=== PATIENT | male | born 1955 | race Caucasian/White ===

== ENCOUNTER → 2020-06-21 15:22 | Outpatient (BNVA) | payer MEDICARE, SELFPAY | PROVIDERS: PCP Nurse Practitioner Family; Visit Provider Nurse Practitioner Family | DX: Z95.2 Presence of prosthetic heart valve (principal); Z51.81 Encounter for therapeutic drug level monitoring; Z79.01 Long term (current) use of anticoagulants | CPT/HCPCS: 85610; 99211 ==

== ENCOUNTER → 2020-07-19 13:51 | Outpatient (BNVA) | payer MEDICARE, SELFPAY | PROVIDERS: PCP Nurse Practitioner Family; Referring Provider Nurse Practitioner Family; Visit Provider Internal Medicine | DX: Z95.2 Presence of prosthetic heart valve (principal); Z79.01 Long term (current) use of anticoagulants; Z51.81 Encounter for therapeutic drug level monitoring | CPT/HCPCS: 85610; 99211 ==

== ENCOUNTER → 2020-08-16 13:01 | Outpatient (BNVA) | payer MEDICARE, SELFPAY | PROVIDERS: PCP Nurse Practitioner Family; Referring Provider Nurse Practitioner Family; Visit Provider Internal Medicine | DX: Z95.2 Presence of prosthetic heart valve (principal); Z51.81 Encounter for therapeutic drug level monitoring; Z79.01 Long term (current) use of anticoagulants | CPT/HCPCS: 85610; 99211 ==

== ENCOUNTER → 2020-08-30 13:01 | Outpatient (BNVA) | payer MEDICARE, SELFPAY | PROVIDERS: PCP Nurse Practitioner Family; Visit Provider Internal Medicine | DX: Z95.2 Presence of prosthetic heart valve (principal); Z51.81 Encounter for therapeutic drug level monitoring; Z79.01 Long term (current) use of anticoagulants | CPT/HCPCS: 85610; 99211 ==

== ENCOUNTER 2020-09-10 11:18 | Outpatient (REF) | payer MEDICARE, SELFPAY | END 2020-09-10 11:19 | disposition home or self-care (01) | LOC: HO.LAB 11:18 | PROVIDERS: PCP Hospitalist; Visit Provider Internal Medicine | DX: Z20.828 Contact with and (suspected) exposure to other viral communicable diseases (principal) | CPT/HCPCS: C9803; U0003 ==

== ENCOUNTER → 2020-09-20 13:12 | Outpatient (BNVA) | payer MEDICARE, SELFPAY | PROVIDERS: PCP Hospitalist; Visit Provider Internal Medicine | DX: Z95.2 Presence of prosthetic heart valve (principal); Z79.01 Long term (current) use of anticoagulants; Z51.81 Encounter for therapeutic drug level monitoring | CPT/HCPCS: 85610; 99211 ==

== ENCOUNTER → 2020-10-18 12:57 | Outpatient (BNVA) | payer MEDICARE, SELFPAY | PROVIDERS: PCP Nurse Practitioner Family; Visit Provider Internal Medicine | DX: Z95.2 Presence of prosthetic heart valve (principal); Z51.81 Encounter for therapeutic drug level monitoring; Z79.01 Long term (current) use of anticoagulants | CPT/HCPCS: 85610; 99211 ==

== ENCOUNTER → 2020-11-15 13:03 | Outpatient (BNVA) | payer MEDICARE, SELFPAY | PROVIDERS: PCP Nurse Practitioner Family; Visit Provider Internal Medicine | DX: Z95.2 Presence of prosthetic heart valve (principal); Z51.81 Encounter for therapeutic drug level monitoring; Z79.01 Long term (current) use of anticoagulants | CPT/HCPCS: 85610; 99211 ==

== ENCOUNTER 2020-11-16 13:50 | Outpatient (REF) | payer MEDICARE, SELFPAY | END 2020-11-16 13:51 | disposition home or self-care (01) | LOC: HO.LNP 13:50 | PROVIDERS: Visit Provider Physician Assistant | DX: Z20.822 Contact with and (suspected) exposure to COVID-19 (principal); B34.9 Viral infection, unspecified | CPT/HCPCS: U0003; U0005 ==

== ENCOUNTER → 2020-11-20 14:29 | Outpatient (BNVA) | payer MEDICARE, SELFPAY | PROVIDERS: PCP Nurse Practitioner Family; Visit Provider Internal Medicine | DX: Z95.2 Presence of prosthetic heart valve (principal); Z51.81 Encounter for therapeutic drug level monitoring; Z79.01 Long term (current) use of anticoagulants | CPT/HCPCS: 85610; 99211 ==

== ENCOUNTER → 2020-11-27 10:28 | Outpatient (BNVA) | payer MEDICARE, SELFPAY | PROVIDERS: PCP Nurse Practitioner Family; Visit Provider Internal Medicine | DX: Z95.2 Presence of prosthetic heart valve (principal); Z51.81 Encounter for therapeutic drug level monitoring; Z79.01 Long term (current) use of anticoagulants | CPT/HCPCS: 85610; 99211 ==

== ENCOUNTER → 2021-01-08 13:22 | Outpatient (BNVA) | payer MEDICARE, SELFPAY | PROVIDERS: PCP Nurse Practitioner Family; Visit Provider Internal Medicine | DX: Z95.2 Presence of prosthetic heart valve (principal); Z51.81 Encounter for therapeutic drug level monitoring; Z79.01 Long term (current) use of anticoagulants | CPT/HCPCS: 85610; 99211 ==

== ENCOUNTER 2021-01-22 09:13 | Outpatient (REF) | payer MEDICARE, SELFPAY ==
--- NOTE | ~2021-01-22 | XR_ITS ---
EXAMINATION: XR CHEST CLINICAL INFORMATION: Shortness of breath COMPARISON: Previous chest x-ray most recent May 2019 TECHNIQUE: 2 views of the chest were obtained. FINDINGS: The cardiac and mediastinal contours are stable. There is an aortic valve ring and median sternotomy wires. There is elevation of the right hemidiaphragm that is unchanged. There is subsegmental atelectasis of the right lung base. The lungs are otherwise clear. There is no pleural effusion or pneumothorax. There are mild degenerative changes of the spine. XR/XR chest 2V IMPRESSION: No evidence for acute disease in the chest.
[2021-01-22 11:25] LABS: MANUAL DIFF FLAG NO
[2021-01-22 11:37] LABS: Basophils Percent Auto 0.5 % (0-2); Eosinophils Absolute Auto 0.2 X10*3/uL (0.0-0.4); Eosinophils Percent Auto 2.5 % (0-4); Hematocrit 46.8 % (42-52); Hemoglobin 15.4 g/dl (14.0-18.0); Imm Gran Abs Auto 0.01 X10*3/uL (0.00-0.03); Imm Gran Pct Auto 0.2 % (0.0-0.4); Lymphocytes Absolute Auto 1.8 X10*3/uL (1.2-4.9); Mean Corpuscular HGB Conc 32.9 g/dl (31.0-36.0); Mean Corpuscular Hemoglobin 29.1 pg (27.0-33.0); Mean Corpuscular Volume 88.5 fL (80-98); Mean Platelet Volume 9.7 fL (9.4-12.4); Monocytes Absolute Auto 0.9 X10*3/uL (0.1-1.2); Monocytes Percent Auto 15.1 % (2-11); Neutrophils Absolute Auto 3.1 X10*3/uL (2.0-8.3); Neutrophils Percent Auto 51.7 % (45-73); Platelet Count 205 X10*3/uL (160-400); Red Blood Count 5.29 X10*6/uL (4.60-5.80); Red Cell Distribution Width 14.1 % (11.0-16.0); White Blood Count 5.9 X10*3/uL (4.8-10.8)
[2021-01-22 12:15] LABS: Anion Gap 12 (12-20); Blood Urea Nitrogen 20 mg/dL (9-16); Calcium 10.8 mg/dL (8.4-10.2); Carbon Dioxide 25 mmol/L (22-29); Chloride 106 mmol/L (96-108); Cholesterol 133 mg/dL; Estimated Glomerular Filt Rate > 60; Glucose Fasting 77 mg/dL (60-99); HDL Cholesterol 44 mg/dL; Iron 120 mcg/dL (45-160); LDL Cholesterol Calculated 56 mg/dl; Percent Iron Saturation 38 % (15-50); Potassium 4.4 mmol/L (3.3-5.1); Sodium 139 mmol/L (135-145); Total Iron Binding Capacity 320 mcg/dL (228-428); Triglycerides 165 mg/dL; Unsaturated Iron Binding 200 ug/dL
[2021-01-22 12:23] LABS: Ferritin 141 ng/mL (20-250); Prostate Specific Antigen Scr 1.05 ng/mL (<0.05-4.0); TSH reflex Free T4 3.07 uIU/mL (0.32-4.0)
[2021-01-22 12:48] LABS: Folate 6.9 ng/mL (> or = 4.0); Vitamin B12 387 pg/mL (200-900)
[2021-01-23 15:21] LABS: Calcium, Ionized 5.9 mg/dL (4.8-5.6)
[2021-01-24 14:22] LABS: Calcium (PTHI) 10.9 mg/dL (8.6-10.3); PTHI 92 pg/mL (14-64)
== END 2021-01-22 09:14 | disposition home or self-care (01) ==
LOC: HO.HMGCLDS 09:13
PROVIDERS: PCP Nurse Practitioner Family; Visit Provider Nurse Practitioner Family
DX: R53.83 Other fatigue (principal); I10 Essential (primary) hypertension; E78.5 Hyperlipidemia, unspecified; R06.02 Shortness of breath; E83.52 Hypercalcemia; Z12.5 Encounter for screening for malignant neoplasm of prostate
CPT/HCPCS: 36415; 71046; 80048; 80061; 82330; 82607; 82728; 82746; 83540; 83970; 84153; 84443; 85025

== ENCOUNTER 2021-01-27 12:45 | Outpatient (REF) | payer MEDICARE, SELFPAY ==
[2021-01-27 14:32] LABS: Vitamin D 25-OH Total 22.8 ng/mL (>30)
== END 2021-01-27 12:46 | disposition home or self-care (01) ==
LOC: HO.HMGCLDS 12:45
PROVIDERS: PCP Nurse Practitioner Family; Visit Provider Nurse Practitioner Family
DX: Z13.21 Encounter for screening for nutritional disorder (principal)
CPT/HCPCS: 36415; 82306

== ENCOUNTER → 2021-02-12 13:01 | Outpatient (BNVA) | payer MEDICARE, SELFPAY | PROVIDERS: PCP Nurse Practitioner Family; Visit Provider Internal Medicine | DX: Z95.2 Presence of prosthetic heart valve (principal); Z51.81 Encounter for therapeutic drug level monitoring; Z79.01 Long term (current) use of anticoagulants | CPT/HCPCS: 85610; 99211 ==

== ENCOUNTER → 2021-03-26 10:25 | Outpatient (BNVA) | payer MEDICARE, SELFPAY | PROVIDERS: PCP Nurse Practitioner Family; Visit Provider Internal Medicine | DX: Z95.2 Presence of prosthetic heart valve (principal); Z51.81 Encounter for therapeutic drug level monitoring; Z79.01 Long term (current) use of anticoagulants | CPT/HCPCS: 85610; 99211 ==

== ENCOUNTER 2021-04-02 08:21 | Outpatient (REF) | payer MEDICARE, SELFPAY ==
[2021-04-02 12:05] LABS: Free T4 (Free Thyroxine) 0.89 ng/dL (0.71-1.85); Thyroid Stimulating Hormone 2.64 uIU/mL (0.32-4.0); Vitamin D 25-OH Total 44.1 ng/mL (>30)
[2021-04-02 12:08] LABS: Alanine Aminotransferase 48 U/L (0-40); Albumin Level 4.3 g/dL (3.5-5.0); Alkaline Phosphatase 64 U/L (39-117); Anion Gap 11 (12-20); Aspartate Amino Transferase 32 U/L (5-37); Bilirubin Total 0.8 mg/dL (0.0-1.0); Blood Urea Nitrogen 18 mg/dL (9-16); Carbon Dioxide 25 mmol/L (22-29); Chloride 107 mmol/L (96-108); Estimated Glomerular Filt Rate > 60; Glucose Random 86 mg/dL (60-115); Potassium 4.8 mmol/L (3.3-5.1); Sodium 138 mmol/L (135-145); Total Protein 7.2 g/dL (6.5-8.0)
[2021-04-02 12:35] LABS: Calcium 11.1 mg/dL (8.4-10.2)
[2021-04-03 10:57] LABS: Calcium, Ionized 5.8 mg/dL (4.8-5.6)
[2021-04-03 19:45] LABS: Calcium (PTHI) 11.1 mg/dL (8.6-10.3); PTHI 122 pg/mL (14-64)
[2021-04-03 22:26] LABS: Prot Elec - Albumin 4.4 g/dL (3.8-4.8); Prot Elec - Alpha1 0.3 g/dL (0.2-0.3); Prot Elec - Alpha2 0.6 g/dL (0.5-0.9); Prot Elec - Beta 1 0.4 g/dL (0.4-0.6); Prot Elec - Beta 2 0.4 g/dL (0.2-0.5)
== END 2021-04-02 08:22 | disposition home or self-care (01) ==
LOC: HO.LAB 08:21
PROVIDERS: PCP Nurse Practitioner Family; Visit Provider Internal Medicine
DX: E21.3 Hyperparathyroidism, unspecified (principal); E55.9 Vitamin D deficiency, unspecified
CPT/HCPCS: 36415; 80053; 82306; 82330; 83970; 84100; 84165; 84439; 84443; 99202

== ENCOUNTER 2021-04-08 08:46 | Outpatient (REF) | payer MEDICARE, SELFPAY ==
[2021-04-08 09:46] LABS: Total Volume 24 Hour Urine 1375 mL
[2021-04-08 10:49] LABS: Creatinine, 24Hr Urine 1.8 G/Day (1.0-2.0); Creatinine, mg/dL 128.94
[2021-04-11 20:17] LABS: Calcium, 24 Hr Urine 583 mg/24 h; Calcium/Creatinine Ratio 319 mg/g creat (30-210); Creatinine 24Hr Urine 1.83 g/24 h (0.50-2.15)
== END 2021-04-08 08:47 | disposition home or self-care (01) ==
LOC: HO.LNP 08:46
PROVIDERS: Visit Provider Internal Medicine
DX: E21.3 Hyperparathyroidism, unspecified (principal)
CPT/HCPCS: 82340; 82570

== ENCOUNTER 2021-04-09 10:56 | Outpatient (REF) | payer MEDICARE, SELFPAY ==
--- NOTE | ~2021-04-09 | US_ITS ---
EXAMINATION: US THYROID CLINICAL INFORMATION: Hyperparathyroidism, unspecified. COMPARISON: Ultrasound soft tissue head/neck thyroid dated 09/18/2009. TECHNIQUE: Linear transducer grayscale and color Doppler examination with attention to the region of the thyroid. FINDINGS: SIZE: Measurements of the thyroid lobes and nodules are given in sagittal, anteroposterior and transverse dimensions respectively. Right Thyroid Lobe: 4.1 x 1.7 x 2.3 cm, volume 8.3 mL. Parenchyma: The gland echotexture is homogeneous. Thyroid vascularity is normal. Left Thyroid Lobe: 2.7 x 0.6 x 0.7 cm, volume 0.6 mL. Parenchyma: The gland echotexture is homogeneous. Thyroid vascularity is normal. Isthmus: 0.5 cm in maximum AP dimension. Estimated total number of nodules greater than or equal to 1 cm: 0. Refined Syrup Operator nodules are described as follows: 1. Location: Right mid. Size: 0.59 x 0.62 x 0.57 cm, volume 0.11 mL. Nodule characteristics: Composition: Solid/almost completely solid (2). Echogenicity: Hypoechoic (2). Shape: Not taller than wide (0). Margins: Smooth (0). Echogenic Foci: None (0). ACR TI-RADS total points: 4 ACR TI-RADS category: 4 NODES: No lymphadenopathy is seen in the tissue surrounding the thyroid gland. US/US thyroid IMPRESSION: Slightly enlarged right thyroid lobe. Solitary subcentimeter nodule right mid pole, non-suspicious. ACR TI-RADS RECOMMENDATION REFERENCE: Ultrasound-guided fine-needle aspiration, follow up ultrasound, no further follow up. * TR1 (0 point) and TR 2 (2 points): No FNA or follow up * TR3 (3 points): FNA if more than or equal to 2.5 cm in maximum dimension, follow up ultrasound in 1, 3 and 5 years if 1.5 to 2.4 cm in maximum dimension. * TR4 (4-6 points): FNA if more than or equal to 1.5 cm in maximum dimension, follow up ultrasound in 1, 2, 3 and 5 years if 1 to 1.4 cm in maximum dimension. * TR5 (more than or equal to 7 points): FNA if more than or equal to 1 cm in maximum dimension, follow up ultrasound every year for 5 years if 0.5 to 0.9 cm in maximum dimension. * TR3, TR4 or TR5 nodules that are below the size threshold for follow up receive no follow up.
== END 2021-04-09 10:57 | disposition home or self-care (01) ==
LOC: HO.US 10:56
PROVIDERS: PCP Nurse Practitioner Family; Visit Provider Internal Medicine
DX: E21.3 Hyperparathyroidism, unspecified (principal)
CPT/HCPCS: 76536

== ENCOUNTER → 2021-05-07 13:03 | Outpatient (BNVA) | payer MEDICARE, SELFPAY | PROVIDERS: PCP Nurse Practitioner Family; Visit Provider Internal Medicine | DX: Z95.2 Presence of prosthetic heart valve (principal); Z51.81 Encounter for therapeutic drug level monitoring; Z79.01 Long term (current) use of anticoagulants | CPT/HCPCS: 85610; 99211 ==

== ENCOUNTER 2021-05-09 08:27 | Outpatient (REF) | payer MEDICARE, SELFPAY ==
--- NOTE | ~2021-05-09 | MM_ITS ---
EXAMINATION: BONE DENSITOMETRY CLINICAL INDICATION: Hyperparathyroidism, unspecified. COMPARISON: This is the patient's baseline examination. TECHNIQUE: Using a [employer] DXA System (software version: 13.1) manufactured by [employer], dual-energy x-ray absorptiometry was performed of the lumbar spine, left hip and left forearm radius 33%. The images are of good technical quality. Summary results are attached. FINDINGS: AP SPINE L1-L4: BMD 1.425 g/cm2, Z-score 1.5, T-score 1.7, normal. LEFT FEMUR, NECK: BMD 0.868 g/cm2, Z-score -0.9, T-score -1.6, osteopenia. LEFT FEMUR, TOTAL: BMD 1.008 g/cm2, Z-score -0.5, T-score -0.6, normal. LEFT FOREARM RADIUS 33%: BMD 0.918 g/cm2, Z-score 0.0, T-score -0.7, normal. IDENTIFIED RISK FACTORS: Hyperparathyroidism. Height loss. HISTORY OF FRACTURE: None listed. MEDICATIONS: Vitamin D. MM/XR DEXA appendicular skeleton IMPRESSION: 1. DIAGNOSIS: Osteopenia based on the lowest T-score value of -1.6 in the femoral neck applying World Health Organization criteria. 2. 10-YEAR FRACTURE RISK PREDICTION, FRAX: Major osteoporotic fracture (clinical spine, forearm, hip or shoulder) 6.1%. Hip fracture 1.1%. 3. Treatment Recommendations: NOF guidelines recommend consideration for treatment in postmenopausal women and men age 50 and older presenting with the following: -A hip or vertebral (clinical or morphometric) fracture. -T-score less than or equal to -2.5 at the femoral neck or spine after appropriate evaluation to exclude secondary causes. -Low bone mass at the hip or spine and a 10-year fracture probability by FRAX of greater than or equal to 3% for hip fracture or greater than or equal to 20% for major osteoporotic fracture based on the [place] adapted WHO algorithm. 4. Other Recommendations: All treatment decisions require clinical judgment and consideration of individual patient factors, including patient preferences, comorbidities, previous drug use, risk factors not captured in the FRAX model (e.g. frailty, falls, vitamin D deficiency, increased bone turnover, interval significant decline in bone density) and possible under or overestimation of fracture risk by FRAX. Additional medical evaluation for secondary cause of low bone mineral density may be appropriate. FUTURE SCAN RECOMMENDATION: People with diagnosed cases of osteoporosis or at high risk for fracture should have regular bone mineral density tests. For patients eligible for Medicare, routine testing is allowed once every 2 years. The testing frequency can be increased to one year for patients who have rapidly progressing disease, those who are receiving or discontinuing medical therapy to restore bone mass, or have additional risk factors.
== END 2021-05-09 08:28 | disposition home or self-care (01) ==
LOC: HO.MAMMO 08:27
PROVIDERS: PCP Nurse Practitioner Family; Visit Provider Internal Medicine
DX: Z13.820 Encounter for screening for osteoporosis (principal); E21.3 Hyperparathyroidism, unspecified; Z79.899 Other long term (current) drug therapy
CPT/HCPCS: 77081

== ENCOUNTER 2021-05-09 11:19 | Outpatient (REF) | payer MEDICARE, SELFPAY ==
--- NOTE | ~2021-05-09 | US_ITS ---
EXAMINATION: US SCROTUM CLINICAL INFORMATION: Specified disorders of the male genital organs. COMPARISON: Ultrasound scrotum 02/23/2018. TECHNIQUE: A sonogram of the scrotum was performed assessing de leon-scale appearance and color Doppler flow. Spectral Doppler analysis of the arterial and venous flow were performed in the testes bilaterally. FINDINGS: RIGHT: Right testicle measures 5.2 x 2.9 x 3.2 cm, volume 25.4 mL. A single punctate calcification is present in the right testes (ultrasound #1, 62/63). No focal testicular parenchymal lesions are visualized. Spectral Doppler analysis of the arterial and venous flow is normal in the right testis. Right epididymal head is normal in size. A large complex septated spermatocele is seen on the right measuring about 7 x 3.6 cm in greatest dimension, (previously 5.4 cm in greatest dimension). No right hydrocele or varicocele is seen. Right epididymal Doppler flow is normal. LEFT: Left testicle measures 4.9 x 2.2 x 3.8 cm, volume 20.7 mL. Spectral Doppler analysis of the arterial and venous flow is normal in the left testis. Left epididymal head is normal in size. No left hydrocele or varicocele is seen. Left epididymal Doppler flow is normal. US/US scrotum IMPRESSION: Slight enlargement of right-sided spermatocele now measuring about 7 cm in maximal dimension.
== END 2021-05-09 11:20 | disposition home or self-care (01) ==
LOC: HO.HMGCX 11:19
PROVIDERS: PCP Nurse Practitioner Family; Visit Provider Nurse Practitioner Family
DX: N50.89 Other specified disorders of the male genital organs (principal)
CPT/HCPCS: 76870

== ENCOUNTER → 2021-06-04 12:59 | Outpatient (BNVA) | payer MEDICARE, SELFPAY | PROVIDERS: PCP Nurse Practitioner Family; Visit Provider Internal Medicine | DX: Z95.2 Presence of prosthetic heart valve (principal); Z51.81 Encounter for therapeutic drug level monitoring; Z79.01 Long term (current) use of anticoagulants | CPT/HCPCS: 85610; 99211 ==

== ENCOUNTER → 2021-06-27 13:39 | Outpatient (BNVA) | payer MEDICARE, SELFPAY | PROVIDERS: PCP Nurse Practitioner Family; Visit Provider Internal Medicine | DX: Z95.2 Presence of prosthetic heart valve (principal); Z51.81 Encounter for therapeutic drug level monitoring; Z79.01 Long term (current) use of anticoagulants | CPT/HCPCS: 85610; 99211 ==

== ENCOUNTER → 2021-07-09 11:07 | Outpatient (BNVA) | payer MEDICARE, SELFPAY | PROVIDERS: PCP Nurse Practitioner Family; Visit Provider Internal Medicine | DX: E55.9 Vitamin D deficiency, unspecified (principal); E21.0 Primary hyperparathyroidism | CPT/HCPCS: Q3014 ==

== ENCOUNTER → 2021-07-23 13:06 | Outpatient (BNVA) | payer MEDICARE, SELFPAY | PROVIDERS: PCP Nurse Practitioner Family; Visit Provider Internal Medicine | DX: Z95.2 Presence of prosthetic heart valve (principal); Z51.81 Encounter for therapeutic drug level monitoring; Z79.01 Long term (current) use of anticoagulants | CPT/HCPCS: 85610; 99211 ==

== ENCOUNTER → 2021-08-20 13:02 | Outpatient (BNVA) | payer MEDICARE, SELFPAY | PROVIDERS: PCP Nurse Practitioner Family; Visit Provider Internal Medicine | DX: Z95.2 Presence of prosthetic heart valve (principal); Z51.81 Encounter for therapeutic drug level monitoring; Z79.01 Long term (current) use of anticoagulants | CPT/HCPCS: 85610; 99211 ==

== ENCOUNTER → 2021-09-17 12:56 | Outpatient (BNVA) | payer MEDICARE, SELFPAY | PROVIDERS: PCP Nurse Practitioner Family; Visit Provider Internal Medicine | DX: Z95.2 Presence of prosthetic heart valve (principal); Z51.81 Encounter for therapeutic drug level monitoring; Z79.01 Long term (current) use of anticoagulants | CPT/HCPCS: 85610; 99211 ==

== ENCOUNTER → 2021-09-19 12:47 | Outpatient (BNVA) | payer MEDICARE, SELFPAY | PROVIDERS: PCP Nurse Practitioner Family; Visit Provider Urology | DX: N40.1 Benign prostatic hyperplasia with lower urinary tract symptoms (principal); N13.8 Other obstructive and reflux uropathy; N43.40 Spermatocele of epididymis, unspecified; R39.11 Hesitancy of micturition | CPT/HCPCS: 99202 ==

== ENCOUNTER 2021-10-01 12:00 | Day surgery (SDC) | payer MEDICARE, SELFPAY ==
[2021-09-24 16:26] VITALS: BMI 34.0
--- NOTE | 2021-09-30 09:15 | P.CONAN_ITS ---
Documented by User: Laurence Cortes NP 09/30/21 13:36 HPI - Anesthesia Eval Consult details Narrative: 66yo M for Colonoscopy Cardiac info from [facility] pending [facility] Active Problems Active Problems: All Active Problems (Updated 09/19/21 @ 13:21 by Ken Hawk MD) Current use of anticoagulant therapy (Acute) Presence of prosthetic heart valve (Acute) Screening PSA (prostate specific antigen) (Acute) Otitis media (Acute) Otitis externa (Acute) Fatigue (Acute) Hypercalcemia (Acute) Encounter for vitamin deficiency screening (Acute) Elevated parathyroid hormone (Acute) 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 (Acute) 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 (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) BPH w urinary obs/LUTS (Acute) Urinary hesitancy (Acute) Spermatocele (Acute) Primary hyperparathyroidism (Acute) Vitamin D deficiency (Acute) Hyperparathyroidism (Acute) Dyslipidemia (Acute) HTN (hypertension) (Acute) Past Medical History Medical History Cervical spondylolysis Dyslipidemia Gynecomastia HTN (hypertension) Hyperparathyroidism Malignant melanoma Osteoarthritis Primary hyperparathyroidism Rotator cuff tear Vitamin D deficiency Family History Family History Father History of CVA (cerebrovascular accident) Diabetes mellitus Mother Stomach ulcer Daughter Brain tumor Maternal Grandfather No problems noted. Maternal Grandmother No problems noted. Paternal Grandfather No problems noted. Paternal Grandmother No problems noted. Maternal Aunt No problems noted. Maternal Uncle No problems noted. Paternal Aunt No problems noted. Paternal Uncle No problems noted. Surgical History Surgical History Aortic valve replaced History of lobectomy of thyroid History of right knee joint replacement Hx of cardiac cath Hx of colonoscopy Hx of repair of rotator cuff Social History Social History (Updated 09/24/21 @ 16:23 by Sruthi Palmer RN) Alcohol intake: current Alcohol intake frequency: a few times a week Patient Tobacco Use Status: Former Tobacco user Quit Date: 1984 Tobacco use type: Cigarette Cigarette Packs Per Day: 1 Years Smoked: 12 e-Cigarette/Vaping Use: Never Used Use of substances other than those prescribed or required for medical reasons: No Are you DNR?: No Advance Directives: No Advance Directives Information Provided: Yes Advance Directives on File: No Meds Allergies Allergy/AdvReac Type Severity Reaction Status Date / Time No Known Allergies Allergy Mild NOT Verified 09/19/21 13:01 APPLICABLE Home Medications Medication Instructions Recorded Confirmed Last Taken Type aspirin 81 mg 81 mg PO DAILY 01/22/21 09/24/21 Unknown History tablet,delayed release (Adult Low Dose Aspirin) acetaminophen 500 500 mg PO Q6H 02/12/21 09/24/21 Unknown History mg capsule PRN Exam Exam Date and Time: September 30, 2021 0915 Height,Weight and Vital Signs: Height 5 ft 9 in Weight 104.326 kg Pertinent Lab Results Pertinent Lab Results: Laboratory Tests 01/22/21 04/02/21 09:25 10:00 WBC 5.9 Hgb 15.4 Hct 46.8 Plt Count 205 Sodium 138 Potassium 4.8 Chloride 107 Carbon Dioxide 25 BUN 18 H Creatinine 0.83 Narrative Narrative: EKG 01/2021 SB @ 52 1st degree AV block RBBB Per 06/2020 Cardiology Office Visit: Stress Test 2017: no evidence of ischemia Echo 02/2019: EF 60%, mild conc LVH, bioprosthetic aortic valve functioning normally, trace aortic insufficiency, mean aortic valve gradient was 13mmHg Assessment and Plan Assessment Anesthesia Assessment: Chart Reviewed Documented by User: Gael Barboza 10/01/21 12:18 HPI - Anesthesia Eval Consult details Narrative: 66yo M for Colonoscopy Cardiac info from [facility] pending s/p AVR in 2006 on coumadn , bridged to lovenox . [facility] Past Medical History Medical History Cervical spondylolysis Dyslipidemia Gynecomastia HTN (hypertension) Hyperparathyroidism Malignant melanoma Osteoarthritis Primary hyperparathyroidism Rotator cuff tear Vitamin D deficiency Family History Family History Father History of CVA (cerebrovascular accident) Diabetes mellitus Mother Stomach ulcer Daughter Brain tumor Maternal Grandfather No problems noted. Maternal Grandmother No problems noted. Paternal Grandfather No problems noted. Paternal Grandmother No problems noted. Maternal Aunt No problems noted. Maternal Uncle No problems noted. Paternal Aunt No problems noted. Paternal Uncle No problems noted. Family history of problems with anesthesia: No Surgical History Surgical History Aortic valve replaced History of lobectomy of thyroid History of right knee joint replacement Hx of cardiac cath Hx of colonoscopy Hx of repair of rotator cuff History of Problems with Anesthesia: No Social History Social History (Updated 09/24/21 @ 16:23 by Sruthi Palmer RN) Alcohol intake: current Alcohol intake frequency: a few times a week Patient Tobacco Use Status: Former Tobacco user Quit Date: 1984 Tobacco use type: Cigarette Cigarette Packs Per Day: 1 Years Smoked: 12 e-Cigarette/Vaping Use: Never Used Use of substances other than those prescribed or required for medical reasons: No Are you DNR?: No Advance Directives: No Advance Directives Information Provided: Yes Advance Directives on File: No Meds Allergies Allergy/AdvReac Type Severity Reaction Status Date / Time No Known Allergies Allergy Mild NOT Verified 09/19/21 13:01 APPLICABLE Home Medications Medication Instructions Recorded Confirmed Last Taken Type aspirin 81 mg 81 mg PO DAILY 01/22/21 09/24/21 Unknown History tablet,delayed release (Adult Low Dose Aspirin) acetaminophen 500 500 mg PO Q6H 02/12/21 09/24/21 Unknown History mg capsule PRN Exam Airway Mallampati Class: IV Neck ROM: Full Loose/Missing/Broken Teeth: Yes (Chipped , missing ) Assessment and Plan Final Anesthetic Review Family History of Problems with Anesthesia: No History of Problems with Anesthesia: No NPO: Yes ASA Class: III Final Preanesthetic Review: Meds/Allgs Chart Reviewed and Anes Risks/Benef Reviewed Patient Risk: Intermediate Procedure Risk: Intermediate Anesthetic Plan Anesthetic Plan: MAC: Disposition: Standard PACU Documented by User: Rick Bautista MD 10/01/21 13:24 [facility] Past Medical History Medical History Cervical spondylolysis Dyslipidemia Gynecomastia HTN (hypertension) Hyperparathyroidism Malignant melanoma Osteoarthritis Primary hyperparathyroidism Rotator cuff tear Vitamin D deficiency Family History Family History Father History of CVA (cerebrovascular accident) Diabetes mellitus Mother Stomach ulcer Daughter Brain tumor Maternal Grandfather No problems noted. Maternal Grandmother No problems noted. Paternal Grandfather No problems noted. Paternal Grandmother No problems noted. Maternal Aunt No problems noted. Maternal Uncle No problems noted. Paternal Aunt No problems noted. Paternal Uncle No problems noted. Surgical History Surgical History Aortic valve replaced History of lobectomy of thyroid History of right knee joint replacement Hx of cardiac cath Hx of colonoscopy Hx of repair of rotator cuff Social History Social History (Updated 09/24/21 @ 16:23 by Sruthi Palmer RN) Alcohol intake: current Alcohol intake frequency: a few times a week Patient Tobacco Use Status: Former Tobacco user Quit Date: 1984 Tobacco use type: Cigarette Cigarette Packs Per Day: 1 Years Smoked: 12 e-Cigarette/Vaping Use: Never Used Use of substances other than those prescribed or required for medical reasons: No Are you DNR?: No Advance Directives: No Advance Directives Information Provided: Yes Advance Directives on File: No Meds Allergies Allergy/AdvReac Type Severity Reaction Status Date / Time No Known Allergies Allergy Mild NOT Verified 09/19/21 13:01 APPLICABLE Home Medications Medication Instructions Recorded Confirmed Last Taken Type aspirin 81 mg 81 mg PO DAILY 01/22/21 09/24/21 Unknown History tablet,delayed release (Adult Low Dose Aspirin) acetaminophen 500 500 mg PO Q6H 02/12/21 09/24/21 Unknown History mg capsule PRN Exam Airway Heart: [id number] Lungs: cta b/l Assessment and Plan Assessment Anesthesia Assessment: Anesthesia Plan Discussed Final Anesthetic Review Assessment/Block/Sedation in SS: Assess/Block/Sedation- Anesthetic Plan Anesthetic Plan: Agree w/ Assess. and Plan
[2021-10-01 12:45] LABS: INTERNATIONAL NORM RATIO 1.2 (0.9-1.1); Prothrombin Time 13.4 SEC (9.9-13.0)
[2021-10-01 12:48] VITALS: BP 170/77; PULSE 58; RESP 16; TEMP 36.9; O2SAT 96
[2021-10-01] MEDS: Lactated Ringers 1,000 ML 50 ML IVCONT (12:53)
--- NOTE | 2021-10-01 13:03 | PC.NURSE ---
Dr Bautista aware of PT/INR
--- NOTE | 2021-10-01 13:13 | MHC.SHP ---
Pre-Procedural Eval Section A Date of Service: 10/01/21 Section B Chief Complaint: screening Details of Present Illness: screening Relevant Family History (Specify if Yes): No Relevant Social History: None Present Medications: see Short Stay Collaborative assessment Medical History: Significant History (see H&P) History of Previous Operations: Relevant previous surgery/procedure and date(s) (see H&P) Allergies: Allergies Allergy/AdvReac Type Severity Reaction Status Date / Time No Known Allergies Allergy Mild NOT Verified 09/19/21 13:01 APPLICABLE Review of Systems Sugical H&P ROS: Negative: Constitution, Cardiovascular, Respiratory, Neurological, Psychiatric, Hem-Onc, Allergic/Immunologic, Gastrointestinal, Genitourinary, Musculoskeletal, Integumentary, Endocrine and Eyes/Ears/Nose/Throat Exam Surgical H&P Exam: Normal: HEENT, Normal: Heart, Normal: Lungs, Normal: Extremities, Normal: Abdomen, Normal: Skin and Normal: Neurological Plan Diagnosis/Plan: Unchanged I have reviewed the history and physical and performed a pertinent physical examination on my patient. No changes have occurred unless specified.
[2021-10-01 13:59] VITALS: BP 144/74; PULSE 56; RESP 16; TEMP 36.4; O2SAT 100
--- NOTE | 2021-10-01 14:00 | PM.OP ---
Brief Operative Note Date of Service: 10/01/21 Pre-op diagnosis: screening Post-op diagnosis: same (colon polyps) Surgeon: Dalton Alanis Anesthesia: MAC Was an Operations And Maintenance Technician used for this Procedure?: No Estimated blood loss (mL): 5 Pathology: other (see path req) Condition: stable Disposition: PACU
[2021-10-01 14:16] VITALS: BP 151/72; PULSE 55; RESP 18; TEMP 36.4; O2SAT 96
--- NOTE | 2021-10-01 23:56 | OP_ITS ---
SURGEON: Dalton Alanis MD INDICATIONS: Colon cancer screening and prior history of adenomatous colon polyps. PROCEDURE PERFORMED: Colonoscopy to the terminal ileum with biopsy and snare polypectomy. MEDICATIONS: Monitored anesthesia care. DESCRIPTION OF PROCEDURE: History and physical performed. The risks and benefits of the procedure were explained to the patient. Informed consent was obtained. The patient was placed in the left lateral decubitus position. A digital rectal exam was performed and was found to be normal. The Olympus pediatric video colonoscope was introduced into the rectum and advanced to the cecum without difficulty. The cecum was identified by transillumination, palpation, and identification of ileocecal valve. Examination was performed. The scope was removed. He tolerated the procedure well and was transferred to recovery area in stable condition. FINDINGS: The terminal ileum was normal. The visualized colonic mucosa was within normal limits without evidence of masses or ulcers. Multiple polyps were identified. At 70 cm a less than 5 mm polyp was removed with biopsy forceps. At 60 cm. two less than 5 mm polyps were snared and removed with a cold snare. At 35 cm, a 6 mm polyp was snared with cold snare and at 25 cm, a 10 mm polyp was snared with a hot snare and recovered via suction. There was sigmoid diverticulosis with scattered diverticula throughout the remainder of the colon. Retroflexed examination showed moderately large internal hemorrhoids. The quality of the prep was good with some small areas of stool coating the mucosa without evidence of a large amount of retained stool. IMPRESSION: Colon polyps. RECOMMENDATION: 1. Follow up the biopsy results. 2. Warfarin may be restarted today. 3. Check with [facility] regarding need for bridging with Lovenox, postprocedure. MD DAIN Abbott/IRMA / [id number] MTDKristin
== END 2021-10-01 14:30 | disposition home or self-care (01) ==
PROVIDERS: Nurse Practitioner; PCP Nurse Practitioner Family; Visit Provider Internal Medicine Gastroenterology
PROC: 0DJD8ZZ Inspection of Lower Intestinal Tract, Via Natural or Artificial Opening Endoscopic (ICD-10-PCS; CPT 45378; principal; 2021-10-01 13:00)
DX: Z12.11 Encounter for screening for malignant neoplasm of colon (principal); Z86.010 Personal history of colon polyps; D12.4 Benign neoplasm of descending colon; D12.5 Benign neoplasm of sigmoid colon; I10 Essential (primary) hypertension; E78.00 Pure hypercholesterolemia, unspecified; E21.3 Hyperparathyroidism, unspecified; Z95.2 Presence of prosthetic heart valve; Z79.82 Long term (current) use of aspirin; Z79.899 Other long term (current) drug therapy; Z79.01 Long term (current) use of anticoagulants; Z85.820 Personal history of malignant melanoma of skin; Z87.891 Personal history of nicotine dependence; Z96.651 Presence of right artificial knee joint; Z90.89 Acquired absence of other organs
CPT/HCPCS: 45385; 45380; 36415; 85610; 88305; Q3014

== ENCOUNTER → 2021-10-03 13:04 | Outpatient (BNVA) | payer MEDICARE, SELFPAY | PROVIDERS: PCP Nurse Practitioner Family; Visit Provider Internal Medicine | DX: Z95.2 Presence of prosthetic heart valve (principal); Z51.81 Encounter for therapeutic drug level monitoring; Z79.01 Long term (current) use of anticoagulants | CPT/HCPCS: 85610; 99211 ==

== ENCOUNTER 2021-10-04 12:55 | Emergency (ER) | payer MEDICARE, SELFPAY ==
[2021-10-04 14:24] VITALS: BP 193/88; PULSE 51; RESP 19; TEMP 36.6; O2SAT 98; BMI 34.9
== END 2021-10-04 19:54 | disposition left against medical advice (07) ==
PROVIDERS: Emergency Provider Emergency Medicine; PCP Nurse Practitioner Family
DX: K62.5 Hemorrhage of anus and rectum (principal); Z95.2 Presence of prosthetic heart valve; Z79.01 Long term (current) use of anticoagulants
CPT/HCPCS: 99282

== ENCOUNTER 2021-10-05 11:11 | Emergency (ER) | payer MEDICARE, SELFPAY ==
[2021-10-05 11:33] VITALS: BP 169/69; PULSE 66; TEMP 36.6; O2SAT 100; BMI 34.9
[2021-10-05 12:03] LABS: MANUAL DIFF FLAG NO
[2021-10-05 12:04] LABS: Basophils Percent Auto 0.5 % (0-2); Eosinophils Absolute Auto 0.1 X10*3/uL (0.0-0.4); Eosinophils Percent Auto 3.2 % (0-4); Hematocrit 43.1 % (42.0-52.0); Hemoglobin 14.6 g/dl (14.0-18.0); Imm Gran Abs Auto 0.01 X10*3/uL (0.00-0.03); Imm Gran Pct Auto 0.2 % (0.0-0.4); Lymphocytes Absolute Auto 1.5 X10*3/uL (1.2-4.9); Lymphocytes Percent Auto 35.3 % (20-40); Mean Corpuscular HGB Conc 33.9 g/dl (31.0-36.0); Mean Corpuscular Hemoglobin 30.5 pg (27.0-33.0); Mean Platelet Volume 9.7 fL (9.4-12.4); Monocytes Absolute Auto 0.5 X10*3/uL (0.1-1.2); Monocytes Percent Auto 11.1 % (2-11); Neutrophils Absolute Auto 2.2 x10*3/uL (2.0-8.3); Neutrophils Percent Auto 49.7 % (45-73); Platelet Count 183 X10*3/uL (160-400); Red Blood Count 4.79 X10*6/uL (4.60-5.80); Red Cell Distribution Width 13.1 % (11.0-16.0); White Blood Count 4.3 X10*3/uL (4.8-10.8)
[2021-10-05 13:07] LABS: Anion Gap 12 (12-20); Blood Urea Nitrogen 14 mg/dL (9-16); Calcium 11.1 mg/dL (8.4-10.2); Carbon Dioxide 28 mmol/L (22-29); Chloride 103 mmol/L (96-108); Creatinine Clr Calc Pharmacy 95.1; Estimated Glomerular Filt Rate > 60; Glucose Random 108 mg/dL (60-115); Potassium 4.6 mmol/L (3.3-5.1); Sodium 138 mmol/L (135-145)
--- NOTE | 2021-10-05 13:31 | ED.GENADULT ---
HPI - General Adult General Chief complaint: General Medical Stated complaint: Blood in stool Time Seen by Provider: 10/05/21 13:29 Source: patient Limitations: no limitations History of Present Illness HPI narrative: This is a 66-year-old male with a history of valve replacement surgery, on Coumadin, who had a colonoscopy done 4 days ago, with polypectomy. Patient few days later noted some blood clots per rectum. He denies that the water of the toilet turns red and denies any dewayne passage of bright red blood. He is on Coumadin and Lovenox currently, bridging with Lovenox until Coumadin is therapeutic. He denies any dizziness, chest pain, shortness of breath, abdominal pain. He was advised by the deputy insurance commissioner on-call yesterday to come get checked and waited 7 hours yesterday and that of leaving. He came back today for re-evaluation. He notes today he does past 1 single dark blood clot Related Data Home Medications Medication Instructions Recorded Confirmed aspirin 81 mg tablet,delayed 81 mg PO DAILY 01/22/21 10/03/21 release (Adult Low Dose Aspirin) acetaminophen 500 mg capsule 500 mg PO Q6H PRN 02/12/21 10/03/21 Previous Rx's Medication Instructions Recorded simvastatin 10 mg tablet 10 mg PO BEDTIME #90 tab 08/27/20 metoprolol succinate 25 mg 25 mg PO DAILY #90 tab 04/03/21 tablet,extended release 24 hr warfarin 3 mg tablet 3 mg PO DAILY #90 tab 07/01/21 cholecalciferol (vitamin D3) 50 50 mcg PO DAILY 90 Days #90 cap 07/22/21 mcg (2,000 unit) capsule amoxicillin 875 mg-potassium 1 tab PO BID 10 Days #20 tab 08/13/21 clavulanate 125 mg tablet (Augmentin) ciprofloxacin 0.3 %-dexamethasone 4 drp OTIC (EARS) BID 7 Days #7.5 08/13/21 0.1 % ear drops,suspension ml (Ciprodex) ketoconazole 2 % topical cream 1 appl TOPICAL DAILY 30 Days #30 g 08/13/21 amoxicillin 500 mg capsule 2,000 mg PO ONCE PRN 4 Days #16 cap 08/22/21 tamsulosin 0.4 mg capsule 0.4 mg PO BEDTIME 30 Days #30 cap 09/19/21 enoxaparin 100 mg/mL subcutaneous 100 mg SUBCUT Q12H 7 Days #14 ml 10/01/21 syringe (Lovenox) Allergies Allergy/AdvReac Type Severity Reaction Status Date / Time No Known Allergies Allergy Mild NOT Verified 10/05/21 11:41 APPLICABLE Review of Systems Constitutional: Constitutional: Reports as per HPI and Denies fever(s) Eyes: Eyes: Reports no additional eye complaints ENT: Reports system reviewed and no additional complaints, except as documented and Denies dizziness Cardiovascular: Cardiovascular: Reports no additional cardiovascular complaints Respiratory: Respiratory: Reports no additional respiratory complaints Gastrointestinal: Gastrointestinal: Denies abdominal pain and Denies hematochezia Comments: Passing blood clots, dark Neurologic: Denies dizziness and Denies Sensory deficit (Neuro) [facility] Past Medical History Medical History (Updated 10/06/21 @ 00:01 by Sarita Nieto) Cervical spondylolysis Dyslipidemia Gynecomastia HTN (hypertension) Hyperparathyroidism Malignant melanoma Osteoarthritis Primary hyperparathyroidism Rotator cuff tear Vitamin D deficiency Surgical History Aortic valve replaced History of lobectomy of thyroid History of right knee joint replacement Hx of cardiac cath Hx of colonoscopy Hx of repair of rotator cuff Family History Family History Father History of CVA (cerebrovascular accident) Diabetes mellitus Mother Stomach ulcer Daughter Brain tumor Maternal Grandfather No problems noted. Maternal Grandmother No problems noted. Paternal Grandfather No problems noted. Paternal Grandmother No problems noted. Maternal Aunt No problems noted. Maternal Uncle No problems noted. Paternal Aunt No problems noted. Paternal Uncle No problems noted. Social History Social History (Updated 09/24/21 @ 16:23 by Sruthi Palmer RN) Alcohol intake: current Alcohol intake frequency: a few times a week Patient Tobacco Use Status: Former Tobacco user Quit Date: 1984 Tobacco use type: Cigarette Cigarette Packs Per Day: 1 Years Smoked: 12 e-Cigarette/Vaping Use: Never Used Physical Exam Vital Signs: Vital Signs: Last Vital Signs Temp 97.8 F 10/05/21 11:33 Pulse 66 10/05/21 11:33 BP 169/69 H 10/05/21 11:33 Pulse Ox 100 10/05/21 11:33 BMI result Body Mass Index 34.9 Const: General: cooperative, no acute distress and alert Orientation/consciousness: patient oriented x3 HENMT: Head: Yes normal to inspection Eyes: General: appearance normal, both eyes and all related structures Eyelids: Yes eyelids normal Conjunctivae: conjunctivae normal Pupils: Equal, round and reactive pupils present Neck: Neck: Yes normal visual inspection and Yes supple Chest: Chest palpation & inspection: normal inspection of the chest Resp: Effort & Inspection: normal respiratory effort Auscultation: clear to auscultation bilaterally Cardio: Rate: regular rate Rhythm: regular rhythm Heart sounds: S1 normal heart sound present, S2 normal heart sound present, no gallops, no murmurs and no rubs GI: Palpation (GI): Soft to palpation, nontender and Other GI palpation findings present (Non-distended) Auscultation: normal bowel sounds Skin: General skin exam: no rashes or lesions noted Neuro: General: patient oriented x3, no focal motor deficits and CN's II-XI intact bilaterally Cranial nerves: Yes Equal, round and reactive pupils present Cognition (Neuro): normal cognition Motor exam (neuro): 5/5 motor strength present throughout Sensory Exam: No Sensory deficit (Neuro) Extrem: General: Yes normal to inspection and Yes no pedal edema Psych: Appearance: grossly normal Affect: normal affect Medical Decision Making MDM Narrative Medical decision making narrative: Patient status post colonoscopy 4 days ago, had polypectomy, is on Coumadin and bridging Lovenox, which she started again after procedure, has had occasional passage of dark clotted stool, no bright red blood, no blood that turns the toilet water red. Patient hematocrit is 43. INR is 2.2. Discussed with GI on-call, Dr. Terry, who agreed with follow-up tomorrow, stopping Lovenox, return for any new or worsened symptoms. Patient appeared well clinically, has not had any dizziness, has normal vital signs, appears to be having minor bleeding Lab Data Lab results reviewed: Yes I reviewed the patient's lab results. Result diagrams: 10/05/21 11:44 10/05/21 11:44 Labs: Lab Results 10/05/21 10/05/21 10/05/21 Range/Units 11:44 11:44 13:57 WBC 4.3 L (4.8-10.8) X10*3/uL RBC 4.79 (4.60-5.80) X10*6/uL Hgb 14.6 (14.0-18.0) g/dl Hct 43.1 (42.0-52.0) % MCV 90.0 (80.0-98.0) fL MCH 30.5 (27.0-33.0) pg MCHC 33.9 (31.0-36.0) g/dl RDW 13.1 (11.0-16.0) % Plt Count 183 (160-400) X10*3/uL MPV 9.7 (9.4-12.4) fL Immature Gran % (Auto) 0.2 (0.0-0.4) % Neut % (Auto) 49.7 (45-73) % Lymph % (Auto) 35.3 (20-40) % Cannon % (Auto) 11.1 H (2-11) % Eos % (Auto) 3.2 (0-4) % Baso % (Auto) 0.5 (0-2) % Lymph # (Auto) 1.5 (1.2-4.9) X10*3/uL Cannon # (Auto) 0.5 (0.1-1.2) X10*3/uL Eos # (Auto) 0.1 (0.0-0.4) X10*3/uL Baso # (Auto) 0.0 (0.0-0.2) X10*3/uL Abs Immat Gran (auto) 0.01 (0.00-0.03) X10*3/uL Absolute Neuts (auto) 2.2 (2.0-8.3) x10*3/uL Absolute Nucleated RBC 0.000 (0.0-0.012) X10*3/uL Nucleated RBC % (auto) 0.0 (0.0-0.2) /100WBC PT 26.0 H (9.9-13.0) SEC INR 2.2 H (0.9-1.1) APTT 67.1 H* (24.1-38.0) SEC Sodium 138 (135-145) mmol/L Potassium 4.6 (3.3-5.1) mmol/L Chloride 103 (96-108) mmol/L Carbon Dioxide 28 (22-29) mmol/L Anion Gap 12 (12-20) BUN 14 (9-16) mg/dL Creatinine 0.87 (0.5-1.4) mg/dL Estim Creat Clear Calc 95.1 Estimated GFR > 60 Random Glucose 108 (60-115) mg/dL Calcium 11.1 H (8.4-10.2) mg/dL Discharge Plan Discharge Clinical Impression: RB (rectal bleeding), Warfarin-induced coagulopathy Patient Disposition: Home, Self-Care Instructions: Rectal Bleeding (ED) Additional Instructions: Follow-up with Dr. Alanis tomorrow. Return for any new or worsened symptoms such as increased rectal bleeding, dizziness, fainting episode. Since your INR is now 2.2, you can stop her Lovenox injections Prescriptions: No Action simvastatin 10 mg tablet 10 mg PO BEDTIME Qty: 90 RF: 3 metoprolol succinate 25 mg tablet extended release 24 hr 25 mg PO DAILY Qty: 90 RF: 1 warfarin 3 mg tablet 3 mg PO DAILY Qty: 90 RF: 0 cholecalciferol (vitamin D3) 50 mcg (2,000 unit) capsule 50 mcg PO DAILY 90 Days Qty: 90 RF: 0 amoxicillin 500 mg capsule 2,000 mg PO ONCE PRN (Reason: dental procedure) 4 Days Qty: 16 RF: 0 enoxaparin [Lovenox] 100 mg/mL syringe 100 mg subcut Q12H 7 Days Qty: 14 RF: 0 aspirin [Adult Low Dose Aspirin] 81 mg tablet,delayed release (DR/EC) 81 mg PO DAILY RF: 0 Hold Instructions: Resume on 10/06/21. amoxicillin-pot clavulanate [Augmentin] 875-125 mg tablet 1 tab PO BID 10 Days Qty: 20 RF: 0 ketoconazole 2 % cream 1 appl topical DAILY 30 Days Qty: 30 RF: 0 ciprofloxacin-dexamethasone [Ciprodex] 0.3-0.1 % drops,suspension 4 drp otic (ears) BID 7 Days Qty: 7.5 RF: 0 acetaminophen 500 mg capsule 500 mg PO Q6H PRN (Reason: Pain) RF: 0 tamsulosin 0.4 mg capsule 0.4 mg PO BEDTIME 30 Days Qty: 30 RF: 1 Interventions: ED Discharge Assessment Last Done: 10/05/21 14:40 Discharge Date/Time: 10/05/21 14:42
[2021-10-05 14:09] LABS: INTERNATIONAL NORM RATIO 2.2 (0.9-1.1)
[2021-10-05 14:18] LABS: Partial Thromboplastin Time 67.1 SEC (24.1-38.0)
== END 2021-10-05 14:42 | disposition home or self-care (01) ==
PROVIDERS: Emergency Provider Emergency Medicine; PCP Nurse Practitioner Family
DX: K92.1 Melena (principal); D68.9 Coagulation defect, unspecified; F17.210 Nicotine dependence, cigarettes, uncomplicated; Z71.6 Tobacco abuse counseling; Z79.899 Other long term (current) drug therapy
CPT/HCPCS: 36415; 80048; 85025; 85610; 85730; 99283

== ENCOUNTER → 2021-10-06 09:32 | Outpatient (BNVA) | payer MEDICARE, SELFPAY | PROVIDERS: PCP Nurse Practitioner Family; Visit Provider Internal Medicine | DX: Z95.2 Presence of prosthetic heart valve (principal); Z51.81 Encounter for therapeutic drug level monitoring; Z79.01 Long term (current) use of anticoagulants | CPT/HCPCS: 85610; 99211 ==

== ENCOUNTER → 2021-10-08 08:48 | Outpatient (BNVA) | payer MEDICARE, SELFPAY | PROVIDERS: PCP Nurse Practitioner Family; Visit Provider Internal Medicine | DX: Z95.2 Presence of prosthetic heart valve (principal); Z51.81 Encounter for therapeutic drug level monitoring; Z79.01 Long term (current) use of anticoagulants | CPT/HCPCS: 85610; 99211 ==

== ENCOUNTER → 2021-10-15 08:32 | Outpatient (BNVA) | payer MEDICARE, SELFPAY | PROVIDERS: PCP Nurse Practitioner Family; Visit Provider Internal Medicine | DX: Z95.2 Presence of prosthetic heart valve (principal); Z51.81 Encounter for therapeutic drug level monitoring; Z79.01 Long term (current) use of anticoagulants | CPT/HCPCS: 85610; 99211 ==

== ENCOUNTER 2021-10-29 08:04 | Outpatient (REF) | payer MEDICARE, SELFPAY ==
[2021-10-29 11:42] LABS: Appearance Urine CLOUDY; Color Urine YELLOW; Glucose Urine UA NEG (NEG); Leukocyte Esterase Urine NEG (NEG); Nitrite Urine NEG (NEG); PH 5.5 (5.0-8.0); Specific Gravity - Urine >= 1.030 (1.005-1.025); Urine Blood NEG (NEG); Urine Ketones NEG (NEG); Urine Protein NEG (NEG-TRACE)
[2021-10-29 12:12] LABS: Alanine Aminotransferase 49 U/L (0-40); Albumin Level 4.2 g/dL (3.5-5.0); Alkaline Phosphatase 66 U/L (39-117); Anion Gap 9 (12-20); Aspartate Amino Transferase 30 U/L (5-37); Bilirubin Total 0.8 mg/dL (0.0-1.0); Blood Urea Nitrogen 19 mg/dL (9-16); Calcium 10.7 mg/dL (8.4-10.2); Carbon Dioxide 31 mmol/L (22-29); Chloride 107 mmol/L (96-108); Estimated Glomerular Filt Rate > 60; Glucose Random 104 mg/dL (60-115); Phosphorus 2.9 mg/dL (2.7-4.5); Potassium 4.5 mmol/L (3.3-5.1); Sodium 142 mmol/L (135-145); Total Protein 7.1 g/dL (6.5-8.0)
[2021-10-29 12:17] LABS: Prostate Specific Antigen 1.03 ng/mL (<0.05-4.0)
[2021-10-29 12:20] LABS: Vitamin D 25-OH Total 32.8 ng/mL (>30)
[2021-10-29 12:21] LABS: TSH reflex Free T4 3.56 uIU/mL (0.32-4.0)
[2021-10-29 12:31] LABS: Alanine Aminotransferase 51 U/L (0-40); Albumin Level 4.3 g/dL (3.5-5.0); Alkaline Phosphatase 68 U/L (39-117); Anion Gap 10 (12-20); Aspartate Amino Transferase 31 U/L (5-37); Bilirubin Total 0.9 mg/dL (0.0-1.0); Blood Urea Nitrogen 19 mg/dL (9-16); Calcium 10.9 mg/dL (8.4-10.2); Carbon Dioxide 29 mmol/L (22-29); Chloride 105 mmol/L (96-108); Cholesterol 145 mg/dL; Estimated Glomerular Filt Rate > 60; Glucose Fasting 105 mg/dL (60-99); HDL Cholesterol 46 mg/dL; LDL Cholesterol Calculated 76 mg/dl; Potassium 4.5 mmol/L (3.3-5.1); Sodium 139 mmol/L (135-145); Total Protein 7.2 g/dL (6.5-8.0); Triglycerides 119 mg/dL
[2021-10-30 15:07] LABS: PTHI 101 pg/mL (14-64)
== END 2021-10-29 08:05 | disposition home or self-care (01) ==
LOC: HO.HMGCLDS 08:04
PROVIDERS: Internal Medicine; Urology; PCP Nurse Practitioner Family; Visit Provider Nurse Practitioner Family
DX: Z12.5 Encounter for screening for malignant neoplasm of prostate (principal); Z95.2 Presence of prosthetic heart valve; E21.0 Primary hyperparathyroidism; E55.9 Vitamin D deficiency, unspecified; N13.8 Other obstructive and reflux uropathy; N40.1 Benign prostatic hyperplasia with lower urinary tract symptoms; I10 Essential (primary) hypertension; Z51.81 Encounter for therapeutic drug level monitoring; Z79.01 Long term (current) use of anticoagulants
CPT/HCPCS: 36415; 80053; 80061; 81003; 82306; 83970; 84100; 84153; 84443; 85610; 99211

== ENCOUNTER 2021-11-17 06:43 | Outpatient (REF) | payer MEDICARE, SELFPAY ==
[2021-11-17 07:43] LABS: Anion Gap 10 (12-20); Blood Urea Nitrogen 20 mg/dL (9-16); Calcium 10.7 mg/dL (8.4-10.2); Carbon Dioxide 25 mmol/L (22-29); Chloride 107 mmol/L (96-108); Estimated Glomerular Filt Rate > 60; Glucose Random 116 mg/dL (60-115); Magnesium 2.1 mg/dL (1.6-2.6); Potassium 4.2 mmol/L (3.3-5.1); Sodium 138 mmol/L (135-145)
[2021-11-17 08:03] LABS: HBS Num1 0.12 mIU/mL (0-7.99); HBc Num1 0.12 S/CO (0.00-0.79); Hepatitis B Core Antibody Nonreactive (Nonreactive); ~HepC Num1 0.09 S/CO (0.00-0.79); ~Hepatitis B Surface Antibody NONREACTIVE (Nonreactive); ~Hepatitis C Antibody Nonreactive (Nonreactive)
[2021-11-17 08:04] LABS: HBsAGNum1 0.24 S/CO (0.00-0.99); Hepatitis B Surface Antigen Negative (Negative)
[2021-11-19 08:38] LABS: Hepatitis A Antibody IgM 0.23 Index (0-0.79); ~Hepatitis A Antibody IgM Nonreactive (Nonreactive)
== END 2021-11-17 06:44 | disposition home or self-care (01) ==
LOC: HO.LAB 06:43
PROVIDERS: PCP Nurse Practitioner Family; Visit Provider Nurse Practitioner Acute Care
DX: R74.8 Abnormal levels of other serum enzymes (principal); I10 Essential (primary) hypertension
CPT/HCPCS: 36415; 80048; 83735; 86704; 86706; 86709; 86803; 87340

== ENCOUNTER 2021-11-25 14:23 | Outpatient (REF) | payer MEDICARE, SELFPAY ==
--- NOTE | ~2021-11-25 | US_ITS ---
EXAMINATION: US PELVIS LIMITED (BLADDER) CLINICAL INFORMATION: Poor urinary stream. COMPARISON: None TECHNIQUE: Real-time imaging of the bladder. FINDINGS: BLADDER: Partially distended. Bilateral ureteral jets are demonstrated. Prevoid bladder volume is 83 mL. Postvoid bladder volume is 10.5 mL. The prostate gland volume measures 7.4 mL. US/US bladder IMPRESSION: Partially distended urinary bladder is unremarkable. Normal bilateral ureteral jets are seen.
== END 2021-11-25 14:24 | disposition home or self-care (01) ==
LOC: HO.US 14:23
PROVIDERS: PCP Nurse Practitioner Family; Visit Provider Urology
DX: N13.8 Other obstructive and reflux uropathy (principal); N40.1 Benign prostatic hyperplasia with lower urinary tract symptoms; R39.12 Poor urinary stream
CPT/HCPCS: 76857

== ENCOUNTER → 2021-11-26 13:17 | Outpatient (BNVA) | payer MEDICARE, SELFPAY | PROVIDERS: PCP Nurse Practitioner Family; Visit Provider Internal Medicine | DX: Z95.2 Presence of prosthetic heart valve (principal); Z51.81 Encounter for therapeutic drug level monitoring; Z79.01 Long term (current) use of anticoagulants | CPT/HCPCS: 85610; 99211 ==

== ENCOUNTER → 2021-12-11 10:47 | Outpatient (BNVA) | payer MEDICARE, SELFPAY | PROVIDERS: PCP Nurse Practitioner Family; Visit Provider Urology | DX: Z13.89 Encounter for screening for other disorder (principal) ==

== ENCOUNTER → 2021-12-17 14:01 | Outpatient (BNVA) | payer MEDICARE, SELFPAY | PROVIDERS: PCP Nurse Practitioner Family; Visit Provider Urology | DX: N40.1 Benign prostatic hyperplasia with lower urinary tract symptoms (principal); N13.8 Other obstructive and reflux uropathy; R39.11 Hesitancy of micturition | CPT/HCPCS: 51798; 99212 ==

== ENCOUNTER → 2021-12-24 13:02 | Outpatient (BNVA) | payer MEDICARE, SELFPAY | PROVIDERS: PCP Nurse Practitioner Family; Visit Provider Internal Medicine | DX: Z95.2 Presence of prosthetic heart valve (principal); Z79.01 Long term (current) use of anticoagulants; Z51.81 Encounter for therapeutic drug level monitoring | CPT/HCPCS: 85610; 99211 ==

== ENCOUNTER → 2022-02-11 13:09 | Outpatient (BNVA) | payer MEDICARE, SELFPAY | PROVIDERS: PCP Nurse Practitioner Family; Visit Provider Internal Medicine | DX: Z95.2 Presence of prosthetic heart valve (principal); Z79.01 Long term (current) use of anticoagulants; Z51.81 Encounter for therapeutic drug level monitoring | CPT/HCPCS: 85610; 99211 ==

== ENCOUNTER 2022-03-20 10:27 | Emergency (ER) | payer MEDICARE, SELFPAY ==
--- NOTE | ~2022-03-20 | US_ITS ---
EXAMINATION: US VENOUS ULTRASOUND WITH DOPPLER LOWER EXTREMITY, RIGHT CLINICAL INFORMATION: Right leg pain and swelling. Right posterior calf open wound. COMPARISON: None TECHNIQUE: Ultrasound of the deep veins is performed from the hip to the calf with compression sonography and color and pulse Doppler assessment. Spectral analysis with color-flow imaging is performed. FINDINGS: There is normal venous compression and respiratory variation and augmented flow. The visualized common femoral vein, superficial femoral vein, profunda femoral vein, popliteal vein, and the trifurcation region shows no evidence of deep venous thrombosis. There is no significant popliteal fossa cyst. In the right mid calf posteriorly, there are 2 complex fluid collections, the larger measuring 3.2 x 3.1 x 2.0 cm and the smaller 1.5 x 0.9 x 0.8 cm. US/US venous duplex LE RT IMPRESSION: 1. No evidence of deep vein thrombosis in the right femoral-popliteal system. 2. Two complex fluid collections in the right posterior mid-calf, nonspecific. Hematoma and infection are within the differential diagnosis.
[2022-03-20 10:38] VITALS: BP 208/76; PULSE 56; RESP 18; TEMP 36.8; O2SAT 95; BMI 33.0
[2022-03-20 12:32] VITALS: BP 207/85; PULSE 57; RESP 17; O2SAT 99
[2022-03-20 14:35] LABS: INTERNATIONAL NORM RATIO 4.4 (0.9-1.1); Prothrombin Time 53.4 SEC (10.0-13.1)
--- NOTE | 2022-03-20 15:28 | ED_ITS ---
HPI - General Adult General Chief complaint: Extremity Injury, Lower Stated complaint: R leg inj from golf ball Time Seen by Provider: 03/20/22 10:42 History of Present Illness HPI narrative: Patient complains of pain and swelling in the back of his right leg where he was hit by a golf ball several weeks ago, it swelled immediately he went to his doctor and fluid removed from it which was a watery reddish fluid, and was started on antibiotics He comes today as it still hurts it is still swollen and has not changed much since that time He is on Coumadin for heart problem Related Data Home Medications Medication Instructions Recorded Confirmed aspirin 81 mg tablet,delayed 81 mg PO DAILY 01/22/21 02/18/22 release (Adult Low Dose Aspirin) acetaminophen 500 mg capsule 500 mg PO Q6H PRN Pain 02/12/21 02/18/22 metoprolol succinate 50 mg 50 mg PO DAILY 12/17/21 02/18/22 tablet,extended release 24 hr metoprolol succinate 50 mg 50 mg PO DAILY 12/24/21 02/18/22 tablet,extended release 24 hr Previous Rx's Medication Instructions Recorded metoprolol succinate 25 mg 25 mg PO DAILY #90 tabs 10/19/21 tablet,extended release 24 hr simvastatin 10 mg tablet 10 mg PO BEDTIME #90 tabs 10/21/21 ketoconazole 2 % topical cream 1 appl topical DAILY 30 days #30 11/03/21 grams tamsulosin 0.4 mg capsule 0.4 mg PO BEDTIME 90 days #90 caps 12/17/21 cholecalciferol (vitamin D3) 25 25 mcg PO DAILY #90 caps 02/02/22 mcg (1,000 unit) capsule (Vitamin D3) warfarin 3 mg tablet 3 mg PO DAILY #90 tabs 02/28/22 cephalexin 500 mg capsule 500 mg PO QID 7 days #28 caps 03/09/22 cephalexin 500 mg tablet 500 mg PO QID 7 days #28 tabs 03/20/22 doxycycline hyclate 100 mg capsule 100 mg PO BID 7 days #14 caps 03/20/22 Allergies Allergy/AdvReac Type Severity Reaction Status Date / Time No Known Allergies Allergy Mild NOT Verified 03/02/22 10:22 APPLICABLE Review of Systems Review of Systems: Positive for right lower leg pain and swelling Negatives are no fever no chills no dizziness weakness no headache no neck pain no chest pain no shortness of breath no abdominal pain no nausea vomiting no numbness weakness or tingling no fainting no feeling faint Yes all other systems are reviewed and are negative [facility] Past Medical History [facility] Narrative: Patient uses Coumadin for a heart valve problem Source: nursing notes reviewed Medical History Cervical spondylolysis Dyslipidemia Gynecomastia HTN (hypertension) Hyperparathyroidism Malignant melanoma Osteoarthritis Primary hyperparathyroidism Rotator cuff tear Vitamin D deficiency Surgical History Aortic valve replaced History of lobectomy of thyroid History of right knee joint replacement Hx of cardiac cath Hx of colonoscopy Hx of repair of rotator cuff Family History Family History Father History of CVA (cerebrovascular accident) Diabetes mellitus Mother Stomach ulcer Daughter Brain tumor Maternal Grandfather No problems noted. Maternal Grandmother No problems noted. Paternal Grandfather No problems noted. Paternal Grandmother No problems noted. Maternal Aunt No problems noted. Maternal Uncle No problems noted. Paternal Aunt No problems noted. Paternal Uncle No problems noted. Social History Social History Housing: House Alcohol intake: current Alcohol intake frequency: a few times a week Patient Tobacco Use Status: Former Tobacco user Quit Date: 1984 Tobacco use type: Cigarette Cigarette Packs Per Day: 1 Years Smoked: 12 e-Cigarette/Vaping Use: Never Used Advance Directives: Yes Advance Directives Information Provided: Yes Advance Directives on File: No service: No Current occupational status: retired Cognitive needs: No Hearing needs: No Vision needs: Yes Physical Exam ED Vital Signs: Vital Signs - 24 hr 03/20/22 15:53 Pulse Rate 58 Respiratory Rate 18 Blood Pressure 184/75 H Pulse Oximetry 98 Oxygen Delivery Method Room Air BMI result Body Mass Index 33.0 General appearance is no acute distress Head is normocephalic atraumatic Neck is supple Respiratory no distress no pleuritic discomfort Chest is clear to auscultation bilateral Heart no murmur auscultated Abdomen soft nontender Extremities full range of motion x4 Right lower leg has a slightly larger than quarter-sized scabbed area with some surrounding induration/fluctuance, there is mild surrounding erythema, there is swelling of the lower posterior leg, sensation and motor distal are intact and symmetric with the other side, pulse is 2 +and symmetric with left foot, neurovascular is intact distal Course Course Course Narrative: Patient with a wound in the back of his right calf and lower leg swelling which has been persistent for the last several weeks since he was hit in back of the leg by a golf ball He saw his doctor who did make an incision and express serosanguineous fluid from the wound on March 04, went to see his doctor again yesterday and was referred to wound clinic Today I thought about doing an incision and drainage to relieve some of the swelling but INR was 4.4, case was discussed with Dr. Ledezma who agreed risk of bleeding would prevent I&D for today I did aspirate (18 gauge needle after cleansing skin with Betadine) under sterile conditions with a few drops of watery red fluid no pus, this was sent for culture Ultrasound was done, no DVT but fluid collection was seen Patient no DVT seen on ultrasound, the fluid collection may be a serosanguineous fluid collection secondary to hematoma, possible abscess although no pus was aspirated in needle aspiration and is treated with antibiotics for cellulitis, referral to surgeon, call Coumadin Clinic today for Coumadin management Elevated blood pressure was discussed with the patient who says it is always high at the doctor's and goes back to normal when he goes home, he is advised to use a home blood pressure cuff and keep a log of his readings and follow closely with his doctor to make sure his blood pressure is being managed Medical Decision Making Lab Data Labs: Lab Results 03/20/22 03/20/22 03/20/22 Range/Units 14:22 14:22 14:22 Hold Purple Top SEE NOTE PT 53.4 H (10.0-13.1) SEC INR 4.4 H D (0.9-1.1) Hold Yellow Top See Note Discharge Plan Discharge Clinical Impression: Cellulitis of leg, right Patient Disposition: Home, Self-Care Additional Instructions: Ultrasound did not show any DVT The swelling and drainage from back of the leg could be an infection so we are treating again with antibiotics Ultrasound did show a fluid collection in the back of your leg, I was going to drain it but your INR came back 4.4 which means the risk of bleeding was increased so I did not drain I used a needle and took out a little of bloody watery fluid, no pus Plan is start antibiotics, most important contact Coumadin Clinic for medication adjustment as the INR is 4.4 and were starting antibiotics Take probiotics, vitamin available [id number] at any pharmacy, while taking her antibiotics as they help prevent antibiotic associated diarrhea I gave you a referral to the surgeon Return to the ER in 2-3 days for recheck Return any time for spreading redness worse pain and swelling fever any worse condition or any concerns Your blood pressure was significantly elevated so I recommend get a home blood pressure cuff, keep a log of her readings and follow closely with her doctor to make sure your medications are actually controlling your blood pressure Prescriptions: New cephalexin 500 mg tablet 500 mg PO QID 7 Days Qty: 28 0RF doxycycline hyclate 100 mg capsule 100 mg PO BID 7 Days Qty: 14 0RF No Action metoprolol succinate 25 mg tablet extended release 24 hr 25 mg PO DAILY Qty: 90 1RF simvastatin 10 mg tablet 10 mg PO BEDTIME Qty: 90 3RF ketoconazole 2 % cream 1 appl topical DAILY 30 Days Qty: 30 0RF cholecalciferol (vitamin D3) [Vitamin D3] 25 mcg (1,000 unit) capsule 25 mcg PO DAILY Qty: 90 0RF warfarin 3 mg tablet 3 mg PO DAILY Qty: 90 0RF Protocol: Dose Management Condition: Wednesday (Week One) Dose/Route: 9 mg Instruction: 3 x 3 mg tablets Condition: Wednesday Dose/Route: 7.5 mg Instruction: 2.5 x 3 mg tablets Condition: Wednesday Dose/Route: 9 mg Instruction: 3 x 3 mg tablets Condition: Wednesday Dose/Route: 7.5 mg Instruction: 2.5 x 3 mg tablets Condition: Dose/Route: 3 mg Instruction: 1 x 3 mg tablet Condition: Wednesday Dose/Route: 7.5 mg Instruction: 2.5 x 3 mg tablets Condition: Wednesday Dose/Route: 9 mg Instruction: 3 x 3 mg tablets Condition: Wednesday (Week Two) Dose/Route: 9 mg Instruction: 3 x 3 mg tablets Condition: Wednesday Dose/Route: 7.5 mg Instruction: 2.5 x 3 mg tablets Condition: Wednesday Dose/Route: 9 mg Instruction: 3 x 3 mg tablets Condition: Wednesday Dose/Route: 7.5 mg Instruction: 2.5 x 3 mg tablets Condition: Dose/Route: 9 mg Instruction: 3 x 3 mg tablets Condition: Wednesday Dose/Route: 7.5 mg Instruction: 2.5 x 3 mg tablets Condition: Wednesday Dose/Route: 9 mg Instruction: 3 x 3 mg tablets Protocol Text: Adjustment Start Date: Wednesday02/11/22 INR Value: 3.9 INR Date: 02/11/22 Recheck Date: 03/11/22 Rx Instructions: 7.5MG Wed, 9MG Wed SAT aspirin [Adult Low Dose Aspirin] 81 mg tablet,delayed release (DR/EC) 81 mg PO DAILY Hold Instructions: Resume on 10/06/21. cephalexin 500 mg capsule 500 mg PO QID 7 Days Qty: 28 0RF acetaminophen 500 mg capsule 500 mg PO Q6H PRN (Reason: Pain) metoprolol succinate 50 mg tablet extended release 24 hr 50 mg PO DAILY metoprolol succinate 50 mg tablet extended release 24 hr 50 mg PO DAILY tamsulosin 0.4 mg capsule 0.4 mg PO BEDTIME 90 Days Qty: 90 1RF Referrals: Reji Laughlin MD [Physician] - (Right leg wound) Interventions: ED Discharge Assessment Last Done: 03/20/22 16:15 Discharge Date/Time: 03/20/22 16:18
[2022-03-20 15:53] VITALS: BP 184/75; PULSE 58; RESP 18; O2SAT 98
[2022-03-20] MEDS: cephALEXin 500 MG CAPSULE PO (16:08)
== END 2022-03-20 16:18 | disposition home or self-care (01) ==
PROVIDERS: Physician Assistant Medical; Emergency Provider Emergency Medicine; PCP Nurse Practitioner Family
DX: L03.115 Cellulitis of right lower limb (principal); M79.604 Pain in right leg; E78.5 Hyperlipidemia, unspecified; I10 Essential (primary) hypertension; Z79.82 Long term (current) use of aspirin; Z79.01 Long term (current) use of anticoagulants; Z79.02 Long term (current) use of antithrombotics/antiplatelets
CPT/HCPCS: 10160; 36415; 85610; 87071; 87077; 87186; 87205; 93971; 99283; 99284

== ENCOUNTER → 2022-03-24 13:06 | Outpatient (BNVA) | payer MEDICARE, SELFPAY | PROVIDERS: PCP Nurse Practitioner Family; Visit Provider Internal Medicine | DX: Z95.2 Presence of prosthetic heart valve (principal); Z51.81 Encounter for therapeutic drug level monitoring; Z79.01 Long term (current) use of anticoagulants | CPT/HCPCS: 85610; 99211 ==

== ENCOUNTER 2022-03-27 07:56 | Outpatient (RCR) | payer MEDICARE, SELFPAY | END 2022-05-22 09:24 | disposition home or self-care (01) | LOC: HO.WCC 07:56 | PROVIDERS: PCP Nurse Practitioner Family; Visit Provider Physician Assistant | DX: L97.212 Non-pressure chronic ulcer of right calf with fat layer exposed (principal); T45.515A Adverse effect of anticoagulants, initial encounter; R60.0 Localized edema; I10 Essential (primary) hypertension; Z87.891 Personal history of nicotine dependence | CPT/HCPCS: 11042; 99212 ==

== ENCOUNTER → 2022-03-30 13:05 | Outpatient (BNVA) | payer MEDICARE, SELFPAY | PROVIDERS: PCP Nurse Practitioner Family; Visit Provider Internal Medicine | DX: Z95.2 Presence of prosthetic heart valve (principal); Z79.01 Long term (current) use of anticoagulants; Z51.81 Encounter for therapeutic drug level monitoring | CPT/HCPCS: 85610; 99211 ==

== ENCOUNTER → 2022-04-15 12:58 | Outpatient (BNVA) | payer MEDICARE, SELFPAY | PROVIDERS: PCP Nurse Practitioner Family; Visit Provider Internal Medicine | DX: Z95.2 Presence of prosthetic heart valve (principal); Z79.01 Long term (current) use of anticoagulants; Z51.81 Encounter for therapeutic drug level monitoring | CPT/HCPCS: 85610; 99211 ==

== ENCOUNTER → 2022-05-06 13:04 | Outpatient (BNVA) | payer MEDICARE, SELFPAY | PROVIDERS: PCP Nurse Practitioner Family; Visit Provider Internal Medicine | DX: Z95.2 Presence of prosthetic heart valve (principal); Z79.01 Long term (current) use of anticoagulants; Z51.81 Encounter for therapeutic drug level monitoring | CPT/HCPCS: 85610; 99211 ==

== ENCOUNTER → 2022-06-11 13:01 | Outpatient (BNVA) | payer MEDICARE, SELFPAY | PROVIDERS: PCP Nurse Practitioner Family; Visit Provider Internal Medicine | DX: Z95.2 Presence of prosthetic heart valve (principal); Z79.01 Long term (current) use of anticoagulants; Z51.81 Encounter for therapeutic drug level monitoring | CPT/HCPCS: 85610; 99211 ==

== ENCOUNTER → 2022-06-24 13:27 | Outpatient (BNVA) | payer MEDICARE, SELFPAY | PROVIDERS: PCP Nurse Practitioner Family; Visit Provider Internal Medicine | DX: Z95.2 Presence of prosthetic heart valve (principal); Z51.81 Encounter for therapeutic drug level monitoring; Z79.01 Long term (current) use of anticoagulants | CPT/HCPCS: 85610; 99211 ==

== ENCOUNTER → 2022-07-14 13:03 | Outpatient (BNVA) | payer MEDICARE, SELFPAY | PROVIDERS: PCP Nurse Practitioner Family; Visit Provider Internal Medicine | DX: Z95.2 Presence of prosthetic heart valve (principal); Z79.01 Long term (current) use of anticoagulants; Z51.81 Encounter for therapeutic drug level monitoring | CPT/HCPCS: 85610; 99212 ==

== ENCOUNTER → 2022-07-17 09:00 | Outpatient (BNVA) | payer MEDICARE, SELFPAY | PROVIDERS: PCP Nurse Practitioner Family; Visit Provider Internal Medicine | DX: Z95.2 Presence of prosthetic heart valve (principal); Z79.01 Long term (current) use of anticoagulants; Z51.81 Encounter for therapeutic drug level monitoring | CPT/HCPCS: 85610; 99211 ==

== ENCOUNTER → 2022-08-12 11:27 | Outpatient (BNVA) | payer MEDICARE, SELFPAY | PROVIDERS: PCP Nurse Practitioner Family; Visit Provider Urology | DX: N40.1 Benign prostatic hyperplasia with lower urinary tract symptoms (principal); N13.8 Other obstructive and reflux uropathy; R39.11 Hesitancy of micturition | CPT/HCPCS: Q3014 ==

== ENCOUNTER → 2022-08-19 13:05 | Outpatient (BNVA) | payer MEDICARE, SELFPAY | PROVIDERS: PCP Nurse Practitioner Family; Visit Provider Internal Medicine | DX: Z95.2 Presence of prosthetic heart valve (principal); Z79.01 Long term (current) use of anticoagulants; Z51.81 Encounter for therapeutic drug level monitoring | CPT/HCPCS: 85610; 99211 ==

== ENCOUNTER 2022-09-10 11:09 | Outpatient (REF) | payer MEDICARE, SELFPAY ==
[2022-09-10 11:49] LABS: Influenza A PCR NEGATIVE (Negative); Influenza B PCR NEGATIVE (Negative); Resp Syncy Virus RNA Qual PCR NEGATIVE (Negative); SARS COV2 PCR INHOUSE NEGATIVE (Negative)
== END 2022-09-10 11:10 | disposition home or self-care (01) ==
LOC: HO.LNP 11:09
PROVIDERS: Visit Provider Nurse Practitioner Family
DX: Z20.822 Contact with and (suspected) exposure to COVID-19 (principal)
CPT/HCPCS: 0241U

== ENCOUNTER → 2022-09-23 13:01 | Outpatient (BNVA) | payer MEDICARE, SELFPAY | PROVIDERS: PCP Nurse Practitioner Family; Visit Provider Internal Medicine | DX: Z95.2 Presence of prosthetic heart valve (principal); Z79.01 Long term (current) use of anticoagulants; Z51.81 Encounter for therapeutic drug level monitoring | CPT/HCPCS: 85610; 99211 ==

== ENCOUNTER → 2022-10-21 12:59 | Outpatient (BNVA) | payer MEDICARE, SELFPAY | PROVIDERS: PCP Nurse Practitioner Family; Visit Provider Internal Medicine | DX: Z95.2 Presence of prosthetic heart valve (principal); Z79.01 Long term (current) use of anticoagulants; Z51.81 Encounter for therapeutic drug level monitoring | CPT/HCPCS: 85610; 99211 ==

== ENCOUNTER → 2022-11-25 09:28 | Outpatient (BNVA) | payer MEDICARE, SELFPAY | PROVIDERS: PCP Nurse Practitioner Family; Visit Provider Internal Medicine | DX: Z95.2 Presence of prosthetic heart valve (principal); Z79.01 Long term (current) use of anticoagulants; Z51.81 Encounter for therapeutic drug level monitoring | CPT/HCPCS: 85610; 99211 ==

== ENCOUNTER → 2022-12-23 12:58 | Outpatient (BNVA) | payer MEDICARE, SELFPAY | PROVIDERS: PCP Nurse Practitioner Family; Visit Provider Internal Medicine | DX: Z95.2 Presence of prosthetic heart valve (principal); Z51.81 Encounter for therapeutic drug level monitoring; Z79.01 Long term (current) use of anticoagulants | CPT/HCPCS: 85610; 99211 ==

== ENCOUNTER → 2023-01-20 13:12 | Outpatient (BNVA) | payer MEDICARE, SELFPAY | PROVIDERS: PCP Nurse Practitioner Family; Visit Provider Internal Medicine | DX: Z95.2 Presence of prosthetic heart valve (principal); Z79.01 Long term (current) use of anticoagulants; Z51.81 Encounter for therapeutic drug level monitoring | CPT/HCPCS: 85610; 99211 ==

== ENCOUNTER → 2023-01-28 13:13 | Outpatient (BNVA) | payer MEDICARE, SELFPAY | PROVIDERS: PCP Nurse Practitioner Family; Visit Provider Internal Medicine | DX: Z95.2 Presence of prosthetic heart valve (principal); Z79.01 Long term (current) use of anticoagulants; Z51.81 Encounter for therapeutic drug level monitoring | CPT/HCPCS: 85610; 99211 ==

== ENCOUNTER → 2023-02-17 13:03 | Outpatient (BNVA) | payer MEDICARE, SELFPAY | PROVIDERS: PCP Nurse Practitioner Family; Visit Provider Internal Medicine | DX: Z95.2 Presence of prosthetic heart valve (principal); Z51.81 Encounter for therapeutic drug level monitoring; Z79.01 Long term (current) use of anticoagulants | CPT/HCPCS: 85610; 99211 ==

== ENCOUNTER → 2023-03-17 12:58 | Outpatient (BNVA) | payer MEDICARE, SELFPAY | PROVIDERS: PCP Nurse Practitioner Family; Visit Provider Internal Medicine | DX: Z95.2 Presence of prosthetic heart valve (principal); Z79.01 Long term (current) use of anticoagulants; Z51.81 Encounter for therapeutic drug level monitoring | CPT/HCPCS: 85610; 99211 ==

== ENCOUNTER 2023-03-22 08:04 | Outpatient (REF) | payer MEDICARE, SELFPAY ==
[2023-03-22 08:32] LABS: MANUAL DIFF FLAG NO
[2023-03-22 09:12] LABS: Basophils Percent Auto 0.4 % (0-2); Eosinophils Absolute Auto 0.1 X10*3/uL (0.0-0.4); Eosinophils Percent Auto 2.9 % (0-4); Hematocrit 45.9 % (42.0-52.0); Hemoglobin 14.8 g/dl (14.0-18.0); Imm Gran Abs Auto 0.02 X10*3/uL (0.00-0.03); Imm Gran Pct Auto 0.4 % (0.0-0.4); Lymphocytes Absolute Auto 1.7 X10*3/uL (1.2-4.9); Lymphocytes Percent Auto 35.5 % (20-40); Mean Corpuscular HGB Conc 32.2 g/dl (31.0-36.0); Mean Corpuscular Hemoglobin 29.2 pg (27.0-33.0); Mean Corpuscular Volume 90.7 fL (80.0-98.0); Mean Platelet Volume 9.8 fL (9.4-12.4); Monocytes Absolute Auto 0.6 X10*3/uL (0.1-1.2); Monocytes Percent Auto 12.7 % (2-11); Neutrophils Absolute Auto 2.3 x10*3/uL (2.0-8.3); Neutrophils Percent Auto 48.1 % (45-73); Platelet Count 248 X10*3/uL (160-400); Red Blood Count 5.06 X10*6/uL (4.60-5.80); Red Cell Distribution Width 13.7 % (11.0-16.0); White Blood Count 4.8 X10*3/uL (4.8-10.8)
[2023-03-22 13:58] LABS: Alanine Aminotransferase 23 U/L (0-40); Albumin Level 4.1 g/dL (3.5-5.0); Alkaline Phosphatase 49 U/L (39-117); Anion Gap 15 (12-20); Aspartate Amino Transferase 20 U/L (5-37); Bilirubin Total 0.8 mg/dL (0.0-1.0); Blood Urea Nitrogen 22 mg/dL (9-16); Calcium 9.2 mg/dL (8.4-10.2); Carbon Dioxide 22 mmol/L (22-29); Chloride 106 mmol/L (96-108); Cholesterol 115 mg/dL; Estimated Glomerular Filt Rate > 60; Glucose Fasting 111 mg/dL (60-99); HDL Cholesterol 42 mg/dL; LDL Cholesterol Calculated 59 mg/dl; Potassium 4.5 mmol/L (3.3-5.1); Sodium 138 mmol/L (135-145); Total Protein 7.4 g/dL (6.5-8.0); Triglycerides 71 mg/dL
[2023-03-22 14:13] LABS: TSH reflex Free T4 4.43 uIU/mL (0.32-4.0)
[2023-03-22 15:05] LABS: Free T4 (Free Thyroxine) 0.86 ng/dL (0.71-1.85)
== END 2023-03-22 08:05 | disposition home or self-care (01) ==
LOC: HO.LAB 08:04
PROVIDERS: PCP Nurse Practitioner Family; Visit Provider Urology
DX: L03.90 Cellulitis, unspecified (principal); N13.8 Other obstructive and reflux uropathy; N40.1 Benign prostatic hyperplasia with lower urinary tract symptoms; S80.11XA Contusion of right lower leg, initial encounter; X58.XXXA Exposure to other specified factors, initial encounter; Y93.9 Activity, unspecified; Y92.9 Unspecified place or not applicable; Y99.9 Unspecified external cause status; Z12.5 Encounter for screening for malignant neoplasm of prostate; E78.5 Hyperlipidemia, unspecified; I10 Essential (primary) hypertension; E21.5 Disorder of parathyroid gland, unspecified
CPT/HCPCS: 36415; 80053; 80061; 81001; 84153; 84439; 84443; 85025; 87086; 87088; 87186

== ENCOUNTER 2023-03-25 11:05 | Outpatient (AMB) | payer MEDICARE, SELFPAY ==
--- NOTE | 2023-03-25 11:17 | MHC.OFFVIS ---
Intake Intake Visit Reasons: 6M PSA/PVR(set) Intake Note: Patient is present for PVR/PSA Urology Med:Tamsulosin Antibiotic Allergy:none Blood Thinner: Warfarin PVR: 20ml Allergies No Known Allergies Allergy (Mild, Verified 03/25/23 11:17) NOT APPLICABLE HPI HPI Comments History of Present Illness Details Fabio is a pleasant male. He is a patient of Dr. Herrera. He is seen for the following urologic conditions - right spermatocele - bladder outlet obstruction - urinary hesitancy - incomplete emptying PVR 20 cc Continue good response to medications Using tamsulosin 0.8 mg Right spermatocele Gradually increased pain on right side On exam right spermatocele Prior discussion regarding right spermatocelectomy Lower urinary tract symptoms Progressive symptoms Urinary hesitancy with weak stream and incomplete emptying PSA 11/04 1.0 Bladder ultrasound 12/02 effectively emptying with small prostate Current medications tamsulosin Six-month follow-up [facility] Medical History Cervical spondylolysis Dyslipidemia Gynecomastia HTN (hypertension) Hyperparathyroidism Malignant melanoma Osteoarthritis Primary hyperparathyroidism Rotator cuff tear Vitamin D deficiency Surgical History Aortic valve replaced History of lobectomy of thyroid History of right knee joint replacement Hx of cardiac cath Hx of colonoscopy Hx of repair of rotator cuff Family History Father History of CVA (cerebrovascular accident) Diabetes mellitus Mother Stomach ulcer Daughter Brain tumor Maternal Grandfather No problems noted. Maternal Grandmother No problems noted. Paternal Grandfather No problems noted. Paternal Grandmother No problems noted. Maternal Aunt No problems noted. Maternal Uncle No problems noted. Paternal Aunt No problems noted. Paternal Uncle No problems noted. Social History Housing: House Alcohol intake: current Alcohol intake frequency: a few times a week Patient Tobacco Use Status: Former Tobacco user Quit Date: 1984 Tobacco use type: Cigarette Cigarette Packs Per Day: 1 Years Smoked: 12 e-Cigarette/Vaping Use: Never Used service: No Current occupational status: retired Cognitive needs: No Hearing needs: No Vision needs: Yes Review of Systems Const Denies chills and Denies fever(s) Card Reports no additional complaints and Denies syncope Resp Denies cough GI Denies abdominal pain and Denies heartburn Reports as per HPI and Denies change in libido Neuro Denies syncope Psych Denies change in libido Endo Denies change in libido Physical Exam Const General: cooperative, healthy appearing, comfortable and no acute distress Orientation/consciousness: patient oriented x3 HEENT Face and sinus: Yes normal facial exam Mouth: moist mucous membranes Neck Neck: Yes normal visual inspection, Yes full ROM and Yes trachea midline Chest Chest palpation & inspection: normal inspection of the chest Resp Effort & Inspection: normal respiratory effort, able to speak in complete sentences and no respiratory distress GI Inspection: Yes normal to inspection Back/Spine/Pelvis Cervical Spine: normal cervical lordosis Thoracic/Lumbar Spine: thoracic and lumbar spine normal to inspection Skin General skin exam: no rashes or lesions noted Neuro General: patient oriented x3, gait normal, tone normal and moves all extremities Extrem General: Yes normal to inspection and Yes capillary refill normal Office Procedures Post Void Residual Post Residual Void Post Void Residual (PVR): 20 [id number] Void Residual by ultrasound Results AMB Urinalysis, Automated UA Leukoctes 0 Alejandra/uL Last Edit by DAVID West on 03/25/23 11:25 UA Nitrite Negative Last Edit by DAVID West on 03/25/23 11:25 UA Urobilinogen 0.2 mg/dL Last Edit by DAVID West on 03/25/23 11:25 UA Protein 15 mg/dL Last Edit by DAVID West on 03/25/23 11:25 UA pH 6.0 Last Edit by DAVID West on 03/25/23 11:25 UA Blood 0 Gary/uL Last Edit by DAVID West on 03/25/23 11:25 UA Specific [place] 1.030 Last Edit by DAVID West on 03/25/23 11:25 UA Ketone Last Edit by DAVID West on 03/25/23 11:25 UA Bilirubin 0 mg/dL Last Edit by DAVID West on 03/25/23 11:25 UA Glucose 0 mg/dL Last Edit by DAVID West on 03/25/23 11:25 Results Reviewed Results Reviewed: Laboratory Last Values Urine pH (Auto) 6.0 03/25/23 11:24 Specific [place] (Auto) 1.030 03/25/23 11:24 Urine Protein (Auto) 15 mg/dL 03/25/23 11:24 Glucose (UA)(Auto) 0 mg/dL 03/25/23 11:24 Urine Blood (Auto) 0 Gary/uL 03/25/23 11:24 Urine Nitrite (Auto) Negative 03/25/23 11:24 Urine Bilirubin (Auto) 0 mg/dL 03/25/23 11:24 Urine Urobilinogen (Auto) 0.2 mg/dL 03/25/23 11:24 Leukocyte Esterase (Auto) 0 Alejandra/uL 03/25/23 11:24 Assessment & Plan Assessment & Plan (1) BPH w urinary obs/LUTS: Code(s): N40.1 - Benign prostatic hyperplasia with lower urinary tract symptoms; N13.8 - Other obstructive and reflux uropathy Plan 6 month follow-up Orders: Orders AMB Urinalysis Automated Today Z13.9 - Encounter for screening, unspecified AMB Post Void Residual by ultrasound Today N13.8 - Other obstructive and reflux uropathy, N40.1 - Benign prostatic hyperplasia with lower urinary tract symptoms Medications: Refilled tamsulosin 0.8 mg (2 x 0.4 mg) PO BEDTIME 90 days 180 caps 1RF Patient Instructions: Imaging studies, laboratory and physical exam results were discussed and reviewed in detail. No major barriers to patient understanding were identified. An opportunity to ask questions regarding the treatment plan was provided. All questions were answered. The patient expressed understanding and agreement with the above treatment plan. The patient is aware they should contact our office by phone for worsening of their current condition or the appearance of new urologic symptoms. Compliance is encouraged with any medications and followup testing that is ordered. It is a privilege to participate in the urologic care of your patient. If you have any questions or concerns regarding treatment for the above conditions, or other urologic issues, please do not hesitate to contact me. The office telephone contact is [phone]. This note is constructed using voice recognition software. While every effort has been made to ensure accuracy configuration analyst errors may have been included. Yours sincerely, Dr Ken Hawk MD, DAVID [facility] - Urology Providers of Expert, Compassionate Care for the Genitourinary System Coding Level of Care Code Est Pt Level 3 (72635) Diagnoses BPH w urinary obs/LUTS N40.1; N13.8 CPT Codes Post Residual Void - PVR CPT Code: 66310-Uvlo Void Residual by ultrasound ([id number])
== END 2023-03-25 11:50 | disposition home or self-care (01) ==
PROVIDERS: Visit Provider Urology
DX: N40.1 Benign prostatic hyperplasia with lower urinary tract symptoms (principal); N13.8 Other obstructive and reflux uropathy
CPT/HCPCS: 99213

== ENCOUNTER → 2023-03-25 11:05 | Outpatient (BNVA) | payer MEDICARE, SELFPAY | PROVIDERS: Visit Provider Urology | DX: N40.1 Benign prostatic hyperplasia with lower urinary tract symptoms (principal); N13.8 Other obstructive and reflux uropathy; R39.11 Hesitancy of micturition; N43.41 Spermatocele of epididymis, single | CPT/HCPCS: 51798; 99212 ==

== ENCOUNTER 2023-04-14 13:07 | Outpatient (AMB) | payer MEDICARE, SELFPAY ==
[2023-04-14 13:13] LABS: Prothrombin Time Whole Bld POC 50.3 sec (11.1-13.5); ~PT, ~INR - Anti Coag Clinic 4.2 (0.9-1.1)
--- NOTE | 2023-04-14 13:31 | MHC.OFFVISCO ---
Intake Intake Visit Reasons: Anticoagulation Allergies No Known Allergies Allergy (Mild, Verified 04/14/23 13:08) NOT APPLICABLE Medication List - Last Reconciled 04/14/23 by Mariann Loera RN acetaminophen 500 mg PO Q6H PRN amlodipine 2.5 mg PO DAILY betamethasone dipropionate 0.05% 1 appl topical DAILY PRN 30 days cholecalciferol (vitamin D3) (Vitamin D3) 25 mcg PO DAILY ketoconazole 2% 1 appl topical DAILY 30 days metoprolol succinate ER 50 mg PO DAILY nystatin 1 appl topical DAILY simvastatin 10 mg PO BEDTIME sulfamethoxazole-trimethoprim 800-160 mg (Bactrim DS) 1 tab PO BID 3 days tamsulosin 0.8 mg (2 x 0.4 mg) PO BEDTIME 90 days warfarin 3 mg See Protocol PO DAILY Nursing Note PT.STATES THAT HE HAS HAD LARGE AMTS.OF [place] THIS WEEK. NO CP,SOB,MED CHANGES,FALLS OR SX OF BLEEDING. DECREASE DOSE TODAY THEN RESUME USUAL DOSING AND FOLLOW-UP ON 05/05.(PT.LEAVING TODAY FOR VACATION) PLANS TO HAVE MOH'S SURGERY ON 05/12 AND AGAIN ON 04/18. HE WILL SPEAK WITH DERM TO TRY TO COORDINATE BOTH PROCEDURES IF POSSIBLE TO ALLEVIATE ANY ADDITIONAL TIME OFF THE WARFARIN. GOOD UNDERSTANDING OF DOSING INSTR. 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
== END 2023-04-14 13:35 | disposition home or self-care (01) ==
LOC: HO.ACS 13:07
PROVIDERS: PCP Nurse Practitioner Family; Visit Provider Internal Medicine
DX: Z79.01 Long term (current) use of anticoagulants (principal)

== ENCOUNTER → 2023-04-14 13:07 | Outpatient (BNVA) | payer MEDICARE, SELFPAY | PROVIDERS: PCP Nurse Practitioner Family; Visit Provider Internal Medicine | DX: Z95.2 Presence of prosthetic heart valve (principal); Z79.01 Long term (current) use of anticoagulants; Z51.81 Encounter for therapeutic drug level monitoring | CPT/HCPCS: 85610; 99211 ==

== ENCOUNTER → 2023-04-27 14:17 | Outpatient (BNVA) | payer MEDICARE, SELFPAY | PROVIDERS: PCP Nurse Practitioner Family; Visit Provider Internal Medicine ==

== ENCOUNTER 2023-05-03 13:15 | Outpatient (AMB) | payer MEDICARE, SELFPAY ==
--- NOTE | 2023-05-03 13:24 | MHC.OFFVISCO ---
Intake Intake Visit Reasons: Anticoagulation Allergies No Known Allergies Allergy (Mild, Verified 05/03/23 13:18) NOT APPLICABLE Medication List - Last Reconciled 05/03/23 by Lesley Rosario RN acetaminophen 500 mg PO Q6H PRN amlodipine 2.5 mg PO DAILY amoxicillin 2,000 mg (4 x 500 mg) PO ONCE 1 day betamethasone dipropionate 0.05% 1 appl topical DAILY PRN 30 days cholecalciferol (vitamin D3) (Vitamin D3) 25 mcg PO DAILY ketoconazole 2% 1 appl topical DAILY 30 days metoprolol succinate ER 50 mg PO DAILY nystatin 1 appl topical DAILY simvastatin 10 mg PO BEDTIME sulfamethoxazole-trimethoprim 800-160 mg (Bactrim DS) 1 tab PO BID 3 days tamsulosin 0.8 mg (2 x 0.4 mg) PO BEDTIME 90 days warfarin 3 mg See Protocol PO DAILY Nursing Note INR 1.9 out of therapeutic range 2.5-3.5 Medications and supplements reviewed Patient status: PT STARTED ANTBX LAST WEEK SULFANETHOXAZOLE DS - HIS WARFARIN DOSE WAS DECREASE APPROPRIATELY MID RANGE OF 15% BUT HE MISSED SAT A 9MG DOSE. PT TO HAVE MOH''S PROCEDURE 05/12 ON NOSE THEN AGAIN 05/19/23 - HE CAN HOLD WARFARIN X 3 DAYS PER CARIDIOLOGY Medications or supplements: NO OTHER CHANGES Diet: GOOD Denies any signs and symptoms of bleeding or clotting or unusual bruising Bleeding, bruising, clotting discussed Nutritional guidance given: AVOID GREENS X 2 DAYS - DO NOT EAT A LOT OF REDS THE ANTBX MAY HAVE A DELAYED ONSET RAISING THE INR Dose: 9MG TODAY THE RESUME 7.5MG X MWF/ 9MH X 4 DAYS F/U INR Date : 05/10/23 THEN TO HOLD WARFARIN X 3 DAYS ?? Patient verbalizing understanding of instructions given. 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
[2023-05-03 13:25] LABS: Prothrombin Time Whole Bld POC 22.4 sec (11.1-13.5); ~PT, ~INR - Anti Coag Clinic 1.9 (0.9-1.1)
== END 2023-05-03 15:34 | disposition home or self-care (01) ==
LOC: HO.ACS 13:15
PROVIDERS: PCP Nurse Practitioner Family; Visit Provider Internal Medicine
DX: Z79.01 Long term (current) use of anticoagulants (principal)

== ENCOUNTER → 2023-05-03 13:15 | Outpatient (BNVA) | payer MEDICARE, SELFPAY | PROVIDERS: PCP Nurse Practitioner Family; Visit Provider Internal Medicine | DX: Z95.2 Presence of prosthetic heart valve (principal); Z79.01 Long term (current) use of anticoagulants; Z51.81 Encounter for therapeutic drug level monitoring | CPT/HCPCS: 85610; 99211 ==

== ENCOUNTER 2023-05-10 13:01 | Outpatient (AMB) | payer MEDICARE, SELFPAY ==
[2023-05-10 13:13] LABS: Prothrombin Time Whole Bld POC 36.5 sec (11.1-13.5)
--- NOTE | 2023-05-10 13:25 | MHC.OFFVISCO ---
Intake Intake Visit Reasons: Anticoagulation Allergies No Known Allergies Allergy (Mild, Verified 05/10/23 13:05) NOT APPLICABLE Medication List - Last Reconciled 05/10/23 by Lesley Rosario RN acetaminophen 500 mg PO Q6H PRN amlodipine 2.5 mg PO DAILY amoxicillin 2,000 mg (4 x 500 mg) PO ONCE 1 day betamethasone dipropionate 0.05% 1 appl topical DAILY PRN 30 days cholecalciferol (vitamin D3) (Vitamin D3) 25 mcg PO DAILY fluocinonide 0.05% mL topical ketoconazole 2% 1 appl topical DAILY 30 days metoprolol succinate ER 50 mg PO DAILY nystatin 1 appl topical DAILY simvastatin 10 mg PO BEDTIME tamsulosin 0.8 mg (2 x 0.4 mg) PO BEDTIME 90 days warfarin 3 mg See Protocol PO DAILY Nursing Note INR: 3.0 in therapeutic range Medications and supplements reviewed pt to hold warfarin x 3 days day before day of and day after moh's nose procedure for 05/12/23, then another moh's shoulder procedure 05/20/23 Denies any signs and symptoms of bleeding or bruising or clotting. Bleeding, bruising, clotting discussed Nutritional guidance given - avoid greens x 3 days after the procedure Dose: 9mg after the 1 st prodcdedure then 7.5mg x 3 days 9mg x 4 days / he wont be holding for the shoulder F/U INR:05/25/23 Patient verbalizes understanding of instructions given Anti-Coag Initial Assessment Social Hx Patient Tobacco Use Status: Former Tobacco user Quit Date: 1984 Tobacco use type: Cigarette Smoking packs per day: 1 alcohol intake: current Alcohol intake frequency: a few times a week Coding Level of Care Code Est Patient Level 1 Diagnoses Current use of anticoagulant therapy Z79.01 Assessment & Plan Assessment & Plan (1) Current use of anticoagulant therapy: Code(s): 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
== END 2023-05-10 13:30 | disposition home or self-care (01) ==
LOC: HO.ACS 13:01
PROVIDERS: PCP Nurse Practitioner Family; Visit Provider Internal Medicine
DX: Z79.01 Long term (current) use of anticoagulants (principal)

== ENCOUNTER → 2023-05-10 13:01 | Outpatient (BNVA) | payer MEDICARE, SELFPAY | PROVIDERS: PCP Nurse Practitioner Family; Visit Provider Internal Medicine | DX: Z95.2 Presence of prosthetic heart valve (principal); Z79.01 Long term (current) use of anticoagulants; Z51.81 Encounter for therapeutic drug level monitoring | CPT/HCPCS: 85610; 99211 ==

== ENCOUNTER 2023-05-27 09:58 | Outpatient (AMB) | payer MEDICARE, SELFPAY ==
--- NOTE | 2023-05-27 10:01 | MHC.PC.OV ---
Vital Signs 05/27/23 10:02 Height 5 ft 10 in Weight 240 lb BMI 34.4 BP 134/78 Blood Pressure Location Lt brachial Position Sitting Pulse 56 Pulse Source Pulse Oximeter Pulse Oximetry (%) 97 Oxygen Delivery Method Room Air Intake Visit Reasons: 3m follow up HTN Intake Note: Patient would like to get some amoxicillin for dental work in june. Allergies No Known Allergies Allergy (Mild, Verified 05/27/23 10:05) NOT APPLICABLE Tobacco use date assessed: 11/09/22 Fall risk assessment: No Falls in past year Last assessed Fall Risk: 05/27/23 Dental Screening Dental Screen Date: 05/27/23 Did you have a dental visit in the last 12 months?: Yes Did you have a dental problem in the last 6 months where you did not have access to dental care?: No Was dental information given to patient?: Patient has dentist HPI 3m follow up HTN HPI Details HTN: Blood pressure is stable, managed with amlodipine 2.5mg and metoprolol 50mg. Dyslipidemia: On simvastatin 10mg. Will order labs. Denies chest pain, shortness of breath, headache, dizziness, and blurred vision. [facility] Medical History Cervical spondylolysis Dyslipidemia Gynecomastia HTN (hypertension) Hyperparathyroidism Malignant melanoma Osteoarthritis Primary hyperparathyroidism Rotator cuff tear Vitamin D deficiency Surgical History Aortic valve replaced History of lobectomy of thyroid History of right knee joint replacement Hx of cardiac cath Hx of colonoscopy Hx of repair of rotator cuff Family History Father History of CVA (cerebrovascular accident) Diabetes mellitus Mother Stomach ulcer Daughter Brain tumor Maternal Grandfather No problems noted. Maternal Grandmother No problems noted. Paternal Grandfather No problems noted. Paternal Grandmother No problems noted. Maternal Aunt No problems noted. Maternal Uncle No problems noted. Paternal Aunt No problems noted. Paternal Uncle No problems noted. Social History Housing: House Alcohol intake: current Alcohol intake frequency: a few times a week Patient Tobacco Use Status: Former Tobacco user Quit Date: 1984 Tobacco use type: Cigarette Cigarette Packs Per Day: 1 Years Smoked: 12 e-Cigarette/Vaping Use: Never Used service: No Current occupational status: retired Cognitive needs: No Hearing needs: No Vision needs: Yes Questionnaire Thrive Questionnaire Date Thrive assessed: 11/12/21 AUDIT C Alcohol Use Questionnaire (AUDIT-C) 1. How often do you have a drink containing alcohol?: 4 or more times a week 2. How many drinks containing alcohol do you have on a typical day when you are drinking?: 3 or 4 3. How often do you have six or more drinks on one occasion?: Never Total Score: 5 Score Reviewed/Action Taken: Yes FELIX-7 AMB Questionnaire FELIX-7 Date FELIX - 7 assessed: 11/12/21 Source: Developed by Drs. Mario Bobby, Camila Temple, Evin Snyder and colleagues, with an educational solomon from [employer]. Review of Systems Const Reports as per HPI Physical exam (Primary Care) Vital Signs: Last Vital Signs Pulse 56 05/27/23 10:02 BP 134/78 05/27/23 10:02 Pulse Ox 97 05/27/23 10:02 Oxygen Delivery Method Room Air 05/27/23 10:02 BMI result Body Mass Index 34.4 Tobacco/Smoking Status: Tobacco use Status Tobacco use date assessed 11/09/22 05/27/23 10:06 Patient Tobacco Use Status Former Tobacco user 05/27/23 10:06 Tobacco use type Cigarette 05/27/23 10:06 e-Cigarette/Vaping Use Never Used 05/27/23 10:06 Thrive Assessment: Date of Thrive Assessment Date Thrive assessed 11/12/21 05/27/23 10:06 Const General: cooperative Nutritional Appearance: obese Orientation/consciousness: patient oriented x3 Resp Effort & Inspection: normal respiratory effort Auscultation: clear to auscultation bilaterally Cardio Other: mechanical valve appreciated Rate: regular rate Rhythm: regular rhythm Heart sounds: S1 normal heart sound present and S2 normal heart sound present Neuro General: patient oriented x3 Extrem Right lower extremity: edema (trace) Left lower extremity: edema (trace) Psych Appearance: grossly normal Mental Status: mental status grossly normal Speech and movement: Normal speech and movement present Affect: normal affect Attitude: cooperative Thought process: Normal thought process present Thought content: Normal thought content present Insight: Good insight present (Psych) Judgement: Good judgement present (Psych) Assessment and Plan Assessment & Plan (1) HTN (hypertension): Code(s): I10 - Essential (primary) hypertension Plan: Labs ordered (2) Dyslipidemia: Code(s): E78.5 - Hyperlipidemia, unspecified Plan: Labs ordered Plan The patient agreed to the use of a medical billing manager for this encounter. Scribed for LANDY Blackburn-DAIN by Kristen Shepherd medical billing manager, on 05/27/2023 at 10:25 EST. Orders: Orders Comprehensive Met. Panel Today E78.5 - Hyperlipidemia, unspecified, I10 - Essential (primary) hypertension UA CC w/rflx Micro + Cult Today E78.5 - Hyperlipidemia, unspecified, I10 - Essential (primary) hypertension Urine Culture Today E78.5 - Hyperlipidemia, unspecified, I10 - Essential (primary) hypertension Complete Blood Count Auto Diff Today E78.5 - Hyperlipidemia, unspecified, I10 - Essential (primary) hypertension TSH reflex Free T4 Today E78.5 - Hyperlipidemia, unspecified, I10 - Essential (primary) hypertension Coding Level of Care Code Est Pt Level 3 (21200) Diagnoses HTN (hypertension) I10 Dyslipidemia E78.5
[2023-05-27 10:02] VITALS: BP 134/78; PULSE 56; O2SAT 97; BMI 34.4
== END 2023-05-27 14:13 | disposition home or self-care (01) ==
PROVIDERS: PCP Nurse Practitioner Family; Visit Provider Nurse Practitioner Family
DX: I10 Essential (primary) hypertension (principal); E78.5 Hyperlipidemia, unspecified
CPT/HCPCS: 99213

== ENCOUNTER 2023-05-27 10:34 | Outpatient (REF) | payer MEDICARE, SELFPAY ==
[2023-05-27 13:15] LABS: MANUAL DIFF FLAG NO
[2023-05-27 13:25] LABS: Basophils Percent Auto 0.4 % (0-2); Eosinophils Absolute Auto 0.1 X10*3/uL (0.0-0.4); Eosinophils Percent Auto 2.2 % (0-4); Hematocrit 44.6 % (42.0-52.0); Hemoglobin 14.8 g/dl (14.0-18.0); Imm Gran Abs Auto 0.02 X10*3/uL (0.00-0.03); Imm Gran Pct Auto 0.4 % (0.0-0.4); Lymphocytes Absolute Auto 1.6 X10*3/uL (1.2-4.9); Lymphocytes Percent Auto 29.2 % (20-40); Mean Corpuscular HGB Conc 33.2 g/dl (31.0-36.0); Mean Corpuscular Hemoglobin 29.8 pg (27.0-33.0); Mean Corpuscular Volume 89.9 fL (80.0-98.0); Mean Platelet Volume 9.9 fL (9.4-12.4); Monocytes Absolute Auto 0.9 X10*3/uL (0.1-1.2); Monocytes Percent Auto 16.6 % (2-11); Neutrophils Absolute Auto 2.8 x10*3/uL (2.0-8.3); Neutrophils Percent Auto 51.2 % (45-73); Platelet Count 201 X10*3/uL (160-400); Red Blood Count 4.96 X10*6/uL (4.60-5.80); Red Cell Distribution Width 14.4 % (11.0-16.0); White Blood Count 5.4 X10*3/uL (4.8-10.8)
[2023-05-27 13:39] LABS: Appearance Urine Cloudy; Color Urine Yellow; Glucose Urine UA Negative (Negative); Leukocyte Esterase Urine Large (3+) (Negative); Nitrite Urine Positive (Negative); PH 6.5 (5.0-9.0); UMIC TRIGGER UACC YES; Urine Blood Small (1+) (Negative); Urine Ketones Negative (Negative); Urine Protein 30 (1+) mg/dL (Neg-Trace)
[2023-05-27 13:47] LABS: Bacteria Urine 4+ (None Seen); Squamous Epithelial Cell Urine 0-2 /HPF (0-2); UACC Culture Trigger YES; WBC Urine >50 /HPF (0-5)
[2023-05-27 13:52] LABS: Alanine Aminotransferase 19 U/L (0-40); Albumin Level 4.2 g/dL (3.5-5.0); Alkaline Phosphatase 53 U/L (39-117); Anion Gap 13 (12-20); Aspartate Amino Transferase 19 U/L (5-37); Bilirubin Total 0.7 mg/dL (0.0-1.0); Blood Urea Nitrogen 21 mg/dL (9-16); Calcium 9.4 mg/dL (8.4-10.2); Carbon Dioxide 24 mmol/L (22-29); Chloride 107 mmol/L (96-108); Estimated Glomerular Filt Rate > 60; Glucose Random 91 mg/dL (60-115); Potassium 4.5 mmol/L (3.3-5.1); Sodium 139 mmol/L (135-145); Total Protein 7.5 g/dL (6.5-8.0)
[2023-05-27 14:01] LABS: TSH reflex Free T4 3.09 uIU/mL (0.32-4.0)
== END 2023-05-27 10:35 | disposition home or self-care (01) ==
LOC: HO.HMGCLDS 10:34
PROVIDERS: PCP Nurse Practitioner Family; Visit Provider Nurse Practitioner Family
DX: E78.5 Hyperlipidemia, unspecified (principal); I10 Essential (primary) hypertension; R82.90 Unspecified abnormal findings in urine
CPT/HCPCS: 36415; 80053; 81001; 84443; 85025; 87086; 87088; 87186

== ENCOUNTER 2023-06-07 13:01 | Outpatient (AMB) | payer MEDICARE, SELFPAY ==
[2023-06-07 13:13] LABS: Prothrombin Time Whole Bld POC 37.5 sec (11.1-13.5); ~PT, ~INR - Anti Coag Clinic 3.1 (0.9-1.1)
--- NOTE | 2023-06-07 13:19 | MHC.OFFVISCO ---
Intake Intake Visit Reasons: Anticoagulation Allergies No Known Allergies Allergy (Mild, Verified 06/07/23 13:03) NOT APPLICABLE Medication List - Last Reconciled 06/07/23 by Lesley Rosario RN acetaminophen 500 mg PO Q6H PRN amlodipine 2.5 mg PO DAILY amoxicillin 2,000 mg (4 x 500 mg) PO ONCE 1 day betamethasone dipropionate 0.05% 1 appl topical DAILY PRN 30 days cephalexin 500 mg PO BID cholecalciferol (vitamin D3) (Vitamin D3) 25 mcg PO DAILY ciprofloxacin HCl (Cipro) 250 mg PO BID 3 days fluocinonide 0.05% mL topical ketoconazole 2% 1 appl topical DAILY 30 days metoprolol succinate ER 50 mg PO DAILY nystatin 1 appl topical DAILY simvastatin 10 mg PO BEDTIME tamsulosin 0.8 mg (2 x 0.4 mg) PO BEDTIME 90 days warfarin 3 mg See Protocol PO DAILY Nursing Note INR: 3.1 in therapeutic range Medications and supplements reviewed, WILL HAVE MOH'S PROCEDURE THIS WEDNESDAY ON SHOULDER - WILL HOLD WARFARIN DAY BEFORE DAY OF AND DAY AFTER THE PROCEDURE PER MD ORDERS, HE WILL TAKE ANTBX DAY OF. Denies any signs and symptoms of bleeding or bruising or clotting. Bleeding, bruising, clotting discussed Nutritional guidance given - AVOID GREENS AFTER THE PROCEDURE Dose: HOLD X 3 DAYS PER MD ORDERS THEN INCREASE DOSE 9MG X 6 DAYS / 7.5 MG X 1 DAY THEN RESUME USUAL DOSE 7.5MG MWF/ 9MG X 4 DAYS F/U INR: 06/23/23 AFTER PROCEDURE - CALL IF ANY MED CHANGES Patient verbalizes understanding of instructions given Anti-Coag Initial Assessment Social Hx Patient Tobacco Use Status: Former Tobacco user Quit Date: 1984 Tobacco use type: Cigarette Smoking packs per day: 1 alcohol intake: current Alcohol intake frequency: a few times a week Coding Level of Care Code Est Patient Level 1 Diagnoses Current use of anticoagulant therapy Z79.01 Results AMB INR Fingerstick AMB INR Fingerstick 3.1 Last Edit by Lesley Rosario RN on 06/07/23 13:13 manual entry due to interfacing Assessment & Plan Assessment & Plan (1) Current use of anticoagulant therapy: Code(s): Z79.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
== END 2023-06-07 14:40 | disposition home or self-care (01) ==
LOC: HO.ACS 13:01
PROVIDERS: PCP Nurse Practitioner Family; Visit Provider Internal Medicine
DX: Z79.01 Long term (current) use of anticoagulants (principal)

== ENCOUNTER → 2023-06-07 13:01 | Outpatient (BNVA) | payer MEDICARE, SELFPAY | PROVIDERS: PCP Nurse Practitioner Family; Visit Provider Internal Medicine | DX: Z95.2 Presence of prosthetic heart valve (principal); Z79.01 Long term (current) use of anticoagulants; Z51.81 Encounter for therapeutic drug level monitoring | CPT/HCPCS: 85610; 99211 ==

== ENCOUNTER 2023-06-23 13:03 | Outpatient (AMB) | payer MEDICARE, SELFPAY ==
--- NOTE | 2023-06-23 13:29 | MHC.OFFVISCO ---
Intake Intake Visit Reasons: Anticoagulation Allergies No Known Allergies Allergy (Mild, Verified 06/23/23 13:06) NOT APPLICABLE Medication List - Last Reconciled 06/23/23 by Mariann Loera RN acetaminophen 500 mg PO Q6H PRN amlodipine 2.5 mg PO DAILY amoxicillin 2,000 mg (4 x 500 mg) PO ONCE 1 day betamethasone dipropionate 0.05% 1 appl topical DAILY PRN 30 days cholecalciferol (vitamin D3) (Vitamin D3) 25 mcg PO DAILY fluocinonide 0.05% mL topical ketoconazole 2% 1 appl topical DAILY 30 days metoprolol succinate ER 50 mg PO DAILY nystatin 1 appl topical DAILY simvastatin 10 mg PO BEDTIME tamsulosin 0.8 mg (2 x 0.4 mg) PO BEDTIME 90 days warfarin 3 mg See Protocol PO DAILY Nursing Note PT.STATES THAT HE HAS HAD A LARGER THAN USUAL AMT.OF [place] THIS WEEK. NO CP.SOB,MED CHANGES,FALLS OR SX OF BLEEDING. HOLD WARFARIN TOMORROW(TOOK 7.5MGM TODAY) THEN RESUME USUAL DOSE AND FOLLOW-UP IN 2 WEEKS. WILL BE SURE TO HAVE GREENS GOOD UNDERSTANDING OF DOSING IUNSTR. Anti-Coag Initial Assessment Social Hx Patient Tobacco Use Status: Former Tobacco user Quit Date: 1984 Tobacco use type: Cigarette Smoking packs per day: 1 alcohol intake: current Alcohol intake frequency: a few times a week Coding Level of Care Code Est Patient Level 1 Diagnoses Current use of anticoagulant therapy Z79.01 Results AMB INR Fingerstick AMB INR Fingerstick 4.4 Last Edit by Mariann Loera RN on 06/23/23 13:17 Assessment & Plan Assessment & Plan (1) Current use of anticoagulant therapy: Code(s): Z79.01 - [facility] (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
[2023-06-24 10:01] LABS: Prothrombin Time Whole Bld POC 52.7 sec (11.1-13.5); ~PT, ~INR - Anti Coag Clinic 4.4 (0.9-1.1)
== END 2023-06-23 13:33 | disposition home or self-care (01) ==
LOC: HO.ACS 13:03
PROVIDERS: PCP Nurse Practitioner Family; Visit Provider Internal Medicine
DX: Z79.01 Long term (current) use of anticoagulants (principal)

== ENCOUNTER → 2023-06-23 13:03 | Outpatient (BNVA) | payer MEDICARE, SELFPAY | PROVIDERS: PCP Nurse Practitioner Family; Visit Provider Internal Medicine | DX: Z95.2 Presence of prosthetic heart valve (principal); Z79.01 Long term (current) use of anticoagulants; Z51.81 Encounter for therapeutic drug level monitoring | CPT/HCPCS: 85610; 99211 ==

== ENCOUNTER 2023-07-07 13:04 | Outpatient (AMB) | payer MEDICARE, SELFPAY ==
[2023-07-07 13:13] LABS: Prothrombin Time Whole Bld POC 34.6 sec (11.1-13.5); ~PT, ~INR - Anti Coag Clinic 2.9 (0.9-1.1)
--- NOTE | 2023-07-07 13:26 | MHC.OFFVISCO ---
Intake Intake Visit Reasons: Anticoagulation Allergies No Known Allergies Allergy (Mild, Verified 07/07/23 13:12) NOT APPLICABLE Medication List - Last Reconciled 07/07/23 by Mariann Loera RN acetaminophen 500 mg PO Q6H PRN amlodipine 2.5 mg PO DAILY amoxicillin 2,000 mg (4 x 500 mg) PO ONCE 1 day betamethasone dipropionate 0.05% 1 appl topical DAILY PRN 30 days cholecalciferol (vitamin D3) (Vitamin D3) 25 mcg PO DAILY fluocinonide 0.05% mL topical ketoconazole 2% 1 appl topical DAILY 30 days metoprolol succinate ER 50 mg PO DAILY nystatin 1 appl topical DAILY simvastatin 10 mg PO BEDTIME tamsulosin 0.8 mg (2 x 0.4 mg) PO BEDTIME 90 days warfarin 3 mg See Protocol PO DAILY Nursing Note NO CP,SOB,DIET/MED CHANGES,FALLS OR SX OF BLEEDING. CONTINUE PRESENT DOSE AND FOLLOW-UP IN 4 WEKS. GOOD UNDERSTANDING OF DOSING INSTR. Anti-Coag Initial Assessment Social Hx Patient Tobacco Use Status: Former Tobacco user Quit Date: 1984 Tobacco use type: Cigarette Smoking packs per day: 1 alcohol intake: current Alcohol intake frequency: a few times a week Coding Level of Care Code Est Patient Level 1 Diagnoses Current use of anticoagulant therapy Z79.01 Assessment & Plan Assessment & Plan (1) Current use of anticoagulant therapy: Code(s): Z79.01 - [facility] (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
== END 2023-07-07 13:27 | disposition home or self-care (01) ==
LOC: HO.ACS 13:04
PROVIDERS: PCP Nurse Practitioner Family; Visit Provider Internal Medicine
DX: Z79.01 Long term (current) use of anticoagulants (principal)

== ENCOUNTER → 2023-07-07 13:04 | Outpatient (BNVA) | payer MEDICARE, SELFPAY | PROVIDERS: PCP Nurse Practitioner Family; Visit Provider Internal Medicine | DX: Z95.2 Presence of prosthetic heart valve (principal); Z79.01 Long term (current) use of anticoagulants; Z51.81 Encounter for therapeutic drug level monitoring | CPT/HCPCS: 85610; 99211 ==

== ENCOUNTER 2023-08-04 13:02 | Outpatient (AMB) | payer MEDICARE, SELFPAY ==
[2023-08-04 13:10] LABS: Prothrombin Time Whole Bld POC 45.5 sec (11.1-13.5); ~PT, ~INR - Anti Coag Clinic 3.8 (0.9-1.1)
--- NOTE | 2023-08-04 13:26 | MHC.OFFVISCO ---
Intake Intake Visit Reasons: Anticoagulation Allergies No Known Allergies Allergy (Mild, Verified 08/04/23 13:04) NOT APPLICABLE Medication List - Last Reconciled 08/04/23 by Mariann Loera RN acetaminophen 500 mg PO Q6H PRN amlodipine 2.5 mg PO DAILY amoxicillin 2,000 mg (4 x 500 mg) PO ONCE 1 day betamethasone dipropionate 0.05% 1 appl topical DAILY PRN 30 days cholecalciferol (vitamin D3) (Vitamin D3) 25 mcg PO DAILY fluocinonide 0.05% mL topical ketoconazole 2% 1 appl topical DAILY 30 days metoprolol succinate ER 50 mg PO DAILY nystatin 1 appl topical DAILY simvastatin 10 mg PO BEDTIME tamsulosin 0.8 mg (2 x 0.4 mg) PO BEDTIME 90 days warfarin 3 mg See Protocol PO DAILY Nursing Note NO CP,SOB,DIET/MED CHANGES,FALLS OR SX OF BLEEDING. CONTINUE PRESENT DOSE AND FOLLOW-UP IN 4 WEEKS. GOOD UNDERSTANDING OF DOSING INSTR. Anti-Coag Initial Assessment Social Hx Patient Tobacco Use Status: Former Tobacco user Quit Date: 1984 Tobacco use type: Cigarette Smoking packs per day: 1 alcohol intake: current Alcohol intake frequency: a few times a week Coding Level of Care Code Est Patient Level 1
== END 2023-08-04 13:30 | disposition home or self-care (01) ==
LOC: HO.ACS 13:02
PROVIDERS: PCP Nurse Practitioner Family; Visit Provider Internal Medicine
DX: Z79.01 Long term (current) use of anticoagulants (principal)

== ENCOUNTER → 2023-08-04 13:02 | Outpatient (BNVA) | payer MEDICARE, SELFPAY | PROVIDERS: PCP Nurse Practitioner Family; Visit Provider Internal Medicine | DX: Z95.2 Presence of prosthetic heart valve (principal); Z79.01 Long term (current) use of anticoagulants; Z51.81 Encounter for therapeutic drug level monitoring | CPT/HCPCS: 85610; 99211 ==

== ENCOUNTER 2023-09-16 13:21 | Outpatient (AMB) | payer MEDICARE, SELFPAY ==
--- NOTE | 2023-09-16 13:44 | MHC.OFFVISCO ---
Intake Intake Visit Reasons: Anticoagulation Allergies No Known Allergies Allergy (Mild, Verified 09/16/23 13:35) NOT APPLICABLE Medication List - Last Reconciled 09/16/23 by Mariann Loera RN acetaminophen 500 mg PO Q6H PRN amlodipine 2.5 mg PO DAILY amoxicillin 2,000 mg (4 x 500 mg) PO ONCE 1 day betamethasone dipropionate 0.05% 1 appl topical DAILY PRN 30 days cholecalciferol (vitamin D3) (Vitamin D3) 25 mcg PO DAILY fluocinonide 0.05% mL topical ketoconazole 2% 1 appl topical DAILY 30 days metoprolol succinate ER 50 mg PO DAILY nystatin 1 appl topical DAILY simvastatin 10 mg PO BEDTIME tamsulosin 0.8 mg (2 x 0.4 mg) PO BEDTIME 90 days warfarin 3 mg See Protocol PO DAILY Nursing Note NO CP,SOB,DIET/MED CHANGES,FALLS OR SX OF BLEEDING. CONTINUE PRESENT DOSE AND FOLLOW-UP IN 4 WEEKS GOOD UNDERSTANDING OF DOSING ISNTR. Anti-Coag Initial Assessment Social Hx Patient Tobacco Use Status: Former Tobacco user Quit Date: 1984 Tobacco use type: Cigarette Smoking packs per day: 1 alcohol intake: current Alcohol intake frequency: a few times a week Coding Level of Care Code Est Patient Level 1 Diagnoses Current use of anticoagulant therapy Z79.01 Assessment & Plan Assessment & Plan (1) Current use of anticoagulant therapy: Code(s): Z79.01 - retirement (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
== END 2023-09-16 13:49 | disposition home or self-care (01) ==
LOC: HO.ACS 13:21
PROVIDERS: PCP Nurse Practitioner Family; Visit Provider Internal Medicine
DX: Z79.01 Long term (current) use of anticoagulants (principal)

== ENCOUNTER → 2023-09-16 13:21 | Outpatient (BNVA) | payer MEDICARE, SELFPAY | PROVIDERS: PCP Nurse Practitioner Family; Visit Provider Internal Medicine | DX: Z95.2 Presence of prosthetic heart valve (principal); Z79.01 Long term (current) use of anticoagulants; Z51.81 Encounter for therapeutic drug level monitoring | CPT/HCPCS: 85610; 99211 ==

== ENCOUNTER 2023-09-21 10:46 | Outpatient (AMB) | payer MEDICARE, SELFPAY ==
--- NOTE | 2023-09-21 10:51 | MHC.OFFVIS ---
Intake Intake Visit Reasons: 6m/PVR Intake Note: Patient is Present for Follow Up PVR Urology Medication: Tamsulosin Antibiotic Allergies: None Blood Thinners: Warfarin PVR: 31 Patient states that he does feel like he does empty his bladder. His only concern is that he doesn't urinate as much as he thinks he should. The qmount in very low. Patient denies any discomfort or feeling that he is not emptying Allergies No Known Allergies Allergy (Mild, Verified 09/21/23 11:00) NOT APPLICABLE HPI HPI Comments History of Present Illness Details Fabio is a pleasant male. He is a patient of Dr. Herrera. He is seen for the following urologic conditions - right hydrocele - bladder outlet obstruction - urinary hesitancy - incomplete emptying Here for follow-up after increasing tamsulosin to 0.8 PVR 30 cc Happy with current voiding parameters Continue tamsulosin Did have discussion about right hydrocele Is enlarged enough on office evaluation to suggest aspiration versus surgery Interested in trialing aspiration Right spermatocele Gradually increased pain on right side On exam right spermatocele Prior discussion regarding right spermatocelectomy Lower urinary tract symptoms Progressive symptoms Urinary hesitancy with weak stream and incomplete emptying PSA 11/04 1.0 Bladder ultrasound 12/02 effectively emptying with small prostate Current medications tamsulosin Six-month follow-up [facility] Medical History Cervical spondylolysis Dyslipidemia Gynecomastia HTN (hypertension) Hyperparathyroidism Malignant melanoma Osteoarthritis Primary hyperparathyroidism Rotator cuff tear Vitamin D deficiency Surgical History Aortic valve replaced History of lobectomy of thyroid History of right knee joint replacement Hx of cardiac cath Hx of colonoscopy Hx of repair of rotator cuff Family History Father History of CVA (cerebrovascular accident) Diabetes mellitus Mother Stomach ulcer Daughter Brain tumor Maternal Grandfather No problems noted. Maternal Grandmother No problems noted. Paternal Grandfather No problems noted. Paternal Grandmother No problems noted. Maternal Aunt No problems noted. Maternal Uncle No problems noted. Paternal Aunt No problems noted. Paternal Uncle No problems noted. Social History Housing: House Alcohol intake: current Alcohol intake frequency: a few times a week Patient Tobacco Use Status: Former Tobacco user Quit Date: 1984 Tobacco use type: Cigarette Cigarette Packs Per Day: 1 Years Smoked: 12 e-Cigarette/Vaping Use: Never Used service: No Current occupational status: retired Cognitive needs: No Hearing needs: No Vision needs: Yes Review of Systems Const Denies chills and Denies fever(s) Card Reports no additional complaints and Denies syncope Resp Denies cough GI Denies abdominal pain and Denies heartburn Reports as per HPI and Denies change in libido Neuro Denies syncope Psych Denies change in libido Endo Denies change in libido Physical Exam Const General: cooperative, healthy appearing, comfortable and no acute distress Orientation/consciousness: patient oriented x3 HEENT Face and sinus: Yes normal facial exam Mouth: moist mucous membranes Neck Neck: Yes normal visual inspection, Yes full ROM and Yes trachea midline Chest Chest palpation & inspection: normal inspection of the chest Resp Effort & Inspection: normal respiratory effort, able to speak in complete sentences and no respiratory distress GI Inspection: Yes normal to inspection Back/Spine/Pelvis Cervical Spine: normal cervical lordosis Thoracic/Lumbar Spine: thoracic and lumbar spine normal to inspection Skin General skin exam: no rashes or lesions noted Neuro General: patient oriented x3, gait normal, tone normal and moves all extremities Extrem General: Yes normal to inspection and Yes capillary refill normal Office Procedures Post Void Residual Post Residual Void Post Void Residual (PVR): 31 26581-Uoni Void Residual by ultrasound Assessment & Plan Assessment & Plan (1) BPH w urinary obs/LUTS: Code(s): N40.1 - Benign prostatic hyperplasia with lower urinary tract symptoms; N13.8 - Other obstructive and reflux uropathy (2) Spermatocele: Code(s): N43.40 - Spermatocele of epididymis, unspecified Plan Risks, benefits and alternatives to therapy were discussed. These include but are not limited to infection, bleeding, damage to local organs and tissues, need for further interventions. Anesthetic risks regarding cardiac arrhythmia, blood clots, and potential mortality were discussed. The patient understands the typical recovery time and the outpatient nature of the procedure. After consideration of these risks the patient gives full informed consent and they wish to move ahead with the procedure. Plan right hydrocele drainage Understands risks recurrence approximately 30% Orders: Orders AMB Post Void Residual by ultrasound Today N13.8 - Other obstructive and reflux uropathy, N40.1 - Benign prostatic hyperplasia with lower urinary tract symptoms Patient Instructions: Imaging studies, laboratory and physical exam results were discussed and reviewed in detail. No major barriers to patient understanding were identified. An opportunity to ask questions regarding the treatment plan was provided. All questions were answered. The patient expressed understanding and agreement with the above treatment plan. The patient is aware they should contact our office by phone for worsening of their current condition or the appearance of new urologic symptoms. Compliance is encouraged with any medications and followup testing that is ordered. It is a privilege to participate in the urologic care of your patient. If you have any questions or concerns regarding treatment for the above conditions, or other urologic issues, please do not hesitate to contact me. The office telephone contact is [phone]. This note is constructed using voice recognition software. While every effort has been made to ensure accuracy farm loan representative errors may have been included. Yours sincerely, Dr Ken Hawk MD, [facility] - Urology Providers of Expert, Compassionate Care for the Genitourinary System Coding Level of Care Code Est Pt Level 4 (66958) Diagnoses BPH w urinary obs/LUTS N40.1; N13.8 Spermatocele N43.40 CPT Codes Post Residual Void - PVR CPT Code: 82597-Rgsd Void Residual by ultrasound ([id number])
== END 2023-09-21 11:25 | disposition home or self-care (01) ==
PROVIDERS: PCP Nurse Practitioner Family; Visit Provider Urology
DX: N40.1 Benign prostatic hyperplasia with lower urinary tract symptoms (principal); N13.8 Other obstructive and reflux uropathy; N43.40 Spermatocele of epididymis, unspecified
CPT/HCPCS: 99214

== ENCOUNTER → 2023-09-21 10:46 | Outpatient (BNVA) | payer MEDICARE, SELFPAY | PROVIDERS: PCP Nurse Practitioner Family; Visit Provider Urology | DX: N40.1 Benign prostatic hyperplasia with lower urinary tract symptoms (principal); N13.8 Other obstructive and reflux uropathy; N43.40 Spermatocele of epididymis, unspecified | CPT/HCPCS: 51798; 99212 ==

== ENCOUNTER 2023-10-13 12:59 | Outpatient (AMB) | payer MEDICARE, SELFPAY ==
[2023-10-13 13:13] LABS: Prothrombin Time Whole Bld POC 32.8 sec (11.1-13.5); ~PT, ~INR - Anti Coag Clinic 2.7 (0.9-1.1)
--- NOTE | 2023-10-13 13:16 | MHC.OFFVISCO ---
Intake Intake Visit Reasons: Anticoagulation Allergies No Known Allergies Allergy (Mild, Verified 10/13/23 13:06) NOT APPLICABLE Medication List - Last Reconciled 10/13/23 by Lesley Rosario RN albuterol sulfate 90 mcg/actuation inhalation amlodipine 2.5 mg PO DAILY betamethasone dipropionate 0.05% 1 appl topical DAILY PRN 30 days cholecalciferol (vitamin D3) (Vitamin D3) 25 mcg PO DAILY fluocinonide 0.05% mL topical ketoconazole 2% 1 appl topical DAILY 30 days metoprolol succinate ER 50 mg PO DAILY nystatin 1 appl topical DAILY simvastatin 10 mg PO BEDTIME tamsulosin 0.8 mg (2 x 0.4 mg) PO BEDTIME 90 days warfarin 3 mg See Protocol PO DAILY Nursing Note INR: 2.7 in therapeutic range Medications and supplements reviewed No changes in health, diet, medications, or supplements, Denies any signs and symptoms of bleeding or bruising or clotting. 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
== END 2023-10-13 13:18 | disposition home or self-care (01) ==
LOC: HO.ACS 12:59
PROVIDERS: PCP Nurse Practitioner Family; Visit Provider Internal Medicine
DX: Z79.01 Long term (current) use of anticoagulants (principal)

== ENCOUNTER → 2023-10-13 12:59 | Outpatient (BNVA) | payer MEDICARE, SELFPAY | PROVIDERS: PCP Nurse Practitioner Family; Visit Provider Internal Medicine | DX: Z95.2 Presence of prosthetic heart valve (principal); Z79.01 Long term (current) use of anticoagulants; Z51.81 Encounter for therapeutic drug level monitoring | CPT/HCPCS: 85610; 99211 ==

== ENCOUNTER 2023-11-17 13:50 | Outpatient (AMB) | payer MEDICARE, SELFPAY ==
--- NOTE | 2023-11-17 14:03 | MHC.OFFVISCO ---
Intake Intake Visit Reasons: Anticoagulation Allergies No Known Allergies Allergy (Mild, Verified 11/17/23 13:59) NOT APPLICABLE Medication List - Last Reconciled 11/17/23 by Macarena Escobedo RN albuterol sulfate 90 mcg/actuation inhalation amlodipine 2.5 mg PO DAILY betamethasone dipropionate 0.05% 1 appl topical DAILY PRN 30 days cholecalciferol (vitamin D3) (Vitamin D3) 25 mcg PO DAILY fluocinonide 0.05% mL topical ketoconazole 2% 1 appl topical DAILY 30 days metoprolol succinate ER 50 mg PO DAILY nystatin 1 appl topical DAILY simvastatin 10 mg PO BEDTIME tamsulosin 0.8 mg (2 x 0.4 mg) PO BEDTIME 90 days warfarin 3 mg See Protocol PO DAILY Nursing Note INR 4.2-? out of therapeutic range of 2.5-3.5 unsure why inr is elev Medications and supplements reviewed Patient status: no c.o Medications or supplements: no changes Diet: same Denies any signs and symptoms of bleeding or clotting or unusual bruising Bleeding, bruising, clotting discussed Nutritional guidance given: eat greens to lower inr, no reds for 2 days Dose: pt states already took today, reduce tomm to 3mg then cont reg 7.5mg x 3, 9mg x 4 F/U INR Date : 1 week?? Patient verbalizing understanding of instructions given. Anti-Coag Initial Assessment Social Hx Patient Tobacco Use Status: Former Tobacco user Quit Date: 1984 Tobacco use type: Cigarette Smoking packs per day: 1 alcohol intake: current Alcohol intake frequency: a few times a week Coding Level of Care Code Est Patient Level 1 Diagnoses Current use of anticoagulant therapy Z79.01 Assessment & Plan Assessment & Plan (1) Current use of anticoagulant therapy: Code(s): Z79.01 - retirement (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
[2023-11-17 14:04] LABS: Prothrombin Time Whole Bld POC 50.2 sec (11.1-13.5); ~PT, ~INR - Anti Coag Clinic 4.2 (0.9-1.1)
== END 2023-11-17 14:15 | disposition home or self-care (01) ==
LOC: HO.ACS 13:50
PROVIDERS: PCP Nurse Practitioner Family; Visit Provider Internal Medicine
DX: Z79.01 Long term (current) use of anticoagulants (principal)

== ENCOUNTER → 2023-11-17 13:50 | Outpatient (BNVA) | payer MEDICARE, SELFPAY | PROVIDERS: PCP Nurse Practitioner Family; Visit Provider Internal Medicine | DX: Z95.2 Presence of prosthetic heart valve (principal); Z79.01 Long term (current) use of anticoagulants; Z51.81 Encounter for therapeutic drug level monitoring | CPT/HCPCS: 85610; 99211 ==

== ENCOUNTER 2023-11-18 13:02 | Outpatient (AMB) | payer MEDICARE, SELFPAY ==
[2023-11-18 13:08] VITALS: BP 136/76; PULSE 62; O2SAT 98; BMI 35.0
--- NOTE | 2023-11-18 13:08 | MHC.PC.OV ---
Vital Signs 11/18/23 13:08 Height 5 ft 10 in Weight 244 lb BMI 35.0 BP 136/76 Blood Pressure Location Lt brachial Position Sitting Pulse 62 Pulse Source Pulse Oximeter Pulse Oximetry (%) 98 Oxygen Delivery Method Room Air Intake Visit Reasons: blood pressure follow up Intake Note: pt is here for bp follow up Accreditation Specialist Required: No Accompanied by: Self / Same As Patient Allergies No Known Allergies Allergy (Mild, Verified 11/18/23 17:24) NOT APPLICABLE Medication List - Last Reconciled 11/18/23 by FREYA Archibald albuterol sulfate 90 mcg/actuation inhalation amlodipine 2.5 mg PO DAILY betamethasone dipropionate 0.05% 1 appl topical DAILY PRN 30 days cholecalciferol (vitamin D3) (Vitamin D3) 25 mcg PO DAILY fluocinonide 0.05% mL topical ketoconazole 2% 1 appl topical DAILY 30 days metoprolol succinate ER 50 mg PO DAILY nystatin 1 appl topical DAILY simvastatin 10 mg PO BEDTIME tamsulosin 0.8 mg (2 x 0.4 mg) PO BEDTIME 90 days warfarin 3 mg See Protocol PO DAILY Tobacco use date assessed: 11/18/23 Fall risk assessment: No Falls in past year Last assessed Fall Risk: 11/18/23 Dental Screening Dental Screen Date: 11/18/23 Did you have a dental visit in the last 12 months?: Yes Did you have a dental problem in the last 6 months where you did not have access to dental care?: No Was dental information given to patient?: Patient has dentist HPI blood pressure follow up HPI Details HTN: Blood pressure is stable, managed with amlodipine 2.5mg and metoprolol 50mg. Dyslipidemia: On simvastatin 10mg. Will order labs. Denies chest pain, shortness of breath, headache, dizziness, and blurred vision. Hx of vitamin D deficiency, will order labs. Pt follows up with cardiology. [facility] Medical History Primary hyperparathyroidism Vitamin D deficiency Hyperparathyroidism Gynecomastia Malignant melanoma Osteoarthritis Rotator cuff tear Cervical spondylolysis Dyslipidemia HTN (hypertension) Surgical History History of right knee joint replacement Hx of colonoscopy Hx of repair of rotator cuff Aortic valve replaced Hx of cardiac cath History of lobectomy of thyroid Family History Father History of CVA (cerebrovascular accident) Diabetes mellitus Mother Stomach ulcer Daughter Brain tumor Maternal Grandfather No problems noted. Maternal Grandmother No problems noted. Paternal Grandfather No problems noted. Paternal Grandmother No problems noted. Maternal Aunt No problems noted. Maternal Uncle No problems noted. Paternal Aunt No problems noted. Paternal Uncle No problems noted. Social History Housing: House Alcohol intake: current Alcohol intake frequency: a few times a week Patient Tobacco Use Status: Former Tobacco user Quit Date: 1984 Tobacco use type: Cigarette Cigarette Packs Per Day: 1 Years Smoked: 12 e-Cigarette/Vaping Use: Never Used service: No Current occupational status: retired Cognitive needs: No Hearing needs: No Vision needs: Yes Questionnaire PHQ-9 Over the last 2 weeks, how often have you been bothered by any of the following problems? 1. Little interest or pleasure in doing things: not at all 2. Feeling down, depressed, or hopeless: not at all 3. Trouble falling or staying asleep, or sleeping too much: not at all 4. Feeling tired or having little energy: not at all 5. Poor appetite or overeating: not at all 6. Feeling bad about yourself - or that you are a failure or have let yourself or your family down: not at all 7. Trouble concentrating on things, such as reading the newspaper or watching television: not at all 8. Moving or speaking so slowly that other people could have noticed. Or the opposite - being so fidgety or restless that you have been moving around a lot more than usual: not at all 9. Thoughts that you would be better off or of hurting yourself in some way: not at all Total score: 0 Depression Screening Interpretation: Negative Depression Screening Done: Yes 10746 - PHQ-9 Billing: Yes Source: Developed by Drs. Mario Bobby, Camila Temple, Evin Snyder and colleagues, with an educational solomon from [employer]. Thrive Questionnaire Date Thrive assessed: 11/18/23 I am a: Patient What is your living situation today?: I have a steady place to live Within the past 12 months, did the food you bought not last and you didn't have the money to get more?: Never true Within the past 12 months, did you worry whether your food would run out before you got money to buy more?: Never true Do you have trouble paying for medicines?: No Do you have trouble getting transportation to medical appointments?: No Do you have trouble paying your heating and electricity bill?: No Do you have trouble taking care of your child, family member or friend?: No Do you have trouble with day-to-day activities such as bathing, preparing meals, shopping, managing finances, etc.?: No Are you currently unemployed and looking for a job?: No Are you interested in more education?: No Please select the resources that you would like help with: None Currently or been in a relationship where the following occur: no concerns reported THRIVE Score: 0 AUDIT C Alcohol Use Questionnaire (AUDIT-C) 1. How often do you have a drink containing alcohol?: 4 or more times a week 2. How many drinks containing alcohol do you have on a typical day when you are drinking?: 3 or 4 3. How often do you have six or more drinks on one occasion?: Never Total Score: 5 Score Reviewed/Action Taken: Yes FELIX-7 AMB Questionnaire FELIX-7 Date FELIX - 7 assessed: 11/18/23 Feeling nervous, anxious, or on edge: 0 = Not at all Not being able to stop or control worryin = Not at all Worrying too much about different things: 0 = Not at all Trouble relaxin = Not at all Being so restless that it is hard to sit still: 0 = Not at all Becoming easily annoyed or irritable: 0 = Not at all Feeling afraid as if something awful might happen: 0 = Not at all Total FELIX-7 score (0-4 normal; 5-9 mild; 10-14 moderate; 15-21 severe): 0 Source: Developed by Drs. Mario Bobby, Camila Temple, Evin Snyder and colleagues, with an educational solomon from [employer]. FELIX-7 Assessment Billing FELIX-7 Assessment Tool: FELIX-7 Assessment 42923 Review of Systems Const Reports as per HPI Physical exam (Primary Care) Vital Signs: Last Vital Signs Pulse 62 11/18/23 13:08 BP 136/76 11/18/23 13:08 Pulse Ox 98 11/18/23 13:08 Oxygen Delivery Method Room Air 11/18/23 13:08 BMI result Body Mass Index 35.0 Tobacco/Smoking Status: Tobacco use Status Tobacco use date assessed 11/18/23 11/18/23 13:15 Patient Tobacco Use Status Former Tobacco user 11/18/23 13:11 Tobacco use type Cigarette 11/18/23 13:11 e-Cigarette/Vaping Use Never Used 11/18/23 13:11 PHQ-9: PHQ-9 Score PHQ-9: Total score 0 11/18/23 13:36 Depression Screening Interpretation: Negative Thrive Assessment: Date of Thrive Assessment Date Thrive assessed 11/18/23 11/18/23 13:18 Currently or been in a relationship where the following occur: no concerns reported Const General: cooperative Nutritional Appearance: obese Orientation/consciousness: patient oriented x3 Resp Effort & Inspection: normal respiratory effort Auscultation: clear to auscultation bilaterally Cardio Other: mechanical valve appreciated Rhythm: regular rhythm Heart sounds: S1 normal heart sound present, S2 normal heart sound present and no murmurs Neuro General: patient oriented x3 Psych Appearance: grossly normal Mental Status: mental status grossly normal Speech and movement: Normal speech and movement present Affect: normal affect Attitude: cooperative Thought process: Normal thought process present Thought content: Normal thought content present Insight: Good insight present (Psych) Judgement: Good judgement present (Psych) Assessment and Plan Assessment & Plan (1) HTN (hypertension): Code(s): I10 - Essential (primary) hypertension Plan: Labs ordered (2) Dyslipidemia: Code(s): E78.5 - Hyperlipidemia, unspecified Plan: Labs ordered (3) Vitamin D deficiency: Code(s): E55.9 - Vitamin D deficiency, unspecified (4) Screening PSA (prostate specific antigen): Code(s): Z12.5 - Encounter for screening for malignant neoplasm of prostate Plan The patient agreed to the use of a medical officer psychiatry for this encounter. Scribed for FREYA Blackburn by robi Guzman scribe, on 11/18/2023 at 13:35 EST. Orders: Orders Complete Blood Count Auto Diff Today E78.5 - Hyperlipidemia, unspecified, I10 - Essential (primary) hypertension Comprehensive [place]. Panel Fast Today E78.5 - Hyperlipidemia, unspecified, I10 - Essential (primary) hypertension Lipid Panel Today E78.5 - Hyperlipidemia, unspecified, I10 - Essential (primary) hypertension Vitamin D 25-OH Total Today E55.9 - Vitamin D deficiency, unspecified TSH reflex Free T4 Today E78.5 - Hyperlipidemia, unspecified, I10 - Essential (primary) hypertension UA CC w/rflx Micro + Cult Today E78.5 - Hyperlipidemia, unspecified, I10 - Essential (primary) hypertension Prostate Specific Antigen Scr Today Z12.5 - Encounter for screening for malignant neoplasm of prostate Coding Level of Care Code Est Pt Level 3 (00942) Diagnoses HTN (hypertension) I10 Dyslipidemia E78.5 Vitamin D deficiency E55.9 Screening PSA (prostate specific antigen) Z12.5 Additional Codes FELIX-7 Assessment Billing - FELIX-7 Assessment Tool: FELIX-7 Assessment 22188 ([id number])
== END 2023-11-18 13:52 | disposition home or self-care (01) ==
PROVIDERS: PCP Nurse Practitioner Family; Visit Provider Nurse Practitioner Family
DX: I10 Essential (primary) hypertension (principal); E78.5 Hyperlipidemia, unspecified; E55.9 Vitamin D deficiency, unspecified; Z12.5 Encounter for screening for malignant neoplasm of prostate
CPT/HCPCS: 99213

== ENCOUNTER 2023-11-24 13:02 | Outpatient (AMB) | payer MEDICARE, SELFPAY ==
--- NOTE | 2023-11-24 13:12 | MHC.OFFVISCO ---
Intake Intake Visit Reasons: Anticoagulation Allergies No Known Allergies Allergy (Mild, Verified 11/24/23 13:05) NOT APPLICABLE Medication List - Last Reconciled 11/24/23 by Macarena Escobedo RN albuterol sulfate 90 mcg/actuation inhalation amlodipine 2.5 mg PO DAILY betamethasone dipropionate 0.05% 1 appl topical DAILY PRN 30 days cholecalciferol (vitamin D3) (Vitamin D3) 25 mcg PO DAILY fluocinonide 0.05% mL topical ketoconazole 2% 1 appl topical DAILY 30 days metoprolol succinate ER 50 mg PO DAILY nystatin 1 appl topical DAILY simvastatin 10 mg PO BEDTIME tamsulosin 0.8 mg (2 x 0.4 mg) PO BEDTIME 90 days warfarin 3 mg See Protocol PO DAILY Nursing Note INR: 2.6- in therapeutic range of 2.5-3.5 Medications and supplements reviewed No changes in health, diet, medications, or supplements, Denies any signs and symptoms of bleeding or bruising or clotting. 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
[2023-11-24 13:13] LABS: Prothrombin Time Whole Bld POC 31.6 sec (11.1-13.5); ~PT, ~INR - Anti Coag Clinic 2.6 (0.9-1.1)
== END 2023-11-24 13:17 | disposition home or self-care (01) ==
LOC: HO.ACS 13:02
PROVIDERS: PCP Nurse Practitioner Family; Visit Provider Internal Medicine
DX: Z79.01 Long term (current) use of anticoagulants (principal)

== ENCOUNTER → 2023-11-24 13:02 | Outpatient (BNVA) | payer MEDICARE, SELFPAY | PROVIDERS: PCP Nurse Practitioner Family; Visit Provider Internal Medicine | DX: Z95.2 Presence of prosthetic heart valve (principal); Z79.01 Long term (current) use of anticoagulants; Z51.81 Encounter for therapeutic drug level monitoring | CPT/HCPCS: 85610; 99211 ==

== ENCOUNTER 2023-12-07 10:49 | Outpatient (AMB) | payer MEDICARE, SELFPAY ==
--- NOTE | 2023-12-07 10:51 | MHC.OFFVIS ---
Intake Intake Visit Reasons: hydrocele aspiration( Confirmed) Intake Note: Patient is Present for Hydrocele Aspiration Urology Medication: Tamsulosin Antibiotic Allergies:None Blood Thinners: Warfarin Allergies No Known Allergies Allergy (Mild, Verified 11/24/23 13:05) NOT APPLICABLE HPI HPI Comments History of Present Illness Details Fabio is a pleasant male. He is a patient of Dr. Herrera. He is seen for the following urologic conditions - right hydrocele - bladder outlet obstruction - urinary hesitancy - incomplete emptying Here for right-sided hydrocele aspiration Right-sided hydrocele aspiration. Actually was spermatocele. 250 cc. Doxycycline placed. 4 week f/u PreOperative Diagnosis: Right spermatocele Post Operative Diagnosis: Right spermatocele Procedure: Drainage of spermatocele with sclerotherapy in office Surgeon: Dr Ken Hawk Anesthesia: Local Indications for procedure: Persistent spermatocele Procedure: Informed consent was verified and site confirmed The testicle was prepped using Betadine swab stick 10 cc 1% lidocaine placed in cord for cord block Testicle was elevated and 16 gauge Angiocath placed for drainage of spermatocele fluid 250 cc of fluid removed 20 cc of 200 mg doxycycline mixed with 1% lidocaine injected for sclerotherapy Procedure tolerated CPT 41795 Right spermatocele Gradually increased pain on right side On exam right spermatocele Prior discussion regarding right spermatocelectomy Lower urinary tract symptoms Progressive symptoms Urinary hesitancy with weak stream and incomplete emptying PSA 11/04 1.0 Bladder ultrasound 12/02 effectively emptying with small prostate Current medications tamsulosin Six-month follow-up [facility] Medical History Primary hyperparathyroidism Vitamin D deficiency Hyperparathyroidism Gynecomastia Malignant melanoma Osteoarthritis Rotator cuff tear Cervical spondylolysis Dyslipidemia HTN (hypertension) Surgical History History of right knee joint replacement Hx of colonoscopy Hx of repair of rotator cuff Aortic valve replaced Hx of cardiac cath History of lobectomy of thyroid Family History Father History of CVA (cerebrovascular accident) Diabetes mellitus Mother Stomach ulcer Daughter Brain tumor Maternal Grandfather No problems noted. Maternal Grandmother No problems noted. Paternal Grandfather No problems noted. Paternal Grandmother No problems noted. Maternal Aunt No problems noted. Maternal Uncle No problems noted. Paternal Aunt No problems noted. Paternal Uncle No problems noted. Social History Housing: House Alcohol intake: current Alcohol intake frequency: a few times a week Patient Tobacco Use Status: Former Tobacco user Quit Date: 1984 Tobacco use type: Cigarette Cigarette Packs Per Day: 1 Years Smoked: 12 e-Cigarette/Vaping Use: Never Used service: No Current occupational status: retired Cognitive needs: No Hearing needs: No Vision needs: Yes Review of Systems Const Denies chills and Denies fever(s) Card Reports no additional complaints and Denies syncope Resp Denies cough GI Denies abdominal pain and Denies heartburn Reports as per HPI and Denies change in libido Neuro Denies syncope Psych Denies change in libido Endo Denies change in libido Physical Exam Const General: cooperative, healthy appearing, comfortable and no acute distress Orientation/consciousness: patient oriented x3 HEENT Face and sinus: Yes normal facial exam Mouth: moist mucous membranes Neck Neck: Yes normal visual inspection, Yes full ROM and Yes trachea midline Chest Chest palpation & inspection: normal inspection of the chest Resp Effort & Inspection: normal respiratory effort, able to speak in complete sentences and no respiratory distress GI Inspection: Yes normal to inspection Back/Spine/Pelvis Cervical Spine: normal cervical lordosis Thoracic/Lumbar Spine: thoracic and lumbar spine normal to inspection Skin General skin exam: no rashes or lesions noted Neuro General: patient oriented x3, gait normal, tone normal and moves all extremities Extrem General: Yes normal to inspection and Yes capillary refill normal Office Procedures Procedure Thyroid Biopsy Procedural Documentation: PreOperative Diagnosis: Right spermatocele Post Operative Diagnosis: Right spermatocele Procedure: Drainage of spermatocele with sclerotherapy in office Surgeon: Dr Ken Hawk Anesthesia: Local Indications for procedure: Persistent spermatocele Procedure: Informed consent was verified and site confirmed The testicle was prepped using Betadine swab stick 10 cc 1% lidocaine placed in cord for cord block Testicle was elevated and 16 gauge Angiocath placed for drainage of spermatocele fluid 250 cc of fluid removed 20 cc of 200 mg doxycycline mixed with 1% lidocaine injected for sclerotherapy Procedure tolerated CPT 14380 Assessment & Plan Assessment & Plan (1) BPH w urinary obs/LUTS: Code(s): N40.1 - Benign prostatic hyperplasia with lower urinary tract symptoms; N13.8 - Other obstructive and reflux uropathy (2) Spermatocele: Code(s): N43.40 - Spermatocele of epididymis, unspecified Plan Spermatocele aspiration performed 4 week follow-up Patient Instructions: Imaging studies, laboratory and physical exam results were discussed and reviewed in detail. No major barriers to patient understanding were identified. An opportunity to ask questions regarding the treatment plan was provided. All questions were answered. The patient expressed understanding and agreement with the above treatment plan. The patient is aware they should contact our office by phone for worsening of their current condition or the appearance of new urologic symptoms. Compliance is encouraged with any medications and followup testing that is ordered. It is a privilege to participate in the urologic care of your patient. If you have any questions or concerns regarding treatment for the above conditions, or other urologic issues, please do not hesitate to contact me. The office telephone contact is [phone]. This note is constructed using voice recognition software. While every effort has been made to ensure accuracy multifocal button grinder errors may have been included. Yours sincerely, Dr Ken Hawk MD, [facility] - Urology Providers of Expert, Compassionate Care for the Genitourinary System Coding Level of Care Code Procedure Only Diagnoses BPH w urinary obs/LUTS N40.1; N13.8 Spermatocele N43.40
== END 2023-12-07 11:31 | disposition home or self-care (01) ==
PROVIDERS: PCP Nurse Practitioner Family; Visit Provider Urology
DX: N43.40 Spermatocele of epididymis, unspecified (principal)
CPT/HCPCS: 55000

== ENCOUNTER → 2023-12-07 10:49 | Outpatient (BNVA) | payer MEDICARE, SELFPAY | PROVIDERS: PCP Nurse Practitioner Family; Visit Provider Urology | DX: N40.1 Benign prostatic hyperplasia with lower urinary tract symptoms (principal); N13.8 Other obstructive and reflux uropathy; N43.40 Spermatocele of epididymis, unspecified | CPT/HCPCS: 55000 ==

== ENCOUNTER 2023-12-29 13:08 | Outpatient (AMB) | payer MEDICARE, SELFPAY ==
--- NOTE | 2023-12-29 13:30 | MHC.OFFVISCO ---
Intake Intake Visit Reasons: Anticoagulation Allergies No Known Allergies Allergy (Mild, Verified 12/29/23 13:25) NOT APPLICABLE Medication List - Last Reconciled 12/29/23 by Macarena Escobedo RN albuterol sulfate 90 mcg/actuation inhalation amlodipine 2.5 mg PO DAILY betamethasone dipropionate 0.05% 1 appl topical DAILY PRN 30 days cholecalciferol (vitamin D3) (Vitamin D3) 25 mcg PO DAILY fluocinonide 0.05% mL topical ketoconazole 2% 1 appl topical DAILY 30 days metoprolol succinate ER 50 mg PO DAILY nystatin 1 appl topical DAILY simvastatin 10 mg PO BEDTIME tamsulosin 0.8 mg (2 x 0.4 mg) PO BEDTIME 90 days warfarin 3 mg See Protocol PO DAILY Nursing Note INR: 3.4- in therapeutic range of 2.5- 3.5 Medications and supplements reviewed- no changes No changes in health, diet, medications, or supplements, Denies any signs and symptoms of bleeding or bruising or clotting. Bleeding, bruising, clotting discussed Nutritional guidance given Dose: 7.5mg x 3, 9mg x 4 F/U INR: 4 weeks Patient verbalizes understanding of instructions given Anti-Coag Initial Assessment Social Hx Patient Tobacco Use Status: Former Tobacco user Quit Date: 1984 Tobacco use type: Cigarette Smoking packs per day: 1 alcohol intake: current Alcohol intake frequency: a few times a week Coding Level of Care Code Est Patient Level 1 Diagnoses Current use of anticoagulant therapy Z79.01 Assessment & Plan Assessment & Plan (1) Current use of anticoagulant therapy: Code(s): Z79.01 - [facility] (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
[2023-12-29 13:31] LABS: Prothrombin Time Whole Bld POC 41.1 sec (11.1-13.5); ~PT, ~INR - Anti Coag Clinic 3.4 (0.9-1.1)
== END 2023-12-29 13:35 | disposition home or self-care (01) ==
LOC: HO.ACS 13:08
PROVIDERS: PCP Nurse Practitioner Family; Visit Provider Internal Medicine
DX: Z79.01 Long term (current) use of anticoagulants (principal)

== ENCOUNTER → 2023-12-29 13:08 | Outpatient (BNVA) | payer MEDICARE, SELFPAY | PROVIDERS: PCP Nurse Practitioner Family; Visit Provider Internal Medicine | DX: Z95.2 Presence of prosthetic heart valve (principal); Z79.01 Long term (current) use of anticoagulants; Z51.81 Encounter for therapeutic drug level monitoring | CPT/HCPCS: 85610; 99211 ==

== ENCOUNTER 2024-01-06 09:02 | Outpatient (AMB) | payer MEDICARE, SELFPAY ==
--- NOTE | 2024-01-06 09:09 | MHC.OFFVIS ---
Intake Visit Reasons: 4wk follow up(Spermatocele aspiration) Allergies No Known Allergies Allergy (Mild, Verified 12/29/23 13:25) NOT APPLICABLE HPI Comments Details: Fabio is a pleasant male. He is a patient of Dr. Herrera. He is seen for the following urologic conditions - right hydrocele - bladder outlet obstruction - urinary hesitancy - incomplete emptying Follow-up from right-sided aspiration Very happy with result No recurrence Urination stable Twelve month follow-up Right spermatocele Gradually increased pain on right side On exam right spermatocele Prior discussion regarding right spermatocelectomy aspiration 250cc with doxycycline Lower urinary tract symptoms Progressive symptoms Urinary hesitancy with weak stream and incomplete emptying PSA 11/04 1.0 Bladder ultrasound 12/02 effectively emptying with small prostate Current medications tamsulosin Six-month follow-up [facility] Medical History Primary hyperparathyroidism Vitamin D deficiency Hyperparathyroidism Gynecomastia Malignant melanoma Osteoarthritis Rotator cuff tear Cervical spondylolysis Dyslipidemia HTN (hypertension) Surgical History History of right knee joint replacement Hx of colonoscopy Hx of repair of rotator cuff Aortic valve replaced Hx of cardiac cath History of lobectomy of thyroid Family History Father History of CVA (cerebrovascular accident) Diabetes mellitus Mother Stomach ulcer Daughter Brain tumor Maternal Grandfather No problems noted. Maternal Grandmother No problems noted. Paternal Grandfather No problems noted. Paternal Grandmother No problems noted. Maternal Aunt No problems noted. Maternal Uncle No problems noted. Paternal Aunt No problems noted. Paternal Uncle No problems noted. Social History Housing: House Alcohol intake: current Alcohol intake frequency: a few times a week Patient Tobacco Use Status: Former Tobacco user Quit Date: 1984 Tobacco use type: Cigarette Cigarette Packs Per Day: 1 Years Smoked: 12 e-Cigarette/Vaping Use: Never Used service: No Current occupational status: retired Cognitive needs: No Hearing needs: No Vision needs: Yes Review of Systems Const Denies chills and Denies fever(s) Card Reports no additional complaints and Denies syncope Resp Denies cough GI Denies abdominal pain and Denies heartburn Reports as per HPI and Denies change in libido Neuro Denies syncope Psych Denies change in libido Endo Denies change in libido Physical Exam Const General: cooperative, healthy appearing, comfortable and no acute distress Orientation/consciousness: patient oriented x3 HEENT Face and sinus: Yes normal facial exam Mouth: moist mucous membranes Neck Neck: Yes normal visual inspection, Yes full ROM and Yes trachea midline Chest Chest palpation & inspection: normal inspection of the chest Resp Effort & Inspection: normal respiratory effort, able to speak in complete sentences and no respiratory distress GI Inspection: Yes normal to inspection Back/Spine/Pelvis Cervical Spine: normal cervical lordosis Thoracic/Lumbar Spine: thoracic and lumbar spine normal to inspection Skin General skin exam: no rashes or lesions noted Neuro General: patient oriented x3, gait normal, tone normal and moves all extremities Extrem General: Yes normal to inspection and Yes capillary refill normal Assessment & Plan Assessment & Plan (1) Urinary hesitancy: Code(s): R39.11 - Hesitancy of micturition Category: Medical (2) BPH w urinary obs/LUTS: Code(s): N40.1 - Benign prostatic hyperplasia with lower urinary tract symptoms; N13.8 - Other obstructive and reflux uropathy Category: Medical (3) Spermatocele: Code(s): N43.40 - Spermatocele of epididymis, unspecified Category: Medical Plan Twelve month follow-up Patient Instructions: Imaging studies, laboratory and physical exam results were discussed and reviewed in detail. No major barriers to patient understanding were identified. An opportunity to ask questions regarding the treatment plan was provided. All questions were answered. The patient expressed understanding and agreement with the above treatment plan. The patient is aware they should contact our office by phone for worsening of their current condition or the appearance of new urologic symptoms. Compliance is encouraged with any medications and followup testing that is ordered. It is a privilege to participate in the urologic care of your patient. If you have any questions or concerns regarding treatment for the above conditions, or other urologic issues, please do not hesitate to contact me. The office telephone contact is [phone]. This note is constructed using voice recognition software. While every effort has been made to ensure accuracy trim machine adjuster errors may have been included. Yours sincerely, Dr Ken Hawk MD, [facility] - Urology Providers of Expert, Compassionate Care for the Genitourinary System Coding Level of Care Code Est Pt Level 3 (57482) Diagnoses Urinary hesitancy R39.11 BPH w urinary obs/LUTS N40.1; N13.8 Spermatocele N43.40
== END 2024-01-06 09:23 | disposition home or self-care (01) ==
PROVIDERS: PCP Nurse Practitioner Family; Visit Provider Urology
DX: N40.1 Benign prostatic hyperplasia with lower urinary tract symptoms (principal); R39.11 Hesitancy of micturition; N13.8 Other obstructive and reflux uropathy; N43.40 Spermatocele of epididymis, unspecified
CPT/HCPCS: 99213

== ENCOUNTER → 2024-01-06 09:02 | Outpatient (BNVA) | payer MEDICARE, SELFPAY | PROVIDERS: PCP Nurse Practitioner Family; Visit Provider Urology | DX: N40.1 Benign prostatic hyperplasia with lower urinary tract symptoms (principal); N13.8 Other obstructive and reflux uropathy; R39.11 Hesitancy of micturition; N43.40 Spermatocele of epididymis, unspecified | CPT/HCPCS: 99212 ==

== ENCOUNTER 2024-01-26 13:02 | Outpatient (AMB) | payer MEDICARE, SELFPAY ==
[2024-01-26 13:09] LABS: Prothrombin Time Whole Bld POC 36.8 sec (11.1-13.5); ~PT, ~INR - Anti Coag Clinic 3.1 (0.9-1.1)
--- NOTE | 2024-01-26 13:17 | MHC.OFFVISCO ---
Intake Intake Visit Reasons: Anticoagulation Allergies No Known Allergies Allergy (Mild, Verified 01/26/24 13:03) NOT APPLICABLE Medication List - Last Reconciled 01/26/24 by Mariann Loera RN albuterol sulfate 90 mcg/actuation inhalation amlodipine 2.5 mg PO DAILY betamethasone dipropionate 0.05% 1 appl topical DAILY PRN 30 days cholecalciferol (vitamin D3) (Vitamin D3) 25 mcg PO DAILY fluocinonide 0.05% mL topical ketoconazole 2% 1 appl topical DAILY 30 days metoprolol succinate ER 50 mg PO DAILY nystatin 1 appl topical DAILY simvastatin 10 mg PO BEDTIME tamsulosin 0.8 mg (2 x 0.4 mg) PO BEDTIME 90 days warfarin 3 mg See Protocol PO DAILY Nursing Note NO CP,SOB,DIET/MED CHANES,FALLS OR SX OF BLEEDING. CONTINUE PRESENT DOSE NAND FOLLOW-UP IN 4 WEEKS. GOOD UNDERSTANDING OF DOSING INSTR,. 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
== END 2024-01-26 13:24 | disposition home or self-care (01) ==
LOC: HO.ACS 13:02
PROVIDERS: PCP Nurse Practitioner Family; Visit Provider Internal Medicine
DX: Z79.01 Long term (current) use of anticoagulants (principal)

== ENCOUNTER → 2024-01-26 13:02 | Outpatient (BNVA) | payer MEDICARE, SELFPAY | PROVIDERS: PCP Nurse Practitioner Family; Visit Provider Internal Medicine | DX: Z95.2 Presence of prosthetic heart valve (principal); Z79.01 Long term (current) use of anticoagulants; Z51.81 Encounter for therapeutic drug level monitoring | CPT/HCPCS: 85610; 99211 ==

== ENCOUNTER 2024-02-23 13:00 | Outpatient (AMB) | payer MEDICARE, SELFPAY ==
[2024-02-23 13:11] LABS: Prothrombin Time Whole Bld POC 49.1 sec (11.1-13.5); ~PT, ~INR - Anti Coag Clinic 4.1 (0.9-1.1)
--- NOTE | 2024-02-23 13:25 | MHC.OFFVISCO ---
Intake Intake Visit Reasons: Anticoagulation Allergies No Known Allergies Allergy (Mild, Verified 02/23/24 13:05) NOT APPLICABLE Medication List - Last Reconciled 02/23/24 by Mariann Loera RN albuterol sulfate 90 mcg/actuation inhalation amlodipine 2.5 mg PO DAILY betamethasone dipropionate 0.05% 1 appl topical DAILY PRN 30 days cholecalciferol (vitamin D3) (Vitamin D3) 25 mcg PO DAILY fluocinonide 0.05% mL topical ketoconazole 2% 1 appl topical DAILY 30 days metoprolol succinate ER 50 mg PO DAILY nystatin 1 appl topical DAILY simvastatin 10 mg PO BEDTIME tamsulosin 0.8 mg (2 x 0.4 mg) PO BEDTIME 90 days warfarin 3 mg See Protocol PO DAILY Nursing Note PT.STARTED LASIX 40MGM DAILY THIS WEEK. MUCH LESS EDEMA NOTED AND LESS SOB. PT.STATES THAT CARDIAC CATH IS PLANNED SOON. NO CP OR SX OF BLEEDING. REDUCE WARFARIN TOMORROW TO 3MGM (TOOK 7.5MGM THIS AM) THEN CONTINUE USUAL DOSE AND FOLLOW-UP IN 2 WEEKS. PT.WILL BE SURE TO HAVE GREENS TODAY AND 2-3X WEEKLY. GOOD UNDERSTANDING OF DOSING INSTR. Anti-Coag Initial Assessment Social Hx Patient Tobacco Use Status: Former Tobacco user Tobacco use type: Cigarette Smoking packs per day: 1 alcohol intake: current Alcohol intake frequency: a few times a week Coding Level of Care Code Est Patient Level 1 Diagnoses Current use of anticoagulant therapy Z79.01 Assessment & Plan Assessment & Plan (1) Current use of anticoagulant therapy: Code(s): Z79.01 - [facility] (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
== END 2024-02-23 13:29 | disposition home or self-care (01) ==
LOC: HO.ACS 13:00
PROVIDERS: PCP Nurse Practitioner Family; Visit Provider Internal Medicine
DX: Z79.01 Long term (current) use of anticoagulants (principal)

== ENCOUNTER → 2024-02-23 13:00 | Outpatient (BNVA) | payer MEDICARE, SELFPAY | PROVIDERS: PCP Nurse Practitioner Family; Visit Provider Internal Medicine | DX: Z95.2 Presence of prosthetic heart valve (principal); Z79.01 Long term (current) use of anticoagulants; Z51.81 Encounter for therapeutic drug level monitoring | CPT/HCPCS: 85610; 99211 ==

== ENCOUNTER 2024-03-08 13:03 | Outpatient (AMB) | payer MEDICARE, SELFPAY ==
[2024-03-08 13:13] LABS: Prothrombin Time Whole Bld POC 32.9 sec (11.1-13.5); ~PT, ~INR - Anti Coag Clinic 2.7 (0.9-1.1)
--- NOTE | 2024-03-08 13:26 | MHC.OFFVISCO ---
Intake Intake Visit Reasons: Anticoagulation Allergies No Known Allergies Allergy (Mild, Verified 03/08/24 13:07) NOT APPLICABLE Medication List - Last Reconciled 03/08/24 by Mariann Loera RN albuterol sulfate 90 mcg/actuation inhalation amlodipine 2.5 mg PO DAILY betamethasone dipropionate 0.05% 1 appl topical DAILY PRN 30 days cholecalciferol (vitamin D3) (Vitamin D3) 25 mcg PO DAILY fluocinonide 0.05% mL topical ketoconazole 2% 1 appl topical DAILY 30 days metoprolol succinate ER 50 mg PO DAILY nystatin 1 appl topical DAILY simvastatin 10 mg PO BEDTIME tamsulosin 0.8 mg (2 x 0.4 mg) PO BEDTIME 90 days warfarin 3 mg See Protocol PO DAILY Nursing Note PT.STATES THAT CARDIAC CATH.IS PLANNED FOR 03/15. HE HAS NOT RECEIVED ANY INSTRUCTIONS RE WARFARIN/LOVENOX FROM CARDIOLOGY. PT.AGREES TO CALL TODAY FOR PLAN, AND WILL NOTIFY [facility]. IN MEANTIME WILL CONTINUE PRESENT DOSING AND FOLLOW-UP IN 2 WEEKS(SOONER DEPENDING ON LOVENOX) PT.DENIES ANY CP,SPB OR SX OF BLEEDING. NO NEW MEDS GOOD UNDERSTANDING VERB. 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
== END 2024-03-08 13:30 | disposition home or self-care (01) ==
LOC: HO.ACS 13:03
PROVIDERS: PCP Nurse Practitioner Family; Visit Provider Internal Medicine
DX: Z79.01 Long term (current) use of anticoagulants (principal)

== ENCOUNTER → 2024-03-08 13:03 | Outpatient (BNVA) | payer MEDICARE, SELFPAY | PROVIDERS: PCP Nurse Practitioner Family; Visit Provider Internal Medicine | DX: Z95.2 Presence of prosthetic heart valve (principal); Z79.01 Long term (current) use of anticoagulants; Z51.81 Encounter for therapeutic drug level monitoring | CPT/HCPCS: 85610; 99211 ==

== ENCOUNTER 2024-03-20 10:34 | Outpatient (AMB) | payer MEDICARE, SELFPAY ==
[2024-03-20 10:55] LABS: ~PT, ~INR - Anti Coag Clinic 1.7 (0.9-1.1)
--- NOTE | 2024-03-20 11:03 | MHC.OFFVISCO ---
Intake Intake Visit Reasons: Anticoagulation Allergies No Known Allergies Allergy (Mild, Verified 03/20/24 10:49) NOT APPLICABLE Medication List - Last Reconciled 03/20/24 by Lesley Rosario RN albuterol sulfate 90 mcg/actuation inhalation amlodipine 2.5 mg PO DAILY betamethasone dipropionate 0.05% 1 appl topical DAILY PRN 30 days cholecalciferol (vitamin D3) (Vitamin D3) 25 mcg PO DAILY cholecalciferol (vitamin D3) 25 mcg PO DAILY enoxaparin mg subcut fluocinonide 0.05% mL topical furosemide 40 mg PO DAILY ketoconazole 2% 1 appl topical DAILY 30 days metoprolol succinate ER 50 mg PO DAILY nystatin 1 appl topical DAILY simvastatin 10 mg PO BEDTIME tamsulosin 0.8 mg (2 x 0.4 mg) PO BEDTIME 90 days warfarin 3 mg See Protocol PO DAILY Nursing Note INR 1.7 out of therapeutic range 2.5-3.5 Medications and supplements reviewed Patient status: S/P CARDIAC CATH FOR EDEMA AND SOB - NO CARDIAC FINDINGS, ENC TO ALSO ASK WELL LOGGING OPERATOR MUD ANALYSIS ABOUT AMILODIPINE POSSIBLY CAUSING EDEMA ALSO Medications or supplements: ON FUROSEMIDE ( MAY LOWER INR ALSO) Diet: GOOD Denies any signs and symptoms of bleeding or clotting or unusual bruising Bleeding, bruising, clotting discussed Nutritional guidance given: AVOID GREENS X 2 DAYS Dose: 12 MG TODAY 9MG TOMORROW , LOVENOX PER MD AND CHK INR WED F/U INR Date : 03/22/24 ?? Patient verbalizing understanding of instructions given. msg sent to PCP regarding pt status, today's result and plan of care will f/u with call Anti-Coag Initial Assessment Social Hx Patient Tobacco Use Status: Former Tobacco user Tobacco use type: Cigarette Smoking packs per day: 1 alcohol intake: current Alcohol intake frequency: a few times a week Coding Level of Care Code Est Patient Level 1 Diagnoses Current use of anticoagulant therapy Z79.01 Results AMB INR Fingerstick AMB INR Fingerstick 1.7 Last Edit by Lesley Rosario RN on 03/20/24 10:57 MANUAL ENTRY NO INTERFACING AVAILABLE Assessment & Plan Assessment & Plan (1) Current use of anticoagulant therapy: Code(s): Z79.01 - halfway (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
== END 2024-03-20 11:08 | disposition home or self-care (01) ==
PROVIDERS: PCP Nurse Practitioner Family; Visit Provider Internal Medicine
DX: Z79.01 Long term (current) use of anticoagulants (principal)

== ENCOUNTER → 2024-03-20 10:34 | Outpatient (BNVA) | payer MEDICARE, SELFPAY | PROVIDERS: PCP Nurse Practitioner Family; Visit Provider Internal Medicine | DX: Z95.2 Presence of prosthetic heart valve (principal); Z51.81 Encounter for therapeutic drug level monitoring; Z79.01 Long term (current) use of anticoagulants | CPT/HCPCS: 85610; 99211 ==

== ENCOUNTER 2024-03-22 13:01 | Outpatient (AMB) | payer MEDICARE, SELFPAY ==
[2024-03-22 13:14] LABS: Prothrombin Time Whole Bld POC 24.8 sec (11.1-13.5); ~PT, ~INR - Anti Coag Clinic 2.1 (0.9-1.1)
--- NOTE | 2024-03-22 13:24 | MHC.OFFVISCO ---
Intake Intake Visit Reasons: Anticoagulation Allergies No Known Allergies Allergy (Mild, Verified 03/22/24 13:16) NOT APPLICABLE Medication List - Last Reconciled 03/22/24 by Mariann Loera RN albuterol sulfate 90 mcg/actuation inhalation amlodipine 2.5 mg PO DAILY betamethasone dipropionate 0.05% 1 appl topical DAILY PRN 30 days cholecalciferol (vitamin D3) (Vitamin D3) 25 mcg PO DAILY cholecalciferol (vitamin D3) 25 mcg PO DAILY enoxaparin mg See Protocol subcut fluocinonide 0.05% mL topical furosemide 40 mg PO DAILY ketoconazole 2% 1 appl topical DAILY 30 days metoprolol succinate ER 50 mg PO DAILY nystatin 1 appl topical DAILY simvastatin 10 mg PO BEDTIME tamsulosin 0.8 mg (2 x 0.4 mg) PO BEDTIME 90 days warfarin 3 mg See Protocol PO DAILY Nursing Note NO CP,SOB,DIET/MED CHANGES,FALLS OR SX OF BLEEDING. CONTINUE PRESENT WARFARIN DOSE AND TWICE DAILY LOVENOX. FOLLOW-UP ON 03/24 NO GREENS TODAY GOOD UNDERSTANDING OF DOSING INSTR., Anti-Coag Initial Assessment Social Hx Patient Tobacco Use Status: Former Tobacco user Tobacco use type: Cigarette Smoking packs per day: 1 alcohol intake: current Alcohol intake frequency: a few times a week Coding Level of Care Code Est Patient Level 1 Diagnoses Current use of anticoagulant therapy Z79.01 Assessment & Plan Assessment & Plan (1) Current use of anticoagulant therapy: Code(s): Z79.01 - [facility] (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
== END 2024-03-22 13:28 | disposition home or self-care (01) ==
LOC: HO.ACS 13:01
PROVIDERS: PCP Nurse Practitioner Family; Visit Provider Internal Medicine
DX: Z79.01 Long term (current) use of anticoagulants (principal)

== ENCOUNTER → 2024-03-22 13:01 | Outpatient (BNVA) | payer MEDICARE, SELFPAY | PROVIDERS: PCP Nurse Practitioner Family; Visit Provider Internal Medicine | DX: Z95.2 Presence of prosthetic heart valve (principal); Z79.01 Long term (current) use of anticoagulants; Z51.81 Encounter for therapeutic drug level monitoring | CPT/HCPCS: 85610; 99211 ==

== ENCOUNTER 2024-03-24 09:08 | Outpatient (AMB) | payer MEDICARE, SELFPAY ==
[2024-03-24 09:15] LABS: Prothrombin Time Whole Bld POC 33.2 sec (11.1-13.5); ~PT, ~INR - Anti Coag Clinic 2.8 (0.9-1.1)
--- NOTE | 2024-03-24 09:25 | MHC.OFFVISCO ---
Intake Intake Visit Reasons: Anticoagulation Allergies No Known Allergies Allergy (Mild, Verified 03/24/24 09:11) NOT APPLICABLE Medication List - Last Reconciled 03/24/24 by Sruthi Hector RN albuterol sulfate 90 mcg/actuation inhalation amlodipine 2.5 mg PO DAILY betamethasone dipropionate 0.05% 1 appl topical DAILY PRN 30 days cholecalciferol (vitamin D3) (Vitamin D3) 25 mcg PO DAILY cholecalciferol (vitamin D3) 25 mcg PO DAILY enoxaparin mg See Protocol subcut fluocinonide 0.05% mL topical furosemide 40 mg PO DAILY ketoconazole 2% 1 appl topical DAILY 30 days metoprolol succinate ER 50 mg PO DAILY nystatin 1 appl topical DAILY simvastatin 10 mg PO BEDTIME tamsulosin 0.8 mg (2 x 0.4 mg) PO BEDTIME 90 days warfarin 3 mg See Protocol PO DAILY Nursing Note INR: 2.8 in therapeutic range of 2.5-3.5 Medications and supplements reviewed Pt can stop lovenox now that INR > 2.8 No changes in health, diet, medications, or supplements, Denies any signs and symptoms of bleeding or bruising or clotting. Bleeding, bruising, clotting discussed Nutritional guidance given Dose: avoid greens X 1 more day and to have a serving of foods from the list that raises the INR F/U INR: 2 weeks Patient verbalizes understanding of instructions given Anti-Coag Initial Assessment Social Hx Patient Tobacco Use Status: Former Tobacco user Tobacco use type: Cigarette Smoking packs per day: 1 alcohol intake: current Alcohol intake frequency: a few times a week Coding Level of Care Code Est Patient Level 1 Diagnoses Current use of anticoagulant therapy Z79.01 Assessment & Plan Assessment & Plan (1) Current use of anticoagulant therapy: Code(s): 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
== END 2024-03-24 09:27 | disposition home or self-care (01) ==
LOC: HO.ACS 09:08
PROVIDERS: PCP Nurse Practitioner Family; Visit Provider Internal Medicine
DX: Z79.01 Long term (current) use of anticoagulants (principal)

== ENCOUNTER → 2024-03-24 09:08 | Outpatient (BNVA) | payer MEDICARE, SELFPAY | PROVIDERS: PCP Nurse Practitioner Family; Visit Provider Internal Medicine | DX: Z95.2 Presence of prosthetic heart valve (principal); Z79.01 Long term (current) use of anticoagulants; Z51.81 Encounter for therapeutic drug level monitoring | CPT/HCPCS: 85610; 99211 ==

== ENCOUNTER 2024-04-05 13:06 | Outpatient (AMB) | payer MEDICARE, SELFPAY ==
[2024-04-05 13:19] LABS: Prothrombin Time Whole Bld POC 39.9 sec (11.1-13.5); ~PT, ~INR - Anti Coag Clinic 3.3 (0.9-1.1)
--- NOTE | 2024-04-05 13:26 | MHC.OFFVISCO ---
Intake Intake Visit Reasons: Anticoagulation Allergies No Known Allergies Allergy (Mild, Verified 04/05/24 13:10) NOT APPLICABLE Medication List - Last Reconciled 04/05/24 by Lesley Rosario RN albuterol sulfate 90 mcg/actuation inhalation amlodipine 2.5 mg PO DAILY amoxicillin 2,000 mg (4 x 500 mg) PO ONCE PRN 1 day betamethasone dipropionate 0.05% 1 appl topical DAILY PRN 30 days cholecalciferol (vitamin D3) (Vitamin D3) 25 mcg PO DAILY cholecalciferol (vitamin D3) 25 mcg PO DAILY fluocinonide 0.05% mL topical furosemide 40 mg PO DAILY ketoconazole 2% 1 appl topical DAILY 30 days metoprolol succinate ER 50 mg PO DAILY nystatin 1 appl topical DAILY simvastatin 10 mg PO BEDTIME tamsulosin 0.8 mg (2 x 0.4 mg) PO BEDTIME 90 days warfarin 3 mg See Protocol PO DAILY Nursing Note INR: 3.3 in therapeutic range Medications and supplements reviewed Had a cardiac cath beginning of March then a dental cleaning this week, took amoxicillin x 1 day per valve protocol Denies any signs and symptoms of bleeding or bruising or clotting. Bleeding, bruising, clotting discussed Nutritional guidance given - eat a mix of fruits and vegetables Dose: 7.5mg x 3 days/ 9mg x 4 days F/U INR: 1 month Patient verbalizes understanding of instructions given Anti-Coag Initial Assessment Social Hx Patient Tobacco Use Status: Former Tobacco user Tobacco use type: Cigarette Smoking packs per day: 1 alcohol intake: current Alcohol intake frequency: a few times a week Questionnaires HAS-BLED Does the patient had uncontrolled Hypertension?: No Does the patient have renal disease?: No Does the patient have liver disease?: No Does the patient have a history of stroke?: No Has the patient had major bleeding or predisposition to bleeding?: No Does the patient have labile INRs?: Yes Is the patient over 65 years of age?: Yes Is the patient on medications that gives them a predisposition to bleeding?: Yes Does the patient use alcohol?: Yes HAS-BLED Score: 4 CHADSVASC Age: 66-74 Gender: Male Does the patient have a history of CHF?: No Does the patient have a history of Hypertension?: Yes Does the patient have a history of Stroke/TIA/Thromboembolism?: No Does the patient have a history of Vascular Disease (prior IL, PAD or aortic plaque)?: No Does the patient have a history of Diabetes?: No CHADS VACS Score: 2 Prabha Prediction Score Rsk VTE Active Cancer: No Previous VTE, excluding superficial vein thrombosis: No Reduced mobility: No Already known Thrombophilic Condition: No (avr) With-in last month Trauma and/or Surgery: Yes (cardiac cath 03/2024) Elderly 70 year or older: Yes Heart and/or Respiratory Failure: No Acute Myocardial infarction and/or Ischemic Stroke: No Acute Infection and/or Rheumatologic Disorder: No Obesity (BMI 30 or greater): Yes Ongoing Hormonal Treatment: No Score: 4 Prabha Score less than 4; Low Risk of VTE Prabha Score 4 or greater; High Risk of VTE Coding Level of Care Code Est Patient Level 1 Diagnoses Current use of anticoagulant therapy Z79.01 Assessment & Plan Assessment & Plan (1) Current use of anticoagulant therapy: Code(s): Z79.01 - [facility] (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
== END 2024-04-05 13:53 | disposition home or self-care (01) ==
LOC: HO.ACS 13:06
PROVIDERS: PCP Nurse Practitioner Family; Visit Provider Internal Medicine
DX: Z79.01 Long term (current) use of anticoagulants (principal)

== ENCOUNTER → 2024-04-05 13:06 | Outpatient (BNVA) | payer MEDICARE, SELFPAY | PROVIDERS: PCP Nurse Practitioner Family; Visit Provider Internal Medicine | DX: Z95.2 Presence of prosthetic heart valve (principal); Z79.01 Long term (current) use of anticoagulants; Z51.81 Encounter for therapeutic drug level monitoring | CPT/HCPCS: 85610; 99211 ==

== ENCOUNTER 2024-05-18 13:12 | Outpatient (AMB) | payer MEDICARE, SELFPAY ==
--- NOTE | 2024-05-18 13:39 | MHC.OFFVISCO ---
Intake Intake Visit Reasons: Anticoagulation Allergies No Known Allergies Allergy (Mild, Verified 05/18/24 13:32) NOT APPLICABLE Medication List - Last Reconciled 05/18/24 by Macarena Escobedo RN albuterol sulfate 90 mcg/actuation inhalation amlodipine 2.5 mg PO DAILY amoxicillin 2,000 mg (4 x 500 mg) PO ONCE PRN 1 day betamethasone dipropionate 0.05% 1 appl topical DAILY PRN 30 days cholecalciferol (vitamin D3) (Vitamin D3) 25 mcg PO DAILY cholecalciferol (vitamin D3) 25 mcg PO DAILY fluocinonide 0.05% mL topical furosemide 40 mg PO DAILY ketoconazole 2% 1 appl topical DAILY 30 days metoprolol succinate ER 50 mg PO DAILY nystatin 1 appl topical DAILY simvastatin 10 mg PO BEDTIME tamsulosin 0.8 mg (2 x 0.4 mg) PO BEDTIME 90 days warfarin 3 mg See Protocol PO DAILY Nursing Note INR: 2.5- in therapeutic range of 2.5-3.5 Medications and supplements reviewed No changes in health, diet, medications, or supplements, Denies any signs and symptoms of bleeding or bruising or clotting. Bleeding, bruising, clotting discussed Nutritional guidance given Dose: 7.5mg x 3, 9mg x 4 F/U INR: pt req 4 weeks Patient verbalizes understanding of instructions given Anti-Coag Initial Assessment Social Hx Patient Tobacco Use Status: Former Tobacco user Tobacco use type: Cigarette Smoking packs per day: 1 alcohol intake: current Alcohol intake frequency: a few times a week Coding Level of Care Code Est Patient Level 1 Diagnoses Current use of anticoagulant therapy Z79.01 Results AMB INR Fingerstick AMB INR Fingerstick 2.5 Last Edit by Macarena Escobedo RN on 05/18/24 13:41 Assessment & Plan Assessment & Plan (1) Current use of anticoagulant therapy: Code(s): Z79.01 - kiln tester (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
[2024-05-18 13:49] LABS: Prothrombin Time Whole Bld POC 30.3 sec (11.1-13.5); ~PT, ~INR - Anti Coag Clinic 2.5 (0.9-1.1)
== END 2024-05-18 14:49 | disposition home or self-care (01) ==
LOC: HO.ACS 13:12
PROVIDERS: PCP Nurse Practitioner Family; Visit Provider Internal Medicine
DX: Z79.01 Long term (current) use of anticoagulants (principal)

== ENCOUNTER → 2024-05-18 13:12 | Outpatient (BNVA) | payer MEDICARE, SELFPAY | PROVIDERS: PCP Nurse Practitioner Family; Visit Provider Internal Medicine | DX: Z95.2 Presence of prosthetic heart valve (principal); Z79.01 Long term (current) use of anticoagulants; Z51.81 Encounter for therapeutic drug level monitoring | CPT/HCPCS: 85610; 99211 ==

== ENCOUNTER 2024-06-20 13:03 | Outpatient (AMB) | payer MEDICARE, SELFPAY ==
[2024-06-20 13:11] LABS: Prothrombin Time Whole Bld POC 29.9 sec (11.1-13.5); ~PT, ~INR - Anti Coag Clinic 2.5 (0.9-1.1)
--- NOTE | 2024-06-20 13:18 | MHC.OFFVISCO ---
Intake Intake Visit Reasons: Anticoagulation Allergies No Known Allergies Allergy (Mild, Verified 06/20/24 13:04) NOT APPLICABLE Medication List - Last Reconciled 06/20/24 by Lesley Rosario RN albuterol sulfate 90 mcg/actuation inhalation amlodipine 2.5 mg PO DAILY amoxicillin 2,000 mg (4 x 500 mg) PO ONCE PRN 1 day betamethasone dipropionate 0.05% 1 appl topical DAILY PRN 30 days cholecalciferol (vitamin D3) (Vitamin D3) 25 mcg PO DAILY fluocinonide 0.05% mL topical furosemide 40 mg PO DAILY ketoconazole 2% 1 appl topical DAILY 30 days metoprolol succinate ER 50 mg PO DAILY nystatin 1 appl topical DAILY simvastatin 10 mg PO BEDTIME tamsulosin 0.8 mg (2 x 0.4 mg) PO BEDTIME 90 days warfarin 3 mg See Protocol PO DAILY Nursing Note INR: 2.5 in therapeutic range Medications and supplements reviewed No changes in health, diet, medications, or supplements, Denies any signs and symptoms of bleeding or bruising or clotting. 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
== END 2024-06-20 13:20 | disposition home or self-care (01) ==
LOC: HO.ACS 13:03
PROVIDERS: PCP Nurse Practitioner Family; Visit Provider Internal Medicine
DX: Z79.01 Long term (current) use of anticoagulants (principal)

== ENCOUNTER → 2024-06-20 13:03 | Outpatient (BNVA) | payer MEDICARE, SELFPAY | PROVIDERS: PCP Nurse Practitioner Family; Visit Provider Internal Medicine | DX: Z95.2 Presence of prosthetic heart valve (principal); Z79.01 Long term (current) use of anticoagulants; Z51.81 Encounter for therapeutic drug level monitoring | CPT/HCPCS: 85610; 99211 ==

== ENCOUNTER 2024-07-18 13:01 | Outpatient (AMB) | payer MEDICARE, SELFPAY ==
--- NOTE | 2024-07-18 13:08 | MHC.OFFVISCO ---
Intake Intake Visit Reasons: Anticoagulation Allergies No Known Allergies Allergy (Mild, Verified 07/18/24 13:03) NOT APPLICABLE Medication List - Last Reconciled 07/18/24 by Macarena Escobedo RN albuterol sulfate 90 mcg/actuation inhalation amlodipine 2.5 mg PO DAILY amoxicillin 2,000 mg (4 x 500 mg) PO ONCE PRN 1 day betamethasone dipropionate 0.05% 1 appl topical DAILY PRN 30 days cholecalciferol (vitamin D3) (Vitamin D3) 25 mcg PO DAILY fluocinonide 0.05% mL topical furosemide 40 mg PO DAILY ketoconazole 2% 1 appl topical DAILY 30 days metoprolol succinate ER 50 mg PO DAILY nystatin 1 appl topical DAILY simvastatin 10 mg PO BEDTIME tamsulosin 0.8 mg (2 x 0.4 mg) PO BEDTIME 90 days warfarin 3 mg See Protocol PO DAILY Nursing Note INR 4.7-?? out of therapeutic range of 2.5-3.5 Medications and supplements reviewed Patient status: pt with c.o cold/sinus symptoms Medications or supplements: no changes, taking dayquil prn Diet: appetite same Denies any signs and symptoms of bleeding or clotting or unusual bruising Bleeding, bruising, clotting discussed - aware at risk for bleeding, avoid high risk activity Nutritional guidance given: eat greens to lower no reds for 2-3 daYS Dose: already took dose today, hold tomm, reduce thur to 7.5mg then cont reg dosing F/U INR Date : pt away and refused retest until 07/25/24 Patient verbalizing understanding of instructions given. Anti-Coag Initial Assessment Social Hx Patient Tobacco Use Status: Former Tobacco user Tobacco use type: Cigarette Smoking packs per day: 1 alcohol intake: current Alcohol intake frequency: a few times a week Coding Level of Care Code Est Patient Level 1 Diagnoses Current use of anticoagulant therapy Z79.01 Assessment & Plan Assessment & Plan (1) Current use of anticoagulant therapy: Code(s): Z79.01 - [facility] (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
[2024-07-18 13:09] LABS: Prothrombin Time Whole Bld POC 56.2 sec (11.1-13.5); ~PT, ~INR - Anti Coag Clinic 4.7 (0.9-1.1)
== END 2024-07-18 13:28 | disposition home or self-care (01) ==
LOC: HO.ACS 13:01
PROVIDERS: PCP Nurse Practitioner Family; Visit Provider Internal Medicine
DX: Z79.01 Long term (current) use of anticoagulants (principal)

== ENCOUNTER → 2024-07-18 13:01 | Outpatient (BNVA) | payer MEDICARE, SELFPAY | PROVIDERS: PCP Nurse Practitioner Family; Visit Provider Internal Medicine | DX: Z95.2 Presence of prosthetic heart valve (principal); Z79.01 Long term (current) use of anticoagulants; Z51.81 Encounter for therapeutic drug level monitoring | CPT/HCPCS: 85610; 99211 ==

== ENCOUNTER 2024-07-25 12:59 | Outpatient (AMB) | payer MEDICARE, SELFPAY ==
--- NOTE | 2024-07-25 13:08 | MHC.OFFVISCO ---
Intake Intake Visit Reasons: Anticoagulation Allergies No Known Allergies Allergy (Mild, Verified 07/25/24 13:03) NOT APPLICABLE Medication List - Last Reconciled 07/25/24 by Macarena Escobedo RN albuterol sulfate 90 mcg/actuation inhalation amlodipine 2.5 mg PO DAILY amoxicillin 2,000 mg (4 x 500 mg) PO ONCE PRN 1 day betamethasone dipropionate 0.05% 1 appl topical DAILY PRN 30 days cholecalciferol (vitamin D3) (Vitamin D3) 25 mcg PO DAILY fluocinonide 0.05% mL topical furosemide 40 mg PO DAILY ketoconazole 2% 1 appl topical DAILY 30 days metoprolol succinate ER 50 mg PO DAILY nystatin 1 appl topical DAILY simvastatin 10 mg PO BEDTIME tamsulosin 0.8 mg (2 x 0.4 mg) PO BEDTIME 90 days warfarin 3 mg See Protocol PO DAILY Nursing Note INR: 3.4- in therapeutic range of 2.5-3.5 Medications and supplements reviewed- taking minimal dayquil, seeing pcp next week, states feels much better pt states will switch to mucinex as no interaction with warfarin No changes in health, diet, medications, or supplements, Denies any signs and symptoms of bleeding or bruising or clotting. Bleeding, bruising, clotting discussed Nutritional guidance given - eat greens Dose: 7.5mg x 3, 9mg x 4 F/U INR: pt ref earlier appt than 4 weeks Patient verbalizes understanding of instructions given Anti-Coag Initial Assessment Social Hx Patient Tobacco Use Status: Former Tobacco user Tobacco use type: Cigarette Smoking packs per day: 1 alcohol intake: current Alcohol intake frequency: a few times a week Coding Level of Care Code Est Patient Level 1 Diagnoses Current use of anticoagulant therapy Z79.01 Assessment & Plan Assessment & Plan (1) Current use of anticoagulant therapy: Code(s): Z79.01 - detention (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
[2024-07-25 13:09] LABS: Prothrombin Time Whole Bld POC 40.4 sec (11.1-13.5); ~PT, ~INR - Anti Coag Clinic 3.4 (0.9-1.1)
== END 2024-07-25 13:20 | disposition home or self-care (01) ==
LOC: HO.ACS 12:59
PROVIDERS: PCP Nurse Practitioner Family; Visit Provider Internal Medicine
DX: Z79.01 Long term (current) use of anticoagulants (principal)

== ENCOUNTER → 2024-07-25 12:59 | Outpatient (BNVA) | payer MEDICARE, SELFPAY | PROVIDERS: PCP Nurse Practitioner Family; Visit Provider Internal Medicine | DX: Z95.2 Presence of prosthetic heart valve (principal); Z79.01 Long term (current) use of anticoagulants; Z51.81 Encounter for therapeutic drug level monitoring | CPT/HCPCS: 85610; 99211 ==

== ENCOUNTER 2024-07-28 06:07 | Outpatient (REF) | payer MEDICARE, SELFPAY ==
[2024-07-28 10:04] LABS: MANUAL DIFF FLAG NO
[2024-07-28 10:09] LABS: Basophils Percent Auto 0.2 % (0-2); Eosinophils Absolute Auto 0.1 X10*3/uL (0.0-0.4); Eosinophils Percent Auto 1.7 % (0-4); Hematocrit 41.4 % (42.0-52.0); Hemoglobin 13.4 g/dl (14.0-18.0); Imm Gran Abs Auto 0.03 X10*3/uL (0.00-0.03); Imm Gran Pct Auto 0.7 % (0.0-0.4); Lymphocytes Absolute Auto 1.4 X10*3/uL (1.2-4.9); Lymphocytes Percent Auto 34.7 % (20-40); Mean Corpuscular HGB Conc 32.4 g/dl (31.0-36.0); Mean Corpuscular Hemoglobin 29.5 pg (27.0-33.0); Mean Platelet Volume 9.6 fL (9.4-12.4); Monocytes Absolute Auto 0.7 X10*3/uL (0.1-1.2); Monocytes Percent Auto 18.1 % (2-11); Neutrophils Absolute Auto 1.8 x10*3/uL (2.0-8.3); Neutrophils Percent Auto 44.6 % (45-73); Platelet Count 174 X10*3/uL (160-400); Red Blood Count 4.55 X10*6/uL (4.60-5.80); Red Cell Distribution Width 14.7 % (11.0-16.0)
[2024-07-28 10:16] LABS: Appearance Urine Turbid; Color Urine Yellow; Glucose Urine UA Negative (Negative); Leukocyte Esterase Urine Small (1+) (Negative); Nitrite Urine Negative (Negative); UMIC TRIGGER UACC YES; Urine Blood Negative (Negative); Urine Ketones Negative (Negative); Urine Protein Trace mg/dL (Neg-Trace)
[2024-07-28 10:24] LABS: Bacteria Urine Trace (None Seen); Hyaline Casts Urine 0-2 /LPF (0-2); RBC Urine 0-2 /HPF (0-2); Squamous Epithelial Cell Urine 0-2 /HPF (0-2); UACC Culture Trigger YES; WBC Urine 21-50 /HPF (0-5)
[2024-07-28 10:40] LABS: Alanine Aminotransferase 22 U/L (0-40); Albumin Level 4.1 g/dL (3.5-5.0); Alkaline Phosphatase 55 U/L (39-117); Anion Gap 8 (12-20); Aspartate Amino Transferase 29 U/L (5-37); Bilirubin Total 0.5 mg/dL (0.0-1.0); Blood Urea Nitrogen 17 mg/dL (9-16); Calcium 8.6 mg/dL (8.4-10.2); Carbon Dioxide 27 mmol/L (22-29); Chloride 107 mmol/L (96-108); Cholesterol 124 mg/dL (<200); Estimated Glomerular Filt Rate > 60; Glucose Fasting 102 mg/dL (60-99); HDL Cholesterol 45 mg/dL (>40); LDL Cholesterol Calculated 62 mg/dL (<100); Potassium 4.4 mmol/L (3.3-5.1); Sodium 138 mmol/L (135-145); Total Protein 7.1 g/dL (6.5-8.0); Triglycerides 85 mg/dL (<150)
[2024-07-28 11:03] LABS: Vitamin D 25-OH Total 47.4 ng/mL (>30)
[2024-07-28 11:08] LABS: Prostate Specific Antigen Scr 1.87 ng/mL (<0.05-4.0)
== END 2024-07-28 06:08 | disposition home or self-care (01) ==
LOC: HO.HMGCLDS 06:07
PROVIDERS: PCP Nurse Practitioner Family; Visit Provider Nurse Practitioner Family
DX: E78.5 Hyperlipidemia, unspecified (principal); I10 Essential (primary) hypertension; E55.9 Vitamin D deficiency, unspecified; Z12.5 Encounter for screening for malignant neoplasm of prostate
CPT/HCPCS: 36415; 80053; 80061; 81001; 82306; 84153; 84443; 85025; 87086; 87088; 87186

== ENCOUNTER 2024-08-02 09:57 | Outpatient (AMB) | payer MEDICARE, SELFPAY ==
[2024-08-02 09:59] VITALS: BP 130/72; PULSE 76; O2SAT 98; BMI 33.6
--- NOTE | 2024-08-02 09:59 | A.OFFPC_ITS ---
Vital Signs 08/02/24 09:59 Height 5 ft 10 in Weight 234 lb BMI 33.6 BP 130/72 Blood Pressure Location Lt brachial Position Sitting Pulse 76 Pulse Source Pulse Oximeter Pulse Oximetry (%) 98 Oxygen Delivery Method Room Air Intake Visit Reasons: BP follow up Intake Note: pt is here for BP follow up Remelt Operator Required: No Accompanied by: Self / Same As Patient Allergies No Known Allergies Allergy (Mild, Verified 08/02/24 10:45) NOT APPLICABLE Medication List - Last Reconciled 08/02/24 by GINETTE ArchibaldP- albuterol sulfate 90 mcg/actuation inhalation amlodipine 2.5 mg PO DAILY amoxicillin 2,000 mg (4 x 500 mg) PO ONCE PRN 1 day betamethasone dipropionate 0.05% 1 appl topical DAILY PRN 30 days cefuroxime axetil 500 mg PO BID 5 days cholecalciferol (vitamin D3) (Vitamin D3) 25 mcg PO DAILY fluocinonide 0.05% mL topical furosemide 40 mg PO DAILY ketoconazole 2% 1 appl topical DAILY 30 days metoprolol succinate ER 50 mg PO DAILY nystatin 1 appl topical DAILY simvastatin 10 mg PO BEDTIME tamsulosin 0.8 mg (2 x 0.4 mg) PO BEDTIME 90 days warfarin 3 mg See Protocol PO DAILY Tobacco use date assessed: 11/18/23 Fall risk assessment: No Falls in past year Last assessed Fall Risk: 08/02/24 Dental Screening Dental Screen Date: 11/18/23 HPI BP follow up HPI Details for the past 6 months, pt reported fatigue and SOB. Went to his wheel aligner, cath was neg. Pt did smoke from age [age]. Pt is obese, he is ? if he is getting old . Pt did report mucous production for the past few weeks increased, though reports having some mucous for over 6 months now??. Denies any fevers, chills, lymphadenopathy, or CP. [facility] Medical History Primary hyperparathyroidism Vitamin D deficiency Hyperparathyroidism Gynecomastia Malignant melanoma Osteoarthritis Rotator cuff tear Cervical spondylolysis Dyslipidemia HTN (hypertension) Surgical History History of right knee joint replacement Hx of colonoscopy Hx of repair of rotator cuff Aortic valve replaced Hx of cardiac cath History of lobectomy of thyroid Family History Father History of CVA (cerebrovascular accident) Diabetes mellitus Mother Stomach ulcer Daughter Brain tumor Maternal Grandfather No problems noted. Maternal Grandmother No problems noted. Paternal Grandfather No problems noted. Paternal Grandmother No problems noted. Maternal Aunt No problems noted. Maternal Uncle No problems noted. Paternal Aunt No problems noted. Paternal Uncle No problems noted. Social History Housing: House Alcohol intake: current Alcohol intake frequency: a few times a week Patient Tobacco Use Status: Former Tobacco user Tobacco use type: Cigarette Cigarette Packs Per Day: 1 Years Smoked: 12 Packs Per Year: 12 e-Cigarette/Vaping Use: Never Used service: No Current occupational status: retired Cognitive needs: No Hearing needs: No Vision needs: Yes Questionnaire Thrive Questionnaire Date Thrive assessed: 08/02/24 I am a: Patient What is your living situation today?: I choose not to answer this question Within the past 12 months, did the food you bought not last and you didn't have the money to get more?: I choose not to answer this question Within the past 12 months, did you worry whether your food would run out before you got money to buy more?: I choose not to answer this question Do you have trouble paying for medicines?: I choose not to answer this question Do you have trouble getting transportation to medical appointments?: I choose no t to answer this question Do you have trouble paying your heating and electricity bill?: I choose not to answer this question Do you have trouble taking care of your child, family member or friend?: I choose not to answer this question Do you have trouble with day-to-day activities such as bathing, preparing meals, shopping, managing finances, etc.?: I choose not to answer this question Are you currently unemployed and looking for a job?: I choose not to answer this question Are you interested in more education?: I choose not to answer this question Please select the resources that you would like help with: None Currently or been in a relationship where the following occur: I choose not to answer THRIVE Score: 0 AUDIT C Alcohol Use Questionnaire (AUDIT-C) 1. How often do you have a drink containing alcohol?: 2-3 times a week 2. How many drinks containing alcohol do you have on a typical day when you are drinking?: 1 or 2 3. How often do you have six or more drinks on one occasion?: Never Total Score: 3 Score Reviewed/Action Taken: Yes FELIX-7 AMB Questionnaire FELIX-7 Date FELIX - 7 assessed: 08/02/24 Feeling nervous, anxious, or on edge: 0 = Not at all Not being able to stop or control worryin = Not at all Worrying too much about different things: 0 = Not at all Trouble relaxin = Not at all Being so restless that it is hard to sit still: 0 = Not at all Becoming easily annoyed or irritable: 0 = Not at all Feeling afraid as if something awful might happen: 0 = Not at all Total FELIX-7 score (0-4 normal; 5-9 mild; 10-14 moderate; 15-21 severe): 0 Source: Developed by Drs. Mario Bobby, Camila Temple, Evin Snyder and colleagues, with an educational solomon from [employer]. FELIX-7 Assessment Billing FELIX-7 Assessment Tool: FELIX-7 Assessment 16335 Physical exam (Primary Care) Vital Signs: Last Vital Signs Pulse 76 08/02/24 09:59 BP 130/72 08/02/24 09:59 Pulse Ox 98 08/02/24 09:59 Oxygen Delivery Method Room Air 08/02/24 09:59 BMI result Body Mass Index 33.6 Tobacco/Smoking Status: Tobacco use Status Tobacco use date assessed 11/18/23 08/02/24 10:01 Patient Tobacco Use Status Former Tobacco user 08/02/24 10:01 Tobacco use type Cigarette 08/02/24 10:01 e-Cigarette/Vaping Use Never Used 08/02/24 10:01 Thrive Assessment: Date of Thrive Assessment Date Thrive assessed 08/02/24 08/02/24 10:03 Currently or been in a relationship where the following occur: I choose not to answer Const Nutritional Appearance: obese HENMT Head: Yes normal to inspection Ears: TM normal on the right and TM normal on the left Throat: Yes posterior oropharynx normal Neck Lymphatic: no lymphadenopathy noted Resp Effort & Inspection: normal respiratory effort Auscultation: clear to auscultation bilaterally Cardio Other: mechanical valve appreciated Rate: regular rate Rhythm: regular rhythm Heart sounds: S1 normal heart sound present, S2 normal heart sound present and Murmur heart sound present systolic Coding Level of Care Code Est Pt Level 3 (58085) Diagnoses SOB (shortness of breath) R06.02 Cough R05.9 Additional Codes FELIX-7 Assessment Billing - FELIX-7 Assessment Tool: FELIX-7 Assessment 00883 ([id number]) Assessment & Plan Assessment & Plan (1) SOB (shortness of breath): Code(s): R06.02 - Shortness of breath Category: Medical Plan: CT chest and PFT (2) Cough: Code(s): R05.9 - Cough, unspecified Category: Medical Plan: recommended muccinex, fluids, cetirizine Plan as above Orders: Orders PFT pulmonary function test Today R06.02 - Shortness of breath Complete Blood Count Auto Diff Today R05.9 - Cough, unspecified, R06.02 - Shortness of breath Comprehensive Met. Panel Today R05.9 - Cough, unspecified, R06.02 - Shortness of breath CT chest wo IV con Today R06.02 - Shortness of breath
== END 2024-08-02 14:07 | disposition home or self-care (01) ==
PROVIDERS: PCP Nurse Practitioner Family; Visit Provider Nurse Practitioner Family
DX: R06.02 Shortness of breath (principal); R05.9 Cough, unspecified

== ENCOUNTER → 2024-08-02 09:57 | Outpatient (BNVA) | payer MEDICARE, SELFPAY | PROVIDERS: PCP Nurse Practitioner Family; Visit Provider Nurse Practitioner Family | DX: R06.02 Shortness of breath (principal); R05.9 Cough, unspecified | CPT/HCPCS: 96127; 99212 ==

== ENCOUNTER 2024-08-04 14:12 | Outpatient (REF) | payer MEDICARE, SELFPAY ==
[2024-08-04 14:14] VITALS: PULSE 78; O2SAT 96
[2024-08-04 14:55] LABS: MANUAL DIFF FLAG NO
--- NOTE | 2024-08-04 15:05 | PFT_ITS ---
Indication: Dyspnea Spirometry [FEV1 to FVC 74%; FEV1 3 L; FVC 4.06 L. No significant response to bronchodilators noted. Maximum voluntary ventilation 77% predicted] Lung Volumes [Total lung capacity 82% predicted; expiratory reserve volume 10% predicted] Diffusion Capacity [DLCO 80% predicted] Comparisons [None] Interpretation [No obstructive nor restrictive ventilatory defects identified. No significant response to bronchodilators noted. Mild decrease in the maximum voluntary ventilation secondary to likely deconditioning. Lung volumes are normal except for a significant decrease in the expiratory reserve volume secondary to an elevated BMI. Diffusing capacity is within normal limits. Clinical correlation will on] MTDD
[2024-08-04 15:20] LABS: Basophils Percent Auto 0.4 % (0-2); Eosinophils Absolute Auto 0.1 X10*3/uL (0.0-0.4); Eosinophils Percent Auto 2.1 % (0-4); Hematocrit 41.9 % (42.0-52.0); Hemoglobin 13.9 g/dl (14.0-18.0); Imm Gran Abs Auto 0.06 X10*3/uL (0.00-0.03); Imm Gran Pct Auto 1.1 % (0.0-0.4); Lymphocytes Absolute Auto 1.7 X10*3/uL (1.2-4.9); Lymphocytes Percent Auto 30.5 % (20-40); Mean Corpuscular HGB Conc 33.2 g/dl (31.0-36.0); Mean Corpuscular Hemoglobin 29.8 pg (27.0-33.0); Mean Corpuscular Volume 89.9 fL (80.0-98.0); Monocytes Percent Auto 17.9 % (2-11); Neutrophils Absolute Auto 2.7 x10*3/uL (2.0-8.3); Platelet Count 180 X10*3/uL (160-400); Red Blood Count 4.66 X10*6/uL (4.60-5.80); White Blood Count 5.6 X10*3/uL (4.8-10.8)
[2024-08-04 15:24] LABS: Appearance Urine Clear; Color Urine Dark Yellow; Glucose Urine UA Negative (Negative); Leukocyte Esterase Urine Negative (Negative); Nitrite Urine Negative (Negative); Urine Blood Negative (Negative); Urine Ketones Negative (Negative); Urine Protein Negative (Neg-Trace)
[2024-08-04 16:08] LABS: Alanine Aminotransferase 35 U/L (0-40); Albumin Level 4.3 g/dL (3.5-5.0); Alkaline Phosphatase 60 U/L (39-117); Anion Gap 13 (12-20); Aspartate Amino Transferase 35 U/L (5-37); Bilirubin Total 0.9 mg/dL (0.0-1.0); Blood Urea Nitrogen 17 mg/dL (9-16); Calcium 9.6 mg/dL (8.4-10.2); Carbon Dioxide 27 mmol/L (22-29); Chloride 103 mmol/L (96-108); Estimated Glomerular Filt Rate > 60; Glucose Random 121 mg/dL (60-115); Potassium 4.3 mmol/L (3.3-5.1); Sodium 139 mmol/L (135-145); Total Protein 7.4 g/dL (6.5-8.0)
== END 2024-08-04 14:13 | disposition home or self-care (01) ==
LOC: HO.RESP 14:12
PROVIDERS: PCP Nurse Practitioner Family; Visit Provider Nurse Practitioner Family
DX: R05.9 Cough, unspecified (principal); R06.02 Shortness of breath; E78.5 Hyperlipidemia, unspecified; I10 Essential (primary) hypertension
CPT/HCPCS: 36415; 80053; 81003; 85025; 94010; 94640; 94727; 94729

== ENCOUNTER → 2024-08-04 15:05 | Outpatient (BNV) | payer MEDICARE, SELFPAY | PROVIDERS: PCP Nurse Practitioner Family; Visit Provider Hospitalist | DX: R06.09 Other forms of dyspnea (principal) | CPT/HCPCS: 94060; 94727; 94729 ==

== ENCOUNTER 2024-08-08 14:50 | Outpatient (REF) | payer MEDICARE, SELFPAY ==
--- NOTE | ~2024-08-08 | CT_ITS ---
EXAMINATION: CT CHEST WITHOUT CONTRAST CLINICAL INFORMATION: Shortness of breath COMPARISON: Plain chest radiograph 01/22/2021 and selected images from priors as available TECHNIQUE: Multidetector volumetric CT imaging of the chest was done. Axial MIP volume rendering provided. Sagittal and coronal reformatted images were obtained. This CT examination was performed using dose optimization techniques as appropriate, variously including the following: *Automated exposure control *Adjustment of mA and/or kV according to patient size (this includes techniques or standardized protocols for targeted exams where dose is matched to indication/reason for exam; i.e. 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 Chronic abnormal elevation of the right diaphragm. LUNGS: There is a 5 mm subsolid pulmonary nodule at the right apex (series 5 image 75/637). Close follow-up is recommended with repeat CT scan of the chest in 3 months time. Failure of resolution at that time should prompt long-term follow-up to exclude lung cancer. There is an indistinct 3 mm nodule in the left upper lobe (series 5 image 128). A well-circumscribed solid angular 3 mm right upper lobe pulmonary nodule (series 5 image 187) along the interlobular septum likely reflects a node/. Fissural nodule. Indeterminate 2 mm right lower lobe pulmonary nodule (series 5 image 222). Indeterminate 2 mm left upper lobe pulmonary nodule (series 5 image 301) Nonspecific subpleural reticulation in both lower lungs. Difficult to exclude early pulmonary fibrosis. On follow-up CT in 3 months time advised. Dose imaging with additional prone imaging to assess for early pulmonary fibrosis. There is compressive atelectasis above a chronically elevated right diaphragm. Mild bronchial wall thickening is noted. Early paraseptal emphysema and centrilobular edema. Correlate with smoking history. Advise entry of patient into a program of yearly low-dose lung CT screening if applicable. MEDIASTINUM: Status post median sternotomy for aortic valve replacement. No mediastinal mass or lymphadenopathy. CORONARY ARTERY CALCIFICATION: Moderate three-vessel coronary disease predominating in the proximal LAD. PLEURA: There are numerous bilateral posterior predominant calcified pleural plaques. This is consistent with as best as related pleural disease. Recommend pulmonary medicine consultation and correlation with occupational history. As best as exposure conveyed is a significantly increased risk for lung cancer. Again, follow-up chest CT scan is strongly advised for pulmonary nodules. Note: If there is an additional history of smoking, this places the patient at significantly increased risk for lung cancer. No pleural effusion. No pleural mass. AXILLA: No chest wall mass or axillary adenopathy. UPPER ABDOMEN: There are hepatic cysts. Subcentimeter hepatic lesions are too small to characterize further. Cholelithiasis. Atherosclerotic peripheral vascular disease. OSSEOUS STRUCTURES: Degenerative spine disease. The sternum is well united. CT/CT chest wo IV con IMPRESSION: 1. Early emphysema. Correlate with smoking history. Correlate with pulmonary function studies. 2. Bilateral basal subpleural predominant reticular markings. Suspect early pulmonary fibrosis. Follow with full dose noncontrast CT scan of the chest including prone and high-resolution imaging to better characterize potential interstitial lung disease. 3. Multiple bilateral calcified pleural plaques. Favor as best as related pleural disease. Refer to pulmonary medicine. Correlate with occupational history. This raises the possibility of asbestosis (see #2). 4. Indeterminate dominant 5 mm right apical subsolid pulmonary nodule. Follow closely with full dose noncontrast chest CT in 3 months (including high-resolution and prone imaging). If persistent recommend long-term follow-up given marked increased risk for lung cancer in this patient with evidence of emphysema and asbestos related pleural disease. 5. AVR. CAD. ASPVD. 6. Hepatic cysts and indeterminate subcentimeter lesions. 7. Cholelithiasis. Fleischner guidelines were followed. Electronically signed by: Reji Delarosa MD 08/10/2024 11:[address] [facility]
== END 2024-08-08 14:51 | disposition home or self-care (01) ==
LOC: HO.CT 14:50
PROVIDERS: PCP Nurse Practitioner Family; Visit Provider Nurse Practitioner Family
DX: R06.02 Shortness of breath (principal)
CPT/HCPCS: 71250

== ENCOUNTER 2024-08-16 10:05 | Outpatient (AMB) | payer MEDICARE, SELFPAY ==
[2024-08-16 10:10] VITALS: BP 140/76; PULSE 63; O2SAT 97
--- NOTE | 2024-08-16 10:10 | A.OFFVIS_ITS ---
Vital Signs 08/16/24 10:10 Weight 234 lb 12.677 oz BP 140/76 H Blood Pressure Location Rt brachial Position Sitting Pulse 63 Pulse Source Pulse Oximeter Pulse Oximetry (%) 97 Oxygen Delivery Method Room Air Intake Visit Reasons: Abnormal CT scan Allergies No Known Allergies Allergy (Mild, Verified 08/16/24 10:15) NOT APPLICABLE Medication List - Last Reconciled 08/16/24 by Adilene Meraz LPN albuterol sulfate 90 mcg/actuation inhalation amlodipine 2.5 mg PO DAILY amoxicillin 2,000 mg (4 x 500 mg) PO ONCE PRN 1 day cholecalciferol (vitamin D3) (Vitamin D3) 25 mcg PO DAILY fluocinonide 0.05% mL topical furosemide 40 mg PO DAILY ketoconazole 2% 1 appl topical DAILY 30 days metoprolol succinate ER 50 mg PO DAILY nystatin 1 appl topical DAILY simvastatin 10 mg PO BEDTIME tamsulosin 0.8 mg (2 x 0.4 mg) PO BEDTIME 90 days warfarin 3 mg See Protocol PO DAILY HPI Comments Details: The patient is here for pulmonary evaluation. The patient is a 69-year-old gentleman with a known history of valvular disease status post surgery pr esenting with worsening dyspnea on exertion. Patient states that he was in his usual state health until about a year ago when he started developing some worsening shortness of breath. He was initially concerned because of his history valvular disease and this is how it felt like back in the time. 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 Therefore the patient did follow-up with his primary care doctor and underwent a pulmonary function study and CT scan of the chest and is referred to Pulmonary. The patient denies any wheezing denies any significant coughing is mainly just the shortness breath with activity. Patient denies any chest discomfort. We did review his pulmonary function studies which demonstrated a low normal total lung capacity and significantly decreased expiratory reserve volume of only 10%. Otherwise no evidence of any obstruction. However, his CT scan of the chest was more revealing as it demonstrates that his right diaphragm is elevated. Along with that he has significant atelectasis to the right lower lobe area. He does have pulmonary nodules that will need follow-up. 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 During the visit we did go for brief walking oximetry the patient did well though his oxygen was 94% with activity. I do believe that in part the elevated diaphragm could be worsening from increased weight gain. This will be potentially increasing the abdominal pressures pushing the diaphragm. Potentially could have a component of diaphragmatic injury or paralysis I may be hindering his ventilation and therefore work of breathing. I did provide him with a incentive spirometer so he can work on deep breathing exercises while we wait for a sniff study. [facility] Medical History (Updated 08/16/24 @ 22:20 by Sam Acosta MD) Atelectasis Elevated diaphragm Primary hyperparathyroidism Vitamin D deficiency Hyperparathyroidism Gynecomastia Malignant melanoma Osteoarthritis Rotator cuff tear Cervical spondylolysis Dyslipidemia HTN (hypertension) Surgical History History of right knee joint replacement Hx of colonoscopy Hx of repair of rotator cuff Aortic valve replaced Hx of cardiac cath History of lobectomy of thyroid Family History Father History of CVA (cerebrovascular accident) Diabetes mellitus Mother Stomach ulcer Daughter Brain tumor Maternal Grandfather No problems noted. Maternal Grandmother No problems noted. Paternal Grandfather No problems noted. Paternal Grandmother No problems noted. Maternal Aunt No problems noted. Maternal Uncle No problems noted. Paternal Aunt No problems noted. Paternal Uncle No problems noted. Social History Housing: House Alcohol intake: current Alcohol intake frequency: a few times a week Patient Tobacco Use Status: Former Tobacco user Tobacco use type: Cigarette Cigarette Packs Per Day: 1 Years Smoked: 12 e-Cigarette/Vaping Use: Never Used service: No Current occupational status: retired Cognitive needs: No Hearing needs: No Vision needs: Yes Review of Systems Const Denies fever(s) and Reports weight gain Eyes Reports no additional complaints ENT Reports no additional complaints Card Denies chest pain and Reports dyspnea on exertion Resp Reports dyspnea on exertion and Denies wheezing GI Reports no additional complaints Musc Reports no additional complaints Skin/Breast Denies rash Endo Reports no additional complaints Daljit/Lymph Reports no additional complaints Aller/Immun Denies wheezing Physical Exam Vital Signs: Last Vital Signs Pulse 63 08/16/24 10:10 BP 140/76 H 08/16/24 10:10 Pulse Ox 97 08/16/24 10:10 Oxygen Delivery Method Room Air 08/16/24 10:10 Const General: comfortable HEENT Head: Yes normocephalic Neck Neck: Yes supple Chest Chest palpation & inspection: normal inspection of the chest Resp Effort & Inspection: normal respiratory effort Auscultation: crackles on the right at the base and diminished lung sounds Cardio Heart sounds: S1 normal heart sound present and S2 normal heart sound present GI Palpation (GI): Soft to palpation Skin General skin exam: no rashes or lesions noted Extrem General: Yes no clubbing, cyanosis or edema Results Reviewed Results Reviewed: [address] [address] [address] Scan Report Signed Patient: Fabio Stauffer MR#: [id number] : 1955 Acct:[id number] Age/Sex: 69 / M ADM Date: 08/08/24 Loc: HO.CT Attending Dr: Reji PILLAI Ordering Physician: Reji Palomino Date of Service: 08/08/24 Procedure(s): CT chest wo IV con Accession Number(s): [id number] cc: Reji Palomino~ EXAMINATION: CT CHEST WITHOUT CONTRAST CLINICAL INFORMATION: Shortness of breath COMPARISON: Plain chest radiograph 01/22/2021 and selected images from priors as available TECHNIQUE: Multidetector volumetric CT imaging of the chest was done. Axial MIP volume rendering provided. Sagittal and coronal reformatted images were obtained. This CT examination was performed using dose optimization techniques as appropriate, variously including the following: *Automated exposure control *Adjustment of mA and/or kV according to patient size (this includes techniques or standardized protocols for targeted exams where dose is matched to indication/reason for exam; i.e. 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 Chronic abnormal elevation of the right diaphragm. LUNGS: There is a 5 mm subsolid pulmonary nodule at the right apex (series 5 image 75/637). Close follow-up is recommended with repeat CT scan of the chest in 3 months time. Failure of resolution at that time should prompt long-term follow-up to exclude lung cancer. There is an indistinct 3 mm nodule in the left upper lobe (series 5 image 128). A well-circumscribed solid angular 3 mm right upper lobe pulmonary nodule (series 5 image 187) along the interlobular septum likely reflects a node/. Fissural nodule. Indeterminate 2 mm right lower lobe pulmonary nodule (series 5 image 222). Indeterminate 2 mm left upper lobe pulmonary nodule (series 5 image 301) Nonspecific subpleural reticulation in both lower lungs. Difficult to exclude early pulmonary fibrosis. On follow-up CT in 3 months time advised. Dose imaging with additional prone imaging to assess for early pulmonary fibrosis. There is compressive atelectasis above a chronically elevated right diaphragm. Mild bronchial wall thickening is noted. Early paraseptal emphysema and centrilobular edema. Correlate with smoking history. Advise entry of patient into a program of yearly low-dose lung CT screening if applicable. MEDIASTINUM: Status post median sternotomy for aortic valve replacement. No mediastinal mass or lymphadenopathy. CORONARY ARTERY CALCIFICATION: Moderate three-vessel coronary disease predominating in the proximal LAD. PLEURA: There are numerous bilateral posterior predominant calcified pleural plaques. This is consistent with as best as related pleural disease. Recommend pulmonary medicine consultation and correlation with occupational history. As best as exposure conveyed is a significantly increased risk for lung cancer. Again, follow-up chest CT scan is strongly advised for pulmonary nodules. Note: If there is an additional history of smoking, this places the patient at significantly increased risk for lung cancer. No pleural effusion. No pleural mass. AXILLA: No chest wall mass or axillary adenopathy. UPPER ABDOMEN: There are hepatic cysts. Subcentimeter hepatic lesions are too small to characterize further. Cholelithiasis. Atherosclerotic peripheral vascular disease. OSSEOUS STRUCTURES: Degenerative spine disease. The sternum is well united. CT/CT chest wo IV con IMPRESSION: 1. Early emphysema. Correlate with smoking history. Correlate with pulmonary function studies. 2. Bilateral basal subpleural predominant reticular markings. Suspect early pulmonary fibrosis. Follow with full dose noncontrast CT scan of the chest including prone and high-resolution imaging to better characterize potential interstitial lung disease. 3. Multiple bilateral calcified pleural plaques. Favor as best as related pleural disease. Refer to pulmonary medicine. Correlate with occupational history. This raises the possibility of asbestosis (see #2). 4. Indeterminate dominant 5 mm right apical subsolid pulmonary nodule. Follow closely with full dose noncontrast chest CT in 3 months (including high-resolution and prone imaging). If persistent recommend long-term follow-up given marked increased risk for lung cancer in this patient with evidence of emphysema and asbestos related pleural disease. 5. AVR. CAD. ASPVD. 6. Hepatic cysts and indeterminate subcentimeter lesions. 7. Cholelithiasis. Fleischner guidelines were followed. Electronically signed by: Reji Delarosa MD 08/10/2024 11:27 AM EST Dictated By: Reji Delarosa MD Signed By: <Electronically signed by Reji Delarosa MD in OV> 08/10/24 1127 DD/ 1500 TD/TT: 08/08/24 1515 Lead Producer: MAURIZIO Assessment & Plan Assessment & Plan (1) SOB (shortness of breath): Code(s): R06.02 - Shortness of breath Category: Medical (2) Elevated diaphragm: Code(s): J98.6 - Disorders of diaphragm Category: Medical (3) Pulmonary nodule: Code(s): R91.1 - Solitary pulmonary nodule Category: Medical (4) Atelectasis: Code(s): J98.11 - Atelectasis Category: Medical Plan breathing exercises SNIFF study to assess right elevated diaphram weight management CT chest 6 months F/U 3 months Orders: Orders IR fluoroscopy <1hr Today J98.6 - Disorders of diaphragm, R06.02 - Shortness of breath CT chest wo IV con 6 Months R91.1 - Solitary pulmonary nodule Coding Level of Care Code New Pt Level 4 (06980) Diagnoses SOB (shortness of breath) R06.02 Elevated diaphragm J98.6 Pulmonary nodule R91.1 Atelectasis J98.11 Time Spent (min) 40
--- OUTSIDE RECORDS SUMMARY | 2024-08-22 17:26 | XMS_ITS | Patient Health Record ---
Author Organization [facility] Address [address] [place] [address] Care Team Providers Care Manager Of Project Management Name Role Phone HEATHER LAMBERT Primary Care Provider Dalton Archer Jr Unavailable ALLERGIES No Known Allergies REASON FOR REFERRAL No Information MEDICATIONS Medication SIG (Take, Route, Frequency, Duration) Notes Start Date End Date Status Warfarin Sodium 7.5 MG 1 tablet Orally s liding scale Active MiraLax (colon prep) 17 GM/SCOOP mixed with Gatorade or Crystal Light Orally begin at 5:00 p.m. the day before the procedure for 1 day 08/18/2021 Active Toprol XL 25 MG 1 tablet Orally Once a day Active Metoprolol-HCTZ ER 25-12.5 MG 1 tablet Orally Once a day for 30 day(s) Active Vitamin B + C Complex - as directed Orally Active Aspir-81 81 MG 1 tablet Orally Once a day Active Simvastatin 20 MG 1 tablet in the even ing Orally Once a day Active IMMUNIZATIONS Vaccine Route Administration Date Status Comme nts Influenza Unknown 07/29/2021 Administered SOCIAL HISTORY Sex Assigned At : Social History Observation Description Sex Assigned At Unknown Alcohol Screen Question Answer Notes Did you have a drink contain ing alcohol in the past year? Yes How often did you have a dri nk containing alcohol in the past year? 2 to 3 times a week (3 points) How many drinks did you have on a typical day when you were drinking in the past year? 3 or 4 drinks (1 point) How often did you have 6 or more drinks on one occasion in the past year? Never (0 point) Points 4 Interpretation Positive PROBLEMS Problem Type ICD Code Onset Dates Problem Status W/U Status Risk SNOMED Code Notes Problem Colon cancer screening (Z12.11) Active confirmed 500126057 Problem manager long term care (current) use of anticoagulants (Z79.01) Active confirmed 832707993 Problem prison (current) use of aspirin (Z79.82) Active confirmed 947217493 PLAN OF TREATMENT Future Test Test Name Order Date COLONOSCOPY 01/22/2016 COLONOSCOPY 08/18/2021 Next Appt Details Provider Name:Dalton delacruz Jr, 10/26/2024 02:15:00 PM, [address] [place] [address], [address], [place], [address], Insurance Providers Payer Name Payer Address Payer Phone Subscriber Number Group Number Insured Name Patient Relationship to Insured Coverage Start Date Coverage End Date MEDICARE OF [place] [address] [place] [id number] KAI SOTO Self - patient is the insured MEDEX ATTN CLAIMS [address] [place] [address] [id number] KAI SOTO Self - patient is the insured MEDICAL (GENERAL) HISTORY Medical History History ICD Code melanoma elevated cholesterol Hypertension Osteoarthritis Hyperparathyroidism Surgical History Surgery Date(Month/Year) AVR (bicuspid valve), metallic valve 200 7 rotator cuff tear repair 2007 Cardiac catheter prior to AVR Partial thyroidectomy
== END 2024-08-16 10:43 | disposition home or self-care (01) ==
PROVIDERS: PCP Nurse Practitioner Family; Referring Provider Nurse Practitioner Family; Visit Provider Hospitalist
DX: R06.02 Shortness of breath (principal); J98.6 Disorders of diaphragm; R91.1 Solitary pulmonary nodule; J98.11 Atelectasis
CPT/HCPCS: 99214

== ENCOUNTER → 2024-08-16 10:05 | Outpatient (BNVA) | payer MEDICARE, SELFPAY | PROVIDERS: PCP Nurse Practitioner Family; Referring Provider Nurse Practitioner Family; Visit Provider Hospitalist | DX: R06.02 Shortness of breath (principal); R91.1 Solitary pulmonary nodule; J98.6 Disorders of diaphragm; J98.11 Atelectasis | CPT/HCPCS: 99212 ==

== ENCOUNTER 2024-08-23 | Outpatient (REF) | payer MEDICARE, SELFPAY ==
--- OUTSIDE RECORDS SUMMARY | 2024-09-04 14:03 | XMS_ITS | Patient Health Record ---
Author Organization [facility] Address [address] [place] [address] Care Team Providers Care Safe Technician Name Role Phone HEATHER LAMBERT Primary Care [...] Problem Colon cancer screening (Z12.11) Active confirmed 030132760 Problem director of primary care (current) use of anticoagulants (Z79.01) Active confirmed 272844944 Problem [facility] (current) use of aspirin (Z79.82) Active confirmed 299470626 PLAN OF TREATMENT Future Test Test Name Order Date COLONOSCOPY 01/22/2016 COLONOSCOPY 08/18/2021 Next Appt Details Provider Name:Dalton delacruz Jr, 10/26/2024 02:15:00 PM, [address] [place] [address], [address], [place], [address], Insurance Providers Payer Name Payer Address Payer Phone Subscriber Number Group Number Insured Name Patient Relationship to Insured Coverage Start Date Coverage End Date [place]ARE OF [place] [address] [place] [address] [id number] KAI SOTO Self - patient is the insured MEDEX ATTN CLAIMS [address] [place] [address] [phone] [id number] KAI SOTO Self - patient is the insured MEDICAL (GENERAL) HISTORY Medical History History ICD Code melanoma elevated cholesterol Hypertension Osteoarthritis Hyperparathyroidism Surgical History Surgery Date(Month/Year) AVR (bicuspid valve), metallic valve 200 7 rotator cuff tear repair 2007 Cardiac catheter prior to AVR Partial thyroidectomy
== END 2024-08-23 00:01 | disposition home or self-care (01) ==
LOC: CF
PROVIDERS: PCP Nurse Practitioner Family; Visit Provider Internal Medicine
DX: Z95.2 Presence of prosthetic heart valve (principal); Z51.81 Encounter for therapeutic drug level monitoring; Z79.01 Long term (current) use of anticoagulants
CPT/HCPCS: 85610; 99211

== ENCOUNTER 2024-08-23 13:00 | Outpatient (AMB) | payer MEDICARE, SELFPAY ==
--- NOTE | 2024-08-23 13:06 | MHC.OFFVISCO ---
Intake Intake Visit Reasons: Anticoagulation Allergies No Known Allergies Allergy (Mild, Verified 08/23/24 13:01) NOT APPLICABLE Medication List - Last Reconciled 08/23/24 by Macarena Escobedo RN albuterol sulfate 90 mcg/actuation inhalation amlodipine 2.5 mg PO DAILY amoxicillin 2,000 mg (4 x 500 mg) PO ONCE PRN 1 day cholecalciferol (vitamin D3) (Vitamin D3) 25 mcg PO DAILY fluocinonide 0.05% mL topical furosemide 40 mg PO DAILY ketoconazole 2% 1 appl topical DAILY 30 days metoprolol succinate ER 50 mg PO DAILY nystatin 1 appl topical DAILY simvastatin 10 mg PO BEDTIME tamsulosin 0.8 mg (2 x 0.4 mg) PO BEDTIME 90 days warfarin 3 mg See Protocol PO DAILY Nursing Note INR: 2.8- in therapeutic range of 2.5- 3.5 Medications and supplements reviewed- takes mucinex prn No changes in health, diet, medications, or supplements, Denies any signs and symptoms of bleeding or bruising or clotting. Bleeding, bruising, clotting discussed Nutritional guidance given Dose: 7.5mg x 3, 9mg x 4 F/U INR: 4 weeks Patient verbalizes understanding of instructions given pt states has had chest ct Anti-Coag Initial Assessment Social Hx Patient Tobacco Use Status: Former Tobacco user Tobacco use type: Cigarette Smoking packs per day: 1 alcohol intake: current Alcohol intake frequency: a few times a week Coding Level of Care Code Est Patient Level 1 Diagnoses Current use of anticoagulant therapy Z79.01 Assessment & Plan Assessment & Plan (1) Current use of anticoagulant therapy: Code(s): Z79.01 - snf (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
[2024-08-23 13:07] LABS: Prothrombin Time Whole Bld POC 33.3 sec (11.1-13.5); ~PT, ~INR - Anti Coag Clinic 2.8 (0.9-1.1)
--- OUTSIDE RECORDS SUMMARY | 2024-08-24 02:21 | XMS_ITS | Patient Health Record ---
Author Organization [facility] Address [address] [place] [address] Care Team Providers Care Weapons Engineer Name Role Phone HEATHER LAMBERT Primary Care [...] Problem Colon cancer screening (Z12.11) Active confirmed [id number] Problem terminal operator (current) use of anticoagulants (Z79.01) Active confirmed 317963983 Problem retirement (current) use of aspirin (Z79.82) Active confirmed 433758972 PLAN OF TREATMENT Future Test Test Name Order Date COLONOSCOPY 01/22/2016 COLONOSCOPY 08/18/2021 Next Appt Details Provider Name:Dalton delacruz Jr, 10/26/2024 02:15:00 PM, [address] [place] [address], [address], [place], [address], Insurance Providers Payer Name Payer Address Payer Phone Subscriber Number Group Number Insured Name Patient Relationship to Insured Coverage Start Date Coverage End Date MEDICARE OF [place] [address] [place] [id number] KAI SOTO Self - patient is the insured MEDEX ATTN CLAIMS [address] [place] [address] [id number] KAI SOTO Self - patient is the insured MEDICAL (GENERAL) HISTORY Medical History History ICD Code melanoma elevated cholesterol Hypertension Osteoarthritis Hyperparathyroidism Surgical History Surgery Date(Month/Year) AVR (bicuspid valve), metallic valve 200 7 rotator cuff tear repair 2007 Cardiac catheter prior to AVR Partial thyroidectomy
== END 2024-08-23 13:47 | disposition home or self-care (01) ==
LOC: HO.ACS 13:00
PROVIDERS: PCP Nurse Practitioner Family; Visit Provider Internal Medicine
DX: Z79.01 Long term (current) use of anticoagulants (principal)

== ENCOUNTER 2024-09-16 09:24 | Outpatient (REF) | payer MEDICARE, SELFPAY ==
--- OUTSIDE RECORDS SUMMARY | 2024-09-16 11:19 | XMS_ITS | Patient Health Record ---
Author Organization [facility] Address [address] [place] [address] Care Team Providers Care Power Bender Operator Name Role Phone HEATHER LAMBERT Primary Care [...] Problem Colon cancer screening (Z12.11) Active confirmed 439331693 Problem snf (current) use of anticoagulants (Z79.01) Active confirmed 127004039 Problem oil heaterman (current) use of aspirin (Z79.82) Active confirmed 447993212 PLAN OF TREATMENT Future Test Test Name Order Date COLONOSCOPY 01/22/2016 COLONOSCOPY 08/18/2021 Next Appt Details Provider Name:Dalton delacruz Jr, 10/26/2024 02:15:00 PM, [address] [place] [address], [address], [place], [address], Insurance Providers Payer Name Payer Address Payer Phone Subscriber Number Group Number Insured Name Patient Relationship to Insured Coverage Start Date Coverage End Date MEDICARE OF [place] [address] [place] [address] [id number] KAI SOTO Self - patient is the insured MEDEX ATTN CLAIMS [address] [place] [address] [phone] [id number] KAI SOTO Self - patient is the insured MEDICAL (GENERAL) HISTORY Medical History History ICD Code melanoma elevated cholesterol Hypertension Osteoarthritis Hyperparathyroidism Surgical History Surgery Date(Month/Year) AVR (bicuspid valve), metallic valve 200 7 rotator cuff tear repair 2007 Cardiac catheter prior to AVR Partial thyroidectomy
[2024-09-16 15:11] LABS: Influenza A PCR NEGATIVE (Negative); Influenza B PCR NEGATIVE (Negative); Resp Syncy Virus RNA Qual PCR NEGATIVE (Negative); SARS COV2 PCR INHOUSE NEGATIVE (Negative)
== END 2024-09-16 09:25 | disposition home or self-care (01) ==
LOC: HO.LNP 09:24
PROVIDERS: PCP Nurse Practitioner Family; Visit Provider Physician Assistant Medical
DX: R09.89 Other specified symptoms and signs involving the circulatory and respiratory systems (principal); J06.9 Acute upper respiratory infection, unspecified
CPT/HCPCS: 0241U; 99212

== ENCOUNTER 2024-09-16 09:24 | Outpatient (AMB) | payer MEDICARE, SELFPAY ==
--- NOTE | 2024-09-16 10:37 | MHC.OFFWIV ---
Intake Vital Signs 09/16/24 10:49 Weight 239 lb BP 130/80 Blood Pressure Location Rt brachial Position Sitting Pulse 72 Pulse Source Pulse Oximeter Temp 98.0 F Temp Source Oral Pulse Oximetry (%) 95 Oxygen Delivery Method Room Air Intake Visit Reasons: EP headache, sinus, cough, running nose Intake Note: Patient here for headache, sinus congestion, fatigue, chills and cough that has been present for about 1 week. Patient Tobacco Use Status: Former Tobacco user Allergies No Known Allergies Allergy (Mild, Verified 09/16/24 10:50) NOT APPLICABLE Do you need a note to return to daycare/school/sports/work: No HPI EP headache, sinus, cough, running nose HPI Details Patient is a 69-year-old male with history of hypertension and asbestos related pulmonary findings, cardiac valvular disease status post surgical repair, elevated diaphragm, as well as pulmonary nodules, who comes to the walk-in complaining of headache, sinus congestion, purulent nasal discharge, fatigue, chills and productive cough symptoms for about a week. He has not yet tested for COVID at home. He does report that he is fully vaccinated for respiratory infections. He was evaluated by pulmonology just prior to symptoms starting, and was told that his findings were mild in severity in regards to asbestos related pleural plaques, however report does indicate an elevated diaphragm that needs further evaluation. There was no maintenance treatment needed. No report of nausea vomiting or diarrhea, weakness or dizziness, chest congestion or shortness of breath, chest discomfort, myalgias or malaise, fever or chills, sore throat, ear pain, or other significant associated symptoms. [facility], [facility] Medical History Asbestos-induced pleural plaque Atelectasis Elevated diaphragm Primary hyperparathyroidism Vitamin D deficiency Hyperparathyroidism Gynecomastia Malignant melanoma Osteoarthritis Rotator cuff tear Cervical spondylolysis Dyslipidemia HTN (hypertension) Surgical History History of right knee joint replacement Hx of colonoscopy Hx of repair of rotator cuff Aortic valve replaced Hx of cardiac cath History of lobectomy of thyroid Family History Father History of CVA (cerebrovascular accident) Diabetes mellitus Mother Stomach ulcer Daughter Brain tumor Maternal Grandfather No problems noted. Maternal Grandmother No problems noted. Paternal Grandfather No problems noted. Paternal Grandmother No problems noted. Maternal Aunt No problems noted. Maternal Uncle No problems noted. Paternal Aunt No problems noted. Paternal Uncle No problems noted. Social History Housing: House Alcohol intake: current Alcohol intake frequency: a few times a week Patient Tobacco Use Status: Former Tobacco user Tobacco use type: Cigarette Cigarette Packs Per Day: 1 Years Smoked: 12 e-Cigarette/Vaping Use: Never Used service: No Current occupational status: retired Cognitive needs: No Hearing needs: No Vision needs: Yes Review of Systems Const All systems reviewed & are unremarkable except as noted in HPI and below Physical Exam Vital Signs: Last Vital Signs Temp 98.0 F 09/16/24 10:49 Pulse 72 09/16/24 10:49 BP 130/80 09/16/24 10:49 Pulse Ox 95 09/16/24 10:49 Oxygen Delivery Method Room Air 09/16/24 10:49 Const General: cooperative, healthy appearing, comfortable, no acute distress, alert, awake, Physically active and well groomed; No anxious, diaphoretic, ill appearing, intoxicated appearing, poor hygiene or tired appearing Limitations: no limitations HEENT Head: Yes normal to inspection, Yes normocephalic and Yes atraumatic Ears: hearing grossly normal bilaterally, external ears normal, TM's normal bilaterally and EAC's normal General nose exam: Normal external nose present, No nasal polyps present, Normal septum present and Abnormal mucous membranes and turbinates present Face and sinus: Yes face symmetric and Yes sinus tenderness (Frontal sinus area, forehead) Mouth: Normal oral and palatal mucosa present, lip normal and tongue normal Throat: Yes posterior oropharynx normal, Yes uvula midline, Yes abnormal tonsil (mildly erythematous bilaterally), No peritonsillar mass, No postnasal drainage, No uvular edema and No cobblestoning Eyes General: appearance normal, both eyes and all related structures Neck Neck: Yes normal visual inspection, Yes full ROM, Yes no lymphadenopathy, Yes trachea midline, Yes supple and No anterior neck swelling Chest Chest palpation & inspection: normal palpation of entire chest wall Resp Effort & Inspection: normal respiratory effort, able to speak in complete sentences, no audible wheezes, no cough, no grunting, not labored, no nasal flaring, no retractions and symmetric chest movement Auscultation: clear to auscultation bilaterally, no crackles, no rales, no rhonchi, no wheezes, lung sounds not diminished and No rub present Cardio Palpation: normal PMI Rate: regular rate Rhythm: regular rhythm Heart sounds: S1 normal heart sound present and S2 normal heart sound present Skin Other: Good color, warm and dry Psych Appearance: grossly normal Mental Status: mental status grossly normal Speech and movement: Normal speech and movement present Affect: normal affect Attitude: cooperative Thought process: Normal thought process present Insight: Good insight present (Psych) Judgement: Good judgement present (Psych) Assessment & Plan Assessment & Plan (1) Upper respiratory infection: Code(s): J06.9 - Acute upper respiratory infection, unspecified Qualifiers: URI type: unspecified viral URI Qualified Code(s): J06.9 - Acute upper respiratory infection, unspecified Plan Patient is a 69-year-old male with history of hypertension, cardiac valvular disease status post surgical repair, asbestos related pleural plaques, elevated diaphragm, as well as pulmonary nodules. He comes to the walk-in clinic complaining of about a week of respiratory infection symptoms that appear to be viral in nature, and seem to be upper respiratory tract in nature at this time, including headache, sinus congestion, fatigue, chills and cough. He denies chest congestion, chest discomfort, shortness of breath, dizziness or weakness, or other significant associated symptoms. Pending flu COVID and RSV results. He just had a CT scan of his chest about a month ago, and he is reluctant to do plain film x-ray today. We discussed that since his symptoms do appear upper respiratory tract in nature at this point, and are improved from yesterday, it is reasonable to continue treating conservatively and he can trial fluticasone nasal spray and continue the Mucinex and adequate water intake. If symptoms do not improve by tomorrow however, I did write him for a course of doxycycline to cover sinusitis and exacerbation of COPD/interstitial lung disease. He should follow up if symptoms continue to persist or worsen, and knows to go to the emergency department with worrisome symptoms. Orders: Orders SARS-CoV2/FLU/RSV Today R09.89 - Other specified symptoms and signs involving the circulatory and respiratory systems Medications: New fluticasone propionate 50 mcg/actuation administer into each nostril 1 spray intranasal BID PRN 16 grams 0RF nasal congestion doxycycline hyclate 100 mg PO BID 10 days 20 caps 0RF Coding Level of Care Code Est Pt Level 4 (26543) Diagnoses Viral upper respiratory tract infection J06.9 URI type: unspecified viral URI
[2024-09-16 10:49] VITALS: BP 130/80; PULSE 72; TEMP 36.7; O2SAT 95
== END 2024-09-16 11:44 | disposition home or self-care (01) ==
PROVIDERS: PCP Nurse Practitioner Family; Visit Provider Physician Assistant Medical
DX: J06.9 Acute upper respiratory infection, unspecified (principal)

== ENCOUNTER 2024-09-20 13:03 | Outpatient (AMB) | payer MEDICARE, SELFPAY ==
--- NOTE | 2024-09-20 13:13 | MHC.OFFVISCO ---
Intake Intake Visit Reasons: Anticoagulation Allergies No Known Allergies Allergy (Mild, Verified 09/20/24 13:09) NOT APPLICABLE Medication List - Last Reconciled 09/20/24 by Macarena Escobedo RN albuterol sulfate 90 mcg/actuation inhalation amlodipine 2.5 mg PO DAILY cholecalciferol (vitamin D3) (Vitamin D3) 25 mcg PO DAILY doxycycline hyclate 100 mg PO BID 10 days fluocinonide 0.05% mL topical fluticasone propionate 50 mcg/actuation 1 spray intranasal BID PRN furosemide 40 mg PO DAILY ketoconazole 2% 1 appl topical DAILY 30 days metoprolol succinate ER 50 mg PO DAILY nystatin 1 appl topical DAILY simvastatin 10 mg PO BEDTIME tamsulosin 0.8 mg (2 x 0.4 mg) PO BEDTIME 90 days warfarin 3 mg See Protocol PO DAILY Nursing Note INR 2.0-?? out of therapeutic range 2.5-3.5 Medications and supplements reviewed Patient status: pt with URI- went to urgent care sat 09/16/24, now on antibiotics and nasal spray pt states missed a dose on wednesday, possibly 2 doses Medications or supplements: doxycycline 100mg bid for 10 days- which will raise inr per micromedex, fluticasone nasal spray bid- no interaction with warfarin per micromedex Diet: same Denies any signs and symptoms of bleeding or clotting or unusual bruising Bleeding, bruising, clotting discussed Nutritional guidance given: no greens for 2 days Dose: pt already took his dose of 7.5mg today, increase dose tomm to 12 mg, 9mg on as usual F/U INR Date : wednesday09/22/24 Patient verbalizing understanding of instructions given. pcp office Kayleigh Jordan called with low inr, dosing and f/u appt. made aware of missed dose and that pt is on antibiotics. spoke to wolf at 1415. ? lovenox composed note to pcp- kayleigh jordan would like pt to take lovenox daily until acs appt. t/c placed to pt. reviewed dosing, dietary management and to start lovenox today and to take daily Anti-Coag Initial Assessment Social Hx Patient Tobacco Use Status: Former Tobacco user Tobacco use type: Cigarette Smoking packs per day: 1 alcohol intake: current Alcohol intake frequency: a few times a week Coding Level of Care Code Est Patient Level 1 Diagnoses Current use of anticoagulant therapy Z79.01 Assessment & Plan Assessment & Plan (1) Current use of anticoagulant therapy: Code(s): Z79.01 - half-way (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
[2024-09-20 13:18] LABS: Prothrombin Time Whole Bld POC 24.4 sec (11.1-13.5)
== END 2024-09-20 14:26 | disposition home or self-care (01) ==
LOC: HO.ACS 13:03
PROVIDERS: PCP Nurse Practitioner Family; Visit Provider Internal Medicine
DX: Z79.01 Long term (current) use of anticoagulants (principal)

== ENCOUNTER → 2024-09-20 13:03 | Outpatient (BNVA) | payer MEDICARE, SELFPAY | PROVIDERS: PCP Nurse Practitioner Family; Visit Provider Internal Medicine | DX: Z95.2 Presence of prosthetic heart valve (principal); Z79.01 Long term (current) use of anticoagulants; Z51.81 Encounter for therapeutic drug level monitoring | CPT/HCPCS: 85610; 99211 ==

== ENCOUNTER 2024-09-22 13:01 | Outpatient (AMB) | payer MEDICARE, SELFPAY ==
--- OUTSIDE RECORDS SUMMARY | 2024-09-22 13:03 | XMS_ITS | Patient Health Record ---
Author Organization [facility] Address [address] [place] [address] Care Team Providers Care Speech Pathology Teacher Name Role Phone HEATHER LAMBERT Primary Care Provider Dalton Archer Jr Unavailable [phone] ALLERGIES No Known Allergies REASON FOR REFERRAL [...] Problem Colon cancer screening (Z12.11) Active confirmed [id number] Problem terminal manager (current) use of anticoagulants (Z79.01) Active confirmed 992004709 Problem [facility] (current) use of aspirin (Z79.82) Active confirmed 790392710 PLAN OF TREATMENT Future Test Test Name Order Date COLONOSCOPY 01/22/2016 COLONOSCOPY 08/18/2021 Next Appt Details Provider Name:Dalton delacruz Jr, 10/26/2024 02:15:00 PM, [address] [place] [address], [address], [place], [address], Insurance Providers Payer Name Payer Address Payer Phone Subscriber Number Group Number Insured Name Patient Relationship to Insured Coverage Start Date Coverage End Date MEDICARE OF [place] [address] [place] [address] [id number] KAI SOTO Self - patient is the insured MEDEX ATTN CLAIMS [address] [place] [address] [id number] KAI SOTO Self - patient is the insured MEDICAL (GENERAL) HISTORY Medical History History ICD Code melanoma elevated cholesterol Hypertension Osteoarthritis Hyperparathyroidism Surgical History Surgery Date(Month/Year) AVR (bicuspid valve), metallic valve 200 7 rotator cuff tear repair 2007 Cardiac catheter prior to AVR Partial thyroidectomy
[2024-09-22 13:13] LABS: Prothrombin Time Whole Bld POC 34.6 sec (11.1-13.5); ~PT, ~INR - Anti Coag Clinic 2.9 (0.9-1.1)
--- NOTE | 2024-09-22 13:18 | MHC.OFFVISCO ---
Intake Intake Visit Reasons: Anticoagulation Allergies No Known Allergies Allergy (Mild, Verified 09/22/24 13:07) NOT APPLICABLE Medication List - Last Reconciled 09/22/24 by Sruthi Hector RN albuterol sulfate 90 mcg/actuation inhalation amlodipine 2.5 mg PO DAILY cholecalciferol (vitamin D3) (Vitamin D3) 25 mcg PO DAILY doxycycline hyclate 100 mg PO BID 10 days enoxaparin 108 mg (0.72 mL) subcut DAILY 5 days fluocinonide 0.05% mL topical fluticasone propionate 50 mcg/actuation 1 spray intranasal BID PRN furosemide 40 mg PO DAILY ketoconazole 2% 1 appl topical DAILY 30 days metoprolol succinate ER 50 mg PO DAILY nystatin 1 appl topical DAILY simvastatin 10 mg PO BEDTIME tamsulosin 0.8 mg (2 x 0.4 mg) PO BEDTIME 90 days warfarin 3 mg See Protocol PO DAILY Nursing Note INR: 2.9 in therapeutic range of 2.5-3.5 Medications and supplements reviewed. Pt states he has 2 days remaining to take Doxycycline for URI. States he feels much better. Last INR on09/20/24 was 2.0. Pt took lovenox as ordered the past 2 days. No changes in health, diet, medications, or supplements, Denies any signs and symptoms of bleeding or bruising or clotting. Bleeding, bruising, clotting discussed Nutritional guidance given Dose: resume usual dose of 9mg X 4 days and 7.5mg X 3 days F/U INR: 12 days due to possible delayed effect to raise the INR from Doxycycline Patient verbalizes understanding of instructions given Anti-Coag Initial Assessment Social Hx Patient Tobacco Use Status: Former Tobacco user Tobacco use type: Cigarette Smoking packs per day: 1 alcohol intake: current Alcohol intake frequency: a few times a week Coding Level of Care Code Est Patient Level 1 Diagnoses Current use of anticoagulant therapy Z79.01 Results AMB INR Fingerstick AMB INR Fingerstick 2.9 Last Edit by Sruthi Hector RN on 09/22/24 13:14 interface delay Assessment & Plan Assessment & Plan (1) Current use of anticoagulant therapy: Code(s): Z79.01 - FDC (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 Medications: On Hold enoxaparin Hold Comment: INR therapeutic 108 mg See Protocol subcut DAILY 5 days 3.6 mL 0RF
== END 2024-09-22 13:31 | disposition home or self-care (01) ==
LOC: HO.ACS 13:01
PROVIDERS: PCP Nurse Practitioner Family; Visit Provider Internal Medicine
DX: Z79.01 Long term (current) use of anticoagulants (principal)

== ENCOUNTER → 2024-09-22 13:01 | Outpatient (BNVA) | payer MEDICARE, SELFPAY | PROVIDERS: PCP Nurse Practitioner Family; Visit Provider Internal Medicine | DX: Z95.2 Presence of prosthetic heart valve (principal); Z79.01 Long term (current) use of anticoagulants; Z51.81 Encounter for therapeutic drug level monitoring | CPT/HCPCS: 85610; 99211 ==

== ENCOUNTER 2024-11-07 08:06 | Outpatient (AMB) | payer MEDICARE, SELFPAY ==
--- OUTSIDE RECORDS SUMMARY | 2024-11-07 08:17 | XMS_ITS | Clinical Summary ---
Author Organization [facility] Address [address] [place] [address] Care Team Providers Care Industrial Equipment Wirer Name Role Phone Reji Palomino NP Primary [...] age to complete this topic Care Teams Industrial Equipment Wirer Relationship Specialty Start Date End Date Reji Palomino [facility] [place] P[facility] - General 11/24/21
--- OUTSIDE RECORDS SUMMARY | 2024-11-07 08:17 | XMS_ITS | Patient Health Record ---
Author Organization [facility] Address [address] [place] [address] Care Team Providers Care Credit Control Assistant Name Role Phone HEATHER LAMBERT Primary Care Provider Dalton Archer Jr Unavailable [phone] ALLERGIES No Known Allergies REASON FOR [...] Problem Colon cancer screening (Z12.11) Active confirmed 201782086 Problem watermaster (current) use of anticoagulants (Z79.01) Active confirmed 782718942 Problem skilled nursing (current) use of aspirin (Z79.82) Active confirmed [id number] VITAL SIGNS Blood pressure diastolic 00 mm Hg 10/26/2024 Height 69 in 10/26/2024 Blood pressure systolic 00 mm Hg 10/26/2024 Weight 240 lbs 10/26/2024 BMI 35.44 kg/m2 10/26/2024 Encounters Encounter Location Date Provider Diagnosis [facility] [address] [place] [address] 10/26/2024 Dalton Alanis Jr Colon cancer screening Z12.11 and skilled nursing (current) use of anticoagulants Z79.01 ASSESSMENTS Encounter Date Diagnosis Assessment Notes Treatment Notes Treatment Clinical Notes 10/26/2024 Colon cancer screening (ICD-10 - Z12.11) Colonoscopy material was printed 10/26/2024 skilled nursing (current) use of anticoagulants (ICD-10 - Z79.01) PLAN OF TREATMENT Future Test Test Name Order Date COLONOSCOPY 01/22/2016 COLONOSCOPY 08/18/2021 COLONOSCOPY 10/26/2024 Next Appt Details Provider Name:Dalton delacruz Jr, 12/08/2024 10:00:00 AM, [address] [place] [address] , [place], [place], [id number], Insurance Providers Payer Name Payer Address Payer Phone Subscriber Number Group Number Insured Name Patient Relationship to Insured Coverage Start Date Coverage End Date MEDICARE [place] [address] [place] [address] [id number] KAI SOTO Self - patient is the insured MEDEX ATTN CLAIMS [address] [place] [address] [id number] KAI SOTO Self - patient is the [...]
--- OUTSIDE RECORDS SUMMARY | 2024-11-07 08:18 | XMS_ITS ---
Author Organization [facility] Address [address] [place] [address] Care Team Providers Care Research Psychologist Name Role Phone HEATHER LAMBERT Primary Care Provider Dalton Archer Jr Unavailable [phone] ALLERGIES No Known Allergies REASON FOR VISIT [...] 10/26/2024 Encounters Encounter Location Date Provider Diagnosis [facility] [address] [place] [address] 10/26/2024 Dalton Alanis Jr Colon cancer screening Z12.11 and detention (current) use of anticoagulants Z79.01 ASSESSMENTS Encounter Date Diagnosis Assessment Notes Treatment Notes Treatment Clinical Notes 10/26/2024 Colon cancer screening (ICD-10 - Z12.11) Colonoscopy material was printed 10/26/2024 detention (current) use of anticoagulants (ICD-10 - Z79.01) [...] Provider Name:Dalton delacruz Jr, 12/08/2024 10:00:00 AM, [address] [place] [address] , [place], [place], [phone], Progress Notes * Examination Category Sub-Category Detail Notes General Examination GENERAL APPEARANCE: in no ac [place] distress HEAD: normocephalic EYES: sclera non-icteric NECK/THYROID: no lymphadenopathy HEART: S1, S2 normal, no mu rmurs CHEST: normal shape and exp ansion LUNGS: clear to auscultatio n bilaterally ABDOMEN: soft, nontender, non distended, bowel sounds present, no organomegaly SKIN: anicteric EXTREMITIES: no clubbing, cyanosi s, or edema PSYCH: cognitive function i ntact ORAL CAVITY: mucosa moist
[2024-11-07 08:31] VITALS: BP 120/74; PULSE 57; RESP 20; TEMP 37; O2SAT 95; BMI 34.1
--- NOTE | 2024-11-07 08:31 | AM.OFFWIN_ITS ---
Intake Vital Signs 11/07/24 08:31 Height 5 ft 10 in Weight 238 lb BMI 34.1 BP 120/74 Blood Pressure Location Rt brachial Position Sitting Respiration 20 Pulse 57 Pulse Source Pulse Oximeter Temp 98.6 F Temp Source Oral Pulse Oximetry (%) 95 Oxygen Delivery Method Room Air Intake Visit Reasons: EP Cough, sinus Intake Note: Pt is here today for a walk in visit. Pt c/o cough, sinus congestion. Pt states that he had the same symptoms 6 weeks ago and he was on antibiotic. Patient Tobacco Use Status: Former Tobacco user Allergies No Known Allergies Allergy (Mild, Verified 11/07/24 08:38) NOT APPLICABLE Do you need a note to return to daycare/school/sports/work: No HPI HPI Comments History of Present Illness Details This is a 69-year-old male with a past medical history of her valve replacement currently maintained on Coumadin, hyperlipidemia and hypertension presenting for evaluation of sinus congestion and a cough with mucus that he has had for the past 10 days. Patient states he has had poor sleep secondary to his cough which is primarily nocturnal in nature. Patient has been taking Mucinex without relief. Patient denies having any chest pain, overt shortness for breath, fevers, sore throat or otalgia. PENDING SALE TO [facility] Medical History Asbestos-induced pleural plaque Atelectasis Elevated diaphragm Primary hyperparathyroidism Vitamin D deficiency Hyperparathyroidism Gynecomastia Malignant melanoma Osteoarthritis Rotator cuff tear Cervical spondylolysis Dyslipidemia HTN (hypertension) Surgical History History of right knee joint replacement Hx of colonoscopy Hx of repair of rotator cuff Aortic valve replaced Hx of cardiac cath History of lobectomy of thyroid Family History Father History of CVA (cerebrovascular accident) Diabetes mellitus Mother Stomach ulcer Daughter Brain tumor Maternal Grandfather No problems noted. Maternal Grandmother No problems noted. Paternal Grandfather No problems noted. Paternal Grandmother No problems noted. Maternal Aunt No problems noted. Maternal Uncle No problems noted. Paternal Aunt No problems noted. Paternal Uncle No problems noted. Social History Housing: House Alcohol intake: current Alcohol intake frequency: a few times a week Patient Tobacco Use Status: Former Tobacco user Tobacco use type: Cigarette Cigarette Packs Per Day: 1 Years Smoked: 12 e-Cigarette/Vaping Use: Never Used service: No Current occupational status: retired Cognitive needs: No Hearing needs: No Vision needs: Yes Review of Systems Const All systems reviewed & are unremarkable except as noted in HPI and below Reports chills, Reports fatigue, Denies fever(s), Denies headache(s) and Denies weakness Eyes Reports no additional complaints ENT Reports no additional complaints, Denies otalgia, Denies headache(s), Reports sinus pressure and Denies sore throat Card Reports no additional complaints and Denies chest pain Resp Reports cough and Denies wheezing GI Reports no additional complaints Reports no additional complaints Musc Reports no additional complaints Skin/Breast Reports system reviewed and no additional complaints, except as documented Neuro Reports no additional complaints, Denies headache(s) and Denies weakness Psych Reports no additional complaints Endo Reports no additional complaints and Reports fatigue Aller/Immun Reports no additional complaints and Denies wheezing Physical Exam Vital Signs: Last Vital Signs Temp 98.6 F 11/07/24 08:31 Pulse 57 11/07/24 08:31 Resp 20 11/07/24 08:31 BP 120/74 11/07/24 08:31 Pulse Ox 95 11/07/24 08:31 Oxygen Delivery Method Room Air 11/07/24 08:31 BMI result Body Mass Index 34.1 Patient is afebrile. Const General: cooperative, healthy appearing, comfortable, no acute distress, well developed, alert, awake and Physically active; No acute distress Nutritional Appearance: well nourished Orientation/consciousness: patient oriented x3 Limitations: no limitations HEENT Head: Yes normal to inspection, Yes normocephalic and Yes atraumatic Ears: hearing grossly normal bilaterally, external ears normal, TM's normal bilaterally and EAC's normal General nose exam: Normal external nose present Face and sinus: Yes normal facial exam and Yes sinuses nontender Mouth: Normal oral and palatal mucosa present Throat: Yes posterior oropharynx normal Neck Lymphatic: no lymphadenopathy noted Resp Effort & Inspection: normal respiratory effort, able to speak in complete sentences, no audible wheezes, no cough, respiratory effort not decreased and not tachypneic Auscultation: clear to auscultation bilaterally Cardio Rate: regular rate Rhythm: regular rhythm Neuro General: patient oriented x3 Psych Appearance: grossly normal Mental Status: mental status grossly normal Insight: Good insight present (Psych) Judgement: Good judgement present (Psych) Assessment & Plan Assessment & Plan (1) Acute upper respiratory infection: Comment: Patient is seen and evaluated. He is in no acute distress. Patient's visit from the end of October 02, 2024 is also reviewed during which he had a negative respiratory screen and was discharged home on doxycycline which he completed. Patient's history, coupled with his examination is consistent with a viral syndrome. Code(s): J06.9 - Acute upper respiratory infection, unspecified Plan: Continue Mucinex daily with increase clear fluids, Tessalon Perles t.i.d. p.r.n. cough. Follow up PCP as needed. Medications: New benzonatate 100 mg PO TID PRN 20 caps 0RF cough Coding Level of Care Code Est Pt Level 3 (07944) Diagnoses Acute upper respiratory infection J06.9 Time Spent (min) 20
== END 2024-11-07 09:24 | disposition home or self-care (01) ==
PROVIDERS: PCP Nurse Practitioner Family; Visit Provider Physician Assistant
DX: J06.9 Acute upper respiratory infection, unspecified (principal)

== ENCOUNTER → 2024-11-07 08:06 | Outpatient (BNVA) | payer MEDICARE, SELFPAY | PROVIDERS: PCP Nurse Practitioner Family | DX: J06.9 Acute upper respiratory infection, unspecified (principal) | CPT/HCPCS: 99212 ==

== ENCOUNTER 2024-11-08 13:02 | Outpatient (AMB) | payer MEDICARE, SELFPAY ==
[2024-11-08 13:35] LABS: Prothrombin Time Whole Bld POC 52.7 sec (11.1-13.5); ~PT, ~INR - Anti Coag Clinic 4.4 (0.9-1.1)
--- NOTE | 2024-11-08 13:36 | MHC.OFFVISCO ---
Intake Intake Visit Reasons: Anticoagulation Allergies No Known Allergies Allergy (Mild, Verified 11/08/24 13:24) NOT APPLICABLE Medication List - Last Reconciled 11/08/24 by Macarena Escobedo RN albuterol sulfate 90 mcg/actuation inhalation amlodipine 2.5 mg PO DAILY amoxicillin 2,000 mg PO ONCE PRN benzonatate 100 mg PO TID PRN cholecalciferol (vitamin D3) (Vitamin D3) 25 mcg PO DAILY enoxaparin (Lovenox) 108 mg (0.72 mL) subcut Q12H 12 days fluocinonide 0.05% mL topical fluticasone propionate 50 mcg/actuation 1 spray intranasal BID PRN furosemide 40 mg PO DAILY ketoconazole 2% 1 appl topical DAILY 30 days metoprolol succinate ER 50 mg PO DAILY nystatin 1 appl topical DAILY simvastatin 10 mg PO BEDTIME tamsulosin 0.8 mg (2 x 0.4 mg) PO BEDTIME 90 days warfarin 3 mg See Protocol PO DAILY Nursing Note INR 4.4-? out of therapeutic range of 2.5-3.5 Medications and supplements reviewed Patient status: pt cont with c.o uri- saw pcp yesterday, c.o cough, denies fever Medications or supplements: benzonatate prn, mucinex prn- no interaction with warfarin per micromedex Diet: poor appetite Denies any signs and symptoms of bleeding or clotting or unusual bruising Bleeding, bruising, clotting discussed Nutritional guidance given: eat greens to lower Dose: alrready took warfarin today, hold dose tomm then cont reg 7.5mg x 3, 9mg x 4 F/U INR Date : 1 week?? Patient verbalizing understanding of instructions given. pt states upcoming colonoscopy 12/08/24 with lovenox bridge Anti-Coag Initial Assessment Social Hx Patient Tobacco Use Status: Former Tobacco user Tobacco use type: Cigarette Smoking packs per day: 1 alcohol intake: current Alcohol intake frequency: a few times a week Coding Level of Care Code Est Patient Level 1 Diagnoses Current use of anticoagulant therapy Z79.01 Assessment & Plan Assessment & Plan (1) Current use of anticoagulant therapy: Code(s): Z79.01 - nursing home (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
--- OUTSIDE RECORDS SUMMARY | 2024-11-08 16:02 | XMS_ITS | Encounter Summary ---
Author Organization [facility] Address [address] [place] [address] Care Team Providers Care Emergency Generator Mechanic Name Role Phone Reji Palomino NP Primary Care Provider Reason for Visit * Reason Onset Date Comments Last ov note requested from GI 11/08/2024 Encounter Details Date Type Department Care Team (Late st Contact Info) Description 11/08/2024 Telephone [facility] Cardiology [facility] [address] [place] [address] [place] [address] Cee sU [place] Last ov note requested from GI Social History Tobacco Use Types Packs/Day Years Used Date Smoking Tobacco: Former Smokeless Tobacco: Never Alcohol Use Standard Drinks/Week Comments Yes 0 (1 standard drink = 0.6 oz pur e alcohol) Sex and Gender Information Value Date Recorded Sex Assigned at Not on file Legal Sex Male 12:09 AM EST Gender Identity Not on file Sexual Orientation Not on file documented as of this encounter Progress Notes * Cee Us [place] - 11/08/2024 2:13 PM EST I faxed last ov note 05/02/[address] Benitez to for colonoscopy. documented in this encounter Plan of Treatment Not on file documented as of this encounter Visit Diagnoses Not on filedocumented in this encounter Care Teams Emergency Generator Mechanic Relationship Specialty Start Date End Date Reji Palomino NP [facility] [place] [facility] - General 11/24/21 documented as of this encounter
--- OUTSIDE RECORDS SUMMARY | 2024-11-08 16:02 | XMS_ITS | Clinical Summary ---
Author Organization [facility] Address [address] [place] [address] Care Team Providers Care Superintendent Distribution Name Role Phone Reji Palomino NP Primary Care Provider Medications metoprolol succinate (TOPROL-XL) 50 mg 24 hr tablet TAKE 1 TABLET BY MOUTH EVERY DAY 90 tablet 2 08/30/2024 Active Encounters Date Type Department Care Team Description 11/08/2024 Telephone [facility] [address] [place] [address] Cee Us [place] Last ov note requested from GI from Last 3 Months Social History Tobacco Use Types Packs/Day Years [...] age to complete this topic Care Teams Superintendent Distribution Relationship Specialty Start Date End Date Reji Palomino NP 262 [facility] [place] PCP - General 11/24/21
== END 2024-11-08 13:44 | disposition home or self-care (01) ==
LOC: HO.ACS 13:02
PROVIDERS: PCP Nurse Practitioner Family; Visit Provider Internal Medicine
DX: Z79.01 Long term (current) use of anticoagulants (principal)

== ENCOUNTER → 2024-11-08 13:02 | Outpatient (BNVA) | payer MEDICARE, SELFPAY | PROVIDERS: PCP Nurse Practitioner Family; Visit Provider Internal Medicine | DX: Z95.2 Presence of prosthetic heart valve (principal); Z79.01 Long term (current) use of anticoagulants; Z51.81 Encounter for therapeutic drug level monitoring | CPT/HCPCS: 85610; 99211 ==

== ENCOUNTER 2024-11-15 13:12 | Outpatient (AMB) | payer MEDICARE, SELFPAY ==
[2024-11-15 13:28] LABS: Prothrombin Time Whole Bld POC 39.1 sec (11.1-13.5); ~PT, ~INR - Anti Coag Clinic 3.3 (0.9-1.1)
--- NOTE | 2024-11-15 13:46 | MHC.OFFVISCO ---
Intake Intake Visit Reasons: Anticoagulation Allergies No Known Allergies Allergy (Mild, Verified 11/15/24 13:21) NOT APPLICABLE Medication List - Last Reconciled 11/15/24 by Mariann Loera RN albuterol sulfate 90 mcg/actuation inhalation amlodipine 2.5 mg PO DAILY amoxicillin 2,000 mg PO ONCE PRN benzonatate 100 mg PO TID PRN cholecalciferol (vitamin D3) (Vitamin D3) 25 mcg PO DAILY enoxaparin (Lovenox) 108 mg See Protocol subcut Q12H 12 days fluocinonide 0.05% mL topical fluticasone propionate 50 mcg/actuation 1 spray intranasal BID PRN furosemide 40 mg PO DAILY ketoconazole 2% 1 appl topical DAILY 30 days metoprolol succinate ER 50 mg PO DAILY nystatin 1 appl topical DAILY simvastatin 10 mg PO BEDTIME tamsulosin 0.8 mg (2 x 0.4 mg) PO BEDTIME 90 days warfarin See Protocol orally; 7.5MG Wed, 9MG Wed SAT Nursing Note NO CP,SOB,DIET/MED CHANGES,FALLS OR SX OF BLEEDING. CONTINUE PRESENT DOSING AND FOLLOW-UP IN 2 WEEKS. TO HAVE COLONOSCOPY ON 12/08 Anti-Coag Initial Assessment Social Hx Patient Tobacco Use Status: Former Tobacco user Tobacco use type: Cigarette Smoking packs per day: 1 alcohol intake: current Alcohol intake frequency: a few times a week Coding Level of Care Code Est Patient Level 1 Diagnoses Current use of anticoagulant therapy Z79.01 Assessment & Plan Assessment & Plan (1) Current use of anticoagulant therapy: Code(s): Z79.01 - assisted (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
--- OUTSIDE RECORDS SUMMARY | 2024-11-15 15:45 | XMS_ITS | Patient Health Record ---
Author Organization [facility] Address [address] [place] [address] Care Team Providers Care Shot Coat Tender Name Role Phone HEATHER LAMBERT Primary Care Provider Dalton Archer Jr Unavailable [phone] Allergies No Known Allergies Reason For Referral No Information Medications Medication SIG (Take, Route, Frequency, Duration) Notes [...] even ing Orally Once a day Active Immunizations Vaccine Route Administration Date Status Comme nts Influenza Unknown 07/29/2021 Administered Social History Alcohol Screen Question Answer Notes Did you [...] Never (0 point) Points 4 Interpretation Positive Problems Problem Type SNOMED Code ICD Code Onset Dates Problem Status W/U Status Risk Notes Problem 867128728 Colon cancer screening (Z12.11) Active confirmed Problem 969561382 [facility] (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 anticoagulants (Z79.01) Active confirmed Problem [id number] [facility] (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 aspirin (Z79.82) Active confirmed Vital Signs Blood pressure diastolic 00 mm Hg 10/26/2024 Height 69 in 10/26/2024 Blood pressure systolic 00 mm Hg 10/26/2024 Weight 240 lbs 10/26/2024 BMI 35.44 kg/m2 10/26/2024 Encounters Encounter Location Date Provider Diagnosis [facility] [address] [facility] [address] [place] [address] 10/26/2024 Dalton Alanis Jr Colon cancer screening Z12.11 and intermediate frame tender (current) use of anticoagulants Z79.01 Assessments Encounter Date Diagnosis (ICD Code) Assessment Notes Treatment Notes Treatment Clinical Notes Section Notes 10/26/2024 Colon cancer screening (ICD-10 - Z12.11) Colonoscopy material was printed We discussed colonoscopy today. We discussed risks and benefits of the procedure today. He understands these and agrees to proceed. This will be scheduled at his convenience. He will bridge warfarin with Lovenox as instructed by the Coumadin clinic. We discussed the increased risk of bleeding in patients who need continuous anticoagulation because of mechanical heart valve today. He understands these risks. 10/26/2024 intermediate frame tender (current) use of anticoagulants (ICD-10 - Z79.01) We discussed colonoscopy today. We discussed risks and benefits of the procedure today. He understands these and agrees to proceed. This will be scheduled at his convenience. He will bridge warfarin with Lovenox as instructed by the Coumadin clinic. We discussed the increased risk of bleeding in patients who need continuous anticoagulation because of mechanical heart valve today. He understands these risks. Plan Of Treatment Future Test Test Name Order Date COLONOSCOPY 01/22/2016 COLONOSCOPY 08/18/2021 COLONOSCOPY 10/26/2024 Next Appt Details Provider Name:Dalton delacruz Jr, 12/08/2024 10:00:00 AM, [address] [place] [address] , [place], [place], [phone], Insurance Providers Payer Name Payer Address Payer Phone Subscriber Number Group Number Insured Name Patient Relationship to Insured Coverage Start Date Coverage End Date MEDICARE OF [place] [address] [place] [address] [id number] KAI SOTO Self - patient is the insured MEDEX ATTN CLAIMS [address] [place] [address] [id number] KAI SOTO Self - patient is the insured Medical (General) History Medical History History ICD Code melanoma elevated [...]
--- OUTSIDE RECORDS SUMMARY | 2024-11-15 15:45 | XMS_ITS | Encounter Summary ---
Author Organization [facility] Address [address] [place] [address] Care Team Providers Care Store Product Demonstrator Name Role Phone Reji Palomino NP Primary Care Provider [phone] Reason for Visit * Reason Onset Date Comments Last ov note requested from GI 11/08/2024 Encounter Details Date Type Department Care Team (Late st Contact Info) Description 11/08/2024 Telephone [facility] Cardiology [facility] [address] [place] [address] [place] [address] Cee Us [place] Last ov note [...] on filedocumented in this encounter Care Teams Store Product Demonstrator Relationship Specialty Start Date End Date Reji Palomino NP [facility] [place] [place] PCP - General 11/24/21 documented as of this encounter
--- OUTSIDE RECORDS SUMMARY | 2024-11-15 15:45 | XMS_ITS ---
Author Organization [facility] Address [address] [place] [address] Care Team Providers Care Applied Psychology Professor Name Role Phone HEATHER LAMBERT Primary Care Provider Dalton Archer Jr Unavailable [phone] Allergies No Known Allergies REASON FOR VISIT Patient presents today for a screening colon Medications Medication SIG (Take, Route, Frequency, Duration) [...] even ing Orally Once a day Active Social History Alcohol Screen Question Answer Notes [...] Never (0 point) Points 4 Interpretation Positive Vital Signs Blood pressure systolic 00 mm Hg 10/26/19 25 Blood pressure diastolic 00 mm Hg 025 Height 69 in 10/26/2024 Weight 240 lbs 10/26/2024 BMI 35.44 kg/m2 10/26/2024 Encounters Encounter Location Date Provider Diagnosis [facility] [address] [place] [address] 10/26/2024 Dalton Alanis Jr Colon cancer screening Z12.11 and [facility] (current) use of anticoagulants Z79.01 Assessments Encounter [...] valve today. He understands these risks. 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 Plan Of Treatment Medication Medication Name Sig Start Date Stop [...] Provider Name:Dalton delacruz Jr, 12/08/2024 10:00:00 AM, [address] [place] [address] , [place], [place], [id number], Progress Notes * KAI SOTO WDOB:[birth year] (69 yo M)Acc No.[id number]:10/26/2024 Progress Notes Patient:?KAI SOTO Provider:?Dalton Alanis MD :1955???Age:69 Y???Sex:Male Kiko e:10/26/2024 Address:[address] [place] [address], [facility] Pcp:HEATHER LAMBERT Subjective: * Chief Complaints: * ???1. Patient presents today for a screening colon. * HPI: ???New symptom(s):? The patient is a pleasant 69-year-old man seen today in consultation. He has a history of colon polyps last underwent colonoscopy in 2021 with removal of multiple tubular adenomas. Three-year followup was recommended. He did have some self- limited post polypectomy bleeding but did not require transfusion or repeat colonoscopy. This was likely related to his anticoagulation for his mechanical heart valve. We reviewed this today. ?He feels well. He has no complaints of abdominal pain. Weight and appetite have been stable. He is retired and enjoying himself. * ROS:?General/Constitutional:?Change in appetite?denies.?Fatigue?denies.?ENT:?Patient denies?difficulty swallowing.?Respiratory:?Patient denies?shortness of breath.?Cardiovascular:?Patient denies?chest pain.?Gastrointestinal:?Comments?See HPI for details.?Genitourinary:?Difficulty urinating?denies.?Incontinence?denies.?Musculoskeletal:?Patient denies?muscle aches.?Skin:?Patient denies?pruritis.?Neurologic:?Patient denies?low back pain.?Psychiatric:?Patient denies?mental or physical abuse.? * Medical History:?Melanoma, E levated cholesterol, Hypertension, Osteoarthritis, Hyperparathyroidism, Colonoscopy 10/04, multiple adenomas, three-year followup, post polypectomy bleed due to anticoagulation for mechanical heart valve, no transfusion or repeat colonoscopy needed.. * Surgical History:?AVR (bicus pid valve), metallic valve 2006, rotator cuff tear repair 2007, Cardiac catheter prior to AVR , Partial thyroidectomy . * Family History:?Father: dece ased, diagnosed with Diabetes.?Mother: .? * Social History:?Tobacco Use:?Tobacco Use/Smoking?Are you a: former smoker , How long has it been since you last smoked?: > 10 years.?Drugs/Alcohol:?Alcohol Screen?Did you have a drink containing alcohol in the past year??Yes,?How often did you have a drink containing alcohol in the past year??2 to 3 times a week (3 points),?How many drinks did you have on a typical day when you were drinking in the past year??3 or 4 drinks (1 point),?How often did you have 6 or more drinks on one occasion in the past year??Never (0 point),?Points?4,?Interpretation?Positive.?Miscellaneous:?Marital status: . Occupation: retired. * Medications:?Taking Vitamin B + C Complex - Tablet as directed Orally , Taking Metoprolol-HCTZ ER 25-12.5 MG Tablet Extended Release 24 Hour 1 tablet Orally Once a day, Taking Toprol XL 25 MG Tablet Extended Release 24 Hour 1 tablet Orally Once a day, Taking Simvastatin 20 MG Tablet 1 tablet in the evening Orally Once a day, Taking Warfarin Sodium 7.5 MG Tablet 1 tablet Orally sliding scale, Taking amLODIPine Besylate 2.5 MG Tablet TAKE 1 TABLET BY MOUTH EVERY DAY Oral , Taking Tamsulosin HCl 0.4 MG Capsule TAKE 2 CAPSULES BY MOUTH AT BEDTIME FOR 90 DAYS Oral , Discontinued MiraLax (colon prep) 17 GM/SCOOP Powder mixed with Gatorade or Crystal Light Orally begin at 5:00 p.m. the day before the procedure, Medication List reviewed and reconciled with the patient * Allergies:?N.K.D.A. Objective: * Vitals:?Wt: 240 lbs, Ht: 69 in, BMI:35.44 Index, BP: 00/00 mm Hg. * Examination: ???General Examination: ?GENERAL APPEARANCE:?in no acute distress.?HEAD:?normocephalic.?EYES:?sclera non-icteric.?ORAL CAVITY:?mucosa moist.?NECK/THYROID:?no lymphadenopathy.?SKIN:?anicteric.?HEART:?S1, S2 normal, no murmurs.?LUNGS:?clear to auscultation bilaterally.?CHEST:?normal shape and expansion.?ABDOMEN:?soft, nontender, nondistended, bowel sounds present, no organomegaly .?EXTREMITIES:?no clubbing, cyanosis, or edema.?PSYCH:?cognitive function intact.? Assessment: * Assessment: 1.?[facility] (current) use o f anticoagulants - Z79.01 (Primary)?2.?Colon cancer screening - Z12.11? We discussed colonoscopy toscott armenta. We discussed risks and benefits of the procedure today. He understands these and agrees to proceed. This will be scheduled at his convenience. He will bridge warfarin with Lovenox as instructed by the Coumadin clinic. We discussed the increased risk of bleeding in patients who need continuous anticoagulation because of mechanical heart valve today. He understands these risks. Plan: * Treatment: * Procedure Codes:?3017F COLOR ECTAL CA SCREEN DOC REV, G9903 Pt scrn tbco id as non user, G9744 PATIENT NOT ELIG D/T ACTIVE DX HTN * Preventive Medicine:? ??Counseling:?Care goal follow-up plan:?Above Normal BMI Follow-up?Giving encouragement to exercise,?BMI management provided?Yes.? ??Screenings:?Fall Risk Screening?Fall Risk Assessment:?No falls in the past year,?Screening:?No falls in the past year,?Assessment:?Not performed, no reason specified,?Plan of Care:?Not documented, no reason specified.? * Follow Up:?1 Year * * Sign off status: Completed true * Provider:?Dalton Alanis MD Date:?0 10/26/2024 Generated for Mirna kelly/Sebastien/Alokitting on:?11/15/2024 03:44 PM EST History and Physical Notes * HPI (History of Present Illness) Category Sub-Category Detail Notes Category Not es New symptom(s) The patient is a pleasant 69-year-old man seen today in consultation. He has a history of colon polyps last underwent colonoscopy in 2021 with removal of multiple tubular adenomas. Three-year followup was recommended. He did have some self-limited post polypectomy bleeding but did not require transfusion or repeat colonoscopy. This was likely related to his anticoagulation for his mechanical heart valve. We reviewed this today. He feels well. He has no complaints of abdominal pain. Weight and appetite have been stable. He is retired and enjoying himself. Examination Category Sub-Category Detail Notes Category Not es General Examination GENERAL APPEARANCE: in no acute di stress HEAD: normocephalic EYES: sclera non-icteric NECK/THYROID: no lymphadenopathy HEART: S1, S2 normal, no mu rmurs CHEST: normal shape and exp ansion LUNGS: clear to auscultatio n bilaterally ABDOMEN: soft, nontender, non distended, bowel sounds present, no organomegaly SKIN: anicteric EXTREMITIES: no clubbing, cyanosi s, or edema PSYCH: cognitive function i ntact ORAL CAVITY: mucosa moist
--- OUTSIDE RECORDS SUMMARY | 2024-11-15 15:45 | XMS_ITS | Clinical Summary ---
Author Organization [facility] Address [address] [place] [address] Care Team Providers Care Worm Sorter Name Role Phone Reji Palomino NP Primary Care Provider Medications metoprolol succinate (TOPROL-XL) 50 mg 24 hr tablet TAKE 1 TABLET BY MOUTH EVERY DAY 90 tablet 2 08/30/2024 Active Encounters Date Type Department Care Team Description 11/08/2024 Telephone [facility] [address] [place] [address] Cee Us [place] Last ov [...] age to complete this topic Care Teams Worm Sorter Relationship Specialty Start Date End Date Reji Palomino NP [address] [facility] [place] PCP - General 11/24/21
== END 2024-11-15 13:49 | disposition home or self-care (01) ==
LOC: HO.ACS 13:12
PROVIDERS: PCP Nurse Practitioner Family; Visit Provider Internal Medicine
DX: Z79.01 Long term (current) use of anticoagulants (principal)

== ENCOUNTER → 2024-11-15 13:12 | Outpatient (BNVA) | payer MEDICARE, SELFPAY | PROVIDERS: PCP Nurse Practitioner Family; Visit Provider Internal Medicine | DX: Z95.2 Presence of prosthetic heart valve (principal); Z79.01 Long term (current) use of anticoagulants; Z51.81 Encounter for therapeutic drug level monitoring | CPT/HCPCS: 85610; 99211 ==

== ENCOUNTER 2024-11-20 10:35 | Outpatient (AMB) | payer MEDICARE, SELFPAY ==
[2024-11-20 10:38] VITALS: BP 150/74; PULSE 60; O2SAT 97; BMI 35.1
--- NOTE | 2024-11-20 10:38 | MHC.OFFVIS ---
Vital Signs 11/20/24 10:38 Height 5 ft 10 in Weight 244 lb 11.41 oz BMI 35.1 BP 150/74 H Blood Pressure Location Rt brachial Position Sitting Pulse 60 Pulse Source Pulse Oximeter Pulse Oximetry (%) 97 Oxygen Delivery Method Room Air Intake Visit Reasons: Abnormal CT scan Allergies No Known Allergies Allergy (Mild, Verified 11/20/24 10:42) NOT APPLICABLE HPI Comments Details: The patient is a 69-year-old gentleman with a known history of valvular disease status post surgery presenting with worsening dyspnea on exertion. Patient states that he was in his usual state health until about a year ago when he started developing some worsening shortness of breath. He was initially concerned because of his history valvular disease and this is how it felt like back in the time. He did go back to his vascular physician and had a full workup in felt that his valve is working well and that his shortness of breath is unlikely to be cardiac in nature. Therefore the patient did follow-up with his primary care doctor and underwent a pulmonary function study and CT scan of the chest and is referred to Pulmonary. The patient denies any wheezing denies any significant coughing is mainly just the shortness breath with activity. Patient denies any chest discomfort. We did review his pulmonary function studies which demonstrated a low normal total lung capacity and significantly decreased expiratory reserve volume of only 10%. Otherwise no evidence of any obstruction. However, his CT scan of the chest was more revealing as it demonstrates that his right diaphragm is elevated. Along with that he has significant atelectasis to the right lower lobe area. He does have pulmonary nodules that will need follow-up. 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 During the visit we did go for brief walking oximetry the patient did well though his oxygen was 94% with activity. I do believe that in part the elevated diaphragm could be worsening from increased weight gain. This will be potentially increasing the abdominal pressures pushing the diaphragm. Potentially could have a component of diaphragmatic injury or paralysis I may be hindering his ventilation and therefore work of breathing. I did provide him with a incentive spirometer so he can work on deep breathing exercises while we wait for a sniff study. 11/21/2019 the patient is here for a pulmonary follow-up visit. Overall he is doing well. Over the winter he did have a few bouts of bronchitis and also laryngitis. The patient was treated at the urgent care. He did have an x-ray and was swab for the RSV COVID and flu back in September 16. Everything looked okay except for the chronically elevated right hemidiaphragm. He was treated and released. He did have another bout then after that where he went back to the urgent care but he was not treated with medication prescriptions he was given [id number] Mucinex. Currently is back to his baseline. He does have a rescue inhaler that he that he does not use. The patient again demonstrates that he has a elevated right hemidiaphragm. We did request a sniff study but the patient has not had as of yet. He also has pulmonary nodules. There subcentimeter in nature. We need have a repeat CT scan will plan to do it in 08/02/2025 since she is feeling well. The patient will get the Prevnar 21 vaccine now. He will follow-up in August after his CT scan if he develops any worsening symptoms prior to that he will call for an earlier assessment. [facility] Medical History Asbestos-induced pleural plaque Atelectasis Elevated diaphragm Primary hyperparathyroidism Vitamin D deficiency Hyperparathyroidism Gynecomastia Malignant melanoma Osteoarthritis Rotator cuff tear Cervical spondylolysis Dyslipidemia HTN (hypertension) Surgical History History of right knee joint replacement Hx of colonoscopy Hx of repair of rotator cuff Aortic valve replaced Hx of cardiac cath History of lobectomy of thyroid Family History Father History of CVA (cerebrovascular accident) Diabetes mellitus Mother Stomach ulcer Daughter Brain tumor Maternal Grandfather No problems noted. Maternal Grandmother No problems noted. Paternal Grandfather No problems noted. Paternal Grandmother No problems noted. Maternal Aunt No problems noted. Maternal Uncle No problems noted. Paternal Aunt No problems noted. Paternal Uncle No problems noted. Social History Housing: House Alcohol intake: current Alcohol intake frequency: a few times a week Patient Tobacco Use Status: Former Tobacco user Tobacco use type: Cigarette Cigarette Packs Per Day: 1 Years Smoked: 12 e-Cigarette/Vaping Use: Never Used service: No Current occupational status: retired Cognitive needs: No Hearing needs: No Vision needs: Yes Review of Systems Const Denies fever(s) and Reports weight gain Eyes Reports no additional complaints ENT Reports no additional complaints Card Denies chest pain and Reports dyspnea on exertion Resp Reports dyspnea on exertion and Denies wheezing GI Reports no additional complaints Musc Reports no additional complaints Skin/Breast Denies rash Endo Reports no additional complaints Daljit/Lymph Reports no additional complaints Aller/Immun Denies wheezing Physical Exam Vital Signs: Last Vital Signs Pulse 60 11/20/24 10:38 BP 150/74 H 11/20/24 10:38 Pulse Ox 97 11/20/24 10:38 Oxygen Delivery Method Room Air 11/20/24 10:38 BMI result Body Mass Index 35.1 Const General: comfortable HEENT Head: Yes normocephalic Neck Neck: Yes supple Chest Chest palpation & inspection: normal inspection of the chest Resp Effort & Inspection: normal respiratory effort Auscultation: crackles on the right at the base and diminished lung sounds Cardio Heart sounds: S1 normal heart sound present and S2 normal heart sound present GI Palpation (GI): Soft to palpation Skin General skin exam: no rashes or lesions noted Extrem General: Yes no clubbing, cyanosis or edema Assessment & Plan Assessment & Plan (1) Elevated diaphragm: Code(s): J98.6 - Disorders of diaphragm Category: Medical (2) Pulmonary nodule: Code(s): R91.1 - Solitary pulmonary nodule Category: Medical (3) Atelectasis: Code(s): J98.11 - Atelectasis Category: Medical (4) SOB (shortness of breath): Code(s): R06.02 - Shortness of breath Category: Medical Plan breathing exercises SNIFF study to assess right elevated diaphram weight management CT chest 07/2025 F/U 08/2025 Coding Level of Care Code Est Pt Level 4 (60814) Diagnoses Elevated diaphragm J98.6 Pulmonary nodule R91.1 Atelectasis J98.11 SOB (shortness of breath) R06.02 Time Spent (min) 16
--- OUTSIDE RECORDS SUMMARY | 2024-11-20 11:55 | XMS_ITS | Patient Health Record ---
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 He understands these risks. 10/26/2024 correction (current) use of anticoagulants (ICD-10 - Z79.01) [...] Provider Name:Dalton delacruz Jr, 12/08/2024 10:00:00 AM, [address] [place] [address] , [place], [place], [id number], Insurance Providers Payer Name Payer Address Payer Phone Subscriber Number Group Number Insured Name Patient Relationship to Insured Coverage Start Date Coverage End Date MEDICARE OF [place] [address] [place] [address] [id number] KAI SOTO Self - patient is the insured MEDEX ATTN CLAIMS [address] [place] [address] [phone] [id number] KAI SOTO Self - patient is the [...]
--- OUTSIDE RECORDS SUMMARY | 2024-11-20 11:55 | XMS_ITS ---
Author Organization [facility] Address [address] [place] [address] Care Team Providers Care Rivet Heater Gas Name Role Phone HEATHER LAMBERT Primary Care Provider Dalton Archer Jr Unavailable [phone] Allergies No Known Allergies REASON FOR [...] Provider Diagnosis [facility] [address] [place] [address] 10/26/2024 Dalton Alanis Jr Colon cancer screening Z12.11 and custodial (current) use of anticoagulants Z79.01 Assessments Encounter [...] valve today. He understands these risks. 10/26/2024 custodial (current) use of anticoagulants (ICD-10 [...] Provider Name:Dalton delacruz Jr, 12/08/2024 10:00:00 AM, [address] [place] [address] , [place], [place], [id number], Progress Notes * KAI SOTO WDOB:[birth year] (69 yo M)Acc No.[id number]:10/26/2024 Progress Notes Patient:?KAI SOTO Provider:?Dalton Alanis MD :1955???Age:69 Y???Sex:Male Kiko e:10/26/2024 Address:[address] [place] [address], [facility] Pcp:HEATHER LAMBERT Subjective: * Chief Complaints: * [...] or edema.?PSYCH:?cognitive function intact.? Assessment: * Assessment: 1.?manager terminal (current) use o f anticoagulants - Z79.01 [...] MD Date:?0 10/26/2024 Generated for Mirna kelly/Sebastien/Alokitting on:?11/20/2024 11:55 AM EDT History and Physical Notes * HPI (History [...]
--- OUTSIDE RECORDS SUMMARY | 2024-11-20 11:55 | XMS_ITS | Encounter Summary ---
Author Organization [facility] Address [address] [place] [address] Care Team Providers Care Lawn Service Supervisor Name Role Phone Reji Palomino NP Primary Care Provider Reason for Visit * Reason Onset Date Comments Last ov note requested from GI 11/08/2024 Encounter Details Date Type Department Care Team (Late st Contact Info) Description 11/08/2024 Telephone [facility] [address] [place] [address] [place] [address] Cee Us [place] Last ov note [...] on filedocumented in this encounter Care Teams Lawn Service Supervisor Relationship Specialty Start Date End Date Reji Palomino NP [address] [facility] [place] PCP - General 11/24/21 documented as of this encounter
--- OUTSIDE RECORDS SUMMARY | 2024-11-20 11:55 | XMS_ITS | Clinical Summary ---
Author Organization [facility] Address [address] [place] [address] Care Team Providers Care Carton Catcher Name Role Phone Reji Palomino NP Primary Care Provider Medications metoprolol succinate (TOPROL-XL) 50 mg 24 hr tablet TAKE 1 TABLET BY MOUTH EVERY DAY 90 tablet 2 08/30/2024 Active Encounters Date Type Department Care Team Description 11/08/2024 Telephone [facility] [address] [place] [address] Cee Us [place] Last ov [...] age to complete this topic Care Teams Carton Catcher Relationship Specialty Start Date End Date Reji Palomino NP [address] [facility] [place] And[place] PCP - General 11/24/21
== END 2024-11-20 11:16 | disposition home or self-care (01) ==
PROVIDERS: Visit Provider Hospitalist
DX: J98.6 Disorders of diaphragm (principal); R91.1 Solitary pulmonary nodule; J98.11 Atelectasis; R06.02 Shortness of breath
CPT/HCPCS: 99214

== ENCOUNTER → 2024-11-20 10:35 | Outpatient (BNVA) | payer MEDICARE, SELFPAY | PROVIDERS: Visit Provider Hospitalist | DX: J98.6 Disorders of diaphragm (principal); R06.02 Shortness of breath; J98.11 Atelectasis; R91.1 Solitary pulmonary nodule | CPT/HCPCS: 99212 ==

== ENCOUNTER 2024-11-29 13:30 | Outpatient (AMB) | payer MEDICARE, SELFPAY ==
[2024-11-29 13:56] LABS: Prothrombin Time Whole Bld POC 39.8 sec (11.1-13.5); ~PT, ~INR - Anti Coag Clinic 3.3 (0.9-1.1)
--- NOTE | 2024-11-29 14:14 | MHC.OFFVISCO ---
Intake Intake Visit Reasons: Anticoagulation Allergies No Known Allergies Allergy (Mild, Verified 11/29/24 13:52) NOT APPLICABLE Medication List - Last Reconciled 11/29/24 by Macarena Escobedo RN albuterol sulfate 90 mcg/actuation inhalation amlodipine 2.5 mg PO DAILY amoxicillin 2,000 mg PO ONCE PRN cholecalciferol (vitamin D3) (Vitamin D3) 25 mcg PO DAILY enoxaparin (Lovenox) 108 mg See Protocol subcut Q12H 12 days furosemide 40 mg PO DAILY ketoconazole 2% 1 appl topical DAILY 30 days metoprolol succinate ER 50 mg PO DAILY nystatin 1 appl topical DAILY simvastatin 10 mg PO BEDTIME tamsulosin 0.8 mg (2 x 0.4 mg) PO BEDTIME 90 days warfarin See Protocol orally; 7.5MG Wed, 9MG SUN WED MANUEL SAT Nursing Note INR: 3.3- in therapeutic range of 2.5-3.5 Medications and supplements reviewed- no changes No changes in health, diet, medications, or supplements, Denies any signs and symptoms of bleeding or bruising or clotting. Bleeding, bruising, clotting discussed Nutritional guidance given - avoid greens when restarting warfarin Dose: 7 day hold/warfarin with lovenox bridging. last dose warfarin 11/30/24. written instructions given to pt with warfarin hold and lovenox bridging instructions. 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
--- OUTSIDE RECORDS SUMMARY | 2024-11-29 15:56 | XMS_ITS ---
Author Organization [facility] Address [address] [place] [address] Care Team Providers Care Hand Shoes Sewer Name Role Phone HEATHER LAMBERT Primary Care Provider Dalton Archer Jr Unavailable [phone] Allergies No Known Allergies REASON FOR VISIT [...] Provider Diagnosis [facility] [address] [place] [address] 10/26/2024 Dalton Alanis Jr Colon cancer screening Z12.11 and intermediate (current) use of anticoagulants Z79.01 Assessments Encounter [...] today. He understands these risks. 10/26/2024 intermediate (current) use of anticoagulants (ICD-10 - Z79.01) [...] Provider Name:Dalton delacruz Jr, 12/08/2024 10:00:00 AM, [address] [place] [address] , [place], [place], [id number], Progress Notes * KAI SOTO WDOB:[birth year] (69 yo M)Acc No.[id number]:10/26/2024 Progress Notes Patient:?KAI SOTO Provider:?Dalton Alanis MD :1955???Age:69 Y???Sex:Male Kiko e:10/26/2024 Address:[address] [place] [address], [facility] Pcp:HEATHER LAMBERT Subjective: * Chief Complaints: * [...] or edema.?PSYCH:?cognitive function intact.? 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
--- OUTSIDE RECORDS SUMMARY | 2024-11-29 15:56 | XMS_ITS | Clinical Summary ---
Author Organization [facility] Address [address] [place] [address] Care Team Providers Care Pickle Solution Maker Name Role Phone Reji Palomino NP Primary Care Provider Medications metoprolol succinate (TOPROL-XL) 50 mg 24 hr tablet TAKE 1 TABLET BY MOUTH EVERY DAY 90 tablet 2 08/30/2024 Active furosemide (LASIX) 40 mg tablet TAKE 1 TABLET BY MOUTH EVERY DAY 90 tablet 1 11/28/2024 Active Encounters Date Type Department Care Team Description 11/08/[address] [facility] [address] [place] [address] Cee Us [place] Last ov [...] Influencers of Health Screening 08/23/2022 COVID-19 Vaccine ( - season) 2024 Influenza Vaccine (#1) 2024 3, [...] age to complete this topic Care Teams Pickle Solution Maker Relationship Specialty Start Date End Date Reji Palomino NP [address] [facility] [place] PCP - General 11/24/21
--- OUTSIDE RECORDS SUMMARY | 2024-11-29 15:56 | XMS_ITS | Encounter Summary ---
Author Organization [facility] Address [address] [place] [address] Care Team Providers Care Corporate Quality Engineer Name Role Phone Reji Palomino NP Primary Care Provider Reason for Visit * Reason Onset Date Comments Last ov note requested from GI 11/08/2024 Encounter Details Date Type Department Care Team (Late st Contact Info) Description 11/08/2024 Telephone [facility] [address] [place] [address] [place] [address] Cee Us [place] Last ov note [...] on filedocumented in this encounter Care Teams Corporate Quality Engineer Relationship Specialty Start Date End Date Reji [facility]omino [facility] [place] [facility] - General 11/24/21 documented as of this encounter
--- OUTSIDE RECORDS SUMMARY | 2024-11-29 15:56 | XMS_ITS | Patient Health Record ---
Author Organization [facility] Address [address] [place] [address] Care Team Providers Care Diploma Dental Assistant Name Role Phone HEATHER LAMBERT Primary [...] Problem Status W/U Status Risk Notes Problem 316132178 Colon cancer screening (Z12.11) Active confirmed Problem [id number] [facility] (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 anticoagulants (Z79.01) Active confirmed Problem [id number] terminal system operator (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 aspirin (Z79.82) Active confirmed Vital Signs Blood pressure diastolic 00 mm Hg 10/26/2024 Height 69 in 10/26/2024 Blood pressure systolic 00 mm Hg 10/26/2024 Weight 240 lbs 10/26/2024 BMI 35.44 kg/m2 10/26/2024 Encounters Encounter Location Date Provider Diagnosis [facility] [address] [facility] [address] [place] [address] 10/26/2024 Dalton Alanis Jr Colon cancer screening Z12.11 and terminal system operator (current) use of anticoagulants Z79.01 Assessments Encounter [...] valve today. He understands these risks. 10/26/2024 [facility] (current) use of anticoagulants (ICD-10 - Z79.01) [...] Provider Name:Dalton delacruz Jr, 12/08/2024 10:00:00 AM, [address] [place] [address] , [place], [place], [phone], Insurance Providers Payer Name Payer Address Payer Phone Subscriber Number Group Number Insured Name Patient Relationship to Insured Coverage Start Date Coverage End Date MEDICARE OF [place] [address] [place] [id number] KAI SOTO Self - patient is the insured MEDEX ATTN CLAIMS [address] [place] [address] [id number] KAI SOTO Self - patient is the [...]
== END 2024-11-29 14:20 | disposition home or self-care (01) ==
LOC: HO.ACS 13:30
PROVIDERS: PCP Nurse Practitioner Family; Visit Provider Internal Medicine Medical Oncology
DX: Z79.01 Long term (current) use of anticoagulants (principal)

== ENCOUNTER → 2024-11-29 13:30 | Outpatient (BNVA) | payer MEDICARE, SELFPAY | PROVIDERS: PCP Nurse Practitioner Family; Visit Provider Internal Medicine Medical Oncology | DX: Z95.2 Presence of prosthetic heart valve (principal); Z79.01 Long term (current) use of anticoagulants; Z51.81 Encounter for therapeutic drug level monitoring | CPT/HCPCS: 85610; 99211 ==

== ENCOUNTER 2024-12-05 07:17 | Outpatient (AMB) | payer MEDICARE, SELFPAY ==
--- NOTE | 2024-12-05 07:19 | MHC.PC.OV ---
Intake Visit Reasons: new diagnosis wants to discuss w/ pcp Allergies No Known Allergies Allergy (Mild, Verified 12/05/24 07:23) NOT APPLICABLE Medication List - Last Reconciled 12/05/24 by FREYA Archibald albuterol sulfate 90 mcg/actuation inhalation amlodipine 2.5 mg PO DAILY amoxicillin 2,000 mg PO ONCE PRN cholecalciferol (vitamin D3) (Vitamin D3) 25 mcg PO DAILY codeine-guaifenesin 10-100 mg/5 mL 5 mL PO Q6H PRN enoxaparin (Lovenox) 108 mg See Protocol subcut Q12H 12 days furosemide 40 mg PO DAILY ketoconazole 2% 1 appl topical DAILY 30 days metoprolol succinate ER 50 mg PO DAILY nystatin 1 appl topical DAILY simvastatin 10 mg PO BEDTIME tamsulosin 0.8 mg (2 x 0.4 mg) PO BEDTIME 90 days warfarin See Protocol orally; 7.5MG Wed, 9MG SUN Wed SAT Tobacco use date assessed: 11/18/23 Dental Screening Dental Screen Date: 11/18/23 [facility] Medical History Asbestos-induced pleural plaque Atelectasis Elevated diaphragm Primary hyperparathyroidism Vitamin D deficiency Hyperparathyroidism Gynecomastia Malignant melanoma Osteoarthritis Rotator cuff tear Cervical spondylolysis Dyslipidemia HTN (hypertension) Surgical History History of right knee joint replacement Hx of colonoscopy Hx of repair of rotator cuff Aortic valve replaced Hx of cardiac cath History of lobectomy of thyroid Family History Father History of CVA (cerebrovascular accident) Diabetes mellitus Mother Stomach ulcer Daughter Brain tumor Maternal Grandfather No problems noted. Maternal Grandmother No problems noted. Paternal Grandfather No problems noted. Paternal Grandmother No problems noted. Maternal Aunt No problems noted. Maternal Uncle No problems noted. Paternal Aunt No problems noted. Paternal Uncle No problems noted. Social History Housing: House Alcohol intake: current Alcohol intake frequency: a few times a week Patient Tobacco Use Status: Former Tobacco user Tobacco use type: Cigarette Cigarette Packs Per Day: 1 Years Smoked: 12 e-Cigarette/Vaping Use: Never Used service: No Current occupational status: retired Cognitive needs: No Hearing needs: No Vision needs: Yes Questionnaire Thrive Questionnaire Date Thrive assessed: 08/02/24 FELIX-7 AMB Questionnaire FELIX-7 Date FELIX - 7 assessed: 08/02/24 Source: Developed by Drs. Mario Bobby, Camila Temple, Evin Snyder and colleagues, with an educational solomon from [employer]. Physical exam (Primary Care) Tobacco/Smoking Status: Tobacco use Status Tobacco use date assessed 11/18/23 08/02/24 10:01 Patient Tobacco Use Status Former Tobacco user 11/29/24 14:16 Tobacco use type Cigarette 11/29/24 14:16 e-Cigarette/Vaping Use Never Used 08/02/24 10:01 Thrive Assessment: Date of Thrive Assessment Date Thrive assessed 08/02/24 08/02/24 10:03 Telehealth Telehealth Telehealth Platform: [employer] Location of provider rendering services: practice address Location of patient: address on file Patient Identification confirmed using: Name, : Yes Telehealth method: video Patient verbally consented to treatment: Yes Patient verbally consented to billing insurance company: Yes Patient informed of any privacy concerns related to visit: Yes Minutes spent on Phone/Video with Pt.: 12 Coding Level of Care Code Tele Est Pt Level 3 (08956) Diagnoses Asbestos-induced pleural plaque J92.0 Atelectasis J98.11 Elevated diaphragm J98.6 Pulmonary nodule R91.1 Emphysema of lung J43.9 Pulmonary fibrosis J84.10 Cough R05.9 Assessment & Plan Assessment & Plan (1) Asbestos-induced pleural plaque: Code(s): J92.0 - Pleural plaque with presence of asbestos Category: Medical (2) Atelectasis: Code(s): J98.11 - Atelectasis Category: Medical (3) Elevated diaphragm: Code(s): J98.6 - Disorders of diaphragm Category: Medical (4) Pulmonary nodule: Code(s): R91.1 - Solitary pulmonary nodule Category: Medical (5) Emphysema of lung: Code(s): J43.9 - Emphysema, unspecified Category: Medical (6) Pulmonary fibrosis: Code(s): J84.10 - Pulmonary fibrosis, unspecified Category: Medical (7) Cough: Code(s): R05.9 - Cough, unspecified Category: Medical Plan . Medications: New codeine-guaifenesin 10-100 mg/5 mL take only as prescribed, not to drive while on med, cannot share 5 mL PO Q6H PRN 120 mL 0RF cough
== END 2024-12-05 09:21 | disposition home or self-care (01) ==
LOC: HO.HMCC 07:17
PROVIDERS: PCP Nurse Practitioner Family; Visit Provider Nurse Practitioner Family
DX: J92.0 Pleural plaque with presence of asbestos (principal); J98.11 Atelectasis; J43.9 Emphysema, unspecified; J84.10 Pulmonary fibrosis, unspecified; J98.6 Disorders of diaphragm; R91.1 Solitary pulmonary nodule; R05.9 Cough, unspecified

== ENCOUNTER → 2024-12-05 07:17 | Outpatient (BNVA) | payer MEDICARE, SELFPAY | PROVIDERS: PCP Nurse Practitioner Family; Visit Provider Nurse Practitioner Family ==

== ENCOUNTER 2024-12-08 08:04 | Day surgery (SDC) | payer MEDICARE, SELFPAY ==
--- OUTSIDE RECORDS SUMMARY | 2024-11-06 13:45 | XMS_ITS | Clinical Summary ---
Author Organization [facility] [place] Address [address] [place] [address] Care Team Providers Care Care Transition Manager Name Role Phone Reji Palomino NP Primary Care Provider Medications metoprolol succinate (TOPROL-XL) 50 mg 24 hr tablet TAKE 1 TABLET BY MOUTH EVERY DAY 90 tablet 2 08/30/2024 Active Social History Tobacco Use Types Packs/Day Years Used Date Smoking Tobacco: Former Smokeless Tobacco: Never Alcohol Use Standard Drinks/Week Comments Yes 0 (1 standard drink = 0.6 oz pur e alcohol) Sex and Gender Information Value Date Recorded Sex Assigned at Not on file Legal Sex Male 12:09 AM EST Gender Identity Not on file Sexual Orientation Not on file Obstetrics History Last Filed Vital Signs Vital Sign Reading Time Taken Comments Blood Pressure 124/78 05/02/2024 11:38 AM EDT Si tting R Arm Pulse 68 05/02/2024 11:38 AM EDT Temperature - - Respiratory Rate - - Oxygen Saturation - - Inhaled Oxygen Concentration - - Weight 108 kg (237 lb) 05/02/2024 11:38 AM EDT Height 172.7 cm (5' 8 ) 05/02/2024 11:38 AM EDT Body Mass Index 36.04 05/02/2024 11:38 AM EDT Plan of Treatment Health Maintenance Due Date Last Done Comments DTaP,Tdap,and Td Vaccines (1 - Tdap) 01/22/1972 Zoster Vaccines (1 of 2) 2003 Abdominal Aortic Aneurysm (AAA) Screen 08/23/2022 Cholesterol Screening (Lipid Panel) 08/23/2022 Colorectal Cancer Screening: Colonoscopy 08/23/2022 Depression Screening 08/23/2022 Falls Risk Assessment 08/23/2022 Hepatitis C Screening 08/23/2022 Social Influencers of Health Screening 08/23/2022 COVID-19 Vaccine (2023- season) 2024 Influenza Vaccine (#1) 2024 3, 06/17/2022, 08/05/2021, Additional history exists Hypertension/CHF/CAD Annual BMP Blood Test 04/03/2025 04/03/2024 RSV Immunization Patients 60+ Years Old (1 - 1-dose 75+ series) 01/22/2028 Pneumococcal Vaccine: 50+ Years Completed 06/20/2019, 05/11/2018 HIB Vaccines Aged Out No longer eligi ble based on patient's age to complete this topic HPV Vaccines Aged Out No longer eligi ble based on patient's age to complete this topic Hepatitis A Vaccines Aged Out No long er eligible based on patient's age to complete this topic Hepatitis B Vaccines Aged Out No long er eligible based on patient's age to complete this topic IPV Vaccines Aged Out No longer eligi ble based on patient's age to complete this topic MMR Vaccines Aged Out No longer eligi ble based on patient's age to complete this topic Meningococcal ACWY Vaccine Aged Out N o longer eligible based on patient's age to complete this topic Meningococcal B Vacine Aged Out No lo nger eligible based on patient's age to complete this topic RSV Immunization Patients Under 20 months Aged Out No longer eligible based on patient's age to complete this topic Varicella Vaccines Aged Out No longer eligible based on patient's age to complete this topic Care Teams Care Transition Manager Relationship Specialty Start Date End Date Reji Palomino NP [address] [facility] [place] PCP - General 11/24/21
--- OUTSIDE RECORDS SUMMARY | 2024-11-06 13:45 | XMS_ITS | Patient Health Record ---
Author Organization [facility] Address [address] [place] [address] Care Team Providers Care Dry Chain Operator Name Role Phone HEATHER LAMBERT Primary Care Provider Dalton Archer Jr Unavailable [phone] ALLERGIES No Known Allergies REASON FOR REFERRAL No Information MEDICATIONS Medication SIG (Take, Route, Frequency, Duration) Notes Start Date End Date Status Vitamin B + C Complex - as directed Orally Active Metoprolol-HCTZ ER 25-12.5 MG 1 tablet Orally Once a day for 30 day(s) Active MiraLax (colon prep) 17 GM/SCOOP mixed with Gatorade or Crystal Light Orally begin at 5:00 p.m. the day before the procedure for 1 day 10/26/2024 Active Tamsulosin HCl 0.4 MG TAKE 2 CAPSULES BY MOUTH AT BEDTIME FOR 90 DAYS Oral for 90 Active Warfarin Sodium 7.5 MG 1 tablet Orally s liding scale Active amLODIPine Besylate 2.5 MG TAKE 1 TABLET BY MOUTH EVERY DAY Oral for 90 Active Toprol XL 25 MG 1 tablet [...] Problem Colon cancer screening (Z12.11) Active confirmed [id number] Problem truck terminal manager (current) use of anticoagulants (Z79.01) Active confirmed 160733912 Problem group home (current) use of aspirin (Z79.82) Active confirmed 677519365 VITAL SIGNS Blood pressure diastolic 00 mm Hg 10/26/2024 Height 69 in 10/26/2024 Blood pressure systolic 00 mm Hg 10/26/2024 Weight 240 lbs 10/26/2024 BMI 35.44 kg/m2 10/26/2024 Encounters Encounter Location Date Provider Diagnosis [facility] [address] [place] [address] 10/26/2024 Dalton Alanis Jr Colon cancer screening Z12.11 and group home (current) use of anticoagulants Z79.01 ASSESSMENTS Encounter Date Diagnosis Assessment Notes Treatment Notes Treatment Clinical Notes 10/26/2024 Colon cancer screening (ICD-10 - Z12.11) Colonoscopy material was printed 10/26/2024 group home (current) use of anticoagulants (ICD-10 - Z79.01) PLAN OF TREATMENT Future Test Test Name Order Date COLONOSCOPY 01/22/2016 COLONOSCOPY 08/18/2021 COLONOSCOPY 10/26/2024 Next Appt Details Provider Name:Dalton delacruz Jr, 12/08/2024 10:00:00 AM, [address] [place] [address] , [place], [place], [phone], Insurance Providers Payer Name Payer Address Payer Phone Subscriber Number Group Number Insured Name Patient Relationship to Insured Coverage Start Date Coverage End Date MEDICARE OF [place] [address] [place] [address] [id number] KAI SOTO Self - patient is the insured MEDEX ATTN CLAIMS [address] [place] [address] [phone] [id number] KAI SOTO Self - patient is the insured MEDICAL (GENERAL) HISTORY Medical History History ICD Code melanoma elevated cholesterol Hypertension Osteoarthritis Hyperparathyroidism Colonoscopy 10/04, multiple a denomas, three-year followup, post polypectomy bleed due to anticoagulation for mechanical heart valve, no transfusion or repeat colonoscopy needed. Surgical History Surgery Date(Month/Year) AVR (bicuspid valve), metallic valve 200 7 rotator cuff tear repair 2007 Cardiac catheter prior to AVR Partial thyroidectomy
--- OUTSIDE RECORDS SUMMARY | 2024-11-06 13:46 | XMS_ITS ---
Author Organization [facility] Address [address] [place] [address] Care Team Providers Care Welt Stitcher Name Role Phone HEATHER LAMBERT Primary Care Provider Dalton Archer Jr Unavailable [phone] ALLERGIES No Known Allergies REASON FOR VISIT Patient presents today for a screening colon MEDICATIONS Medication SIG (Take, Route, Frequency, Duration) Notes Start Date End Date Status MiraLax (colon prep) 17 GM/SCOOP mixed with [...] MOUTH EVERY DAY Oral for 90 Active Vitamin B + C Complex - as directed Orally Active Metoprolol-HCTZ ER 25-12.5 MG 1 tablet Orally Once a day for 30 day(s) Active Toprol XL 25 MG 1 tablet Orally Once a day Active Simvastatin 20 MG 1 tablet in the even ing Orally Once a day Active SOCIAL HISTORY Sex Assigned At : Social [...] Never (0 point) Points 4 Interpretation Positive VITAL SIGNS Blood pressure systolic 00 mm Hg 10/26/19 25 Blood pressure diastolic 00 mm Hg 025 Height 69 in 10/26/2024 Weight 240 lbs 10/26/2024 BMI 35.44 kg/m2 10/26/2024 Encounters Encounter Location Date Provider Diagnosis [facility] [address] [place] [address] 10/26/2024 Dalton Alanis Jr Colon cancer screening Z12.11 and custodial (current) use of anticoagulants Z79.01 ASSESSMENTS Encounter Date Diagnosis Assessment Notes Treatment Notes Treatment Clinical Notes 10/26/2024 Colon cancer screening (ICD-10 - Z12.11) Colonoscopy material was printed 10/26/2024 custodial (current) use of anticoagulants (ICD-10 - Z79.01) PLAN OF TREATMENT Medication Medication Name Sig Start Date Stop Date Notes MiraLax (colon prep) 17 GM/SCOOP mixed with Gatorade or Crystal Light Orally begin at 5:00 p.m. the day before the procedure for 1 day 10/26/2024 Treatment Notes Assessment Notes Colon cancer screening Colonoscopy mater ial was printed Future Test Test Name Order Date COLONOSCOPY 10/26/2024 Next Appt Details Follow Up: 1 Year, Reason: Provider Name:Dalton delacruz Jr, 12/08/2024 10:00:00 AM, [address] [place] [address] , [place], [place], [phone], Progress Notes * Examination Category Sub-Category Detail Notes General Examination GENERAL APPEARANCE: in no ac [place] distress HEAD: normocephalic EYES: sclera non-icteric NECK/THYROID: no lymphadenopathy HEART: S1, S2 normal, no mu rmurs CHEST: normal shape and exp ansion LUNGS: clear to auscultatio n bilaterally ABDOMEN: soft, nontender, non distended, bowel sounds present, no organomegaly SKIN: anicteric EXTREMITIES: no clubbing, cyanosi s, or edema PSYCH: cognitive function i ntact ORAL CAVITY: mucosa moist
[2024-12-06 13:48] VITALS: BMI 36.0
--- NOTE | 2024-12-07 11:56 | P.CONAN_ITS ---
HPI - Anesthesia Eval Consult details Narrative: 69yo M for Colonoscopy Follows [facility] for: s/p AVR (mechanical) 2006 - warfarin 2023 extensive cardiac w/u for SOB - negative cath, echo ok PMFSH Active Problems Active Problems: All Active Problems Acute upper respiratory infection (Acute) Pulmonary nodule (Acute) Emphysema of lung (Acute) Pulmonary fibrosis (Acute) Cough (Acute) SOB (shortness of breath) (Acute) Tinea (Acute) Wound, open, nose (Acute) Viral illness (Acute) Wound disruption (Acute) Cellulitis (Acute) Hematoma of right lower leg (Acute) Allergies (Acute) Elevated liver enzymes (Acute) Spermatocele (Acute) Urinary hesitancy (Acute) BPH w urinary obs/LUTS (Acute) intermediate (current) use of aspirin (Acute) Sinusitis (Acute) Elevated parathyroid hormone (Acute) Encounter for vitamin deficiency screening (Acute) Hypercalcemia (Acute) Fatigue (Acute) Otitis externa (Acute) Otitis media (Acute) Screening PSA (prostate specific antigen) (Acute) Presence of prosthetic heart valve (Acute) Current use of anticoagulant therapy (Acute) Asbestos-induced pleural plaque (Acute) Atelectasis (Acute) Elevated diaphragm (Acute) Primary hyperparathyroidism (Acute) Vitamin D deficiency (Acute) Hyperparathyroidism (Acute) Dyslipidemia (Acute) HTN (hypertension) (Acute) Past Medical History Medical History (Updated 12/08/24 @ 08:33 by Lyubov Bruce RN) History of Mohs micrographic surgery for skin cancer Elevated cholesterol Asbestos-induced pleural plaque Atelectasis Elevated diaphragm Primary hyperparathyroidism Vitamin D deficiency Hyperparathyroidism Gynecomastia Malignant melanoma Osteoarthritis Rotator cuff tear Cervical spondylolysis Dyslipidemia HTN (hypertension) Family History Family History Father History of CVA (cerebrovascular accident) Diabetes mellitus Mother Stomach ulcer Daughter Brain tumor Maternal Grandfather No problems noted. Maternal Grandmother No problems noted. Paternal Grandfather No problems noted. Paternal Grandmother No problems noted. Maternal Aunt No problems noted. Maternal Uncle No problems noted. Paternal Aunt No problems noted. Paternal Uncle No problems noted. Family history of problems with anesthesia: No Surgical History Surgical History History of right knee joint replacement Hx of colonoscopy Hx of repair of rotator cuff Aortic valve replaced Hx of cardiac cath History of lobectomy of thyroid History of Problems with Anesthesia: No Social History Social History Housing: House Alcohol intake: current Alcohol intake frequency: a few times a week Patient Tobacco Use Status: Former Tobacco user Tobacco use type: Cigarette Cigarette Packs Per Day: 1 Years Smoked: 12 e-Cigarette/Vaping Use: Never Used service: No Current occupational status: retired Cognitive needs: No Hearing needs: No Vision needs: Yes Meds Allergies Allergy/AdvReac Type Severity Reaction Status Date / Time No Known Allergies Allergy Mild NOT Verified 12/15/24 09:11 APPLICABLE Home Medications ?Medication ?Instructions ?Recorded ?Confirmed ?Last Taken ?Type metoprolol succ 25 tab PO 12/06/24 12/15/24 Unknown History mg-hydrochlorothiazide 12.5 mg tablet,ext.rel 24 hr metoprolol succinate 25 mg 25 mg PO DAILY 12/06/24 12/15/24 Unknown History tablet,extended release 24 hr (Toprol XL) simvastatin 10 mg tablet 20 mg PO BEDTIME 12/06/24 12/15/24 Unknown History furosemide 40 mg tablet 40 mg PO QAM 12/11/24 12/15/24 Unknown History vitamin d 3 PO 12/11/24 12/15/24 Unknown History Exam Height,Weight and Vital Signs: Height 5 ft 8 in Weight 107.501 kg Pertinent Lab Results Pertinent Lab Results: Laboratory Tests 08/04/24 14:54 WBC 5.6 Hgb 13.9 L Hct 41.9 L Plt Count 180 Sodium 139 Potassium 4.3 Chloride 103 Carbon Dioxide 27 BUN 17 H Creatinine 0.85 Narrative Narrative: Per 04/2024 cardiac note: Nuc stress 02/2024: small apical abnormality, preserved EF Holter 02/2024 NSR, atrial runs up to 20 beats, SOB corresponded to NSR Cardiac cath 03/2024: nonobstructive CAD, nml filling pressures and cardiac output ECHO 03/2024: nml EF, nml function aortic valve, nml PASP and ascending aorta measuring 4.0cm Assessment and Plan Assessment Anesthesia Assessment: Chart Reviewed Final Anesthetic Review Family History of Problems with Anesthesia: No History of Problems with Anesthesia: No
[2024-12-08 08:25] VITALS: BMI 35.4
[2024-12-08 08:34] VITALS: BP 147/84; PULSE 79; RESP 15; TEMP 36.6; O2SAT 98
[2024-12-08] MEDS: Lactated Ringers 1,000 ML 100 ML IVCONT (08:51)
[2024-12-08 09:49] LABS: INTERNATIONAL NORM RATIO 1.3 (0.9-1.1); Prothrombin Time 15.2 SEC (10.9-12.4)
--- NOTE | 2024-12-08 09:54 | MHC.SHP ---
Pre-Procedural Eval Section A - 24 Hr Update-Section A only Date of Service: 12/08/24 Section B - Complete if H&P > 30 days Chief Complaint: Encounter for screening for malignant neoplasm of Details of Present Illness: see H&P no changes Relevant Family History (Specify if Yes): No Relevant Social History: None Present Medications: None Medical History: No relevant PMH History of Previous Operations: No relevant previous surgery Allergies: Allergies Allergy/AdvReac Type Severity Reaction Status Date / Time No Known Allergies Allergy Mild NOT Verified 12/08/24 08:25 APPLICABLE Review of Systems Sugical H&P ROS: Negative: Constitution, Cardiovascular, Respiratory, Neurological, Psychiatric, Hem-Onc, Allergic/Immunologic, Gastrointestinal, Genitourinary, Musculoskeletal, Integumentary, Endocrine and Eyes/Ears/Nose/Throat Exam Surgical H&P Exam: Normal: HEENT, Normal: Heart, Normal: Lungs, Normal: Extremities, Normal: Abdomen, Normal: Skin and Normal: Neurological Plan Diagnosis/Plan: Unchanged I have reviewed the history and physical and performed a pertinent physical examination on my patient. No changes have occurred unless specified. Time Spent With Patient Time: Total time managing care of this patient today ____ minutes.
[2024-12-08 10:38] VITALS: BP 144/70; PULSE 75; RESP 15; TEMP 36.9; O2SAT 97
--- NOTE | 2024-12-08 10:42 | P.BOP_ITS ---
Brief Operative Note Date of Service: 12/08/24 Pre-op diagnosis: screening Post-op diagnosis: same Procedure: colonoscopy Surgeon: Dalton Alanis MD Anesthesia: MAC Was an Account Manager Forest Service used for this Procedure?: No Estimated blood loss (mL): 2 Pathology: other Condition: stable Disposition: PACU
[2024-12-08 10:43] VITALS: BP 127/52; PULSE 69; RESP 15; TEMP 36.7; O2SAT 97
--- NOTE | 2024-12-08 12:11 | OP_ITS ---
DATE OF SERVICE: 12/08/2024 SURGEON: Dalton Alanis MD INDICATIONS: Colon cancer screening. PREOPERATIVE DIAGNOSIS: POSTOPERATIVE DIAGNOSIS: PROCEDURE PERFORMED: Colonoscopy to the terminal ileum with biopsy. ESTIMATED BLOOD LOSS: COMPLICATIONS: ANESTHESIA: Monitored anesthesia care. ASSISTANTS: SPECIMENS: DESCRIPTION OF PROCEDURE: A history and physical performed. The risks and benefits of the procedure were explained to the patient. Informed consent was obtained. The patient was placed in the left lateral decubitus position. A digital rectal exam was performed and was found to be normal. The Olympus pediatric videocolonoscope was introduced into the rectum and advanced to the cecum. The cecum was identified by transillumination, palpation, and identification of ileocecal valve. Examination was performed. The scope was removed. He tolerated the procedure well and was turned to recovery area in stable condition. FINDINGS: The terminal ileum was examined and appeared normal. The visualized colonic mucosa was normal. The quality of the prep was good. Two polyps were identified and removed with biopsy forceps. Both measured less than 5 mm, 1 was located at 70 cm, 1 was located in the rectum. There was moderate diverticulosis throughout the colon. Retroflexed examination showed small internal hemorrhoids. IMPRESSION: Colon polyps. RECOMMENDATION: Follow up with the biopsy results. MD DAIN Abbott/DARLEENL / [id number]
== END 2024-12-08 11:17 | disposition home or self-care (01) ==
PROVIDERS: Nurse Practitioner; PCP Nurse Practitioner Family; Visit Provider Internal Medicine Gastroenterology
PROC: 0DJD8ZZ Inspection of Lower Intestinal Tract, Via Natural or Artificial Opening Endoscopic (ICD-10-PCS; CPT 45378; principal; 2024-12-08 10:00)
DX: Z12.11 Encounter for screening for malignant neoplasm of colon (principal); Z86.0101 Personal history of adenomatous and serrated colon polyps; D12.8 Benign neoplasm of rectum; K51.40 Inflammatory polyps of colon without complications; K57.30 Diverticulosis of large intestine without perforation or abscess without bleeding; K64.8 Other hemorrhoids; C43.9 Malignant melanoma of skin, unspecified; I10 Essential (primary) hypertension; E21.3 Hyperparathyroidism, unspecified; E78.00 Pure hypercholesterolemia, unspecified; Z95.4 Presence of other heart-valve replacement; Z79.01 Long term (current) use of anticoagulants; Z98.890 Other specified postprocedural states; Z87.891 Personal history of nicotine dependence; Z79.899 Other long term (current) drug therapy
CPT/HCPCS: 45380; 36415; 85610; 88305; J2003; J2704

== ENCOUNTER 2024-12-11 11:28 | Outpatient (AMB) | payer MEDICARE, SELFPAY ==
[2024-12-11 11:48] LABS: Prothrombin Time Whole Bld POC 22.9 sec (11.1-13.5); ~PT, ~INR - Anti Coag Clinic 1.9 (0.9-1.1)
--- NOTE | 2024-12-11 12:10 | MHC.OFFVISCO ---
Intake Intake Visit Reasons: Anticoagulation Allergies No Known Allergies Allergy (Mild, Verified 12/11/24 11:30) NOT APPLICABLE Medication List - Last Reconciled 12/11/24 by Lesley Rosario RN amlodipine 2.5 mg PO DAILY enoxaparin (Lovenox) 108 mg See Protocol subcut Q12H 12 days metoprolol oates-hydrochlorothiaz 25-12.5 mg tabs PO metoprolol succinate ER (Toprol XL) 25 mg PO DAILY simvastatin 20 mg PO BEDTIME tamsulosin 0.8 mg (2 x 0.4 mg) PO BEDTIME 90 days warfarin See Protocol orally; 7.5MG Wed, 9MG Wed MANUEL SAT Nursing Note INR 1.9 out of therapeutic range 2.5-3.5 Medications and supplements reviewed Patient status: s/p colonoscopy with 2 small polyps removed, no bleeding this time with this colonoscopy, can take INR extra time to come up after colonoscopies Medications or supplements: lovneox bridge, pt to check med list at home regarding metoprolol x 2 in his EMR med list Diet: good -avoiding greens Denies any signs and symptoms of bleeding or clotting or unusual bruising Bleeding, bruising, clotting discussed Nutritional guidance given: avoid greens Dose: 12 mg today then resume usual dose 9mg x 4 days/ 7.5mg mwf cont lovenox per MD orders F/U INR Date : 12/13/2024 ?? Patient verbalizing understanding of instructions given with read back. This visit note Msg sent to PCP will f/u call Anti-Coag Initial Assessment Social Hx Patient Tobacco Use Status: Former Tobacco user Tobacco use type: Cigarette Smoking packs per day: 1 alcohol intake: current Alcohol intake frequency: a few times a week Coding Level of Care Code Est Patient Level 1 Diagnoses Current use of anticoagulant therapy Z79.01 Results AMB INR Fingerstick AMB INR Fingerstick 1.9 Last Edit by Lesley Rosario RN on 12/11/24 11:45 manual entry Assessment & Plan Assessment & Plan (1) Current use of anticoagulant therapy: Code(s): Z79.01 - terminal system operator (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 Medications: New furosemide 40 mg PO QAM [vitamin d 3 1,000 units] PO
--- OUTSIDE RECORDS SUMMARY | 2024-12-11 13:07 | XMS_ITS ---
Author Organization [facility] Address [address] [place] [address] Care Team Providers Care Sustainability Manager Name Role Phone HEATHER LAMBERT Primary Care Provider Dalton Archer Jr Unavailable [phone] Allergies No Known Allergies REASON FOR VISIT [...] Provider Diagnosis [facility] [address] [place] [address] 10/26/2024 Dalton Alanis Jr Colon cancer screening Z12.11 and alf (current) use of anticoagulants Z79.01 Assessments Encounter [...] valve today. He understands these risks. 10/26/2024 alf (current) use of anticoagulants (ICD-10 - Z79.01) [...] Appt Details Follow Up: 1 Year, Reason: Progress Notes * KAI SOTO WDOB:[birth year] (69 yo M)Acc No.[id number]:10/26/2024 Progress Notes Patient:?SOTO, KAI W Provider:?Dalton Alanis MD :1955???Age:69 Y???Sex:Male Kiko e:10/26/2024 Address:[address] [place] [address], [facility] Pcp:HEATHER LAMBERT Subjective: * Chief Complaints: * [...] or edema.?PSYCH:?cognitive function intact.? 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
--- OUTSIDE RECORDS SUMMARY | 2024-12-11 13:07 | XMS_ITS | Patient Health Record ---
Author Organization [facility] Address [address] [place] [address] Care Team Providers Care Chorus Dancer Name Role Phone HEATHER LAMBERT Primary Care Provider Dalton Archer Jr Unavailable [phone] Allergies No Known Allergies Results Component Value Reference Range Notes Prothrombin Time INR Reviewed date:12/08/2024 04:26:11 PM Interpretation: Performing Lab:[facility], [address] [place] [id number] Notes/Report: Unable to obtain x2 attempts Yarslen 0900 12/08 Prothrombin Time 15.2 10.9-12.4 SEC INTERNATIONAL NORM RATIO 1.3 0.9-1.1 INTERNATIONAL NORMALIZED RATIO (INR) REFERENCE RANGES Reference Range For patients not on anticoagulant therapy: 0.9 - 1.1 INR ranges for oral anticoagulant therapy: For prevention and treatment of venous thrombosis and pulmonary embolism: 2.0 - 3.0 For acute myocardial infarction with aspirin therapy: 2.0 - 3.0 For acute myocardial infarction without aspirin therapy: 3.0 - 4.0 For patients with mechanical prosthetic heart valves: 2.5 - 3.5 Reason For Referral No Information Medications Medication [...] Problem Status W/U Status Risk Notes Problem 768980171 Colon cancer screening (Z12.11) Active confirmed Problem 714125115 exterminator (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 anticoagulants (Z79.01) Active confirmed Problem 432126920 MCC (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 aspirin (Z79.82) Active confirmed Vital Signs Blood pressure diastolic 00 mm Hg 10/26/2024 Height 69 in 10/26/2024 Blood pressure systolic 00 mm Hg 10/26/2024 Weight 240 lbs 10/26/2024 BMI 35.44 kg/m2 10/26/2024 Encounters Encounter Location Date Provider Diagnosis [facility] [place] Outpatient [address] [place] [phone] 12/08/2024 Dalton Alanis Jr [facility] [address] [place] [address] 10/26/2024 Dalton Alanis Jr Colon cancer screening Z12.11 and exterminator (current) use of anticoagulants Z79.01 Assessments Encounter [...] today. He understands these risks. 10/26/2024 exterminator (current) use of anticoagulants (ICD-10 - Z79.01) [...] Date COLONOSCOPY 01/22/2016 COLONOSCOPY 08/18/2021 COLONOSCOPY 10/26/2024 Insurance Providers Payer Name Payer Address Payer Phone Subscriber Number Group Number Insured Name Patient Relationship to Insured Coverage Start Date Coverage End Date MEDICARE OF [place] [address] [place] [address] [id number] KAI SOTO Self - patient is the insured MEDEX ATTN CLAIMS [address] [place] [address] [id number] KAI SOTO Self - patient is the [...]
--- OUTSIDE RECORDS SUMMARY | 2024-12-11 13:07 | XMS_ITS | Clinical Summary ---
Author Organization [facility] Address [address] [place] [address] Care Team Providers Care Family Readiness Support Assistant Name Role Phone Reji Palomino NP Primary Care Provider Medications metoprolol succinate (TOPROL-XL) 50 mg 24 hr tablet TAKE 1 TABLET BY MOUTH EVERY DAY 90 tablet 2 08/30/2024 Active furosemide (LASIX) 40 mg tablet TAKE 1 TABLET BY MOUTH EVERY DAY 90 tablet 1 11/28/2024 Active Encounters Date Type Department Care Team Description 11/08/2024 Telephone [facility] [address] [place] [address] Cee Us [place] Last ov [...] age to complete this topic Care Teams Family Readiness Support Assistant Relationship Specialty Start Date End Date Reji Palomino NP [address] [facility] GER[place] Andino PCP - General 11/24/21
--- OUTSIDE RECORDS SUMMARY | 2024-12-11 13:07 | XMS_ITS ---
Author Organization [facility] Address [address] [place] [address] Care Team Providers Care Intake Rn Name Role Phone HEATHER ALMBERT Primary Care Provider Dalton Archer Jr REASON FOR VISIT screening Encounters Encounter Location Date Provider Diagnosis [facility] [place] Outpatient [address] [place], [place] [phone] 12/08/2024 Dalton Alanis Jr Plan Of Treatment No Information Progress Notes * SOTOKAI SIMS WDOB:[birth year] (69 yo M)Acc No.[id number]:12/08/2024 COLON WITH MAC Patient:?KAI SOTO Provider:?Dalton Alanis MD :1955???Age:69 Y???Sex:Male Kiko e:12/08/2024 Address:[address] [place], [place] [id number] Pcp:HEATHER LAMBERT Subjective: * Chief Complaints: * ???1. Screening. * Medical History:? Objective: * Vitals:? Assessment: Plan: * Treatment: * * The named appointment provid er may or may not be the originator of this progress note, and it is not deemed complete until electronically signed by the appointment provider. Sign off status: Pending * Provider:?Dalton Alanis MD Date:?0 12/08/2024 Generated for Caroli ng/Faxing/eTransmitting on:?12/11/2024 01:07 PM EDT
== END 2024-12-11 12:22 | disposition home or self-care (01) ==
LOC: HO.ACS 11:28
PROVIDERS: PCP Nurse Practitioner Family; Visit Provider Internal Medicine Medical Oncology
DX: Z79.01 Long term (current) use of anticoagulants (principal)

== ENCOUNTER → 2024-12-11 11:28 | Outpatient (BNVA) | payer MEDICARE, SELFPAY | PROVIDERS: PCP Nurse Practitioner Family; Visit Provider Internal Medicine Medical Oncology | DX: Z95.2 Presence of prosthetic heart valve (principal); Z51.81 Encounter for therapeutic drug level monitoring; Z79.01 Long term (current) use of anticoagulants | CPT/HCPCS: 85610; 99211 ==

== ENCOUNTER 2024-12-13 08:53 | Outpatient (AMB) | payer MEDICARE, SELFPAY ==
[2024-12-13 09:09] LABS: Prothrombin Time Whole Bld POC 28.3 sec (11.1-13.5); ~PT, ~INR - Anti Coag Clinic 2.4 (0.9-1.1)
--- NOTE | 2024-12-13 09:21 | MHC.OFFVISCO ---
Intake Intake Visit Reasons: Anticoagulation Allergies No Known Allergies Allergy (Mild, Verified 12/11/24 11:30) NOT APPLICABLE Medication List - Last Reconciled 12/13/24 by Mariann Loera RN amlodipine 2.5 mg PO DAILY enoxaparin (Lovenox) 108 mg See Protocol subcut Q12H 12 days furosemide 40 mg PO QAM metoprolol oates-hydrochlorothiaz 25-12.5 mg tabs PO metoprolol succinate ER (Toprol XL) 25 mg PO DAILY simvastatin 20 mg PO BEDTIME tamsulosin 0.8 mg (2 x 0.4 mg) PO BEDTIME 90 days [vitamin d 3 PO] warfarin See Protocol orally; 7.5MG Wed, 9MG Wed SAT Nursing Note NO CP,SOB,DIET/MED CHANGES,FALLS OR SX OF BLEEDING. PT.WILL BOOST WARFARIN TO 9MGM TODAY AND CONTINUE BID LOVENOX. RECHECK INR ON 12/15 GOOD UNDERSTANDING VERB. Anti-Coag Initial Assessment Social Hx Patient Tobacco Use Status: Former Tobacco user Tobacco use type: Cigarette Smoking packs per day: 1 alcohol intake: current Alcohol intake frequency: a few times a week Coding Level of Care Code Est Patient Level 1 Diagnoses Current use of anticoagulant therapy Z79.01 Assessment & Plan Assessment & Plan (1) Current use of anticoagulant therapy: Code(s): Z79.01 - tank terminal gauger (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
--- OUTSIDE RECORDS SUMMARY | 2024-12-13 09:33 | XMS_ITS ---
Author Organization [facility] Address [address] [place] [address] Care Team Providers Care Senior Storage Administrator Name Role Phone HEATHER LAMBERT Primary Care Provider Dalton Archer Jr REASON FOR VISIT screening Encounters Encounter Location Date Provider Diagnosis [facility] [place] Outpatient [address] [place], [place] [phone] 12/08/2024 Dalton Alanis Jr Colon cancer screening [...] Of Treatment No Information Progress Notes * KAI SOTO WDOB:[birth year] (69 yo M)Acc No.[id number]:12/08/2024 COLON WITH MAC Patient:?KAI SOTO Provider:?Dalton Alanis MD :1955???Age:69 Y???Sex:Male Kiko e:12/08/2024 Address:[address] [place], [place] [phone] Pcp:HEATHER LAMBERT Subjective: * Chief Complaints: * ???1. Screening. * Medical History:? Objective: * Vitals:? Assessment: * Assessment: 1.?Colon cancer screening - Z12.11 (Primary)???2.?Personal history of adenomatous and serrated colon polyps - Z86.0101???3.?Colon polyps - K63.5??? Plan: * Treatment: * Procedure Codes:?G0105 COLOR EC CANCR SCR; COLNSCPY HI RISK, [address]19 COLONOSCOPY AND BIOPSY, 0529F INTRVL 3+YRS PTS CLNSCP DOCD * * The named appointment provid er may or may not be the originator of this progress note, and it is not deemed complete until electronically signed by the appointment provider. Sign off status: Pending * Provider:?Dalton Alanis MD Date:?0 12/08/2024 Generated for Mirna kelly/Sebastien/Alokitting on:?12/13/2024 09:32 AM EDT
--- OUTSIDE RECORDS SUMMARY | 2024-12-13 09:33 | XMS_ITS | Clinical Summary ---
Author Organization [facility] Address [address] [place] [address] Care Team Providers Care Gettering Filament Machine Operator Name Role Phone Reji Palomino NP Primary Care Provider Medications metoprolol succinate (TOPROL-XL) 50 mg 24 hr tablet TAKE 1 TABLET BY MOUTH EVERY DAY 90 tablet 2 08/30/2024 Active furosemide (LASIX) 40 mg tablet TAKE 1 TABLET BY MOUTH EVERY DAY 90 tablet 1 11/28/2024 Active Encounters Date Type Department Care Team Description 11/08/2024 Telephone [facility] [address] [place] [address] Cee Us [place] Last ov [...] BMP Blood Test 04/03/2025 04/03/2024 RSV Immunization Adult Patients (1 - 1-dose 75+ series) 01/22/2028 Pneumococcal [...] age to complete this topic Care Teams Gettering Filament Machine Operator Relationship Specialty Start Date End Date Reji Palomino NP [address] [facility] [place]ER[place] Andino PCP - General 11/24/21
--- OUTSIDE RECORDS SUMMARY | 2024-12-13 09:33 | XMS_ITS | Patient Health Record ---
Author Organization [facility] Address [address] [place] [address] Care Team Providers Care Falsework Builder Name Role Phone HETAHER PALOMINO Primary Care Provider Dalton Archer Jr Unavailable [phone] Allergies No Known Allergies Results Component Value Reference Range Notes Prothrombin Time INR Reviewed date:12/08/2024 04:26:11 PM Interpretation: Performing Lab:[facility], [address] [place] [phone] Notes/Report: Unable to obtain x2 attempts Yarslen [...] mechanical prosthetic heart valves: 2.5 - 3.5 Pathology (Not yet reviewed by provider) Interpretation: Performing Lab:[facility], [address] [place] [phone] Notes/Report: --- Name: Kai Stauffer Age/Sex: 69/M [facility] 1955 [id number] [id number] Attend Dr: Dalton Alanis MD Re12/08/24 Status : [facility] Location: [facility] Disch: --- SPEC : [id number] RECD : 12/08/24 STATUS: BAKARILuis GORE NUM: [id number] RUTH: 12/08/24-[address] [facility] [address]: Dalton Alanis MD ENTERED: 12/08/24 SP TYPE: Surgical OTHR DR: Heather Palomino ORDERED: HE Stain/6, Gross Micro L4/2 Diagnosis A. Colon, polyp at 7 0 cm, polypectomy: Inflammatory polyp. B. Rectum, polypecto my: Tubular adenoma; negative for high-grade dysplasia. Clinical History Pre-Op Dx: Screening Post-Op Dx: Colon polyps Microscopic Description Microscopic sections reviewed. Material Received A. Colon polyp at 70cm B. Rectal polyp Gross Description Received in 2 parts. A. Received in forma christina labeled ?polyp at 70 cm? is a fragment of vasquez-white soft tissue measuring 0.3 cm in greatest dimension which is wrapped in lens paper and entirely submitted for microscopic examination, 1 piece in cassette A. B. Received in forma christina labeled ?rectal polyp? are 3 fragments of pink white soft tissue measuring 0.3-0.4 cm in greatest dimension which are wrapped in lens paper and entirely submitted for microscopic examination, 3 pieces in cassette B. ([facility]) Copies To: Dalton Alanis MD [address] [place] [address] Heather Palomino [address] [place] [address] CONTINUED ON NEXT PAGE --- Name: Kai Stauffer Age/Sex: 69/M : 1955 Unit#: [id number] Attend Dr: Dalton Alanis MD Re12/08/24 Status : [facility] Location: [facility] Disch: --- SPEC : [id number] RECD : 12/08/24 STATUS: RAYMOND GORE NUM: [id number] RUTH: 12/08/24-[address] [facility] [address]: Dalton Alanis MD ENTERED: 12/08/24-08 10 SP TYPE: Surgical OTHR DR: Heather Palomino [facility]- ORDERED: CAESAR Shetty/Marlena Carpenter L4/2 --- Signed (signature on file) Ute Levin MD 12/11/24 0373 --- END OF REPORT Reason For Referral No Information Medications Medication [...] Problem Status W/U Status Risk Notes Problem 534548324 Colon cancer screening (Z12.11) Active confirmed Problem 615957195 care home (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 anticoagulants (Z79.01) Active confirmed Problem 432597542 ad terminal makeup operator (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 aspirin (Z79.82) Active confirmed Vital Signs Blood pressure diastolic 00 mm Hg 10/26/2024 Height 69 in 10/26/2024 Blood pressure systolic 00 mm Hg 10/26/2024 Weight 240 lbs 10/26/2024 BMI 35.44 kg/m2 10/26/2024 Encounters Encounter Location Date Provider Diagnosis [facility] Outpatient [address] [place], [place] [phone] 12/08/2024 Dalton Alanis Jr Colon cancer screening Z12.11 ; Personal history of adenomatous and serrated colon polyps Z86.0101 and Colon polyps K63.5 [facility] [address] [place] [address] 10/26/2024 Dalton Alanis Jr Colon cancer screening Z12.11 and ad terminal makeup operator (current) use of anticoagulants Z79.01 Assessments Encounter Date Diagnosis (ICD Code) Assessment Notes Treatment Notes Treatment Clinical Notes Section Notes 12/08/2024 Colon cancer screening (ICD-10 - Z12.11) 12/08/2024 Personal history of adenomatous and serrated colon polyps (ICD-10 - Z86.0101) 10/26/2024 Colon cancer screening (ICD-10 - Z12.11) [...] valve today. He understands these risks. 10/26/2024 care home (current) use of anticoagulants (ICD-10 - [...] heart valve today. He understands these risks. 12/08/2024 Colon polyps (ICD-10 - K63.5) Plan Of Treatment Pending Test Test Name Order Date Pathology 12/08/2024 Future Test Test Name Order Date COLONOSCOPY 01/22/2016 COLONOSCOPY 08/18/2021 COLONOSCOPY 10/26/2024 Insurance Providers Payer Name Payer Address Payer Phone Subscriber Number Group Number Insured Name Patient Relationship to Insured Coverage Start Date Coverage End Date MEDICARE OF [place] [address] [place] [id number] [phone] [id number] KAI STAUFFER Self - patient is the insured MEDEX ATTN CLAIMS [address] [place] [address] [phone] [id number] KAI STAUFFER Self - patient is the insured Medical (General) History Medical History History ICD Code melanoma elevated cholesterol Hypertension Osteoarthritis Hyperparathyroidism Colonoscopy 10/04, multiple a saraas, three-year followup, post polypectomy bleed due to anticoagulation for mechanical heart valve, no transfusion or repeat colonoscopy needed. Surgical History Surgery Date(Month/Year) AVR (bicuspid valve), metallic valve 200 7 rotator cuff tear repair 2007 Cardiac catheter prior to AVR Partial thyroidectomy
--- OUTSIDE RECORDS SUMMARY | 2024-12-13 09:33 | XMS_ITS ---
Author Organization [facility] Address [address] [place] [address] Care Team Providers Care Residential Caregiver Name Role Phone HEATHER LAMBERT Primary Care Provider Dalton Archer Jr Unavailable Allergies No Known Allergies REASON FOR VISIT [...] Provider Diagnosis [facility] [address] [place] [address] 10/26/2024 Dalton Alanis Jr Colon cancer screening Z12.11 and skilled nursing (current) use of anticoagulants Z79.01 Assessments Encounter [...] valve today. He understands these risks. 10/26/2024 termination clerk (current) use of anticoagulants (ICD-10 - Z79.01) [...] KAI SOTO WDOB:[birth year] (69 yo M)Acc No.[id number]:10/26/2024 Progress Notes Patient:?SOTO, KAI W Provider:?Dalton Alanis MD :1955???Age:69 Y???Sex:Male Kiko e:10/26/2024 Address:[address] [place] [address], [facility] Pcp:HEATHER LAMBERT Subjective: * Chief Complaints: * [...] or edema.?PSYCH:?cognitive function intact.? Assessment: * Assessment: 1.?skilled nursing (current) use o f anticoagulants - Z79.01 [...] Alanis MD Date:?0 10/26/2024 Generated for Mirna kelly/Sebastien/eTbrucesmitting on:?12/13/2024 09:32 AM EDT History and Physical Notes * [...]
== END 2024-12-13 09:24 | disposition home or self-care (01) ==
LOC: HO.ACS 08:53
PROVIDERS: PCP Nurse Practitioner Family; Visit Provider Internal Medicine Medical Oncology
DX: Z79.01 Long term (current) use of anticoagulants (principal)

== ENCOUNTER → 2024-12-13 08:53 | Outpatient (BNVA) | payer MEDICARE, SELFPAY | PROVIDERS: PCP Nurse Practitioner Family; Visit Provider Internal Medicine Medical Oncology | DX: Z95.2 Presence of prosthetic heart valve (principal); Z79.01 Long term (current) use of anticoagulants; Z51.81 Encounter for therapeutic drug level monitoring | CPT/HCPCS: 85610; 99211 ==

== ENCOUNTER 2024-12-15 08:58 | Outpatient (AMB) | payer MEDICARE, SELFPAY ==
[2024-12-15 09:17] LABS: Prothrombin Time Whole Bld POC 36.7 sec (11.1-13.5); ~PT, ~INR - Anti Coag Clinic 3.1 (0.9-1.1)
--- NOTE | 2024-12-15 09:24 | MHC.OFFVISCO ---
Intake Intake Visit Reasons: Anticoagulation Allergies No Known Allergies Allergy (Mild, Verified 12/15/24 09:11) NOT APPLICABLE Medication List - Last Reconciled 12/15/24 by Lesley Rosario RN amlodipine 2.5 mg PO DAILY enoxaparin (Lovenox) 108 mg See Protocol subcut Q12H 12 days furosemide 40 mg PO QAM metoprolol oates-hydrochlorothiaz 25-12.5 mg tabs PO metoprolol succinate ER (Toprol XL) 25 mg PO DAILY simvastatin 20 mg PO BEDTIME tamsulosin 0.8 mg (2 x 0.4 mg) PO BEDTIME 90 days [vitamin d 3 PO] warfarin See Protocol orally; 7.5MG Wed, 9MG Wed SAT Nursing Note s/p colonoscopy and lovenox bridge - 2 small polypectomies- no bleeding no complications INR: 3.1 in therapeutic range 2.5-3.5 Medications and supplements reviewed No changes in health, diet, medications, or supplements, Denies any signs and symptoms of bleeding or bruising or clotting. Bleeding, bruising, clotting discussed Nutritional guidance given - resume usual diet Dose: resume usual dose 9mg x 4 days/ 7.5mg mwf F/U INR: 1 month Patient verbalizes understanding of instructions given Anti-Coag Initial Assessment Social Hx Patient Tobacco Use Status: Former Tobacco user Tobacco use type: Cigarette Smoking packs per day: 1 alcohol intake: current Alcohol intake frequency: a few times a week Coding Level of Care Code Est Patient Level 1 Diagnoses Current use of anticoagulant therapy Z79.01 Assessment & Plan Assessment & Plan (1) Current use of anticoagulant therapy: Code(s): Z79.01 - jail (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 Medications: Discontinued enoxaparin (Lovenox) Discontinued Reason: Patient Completed Course 108 mg See Protocol subcut Q12H 12 days 17.28 mL 0RF
--- OUTSIDE RECORDS SUMMARY | 2024-12-15 09:34 | XMS_ITS ---
Author Organization [facility] Address [address] [place] [address] Care Team Providers Care Asphalt Heater Operator Name Role Phone HEATHER LAMBERT Primary Care Provider Dalton Archer Jr REASON FOR VISIT screening Encounters Encounter Location Date Provider Diagnosis [facility] Outpatient [address] [place], [place] [phone] 12/08/2024 Dalton Alanis Jr Colon cancer screening [...] KAI SOTO WDOB:[birth year] (69 yo M)Acc No.[id number]:12/08/2024 COLON WITH MAC Patient:?KAI SOTO Provider:?Dalton Alanis MD :1955???Age:69 Y???Sex:Male Kiko e:12/08/2024 Address:[address] [place], [place] [id number] Pcp:HEATHER LAMBERT Subjective: * Chief Complaints: * ???1. Screening. * Medical History:? Objective: * Vitals:? Assessment: * Assessment: 1.?Colon cancer screening - Z12.11 (Primary)???2.?Personal history of adenomatous and serrated colon polyps - Z86.0101???3.?Colon polyps - K63.5??? Plan: * Treatment: * Procedure Codes:?G0105 COLOR EC CANCR SCR; COLNSCPY HI RISK, [address]17[address] COLONOSCOPY AND BIOPSY, 0529F INTRVL 3+YRS PTS CLNSCP DOCD * * The named appointment provid er may or may not be the originator of this progress note, and it is not deemed complete until electronically signed by the appointment provider. Sign off status: Pending * Provider:?Dalton Alanis MD Date:?0 12/08/2024 Generated for Mirna kelly/Sebastien/Alokitting on:?12/15/2024 09:34 AM EDT
--- OUTSIDE RECORDS SUMMARY | 2024-12-15 09:34 | XMS_ITS | Clinical Summary ---
Author Organization [facility] Address [address] [place] [address] Care Team Providers Care Sprinkling Truck Driver Name Role Phone Reji Palomino NP Primary Care Provider Medications metoprolol succinate (TOPROL-XL) 50 mg 24 hr tablet TAKE 1 TABLET BY MOUTH EVERY DAY 90 tablet 2 08/30/2024 Active furosemide (LASIX) 40 mg tablet TAKE 1 TABLET BY MOUTH EVERY DAY 90 tablet 1 11/28/2024 Active Encounters Date Type Department Care Team Description 11/08/2024 Telephone [facility] [address] [place] [address] Cee Us [place] Last ov [...] age to complete this topic Care Teams Sprinkling Truck Driver Relationship Specialty Start Date End Date Reji Palomino NP [address] [facility] GER[place] Andino PCP - General 11/24/21
--- OUTSIDE RECORDS SUMMARY | 2024-12-15 09:34 | XMS_ITS | Patient Health Record ---
Author Organization [facility] Address [address] [place] [address] Care Team Providers Care Labor Arbitrator Hearing Office Name Role Phone HEATHER PALOMINO Primary Care Provider Dalton Archer Jr Unavailable Allergies No Known Allergies Results Component Value Reference Range Notes Prothrombin Time INR Reviewed date:12/08/2024 04:26:11 PM Interpretation: Performing Lab:[facility], [address] [place] [phone] Notes/Report: Unable to obtain x2 attempts Yarslen [...] (Not yet reviewed by provider) Interpretation: Performing Lab:[facility], [address] [place] [phone] Notes/Report: --- Name: Kai Stauffer Age/Sex: 69/M : 1955 [id number] [id number] Attend Dr: Dalton Alanis MD Re12/08/24 Status : [facility] Location: [facility] Disch: --- SPEC : [id number] RECD : 12/08/24 STATUS: BAKARILuis GORE NUM: [id number] RUTH: 12/08/24-[address] [facility] [address]: Dalton Alanis MD ENTERED: 12/08/24 SP [...] microscopic examination, 3 pieces in cassette B. ([facility]) Copies To: Dalton Alanis MD [address] [place] [address] Heather Palomino [address] [place] [address] CONTINUED ON NEXT PAGE --- Name: Kai Stauffer Age/Sex: 69/M : 1955 Unit#: [id number] Attend Dr: Dalton Alanis MD Re12/08/24 Status : [facility] Location: [facility] Disch: --- SPEC : [id number] RECD : 12/08/24 STATUS: RAYMOND GORE NUM: [id number] RUTH: 12/08/24-[address] [facility] [address]: Dalton Alanis MD ENTERED: 12/08/24-08 10 SP TYPE: Surgical OTHR DR: Heather Palomino [facility]- ORDERED: CAESAR Shetty/Marlena Carpenter L4/2 --- Signed (signature on file) Ute Levin MD 12/11/24 [id number] --- END OF REPORT Reason For Referral [...] Problem Status W/U Status Risk Notes Problem 543743250 Colon cancer screening (Z12.11) Active confirmed Problem [id number] [facility] (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 anticoagulants (Z79.01) Active confirmed Problem [id number] terminal block assembler (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 aspirin (Z79.82) Active confirmed Vital Signs Blood pressure diastolic 00 mm Hg 10/26/2024 Height 69 in 10/26/2024 Blood pressure systolic 00 mm Hg 10/26/2024 Weight 240 lbs 10/26/2024 BMI 35.44 kg/m2 10/26/2024 Encounters Encounter Location Date Provider Diagnosis [facility] [address] [place], [place] [id number] 12/08/2024 Dalton Alanis Jr Colon cancer screening Z12.11 ; Personal history of adenomatous and serrated colon polyps Z86.0101 and Colon polyps K63.5 [facility] [address] [place] [address] 10/26/2024 Dalton Alanis Jr Colon cancer screening Z12.11 and terminal block assembler (current) use of anticoagulants Z79.01 Assessments Encounter [...] valve today. He understands these risks. 10/26/2024 [facility] (current) use of anticoagulants (ICD-10 - Z79.01) [...] OF [place] [address] [place] [address] [id number] KAI STAUFFER Self - patient is the insured [employer] CLAIMS [address] [place] [address] [phone] [id number] KAI STAUFFER Self - patient is the [...]
--- OUTSIDE RECORDS SUMMARY | 2024-12-15 09:35 | XMS_ITS ---
Author Organization [facility] Address [address] [place] [address] Care Team Providers Care Service Correspondent Name Role Phone HEATHER LAMBERT Primary Care Provider Dalton Archer Jr Unavailable [phone] Allergies No Known Allergies REASON FOR VISIT [...] Provider Diagnosis [facility] [address] [place] [address] 10/26/2024 Dalton Alanis Jr Colon cancer screening Z12.11 and [facility] (current) use of anticoagulants Z79.01 Assessments Encounter [...] valve today. He understands these risks. 10/26/2024 medical terminologist (current) use of anticoagulants (ICD-10 - Z79.01) [...] KAI SOTO WDOB:[birth year] (69 yo M)Acc No.[id number]:10/26/2024 Progress Notes Patient:?SOTO, KAI W Provider:?Dalton Alanis MD :1955???Age:69 Y???Sex:Male Kiko e:10/26/2024 Address:[address] [place] [address], [facility] Pcp:HEATHER LAMBERT Subjective: * Chief Complaints: * [...] or edema.?PSYCH:?cognitive function intact.? Assessment: * Assessment: 1.?[facility] (current) use o f anticoagulants - Z79.01 [...] Alanis MD Date:?0 10/26/2024 Generated for Mirna kelly/Sebastien/eTransmitting on:?12/15/2024 09:34 AM EDT History and Physical Notes * [...]
== END 2024-12-15 09:29 | disposition home or self-care (01) ==
LOC: HO.ACS 08:58
PROVIDERS: PCP Nurse Practitioner Family; Visit Provider Internal Medicine Medical Oncology
DX: Z79.01 Long term (current) use of anticoagulants (principal)

== ENCOUNTER → 2024-12-15 08:58 | Outpatient (BNVA) | payer MEDICARE, SELFPAY | PROVIDERS: PCP Nurse Practitioner Family; Visit Provider Internal Medicine Medical Oncology | DX: Z95.2 Presence of prosthetic heart valve (principal); Z79.01 Long term (current) use of anticoagulants; Z51.81 Encounter for therapeutic drug level monitoring | CPT/HCPCS: 85610; 99211 ==

== ENCOUNTER 2025-01-10 13:01 | Outpatient (AMB) | payer MEDICARE, SELFPAY ==
[2025-01-10 13:09] LABS: Prothrombin Time Whole Bld POC 28.8 sec (11.1-13.5); ~PT, ~INR - Anti Coag Clinic 2.4 (0.9-1.1)
--- NOTE | 2025-01-10 13:26 | MHC.OFFVISCO ---
Intake Intake Visit Reasons: Anticoagulation Allergies No Known Allergies Allergy (Mild, Verified 01/10/25 13:03) NOT APPLICABLE Nursing Note PT.IS MORE ACTIVE WITH GOLF/WALKING ETC. NO CP,SOB,DIET/MED CHANGES,FALLS OR SX OF BLEEDING. INCREASE WEEKLY DOSE AND FOLLOW-UP IN 4 WEEKS. NO GREENS 1-2 DAYS GOOD UNDERSTANDING VERB. 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
--- OUTSIDE RECORDS SUMMARY | 2025-01-10 14:18 | XMS_ITS | Clinical Summary ---
Author Organization [facility] Address [address] [place] [address] Care Team Providers Care City Superintendent Name Role Phone Reji Palomino NP Primary Care Provider Medications metoprolol succinate (TOPROL-XL) 50 mg 24 hr tablet TAKE 1 TABLET BY MOUTH EVERY DAY 90 tablet 2 08/30/2024 Active furosemide (LASIX) 40 mg tablet TAKE 1 TABLET BY MOUTH EVERY DAY 90 tablet 1 11/28/2024 Active Encounters Date Type Department Care Team Description 11/08/2024 Telephone [facility] [address] [place] [address] Cee Us [place] Last ov [...] of Health Screening 08/23/2022 COVID-19 Vaccine ( season) 2024 Hypertension/CHF/CAD Annual BMP Blood Test 04/03/2025 04/03/2024 Influenza Vaccine (Season Ended) 2025 05/26/2023, 06/17/2022, 08/05/2021, Additional history exists RSV Immunization Adult Patients (1 - 1-dose [...] age to complete this topic Meningococcal B Vaccine Aged Out No l onger eligible based on patient's age to complete this topic RSV Immunization Patients Under 20 months Aged Out No longer eligible based on patient's age to complete this topic Varicella Vaccines Aged Out No longer eligible based on patient's age to complete this topic Care Teams City Superintendent Relationship Specialty Start Date End Date Reji Palomino NP [address] [place] Andino PCP - General 11/24/21
== END 2025-01-10 13:29 | disposition home or self-care (01) ==
LOC: HO.ACS 13:01
PROVIDERS: PCP Nurse Practitioner Family; Visit Provider Internal Medicine Medical Oncology
DX: Z79.01 Long term (current) use of anticoagulants (principal)

== ENCOUNTER → 2025-01-10 13:01 | Outpatient (BNVA) | payer MEDICARE, SELFPAY | PROVIDERS: PCP Nurse Practitioner Family; Visit Provider Internal Medicine Medical Oncology | DX: Z95.2 Presence of prosthetic heart valve (principal); Z79.01 Long term (current) use of anticoagulants; Z51.81 Encounter for therapeutic drug level monitoring | CPT/HCPCS: 85610; 99211 ==

== ENCOUNTER 2025-02-06 09:53 | Outpatient (AMB) | payer MEDICARE, SELFPAY ==
--- NOTE | 2025-02-06 10:12 | A.OFFVIS_ITS ---
Intake Visit Reasons: 1y follow up Intake Note: Pt presents to the office today for a 1 year follow up/PVR PVR:95ml Allergies No Known Allergies Allergy (Mild, Verified 02/06/25 10:15) NOT APPLICABLE HPI Comments Details: Fabio is a pleasant male. He is a patient of Dr. Herrera. He is seen for the following urologic conditions - right hydrocele - bladder outlet obstruction - urinary hesitancy - incomplete emptying Twelve month follow-up - PVR 95 cc Remains on tamsulosin also on Lasix for cardiac related issues Right spermatocele Gradually increased pain on right side On exam right spermatocele Prior discussion regarding right spermatocelectomy aspiration 250cc with doxycycline Lower urinary tract symptoms Progressive symptoms Urinary hesitancy with weak stream and incomplete emptying PSA 11/04 1.0 Bladder ultrasound 12/02 effectively emptying with small prostate Current medications tamsulosin Six-month follow-up [facility] Medical History History of Mohs micrographic surgery for skin cancer Elevated cholesterol Asbestos-induced pleural plaque Atelectasis Elevated diaphragm Primary hyperparathyroidism Vitamin D deficiency Hyperparathyroidism Gynecomastia Malignant melanoma Osteoarthritis Rotator cuff tear Cervical spondylolysis Dyslipidemia HTN (hypertension) Surgical History History of right knee joint replacement Hx of colonoscopy Hx of repair of rotator cuff Aortic valve replaced Hx of cardiac cath History of lobectomy of thyroid Family History Father History of CVA (cerebrovascular accident) Diabetes mellitus Mother Stomach ulcer Daughter Brain tumor Maternal Grandfather No problems noted. Maternal Grandmother No problems noted. Paternal Grandfather No problems noted. Paternal Grandmother No problems noted. Maternal Aunt No problems noted. Maternal Uncle No problems noted. Paternal Aunt No problems noted. Paternal Uncle No problems noted. Social History Housing: House Alcohol intake: current Alcohol intake frequency: a few times a week Patient Tobacco Use Status: Former Tobacco user Tobacco use type: Cigarette Cigarette Packs Per Day: 1 Years Smoked: 12 e-Cigarette/Vaping Use: Never Used service: No Current occupational status: retired Cognitive needs: No Hearing needs: No Vision needs: Yes Review of Systems Const Denies chills and Denies fever(s) Card Reports no additional complaints and Denies syncope Resp Denies cough GI Denies abdominal pain and Denies heartburn Reports as per HPI and Denies change in libido Neuro Denies syncope Psych Denies change in libido Endo Denies change in libido Physical Exam Const General: cooperative, healthy appearing, comfortable and no acute distress Orientation/consciousness: patient oriented x3 HEENT Face and sinus: Yes normal facial exam Mouth: moist mucous membranes Neck Neck: Yes normal visual inspection, Yes full ROM and Yes trachea midline Chest Chest palpation & inspection: normal inspection of the chest Resp Effort & Inspection: normal respiratory effort, able to speak in complete sentences and no respiratory distress GI Inspection: Yes normal to inspection Back/Spine/Pelvis Cervical Spine: normal cervical lordosis Thoracic/Lumbar Spine: thoracic and lumbar spine normal to inspection Skin General skin exam: no rashes or lesions noted Neuro General: patient oriented x3, gait normal, tone normal and moves all extremities Extrem General: Yes normal to inspection and Yes capillary refill normal Office Procedures Post Void Residual Post Residual Void Post Void Residual (PVR): 95 [id number] Void Residual by ultrasound Assessment & Plan Assessment & Plan (1) BPH w urinary obs/LUTS: Code(s): N40.1 - Benign prostatic hyperplasia with lower urinary tract symptoms; N13.8 - Other obstructive and reflux uropathy Category: Medical (2) Urinary hesitancy: Code(s): R39.11 - Hesitancy of micturition Category: Medical Plan Twelve month follow-up Refill medication Orders: Orders AMB Post Void Residual by ultrasound Today N13.8 - Other obstructive and reflux uropathy, N40.1 - Benign prostatic hyperplasia with lower urinary tract symptoms Medications: Refilled tamsulosin 0.8 mg (2 x 0.4 mg) PO BEDTIME 90 days 180 caps 3RF Patient Instructions: This note is constructed using voice recognition software. While every effort has been made to ensure accuracy medical transcription radiology errors may have been included. Imaging studies, laboratory and physical exam results were discussed and reviewed in detail. No major barriers to patient understanding were identified. An opportunity to ask questions regarding the treatment plan was provided. All questions were answered. The patient expressed understanding and agreement with the above treatment plan. The patient is aware they should contact our office by phone for worsening of their current condition or the appearance of new urologic symptoms. Compliance is encouraged with any medications and followup testing that is ordered. It is a privilege to participate in the urologic care of your patient. If you have any questions or concerns regarding treatment for the above conditions, or other urologic issues, please do not hesitate to contact me. The office telephone contact is [phone]. Sincerely, Dr Ken Hawk MD, [facility] - Urology Compassionate Specialist Care for the Genitourinary System Coding Level of Care Code Est Pt Level 4 (68805) Complex EM visit Add On G2211 Diagnoses BPH w urinary obs/LUTS N40.1; N13.8 Urinary hesitancy R39.11 CPT Codes Post Residual Void - PVR CPT Code: 64661-Mqec Void Residual by ultrasound ([id number])
--- OUTSIDE RECORDS SUMMARY | 2025-02-06 10:32 | XMS_ITS ---
Author Organization [facility] Address [address] [place] [address] Care Team Providers Care Cloth Trimmer Hand Name Role Phone HEATHER LAMBERT Primary Care Provider Dalton Archer Jr [phone] REASON FOR VISIT path Encounters Encounter Location Date Provider Diagnosis [facility] [address] [place] [address] 12/16/2024 Dalton Alanis Jr Plan Of Treatment No Information Progress Notes * KAI SOTO WDOB:[birth year] (69 yo M)Acc No.[id number]:12/16/2024 Patient:?SOTO, KAI Spencer :1955???Age:69 Y???Sex:Male Address:[address], [place], [address] * true * Date:? Generated for Mirna kelly/Sebastien/eTransmitting on:?02/06/2025 10:32 AM EDT
== END 2025-02-06 10:57 | disposition home or self-care (01) ==
LOC: HO.HUSH 09:54
PROVIDERS: PCP Nurse Practitioner Family; Visit Provider Urology
DX: N40.1 Benign prostatic hyperplasia with lower urinary tract symptoms (principal); N13.8 Other obstructive and reflux uropathy; R39.11 Hesitancy of micturition
CPT/HCPCS: 99214; G2211

== ENCOUNTER → 2025-02-06 09:53 | Outpatient (BNVA) | payer MEDICARE, SELFPAY | PROVIDERS: PCP Nurse Practitioner Family; Visit Provider Urology | DX: N40.1 Benign prostatic hyperplasia with lower urinary tract symptoms (principal); N13.8 Other obstructive and reflux uropathy; R39.11 Hesitancy of micturition; R39.14 Feeling of incomplete bladder emptying | CPT/HCPCS: 51798; 99212 ==

== ENCOUNTER 2025-02-07 12:59 | Outpatient (AMB) | payer MEDICARE, SELFPAY ==
--- NOTE | 2025-02-07 13:22 | MHC.OFFVISCO ---
Intake Intake Visit Reasons: Anticoagulation Allergies No Known Allergies Allergy (Mild, Verified 02/07/25 13:16) NOT APPLICABLE Medication List - Last Reconciled 02/07/25 by Macarena Escobedo RN amlodipine 2.5 mg PO DAILY cholecalciferol (vitamin D3) (Vitamin D3) 25 mcg PO DAILY furosemide 40 mg PO QAM metoprolol oates-hydrochlorothiaz 25-12.5 mg tabs PO metoprolol succinate ER (Toprol XL) 25 mg PO DAILY simvastatin 20 mg PO BEDTIME tamsulosin 0.8 mg (2 x 0.4 mg) PO BEDTIME 90 days warfarin See Protocol orally; 7.5MG Wed, 9MG Wed MANUEL SAT Nursing Note INR: 3.4- in therapeutic range of 2.5-3.5 Medications and supplements reviewed- no changes No changes in health, diet, medications, or supplements, Denies any signs and symptoms of bleeding or bruising or clotting. Bleeding, bruising, clotting discussed Nutritional guidance given Dose: 7.5mg x 2, 9mg x 5 F/U INR: pt req 4 weeks Patient verbalizes understanding of instructions given pt traveling- river cruise Anti-Coag Initial Assessment Social Hx Patient Tobacco Use Status: Former Tobacco user Tobacco use type: Cigarette Smoking packs per day: 1 alcohol intake: current Alcohol intake frequency: a few times a week Coding Level of Care Code Est Patient Level 1 Diagnoses Current use of anticoagulant therapy Z79.01 Assessment & Plan Assessment & Plan (1) Current use of anticoagulant therapy: Code(s): Z79.01 - shelter (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
[2025-02-07 13:23] LABS: Prothrombin Time Whole Bld POC 40.6 sec (11.1-13.5); ~PT, ~INR - Anti Coag Clinic 3.4 (0.9-1.1)
--- OUTSIDE RECORDS SUMMARY | 2025-02-07 13:44 | XMS_ITS ---
Author Organization [facility] Address [address] [place] [address] Care Team Providers Care Greenskeeper Name Role Phone HEATHER LAMBERT Primary Care Provider Dalton Archer Jr [phone] REASON FOR VISIT path Encounters Encounter Location Date Provider Diagnosis [facility] [address] [place] [address] 12/16/2024 Dalton Alanis Jr Plan Of Treatment No Information Progress Notes * KAI SOTO WDOB:[birth year] (69 yo M)Acc No.[id number]:12/16/2024 Patient:?SOTO, KAI Palmer :1955???Age:69 Y???Sex:Male Address:[address] [facility] [facility], [place], [address] * true * Date:? Generated for Mirna kelly/Sebastien/eTransmitting on:?02/07/2025 01:44 PM EDT
== END 2025-02-07 13:28 | disposition home or self-care (01) ==
LOC: HO.ACS 12:59
PROVIDERS: PCP Nurse Practitioner Family; Visit Provider Internal Medicine Medical Oncology
DX: Z79.01 Long term (current) use of anticoagulants (principal)

== ENCOUNTER → 2025-02-07 12:59 | Outpatient (BNVA) | payer MEDICARE, SELFPAY | PROVIDERS: PCP Nurse Practitioner Family; Visit Provider Internal Medicine Medical Oncology | DX: Z95.2 Presence of prosthetic heart valve (principal); Z79.01 Long term (current) use of anticoagulants; Z51.81 Encounter for therapeutic drug level monitoring | CPT/HCPCS: 85610; 99211 ==

== ENCOUNTER 2025-02-16 08:03 | Outpatient (AMB) | payer MEDICARE, SELFPAY ==
--- OUTSIDE RECORDS SUMMARY | 2025-02-16 08:06 | XMS_ITS ---
Author Organization [facility] Address [address] [place] [address] Care Team Providers Care Auto Technician Mechanic Name Role Phone HEATHRE LAMBERT Primary Care Provider Dalton Archer Jr REASON FOR VISIT path Encounters Encounter Location Date Provider Diagnosis [facility] [address] [place] [address] 12/16/2024 Dalton Alanis Jr Plan Of Treatment No Information Progress Notes * KAI SOTO WDOB:[birth year] (69 yo M)Acc No.[id number]:12/16/2024 Patient:?CHARLES KAI Spencer :1955???Age:69 Y???Sex:Male Address:[address] [facility], [place], [address] * true * Date:? Generated for Mirna kelly/Sebastien/eTransmitting on:?02/16/2025 08:06 AM EDT
[2025-02-16 08:10] VITALS: BP 132/68; PULSE 61; RESP 16; TEMP 36.8; O2SAT 98; BMI 36.0
--- NOTE | 2025-02-16 08:10 | MHC.OFFWIV ---
Intake Vital Signs 02/16/25 08:10 Height 5 ft 8 in Weight 237 lb BMI 36.0 BP 132/68 Blood Pressure Location Lt brachial Respiration 16 Pulse 61 Pulse Source Pulse Oximeter Temp 98.2 F Pulse Oximetry (%) 98 Oxygen Delivery Method Room Air Intake Visit Reasons: EP-?urinary infection Intake Note: Pt is here today c/o foul odor upon urination Patient Tobacco Use Status: Former Tobacco user Allergies No Known Allergies Allergy (Mild, Verified 02/16/25 08:18) NOT APPLICABLE HPI HPI Comments History of Present Illness Details He presents to office with concern UTI He has hx of this in the past; last one a while ago with similar symptoms + strong urine odor Yesterday was brown and today was red He initially thought dehydrated due to playing golf yesterday Has been ydrating without relief No fever or chills No abdominal or back pain No hx kidney stones He takes Warfarin for his heart valve; he gets INR checked monthly and should be good per patient; last documented was 01/10 at 2.4 His PCP is Reji here at office No rectal bleed; no melena or brbpr No dyruria, frequency or urgency PFSH Medical History History of Mohs micrographic surgery for skin cancer Elevated cholesterol Asbestos-induced pleural plaque Atelectasis Elevated diaphragm Primary hyperparathyroidism Vitamin D deficiency Hyperparathyroidism Gynecomastia Malignant melanoma Osteoarthritis Rotator cuff tear Cervical spondylolysis Dyslipidemia HTN (hypertension) Surgical History History of right knee joint replacement Hx of colonoscopy Hx of repair of rotator cuff Aortic valve replaced Hx of cardiac cath History of lobectomy of thyroid Family History Father History of CVA (cerebrovascular accident) Diabetes mellitus Mother Stomach ulcer Daughter Brain tumor Maternal Grandfather No problems noted. Maternal Grandmother No problems noted. Paternal Grandfather No problems noted. Paternal Grandmother No problems noted. Maternal Aunt No problems noted. Maternal Uncle No problems noted. Paternal Aunt No problems noted. Paternal Uncle No problems noted. Social History Housing: House Alcohol intake: current Alcohol intake frequency: a few times a week Patient Tobacco Use Status: Former Tobacco user Tobacco use type: Cigarette Cigarette Packs Per Day: 1 Years Smoked: 12 e-Cigarette/Vaping Use: Never Used service: No Current occupational status: retired Cognitive needs: No Hearing needs: No Vision needs: Yes Review of Systems Const Denies chills, Denies fatigue, Denies fever(s) and Denies malaise ENT Denies dizziness Card Denies chest pain Resp Denies chest congestion and Denies cough GI Denies abdominal pain, Denies melena, Denies hematochezia, Denies diarrhea, Denies nausea and Denies vomiting Reports hematuria (dark color and strong odor), Denies oliguria, Denies difficulty urinating, Denies genital pain, Denies urinary frequency and Denies urinary hesitancy Musc Denies back pain Skin/Breast Denies unusual bruising Neuro Denies dizziness Endo Denies fatigue Physical Exam Vital Signs: Last Vital Signs Temp 98.2 F 02/16/25 08:10 Pulse 61 02/16/25 08:10 Resp 16 02/16/25 08:10 BP 132/68 02/16/25 08:10 Pulse Ox 98 02/16/25 08:10 Oxygen Delivery Method Room Air 02/16/25 08:10 BMI result Body Mass Index 36.0 General: Non-toxic, NAD. Speaking full sentences. Skin: Warm dry throughout Eye: EOMI HENT: Airway patent. Uvula midline. No pharyngeal erythema or edema. No PROGRAM ELIGIBILITY SPECIALIST. Bilateral canals clear. TM non-erythematous, non-bulging. No TM perforation or hemotympanum noted. Respiratory: CTA bilaterally. No wheezes, rales or rhonchi Cardiac: RRR. No murmur Abdominal: BS present x 4. Non-tender to light and deep palpation. No CVAT on exam MSK: Full ROM extremities. Neurology: Alert. No aphasia or facial droop. Gait without abnormality Psych: Good mood and affect Results AMB Urinalysis, Automated UA Leukoctes 15 Alejandra/uL Last Edit by Radha Arellano CMA on 02/16/25 08:33 UA Nitrite Negative Last Edit by Radha Arellano CMA on 02/16/25 08:33 UA Urobilinogen 1 mg/dL Last Edit by Radha Arellano CMA on 02/16/25 08:33 UA Protein 30 mg/dL Last Edit by Radha Arellano CMA on 02/16/25 08:33 UA pH 6.0 Last Edit by Radha Arellano CMA on 02/16/25 08:33 UA Blood 200 Gary/uL Last Edit by Radha Arellano CMA on 02/16/25 08:33 UA Specific [place] 1.030 Last Edit by Radha Arellano CMA on 02/16/25 08:33 UA Ketone Negative Last Edit by Radha Arellano CMA on 02/16/25 08:33 UA Bilirubin 0 mg/dL Last Edit by Radha Arellano CMA on 02/16/25 08:33 UA Glucose 0 mg/dL Last Edit by Radha Arellano CMA on 02/16/25 08:33 Results Reviewed Results Reviewed: Laboratory Last Values Urine pH (Auto) 6.0 02/16/25 08:31 Specific [place] (Auto) 1.030 02/16/25 08:31 Urine Protein (Auto) 30 mg/dL 02/16/25 08:31 Glucose (UA)(Auto) 0 mg/dL 02/16/25 08:31 Urine Ketones (Auto) Negative 02/16/25 08:31 Urine Blood (Auto) 200 Gary/uL 02/16/25 08:31 Urine Nitrite (Auto) Negative 02/16/25 08:31 Urine Bilirubin (Auto) 0 mg/dL 02/16/25 08:31 Urine Urobilinogen (Auto) 1 mg/dL 02/16/25 08:31 Leukocyte Esterase (Auto) 15 Alejandra/uL 02/16/25 08:31 Assessment & Plan Assessment & Plan (1) Urinary tract infection: Code(s): N39.0 - Urinary tract infection, site not specified Qualifiers: Urinary tract infection type: acute cystitis Hematuria presence: with hematuria Qualified Code(s): N30.01 - Acute cystitis with hematuria Plan: Patient seen and evaluated. Vitals stable Non-toxic Urine + leuks, blood, protein Culture sent DIscussed need for lab and INR due to color of urine He will get checked Increase fluids Keflex to pharmacy Patient gave verbal understanding and had no additional questions or concerns at time of discharge All questions answered (2) Dark urine: Code(s): R82.998 - Other abnormal findings in urine Plan: see above (3) Hematuria: Code(s): R31.9 - Hematuria, unspecified Qualifiers: Hematuria type: gross Qualified Code(s): R31.0 - Gross hematuria Plan: see above Orders: Orders AMB Urinalysis Automated Today Z13.9 - Encounter for screening, unspecified Complete Blood Count Auto Diff Today R82.998 - Other abnormal findings in urine Prothrombin Time INR Today R31.9 - Hematuria, unspecified Urine Culture Today N39.0 - Urinary tract infection, site not specified Medications: New cephalexin 500 mg PO BID 14 caps 0RF Coding Level of Care Code Est Pt Level 3 (59205) Diagnoses Acute cystitis with hematuria N30.01 Urinary tract infection type: acute cystitis Hematuria presence: with hematuria Dark urine R82.998 Gross hematuria R31.0 Hematuria type: gross
== END 2025-02-16 08:42 | disposition home or self-care (01) ==
PROVIDERS: PCP Nurse Practitioner Family; Visit Provider Physician Assistant
DX: N30.01 Acute cystitis with hematuria (principal); R82.998 Other abnormal findings in urine

== ENCOUNTER 2025-02-16 08:03 | Outpatient (REF) | payer MEDICARE, SELFPAY ==
[2025-02-16 10:33] LABS: Basophils Percent Auto 0.2 % (0-2); Eosinophils Percent Auto 0.5 % (0-4); Hematocrit 40.4 % (42.0-52.0); Hemoglobin 13.4 g/dl (14.0-18.0); Imm Gran Abs Auto 0.09 X10*3/uL (0.00-0.03); Imm Gran Pct Auto 1.6 % (0.0-0.4); Lymphocytes Absolute Auto 1.5 X10*3/uL (1.2-4.9); Lymphocytes Percent Auto 26.2 % (20-40); MANUAL DIFF FLAG SCAN; Mean Corpuscular HGB Conc 33.2 g/dl (31.0-36.0); Mean Corpuscular Hemoglobin 29.5 pg (27.0-33.0); Mean Platelet Volume 9.2 fL (9.4-12.4); Monocytes Absolute Auto 1.2 X10*3/uL (0.1-1.2); Monocytes Percent Auto 20.3 % (2-11); Neutrophils Absolute Auto 2.9 x10*3/uL (2.0-8.3); Neutrophils Percent Auto 51.2 % (45-73); Platelet Count 169 X10*3/uL (160-400); Red Blood Count 4.54 X10*6/uL (4.60-5.80); Red Cell Distribution Width 16.3 % (11.0-16.0); SCAN SMEAR FLAG 1; White Blood Count 5.7 X10*3/uL (4.8-10.8)
[2025-02-16 10:40] LABS: Prothrombin Time 57.7 SEC (10.9-12.4)
[2025-02-16 12:24] LABS: SLIDE REVIEW VERIFIED
== END 2025-02-16 08:04 | disposition home or self-care (01) ==
LOC: HO.HMGCLDS 08:03
PROVIDERS: PCP Nurse Practitioner Family; Visit Provider Physician Assistant
DX: Z13.89 Encounter for screening for other disorder (principal)
CPT/HCPCS: 36415; 85025; 85610

== ENCOUNTER 2025-02-16 08:49 | Outpatient (REF) | payer MEDICARE, SELFPAY | END 2025-02-16 08:50 | disposition home or self-care (01) | LOC: HO.LAB 08:49 | PROVIDERS: Visit Provider Physician Assistant | DX: Z13.89 Encounter for screening for other disorder (principal) | CPT/HCPCS: 36415; 85025; 85610; 87086 ==

== ENCOUNTER 2025-02-16 12:19 | Emergency (ER) | payer MEDICARE, SELFPAY ==
[2025-02-16 12:42] VITALS: BP 163/66; PULSE 64; RESP 18; TEMP 36.2; O2SAT 96; BMI 34.9
--- NOTE | 2025-02-16 12:44 | ED_ITS ---
HPI - General Adult General Chief complaint: Recheck/Abnormal Lab/Rx Stated complaint: Needs Vit K INR 5 Sent by PCP Time Seen by Provider: 02/16/25 16:01 History of Present Illness ED Provider: ammy HPI narrative: recent UTI (this AM) started abx, brown to red urine. No fever, chills, abd pain or flank pain. No headache, chest pain, dyspnea. Presents for routine INR 5.6. hx HTN, Ao valve on warf Related Data Home Medications ?Medication ?Instructions ?Recorded ?Confirmed metoprolol succ 25 tab PO 12/06/24 12/15/24 mg-hydrochlorothiazide 12.5 mg tablet,ext.rel 24 hr simvastatin 10 mg tablet 20 mg PO BEDTIME 12/06/24 12/15/24 furosemide 40 mg tablet 40 mg PO QAM 12/11/24 12/15/24 Previous Rx's ?Medication ?Instructions ?Recorded amlodipine 2.5 mg tablet 2.5 mg PO DAILY #90 tabs 11/14/24 warfarin 3 mg tablet See Rx Instructions PO .COMPLEX 12/11/24 #144 tabs cholecalciferol (vitamin D3) 25 25 mcg PO DAILY #90 caps 12/20/24 mcg (1,000 unit) capsule (Vitamin D3) tamsulosin 0.4 mg capsule 0.8 mg (2 x 0.4 mg) PO BEDTIME 90 02/06/25 days #180 caps cephalexin 500 mg capsule 500 mg PO BID #14 caps 02/16/25 Allergies Allergy/AdvReac Type Severity Reaction Status Date / Time No Known Allergies Allergy Mild NOT Verified 02/16/25 12:43 APPLICABLE [facility] Past Medical History Medical History History of Mohs micrographic surgery for skin cancer Elevated cholesterol Asbestos-induced pleural plaque Atelectasis Elevated diaphragm Primary hyperparathyroidism Vitamin D deficiency Hyperparathyroidism Gynecomastia Malignant melanoma Osteoarthritis Rotator cuff tear Cervical spondylolysis Dyslipidemia HTN (hypertension) Surgical History History of right knee joint replacement Hx of colonoscopy Hx of repair of rotator cuff Aortic valve replaced Hx of cardiac cath History of lobectomy of thyroid Family History Family History Father History of CVA (cerebrovascular accident) Diabetes mellitus Mother Stomach ulcer Daughter Brain tumor Maternal Grandfather No problems noted. Maternal Grandmother No problems noted. Paternal Grandfather No problems noted. Paternal Grandmother No problems noted. Maternal Aunt No problems noted. Maternal Uncle No problems noted. Paternal Aunt No problems noted. Paternal Uncle No problems noted. Social History Social History Housing: House Alcohol intake: current Alcohol intake frequency: a few times a week Alcohol type: beer Patient Tobacco Use Status: Former Tobacco user Tobacco use type: Cigarette Cigarette Packs Per Day: 1 Years Smoked: 12 Smoked in Last 30 Days: No e-Cigarette/Vaping Use: Never Used Use of substances other than those prescribed or required for medical reasons: No Advance Directives: No Advance Directives Information Provided: Yes Do you have a plan to hurt others: No Plan service: No Current occupational status: retired Cognitive needs: No Hearing needs: No Vision needs: Yes Physical Exam ED Vital Signs: Vital Signs - 24 hr 02/16/25 12:42 02/16/25 16:12 Temperature 97.2 F 97.6 F Pulse Rate 64 65 Respiratory Rate 18 18 Blood Pressure 163/66 H 194/78 H Pulse Oximetry 96 98 Oxygen Delivery Method Room Air Room Air BMI result Body Mass Index 34.9 Const Other: EXAM: Gen: Alert, awake, well appearing, well hydrated. Head: Atraumatic Eyes: Anicteric, Normal conjunctiva. ENT: Moist mucosa, no pallor. ? Neck: Supple. Respiratory: Breathing comfortably, No distress.Clear to auscultation bilaterally, symmetric chest expansion, No wheeze, rales, ronchi. Cardiovascular: Regular rate and rhythm. No murmurs or rub. Well perfused periphery, warm extremities. No edema. ? Abdominal: No FOCAL TENDERNESS. Soft, no objective distension. No palpable masses or obvious organomegaly. ?No guarding, no rebound tenderness or other peritoneal findings. : No flank tenderness. Neuro: Alert. Gross movement of all extremities intact. ? Psych: Calm. Cooperative. MSK: No grossly visible deformity. Vital signs: See flowsheet Course Course Course Narrative: 02/16/25 1244 MADINA Marie This is a Rapid Medical Examination (RME) performed by Daysi Reeves PA-C in triage. Full HPI, ROS, assessment and treatment plan per primary provider in the Main ED. Hx: 70 yo M here for evel of elevated INR. patient is on warfarin for heart valve (x18 yrs). presented to walk in today for eval of hematuria - dx w/ bladder infection, started on meds that he cannot recall the name of. also had blood work drawn. was called w/ results of INR 5. advised to come to ED for vit k. last took his warfarin yesterday. admits to consuming beer over the last few nights. Plan: repeat labs, UA INR 5.6 - human resources communications manager jer aware at 1348. spoke with human resources communications manager again at 1500. patient to be brought back soon. Medications Administered Discontinued Medications Generic Name Dose Route Start Last Admin Trade Name Annette PRN Reason Stop Dose Admin Phytonadione 2.5 mg 02/16/25 16:02 02/16/25 16:28 Phytonadione (Vit K1) Oral 10 Mg/Ml Ampul PO 02/16/25 16:03 2.5 mg ONCE ONE Administration Procedures Procedure Narrative Procedure Narrative: EMERGENCY ULTRASOUND INTERPRETATION-Limited Retroperitoneal (Renal) [This study was ordered, performed, and interpreted by myself. The study reveals: Impression: NO EVIDENCE OF UROLOGIC OBSTRUCTION] [Indication: FLANK PAIN Bladder: ANECHOIC URINE no clots Right Kidney: NO HYDRONEPHROSIS Left Kidney: NO HYDRONEPHROSIS Performed by: Jhonatan Loomis MD Images were stored CPT: 00529] Medical Decision Making Medical Decision Making MDM Narrative: 70-year-old male UTI, hematuria. Antibiotics have been prescribed. Warfarin with a goal 2.5-3.5 due to heart valve. No bruising no active or rapid hemorrhage. No signs of urologic obstruction on ultrasound. No persistent or gross hematuria. Likely hemorrhagic cystitis in the setting of supratherapeutic INR. INR is 5.6. Major zone supratherapeutic INR without significant or critical hemorrhage. Patient agreeable to oral vitamin K repeat INR in 2-3 days with PCP continue antibiotics as prescribed. Counseled to avoid trauma falls specifically at this time Differential Diagnosis Supratherapeutic INR, hemorrhagic cystitis, urologic obstruction or kidney stone Lab Data [facility] Lab Attestation statement: I reviewed the patient's lab results. 02/16/25 13:03 02/16/25 13:03 Labs: Lab Results 02/16/25 Range/Units 13:03 WBC 5.7 (4.8-10.8) X10*3/uL RBC 4.37 L (4.60-5.80) X10*6/uL Hgb 12.9 L (14.0-18.0) g/dl Hct 38.3 L (42.0-52.0) % MCV 87.6 (80.0-98.0) fL MCH 29.5 (27.0-33.0) pg MCHC 33.7 (31.0-36.0) g/dl RDW 16.2 H (11.0-16.0) % Plt Count 172 (160-400) X10*3/uL MPV 8.9 L (9.4-12.4) fL Immature Gran % (Auto) 1.6 H (0.0-0.4) % Neut % (Auto) 50.0 (45-73) % Lymph % (Auto) 26.1 (20-40) % [place] % (Auto) 21.8 H (2-11) % Eos % (Auto) 0.3 (0-4) % Baso % (Auto) 0.2 (0-2) % Lymph # (Auto) 1.5 (1.2-4.9) X10*3/uL [place] # (Auto) 1.3 H (0.1-1.2) X10*3/uL Eos # (Auto) 0.0 (0.0-0.4) X10*3/uL Baso # (Auto) 0.0 (0.0-0.2) X10*3/uL Abs Immat Gran (auto) 0.09 H (0.00-0.03) X10*3/uL Absolute Neuts (auto) 2.9 (2.0-8.3) x10*3/uL Absolute Nucleated RBC 0.000 (0.0-0.012) X10*3/uL Nucleated RBC % (auto) 0.0 (0.0-0.2) /100WBC PT 64.0 H (10.9-12.4) SEC INR 5.6 H* (0.9-1.1) Sodium 138 (135-145) mmol/L Potassium 4.4 (3.3-5.1) mmol/L Chloride 108 (96-108) mmol/L Carbon Dioxide 24 (22-29) mmol/L Anion Gap 10 L (12-20) BUN 23 H (9-16) mg/dL Creatinine 0.79 (0.5-1.4) mg/dL Estim Creat Clear Calc 101.9 Estimated GFR > 60 Random Glucose 103 (60-115) mg/dL Calcium 9.5 (8.4-10.2) mg/dL Magnesium 2.0 (1.6-2.6) mg/dL Total Bilirubin 1.3 H (0.0-1.0) mg/dL AST 48 H (5-37) U/L ALT 29 (0-40) U/L Alkaline Phosphatase 58 (39-117) U/L Total Protein 7.5 (6.5-8.0) g/dL Albumin 4.4 (3.5-5.0) g/dL Discharge Plan Discharge Clinical Impression: Supratherapeutic INR, Acute hemorrhagic cystitis Patient Disposition: Home, Self-Care Instructions: Urinary Tract Infection in Men (DC), Elevated INR (ED) Additional Instructions: _ DISCHARGE DIAGNOSES: UTI with blood Elevated INR 5.6 High BP in ER without symptoms Subtle increase in bilirubin and AST enzyme (liver tests) not concerning but needs to be repeated in 2-3 weeks HISTORY OF PRESENTATION: ?blood in urine, inr 5 EMERGENCY DEPARTMENT COURSE,TESTS, TREATMENTS: While in the ED today Renal and bladder ultrasound did not show clots or signs of obstruction INR was 5.6. We gave you one dose of Vitamin K to partial reverse Warfarin. No active or heavy bleed was noted. No drop in blood counts of clinical significance was found. DISCHARGE MEDICATIONS: ?[We have made no changes to your regular medication regimen] DO NOT TAKE OUR WARFARIN (COUMADIN) TOMORROW MORNING. LONG YOU ARE NOT BLEEDING HEAVILY , RESUME NORMAL DOSING WEDNESDAY MORNING FOLLOW-UP: ?Call your primary or general physician soon as possible to discuss your symptoms, your ED visit and to discuss follow up plans Call your PCP. Wednesday you will need your INR and CBC blood counts repeated. INSTRUCTIONS ?& RETURN PRECAUTIONS: If any symptoms change first call your primary physician, if it is after-hours your primary doctors office should have a provider information technology director you can speak with. If the symptoms are severe or very concerning to you then call 911 or return to the ED. Return for severe abd pain, retention of urine, severe headache or chest pain. * Your BP was high in the ER. We dont treat this when there are no concerning symptoms. Take a BP diary as we discussed and show to your PCP at the next visit Jhonatan Loomis MD Emergency Physician [facility] Prescriptions: No Action amlodipine 2.5 mg tablet 2.5 mg PO DAILY Qty: 90 1RF warfarin 3 mg tablet See Rx Instructions PO .COMPLEX Qty: 144 1RF Protocol: Dose Management Condition: Wednesday (Week One) Dose/Route: 9 mg Instruction: 3 x 3 mg tablets Condition: Wednesday Dose/Route: 9 mg Instruction: 3 x 3 mg tablets Condition: Wednesday Dose/Route: 7.5 mg Instruction: 2.5 x 3 mg tablets Condition: Wednesday Dose/Route: 9 mg Instruction: 3 x 3 mg tablets Condition: Dose/Route: 9 mg Instruction: 3 x 3 mg tablets Condition: Wednesday Dose/Route: 7.5 mg Instruction: 2.5 x 3 mg tablets Condition: Wednesday Dose/Route: 9 mg Instruction: 3 x 3 mg tablets Condition: Wednesday (Week Two) Dose/Route: 9 mg Instruction: 3 x 3 mg tablets Condition: Wednesday Dose/Route: 9 mg Instruction: 3 x 3 mg tablets Condition: Wednesday Dose/Route: 7.5 mg Instruction: 2.5 x 3 mg tablets Condition: Wednesday Dose/Route: 9 mg Instruction: 3 x 3 mg tablets Condition: Dose/Route: 9 mg Instruction: 3 x 3 mg tablets Condition: Wednesday Dose/Route: 7.5 mg Instruction: 2.5 x 3 mg tablets Condition: Wednesday Dose/Route: 9 mg Instruction: 3 x 3 mg tablets Protocol Text: Adjustment Start Date: Wednesday02/07/25 INR Value: 3.4 INR Date: 02/07/25 Recheck Date: 03/07/25 Additional Instructions: cont same dosing Rx Instructions: orally; 7.5MG Wed, 9MG Wed cholecalciferol (vitamin D3) [Vitamin D3] 25 mcg (1,000 unit) capsule 25 mcg PO DAILY Qty: 90 1RF metoprolol oates-hydrochlorothiaz 25-12.5 mg Tablet Extended Release 24 Hr PO simvastatin 10 mg tablet 20 mg PO BEDTIME tamsulosin 0.4 mg capsule 0.8 mg PO BEDTIME 90 Days Qty: 180 3RF cephalexin 500 mg capsule 500 mg PO BID Qty: 14 0RF furosemide 40 mg tablet 40 mg PO QAM Interventions: ED Discharge Assessment Last Done: 02/16/25 16:33 Discharge Date/Time: 02/16/25 16:34 Print Language: Trinidadian
[2025-02-16 13:12] LABS: Basophils Percent Auto 0.2 % (0-2); Eosinophils Percent Auto 0.3 % (0-4); Hematocrit 38.3 % (42.0-52.0); Hemoglobin 12.9 g/dl (14.0-18.0); Imm Gran Abs Auto 0.09 X10*3/uL (0.00-0.03); Imm Gran Pct Auto 1.6 % (0.0-0.4); Lymphocytes Absolute Auto 1.5 X10*3/uL (1.2-4.9); Lymphocytes Percent Auto 26.1 % (20-40); MANUAL DIFF FLAG SCAN; Mean Corpuscular HGB Conc 33.7 g/dl (31.0-36.0); Mean Corpuscular Hemoglobin 29.5 pg (27.0-33.0); Mean Corpuscular Volume 87.6 fL (80.0-98.0); Mean Platelet Volume 8.9 fL (9.4-12.4); Monocytes Absolute Auto 1.3 X10*3/uL (0.1-1.2); Monocytes Percent Auto 21.8 % (2-11); Neutrophils Absolute Auto 2.9 x10*3/uL (2.0-8.3); Platelet Count 172 X10*3/uL (160-400); Red Blood Count 4.37 X10*6/uL (4.60-5.80); Red Cell Distribution Width 16.2 % (11.0-16.0); SCAN SMEAR FLAG 1; White Blood Count 5.7 X10*3/uL (4.8-10.8)
[2025-02-16 13:25] LABS: Alanine Aminotransferase 29 U/L (0-40); Albumin Level 4.4 g/dL (3.5-5.0); Alkaline Phosphatase 58 U/L (39-117); Anion Gap 10 (12-20); Aspartate Amino Transferase 48 U/L (5-37); Bilirubin Total 1.3 mg/dL (0.0-1.0); Blood Urea Nitrogen 23 mg/dL (9-16); Calcium 9.5 mg/dL (8.4-10.2); Carbon Dioxide 24 mmol/L (22-29); Chloride 108 mmol/L (96-108); Creatinine Clr Calc Pharmacy 101.9; Estimated Glomerular Filt Rate > 60; Glucose Random 103 mg/dL (60-115); Potassium 4.4 mmol/L (3.3-5.1); Sodium 138 mmol/L (135-145); Total Protein 7.5 g/dL (6.5-8.0)
[2025-02-16 13:42] LABS: INTERNATIONAL NORM RATIO 5.6 (0.9-1.1)
[2025-02-16 16:12] VITALS: BP 194/78; PULSE 65; RESP 18; TEMP 36.4; O2SAT 98
[2025-02-16] MEDS: Phytonadione (Vit K1) Oral 10 MG/ML AMPUL 2.5 MG PO (16:28)
[2025-02-16 16:33] VITALS: BP 194/78; PULSE 65; RESP 18; TEMP 36.4; O2SAT 98
== END 2025-02-16 16:34 | disposition home or self-care (01) ==
PROVIDERS: Physician Assistant Medical; Emergency Provider Emergency Medicine; PCP Nurse Practitioner Family
DX: N30.01 Acute cystitis with hematuria (principal); R79.89 Other specified abnormal findings of blood chemistry; Z79.899 Other long term (current) drug therapy; Z87.891 Personal history of nicotine dependence; Z51.81 Encounter for therapeutic drug level monitoring
CPT/HCPCS: 36415; 80053; 81003; 83735; 85025; 85610; 87086; 99212; 99283; 99284

== ENCOUNTER 2025-03-07 13:05 | Outpatient (AMB) | payer MEDICARE, SELFPAY ==
--- NOTE | 2025-03-07 13:24 | MHC.OFFVISCO ---
Intake Intake Visit Reasons: Anticoagulation Allergies No Known Allergies Allergy (Mild, Verified 03/07/25 13:06) NOT APPLICABLE Medication List - Last Reconciled 03/07/25 by Mariann Loera RN amlodipine 2.5 mg PO DAILY cephalexin 500 mg PO BID cholecalciferol (vitamin D3) (Vitamin D3) 25 mcg PO DAILY furosemide 40 mg PO QAM metoprolol oates-hydrochlorothiaz 25-12.5 mg tabs PO simvastatin 20 mg PO BEDTIME tamsulosin 0.8 mg (2 x 0.4 mg) PO BEDTIME 90 days warfarin See Protocol orally; 7.5MG Wed, 9MG SUN WED MANUEL SAT Nursing Note NO CP,SOB,DIET/MED CHANGES,FALLS OR SX OF BLEEDING. CONTINUE PRESENT DOSE AND FOLLOW-UP IN 4 WEEKS GOOD UNDERSTANDING OF DOSING INSTR. 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
[2025-03-07 14:26] LABS: Prothrombin Time Whole Bld POC 37.6 sec (11.1-13.5); ~PT, ~INR - Anti Coag Clinic 3.1 (0.9-1.1)
--- OUTSIDE RECORDS SUMMARY | 2025-03-07 15:16 | XMS_ITS | Patient Health Record ---
Author Organization [facility] Address [address] [place] [address] Care Team Providers Care Stemhole Borer And Topper Name Role Phone HEATHER LAMBERT Primary Care Provider Dalton Archer Jr Unavailable [phone] Allergies No Known Allergies Results Component Value Reference Range Notes Prothrombin Time INR Reviewed date:12/08/2024 04:26:11 PM Interpretation: Performing Lab: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 anticoagulants (Z79.01) Active confirmed Problem 978930488 bed bug exterminator (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 aspirin (Z79.82) Active confirmed Vital Signs Blood pressure diastolic 00 mm Hg 10/26/2024 Height 69 in 10/26/2024 Blood pressure systolic 00 mm Hg 10/26/2024 Weight 240 lbs 10/26/2024 BMI 35.44 kg/m2 10/26/2024 Encounters Encounter Location Date Provider Diagnosis [facility] [address] [place], [place] [id number] 12/08/2024 Dalton Alanis Jr Colon cancer screening Z12.11 ; Personal history of adenomatous and serrated colon polyps Z86.0101 and Colon polyps K63.5 [facility] [address] [place] [address] 10/26/2024 Dalton Alanis Jr Colon cancer screening Z12.11 and bed bug exterminator (current) use of anticoagulants Z79.01 [facility] [address] [place] [address] 12/16/2024 Dalton Alanis Jr Assessments Encounter Date Diagnosis (ICD Code) Assessment [...] valve today. He understands these risks. 10/26/2024 jail (current) use of anticoagulants (ICD-10 - Z79.01) [...] polyps (ICD-10 - K63.5) Plan Of Treatment Future Test Test Name Order Date COLONOSCOPY 01/22/2016 COLONOSCOPY 08/18/2021 COLONOSCOPY 10/26/2024 Insurance Providers Payer Name Payer Address Payer Phone Subscriber Number Group Number Insured Name Patient Relationship to Insured Coverage Start Date Coverage End Date MEDICARE OF [place] [address] [place] [address] [id number] KAI SOTO Self - patient is the insured MED[employer] ATTN CLAIMS [address] [place] [address] [id number] KAI SOTO Self - patient is the [...]
== END 2025-03-07 14:42 | disposition home or self-care (01) ==
LOC: HO.ACS 13:05
PROVIDERS: PCP Nurse Practitioner Family; Visit Provider Internal Medicine Medical Oncology
DX: Z79.01 Long term (current) use of anticoagulants (principal)

== ENCOUNTER → 2025-03-07 13:05 | Outpatient (BNVA) | payer MEDICARE, SELFPAY | PROVIDERS: PCP Nurse Practitioner Family; Visit Provider Internal Medicine Medical Oncology | DX: Z95.2 Presence of prosthetic heart valve (principal); Z79.01 Long term (current) use of anticoagulants; Z51.81 Encounter for therapeutic drug level monitoring | CPT/HCPCS: 85610; 99211 ==

== ENCOUNTER 2025-04-04 12:59 | Outpatient (AMB) | payer MEDICARE, SELFPAY ==
[2025-04-04 13:14] LABS: Prothrombin Time Whole Bld POC 34.2 sec (11.1-13.5); ~PT, ~INR - Anti Coag Clinic 2.8 (0.9-1.1)
--- OUTSIDE RECORDS SUMMARY | 2025-04-04 13:24 | XMS_ITS | Patient Health Record ---
Author Organization [facility] Address [address] [place] [address] Care Team Providers Care Motor Boss Name Role Phone HEATHER LAMBERT Primary Care Provider Dalton Archer Jr Unavailable Allergies No Known Allergies Results Component Value Reference Range Notes Prothrombin Time INR Reviewed date:12/08/2024 04:26:11 PM Interpretation: Performing Lab:[facility], [address] [place] [phone] Notes/Report: Unable to obtain x2 attempts Yarslen [...] Pathology Reviewed date:12/16/2024 03:38:16 PM Interpretation: Performing Lab:[address] [phone] Notes/Report: Reason For Referral No Information Medications [...] Problem Status W/U Status Risk Notes Problem [id number] Colon cancer screening (Z12.11) Active confirmed Problem 353268987 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 Out[facility] [address] [place], [place] [id number] 12/08/2024 Dalton Alanis Jr Colon cancer screening Z12.11 ; Personal history of adenomatous and serrated colon polyps Z86.0101 and Colon polyps K63.5 [facility] [address] [place] [address] 10/26/2024 Dalton Alanis Jr Colon cancer screening Z12.11 and well point pumping supervisor (current) use of anticoagulants Z79.01 [facility] [address] [place] [address] 12/16/2024 Dalton Alanis Jr Assessments Encounter Date [...] valve today. He understands these risks. 10/26/2024 penitentiary (current) use of anticoagulants (ICD-10 - Z79.01) [...] Date MEDICARE OF [place] [address] [place] [address] [id number] KAI SOTO Self - patient is the insured MED[employer] ATTN CLAIMS [address] [place] [address] [phone] [id number] KAI SOTO Self - patient is the [...]
--- OUTSIDE RECORDS SUMMARY | 2025-04-04 13:24 | XMS_ITS | Clinical Summary ---
Author Organization [facility] Address [address] [place] [address] Care Team Providers Care Procedures Tech Name Role Phone Reji Palomino NP Primary Care Provider Medications metoprolol succinate (TOPROL-XL) 50 mg 24 hr tablet TAKE 1 TABLET BY MOUTH EVERY DAY 90 tablet 2 08/30/2024 Active furosemide (LASIX) 40 mg tablet TAKE 1 TABLET BY MOUTH EVERY DAY 90 tablet 1 11/28/2024 Active Social History Tobacco Use Types Packs/Day [...] Panel) 08/23/2022 Colorectal Cancer Screening: Colonoscopy 08/23/2022 Falls Risk Assessment 08/23/2022 Hepatitis C Screening 08/23/2022 Social Influencers of Health Screening 08/23/2022 COVID-19 Vaccine ( season) 2024 Depression Screening 09/13/2024 Hypertension/CHF/CAD Annual BMP Blood Test 04/03/2025 04/03/2024 Influenza Vaccine (#1) 2025 3, 06/17/2022, 08/05/2021, Additional history exists RSV Immunization [...] age to complete this topic Care Teams Procedures Tech Relationship Specialty Start Date End Date Reji Palomino NP [address] [facility] [place], [place] PCP - General 11/24/21
--- NOTE | 2025-04-04 15:13 | MHC.OFFVISCO ---
Intake Intake Visit Reasons: Anticoagulation Allergies No Known Allergies Allergy (Mild, Verified 04/04/25 13:08) NOT APPLICABLE Medication List - Last Reconciled 04/04/25 by Mariann Loera RN amlodipine 2.5 mg PO DAILY cephalexin 500 mg PO BID cholecalciferol (vitamin D3) (Vitamin D3) 25 mcg PO DAILY furosemide 40 mg PO QAM metoprolol oates-hydrochlorothiaz 25-12.5 mg tabs PO simvastatin 20 mg PO BEDTIME tamsulosin 0.8 mg (2 x 0.4 mg) PO BEDTIME 90 days warfarin See Protocol orally; 7.5MG TUES & FRI, 9MG SUN, MON,WED, MANUEL SAT Nursing Note NO CP,SOB,DIET/MED CHANGES,FALLS OR SX OF BLEEDING. CONTINUE PRESENT DOSING AND FOLLOW-UP IN 4 WEEKS GOOD UNDERSTANDING OF DOSING INSTR. Anti-Coag Initial Assessment Social Hx Patient Tobacco Use Status: Former Tobacco user Tobacco use type: Cigarette Smoking packs per day: 1 alcohol intake: current Alcohol intake frequency: a few times a week Coding Level of Care Code Est Patient Level 1 Diagnoses Current use of anticoagulant therapy Z79.01 Assessment & Plan Assessment & Plan (1) Current use of anticoagulant therapy: Code(s): Z79.01 - rodent exterminator (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
== END 2025-04-04 13:22 | disposition home or self-care (01) ==
LOC: HO.ACS 12:59
PROVIDERS: PCP Nurse Practitioner Family; Visit Provider Internal Medicine Medical Oncology
DX: Z79.01 Long term (current) use of anticoagulants (principal)

== ENCOUNTER → 2025-04-04 12:59 | Outpatient (BNVA) | payer MEDICARE, SELFPAY | PROVIDERS: PCP Nurse Practitioner Family; Visit Provider Internal Medicine Medical Oncology | DX: Z95.2 Presence of prosthetic heart valve (principal); Z79.01 Long term (current) use of anticoagulants; Z51.81 Encounter for therapeutic drug level monitoring | CPT/HCPCS: 85610; 99211 ==

== ENCOUNTER 2025-04-12 07:44 | Outpatient (AMB) | payer MEDICARE, SELFPAY ==
--- OUTSIDE RECORDS SUMMARY | 2025-04-12 07:47 | XMS_ITS | Clinical Summary ---
Author Organization [facility] Address [address] [place] [address] Care Team Providers Care Judo Teacher Name Role Phone Reji Palomino NP Primary [...] age to complete this topic Care Teams Judo Teacher Relationship Specialty Start Date End Date Reji Palomino NP [address] [facility] [place], [place] PCP - General 11/24/21
--- OUTSIDE RECORDS SUMMARY | 2025-04-12 07:47 | XMS_ITS | Patient Health Record ---
Author Organization [facility] Address [address] [place] [address] Care Team Providers Care Storage Wharfage Clerk Name Role Phone HEATHER LAMBERT Primary Care Provider Dalton Archer Jr Unavailable Allergies No Known Allergies Results Component Value Reference Range Notes Prothrombin Time INR Reviewed date:12/08/2024 04:26:11 PM Interpretation: Performing Lab:[facility], [address] [place] [phone] Notes/Report: Unable to obtain x2 attempts Yarslen [...] Pathology Reviewed date:12/16/2024 03:38:16 PM Interpretation: Performing Lab:[address] [address] Notes/Report: Reason For Referral No Information Medications [...] Problem Status W/U Status Risk Notes Problem [id number] Colon cancer screening (Z12.11) Active confirmed Problem 689366118 intermediate teacher (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 anticoagulants (Z79.01) Active confirmed Problem 383725005 intermediate teacher (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 aspirin (Z79.82) Active confirmed Vital Signs Blood pressure diastolic 00 mm Hg 10/26/2024 Height 69 in 10/26/2024 Blood pressure systolic 00 mm Hg 10/26/2024 Weight 240 lbs 10/26/2024 BMI 35.44 kg/m2 10/26/2024 Encounters Encounter Location Date Provider Diagnosis [facility] Out[facility] [address] [place], [place] [id number] 12/08/2024 Dalton Alanis Jr Colon cancer screening Z12.11 ; Personal history of adenomatous and serrated colon polyps Z86.0101 and Colon polyps K63.5 [facility] [address] [place] [phone] 10/26/2024 Dalton Alanis Jr Colon cancer screening Z12.11 and intermediate teacher (current) use of anticoagulants Z79.01 [facility] [address] [place] [address] 12/16/2024 Dalton Alanis Jr Assessments Encounter Date [...] valve today. He understands these risks. 10/26/2024 residential (current) use of anticoagulants (ICD-10 - Z79.01) [...] Date MEDICARE OF [place] [address] [place] [address] [id number] KAI SOTO Self - patient is the insured MED[employer] ATTN CLAIMS [address] [place] [address] [phone] [id number] KAI SOTO Self - patient is the [...]
[2025-04-12 07:58] VITALS: BP 182/82; PULSE 75; RESP 16; TEMP 36.8; O2SAT 96; BMI 35.1
--- NOTE | 2025-04-12 07:58 | A.OFFPC_ITS ---
Vital Signs 04/12/25 07:58 Height 5 ft 9 in Weight 238 lb BMI 35.1 BP 182/82 H Blood Pressure Location Lt brachial Position Sitting Respiration 16 Pulse 75 Pulse Source Pulse Oximeter Temp 98.3 F Temp Source Oral Pulse Oximetry (%) 96 Oxygen Delivery Method Room Air Intake Visit Reasons: 4m f/u Chairman And Ceo Required: No Accompanied by: Self / Same As Patient Allergies No Known Allergies Allergy (Mild, Verified 04/12/25 08:44) NOT APPLICABLE Medication List - Last Reconciled 04/12/25 by Reji Palomino, QUALITY ASSURANCE INSPECTOR- amlodipine 5 mg PO DAILY amoxicillin 2,000 mg (4 x 500 mg) PO DAILY 4 days cephalexin 500 mg PO BID cholecalciferol (vitamin D3) (Vitamin D3) 25 mcg PO DAILY furosemide 40 mg PO QAM metoprolol oates-hydrochlorothiaz 25-12.5 mg tabs PO simvastatin 20 mg PO BEDTIME tamsulosin 0.8 mg (2 x 0.4 mg) PO BEDTIME 90 days warfarin See Protocol orally; 7.5MG TUES & FRI, 9MG SUN, MON,WED, MANUEL SAT Tobacco use date assessed: 04/12/25 Fall risk assessment: No Falls in past year Last assessed Fall Risk: 04/12/25 Dental Screening Dental Screen Date: 04/12/25 Did you have a dental visit in the last 12 months?: Yes Did you have a dental problem in the last 6 months where you did not have access to dental care?: No Was dental information given to patient?: Patient has dentist HPI 4m f/u HPI Details Chief Complaint The patient is frustrated due to elevated blood pressure readings at the clinic. History of Present Illness The patient is a 70-year-old male presenting with hypertension management and evaluation of cardiovascular status. He reports frustration due to elevated blood pressure readings at the clinic, although he denies any chest pain, increased dyspnea, dizziness, blurred vision, or headaches. At home, his blood pressure readings are reportedly lower. He reports being very frustrated with intake procedure at this office (kiosk). The patient has a history of a mechanical valve replacement, with a systolic murmur noted during examination. He regularly sees a sat tutor for follow-up care. Social History Health Maintenance - Regular cardiology follow-up for mecha nical valve and murmur monitoring Review of Systems - Cardiovascular: Denies chest pain, den ies increased dyspnea - Neurological: Denies dizziness, denies blurred vision, denies headaches Physical Exam General: Cooperative, healthy appearing, comfortable, no acute distress and well developed, obese Orientation: Patient oriented x3 Limitations: No limitations Head: Normal to inspection Ears: Hearing grossly normal bilaterally Nose: Normal external nose present Face and sinus: Normal facial exam Eyes: Appearance normal, both eyes and all related structures Neck: Normal visual inspection and Yes full ROM Respiratory: Normal respiratory effort and able to speak in complete sentences. Clear to auscultation bilaterally Cardiovascular: Regular rate and rhythm. Normal S1 and S2. Mechanical valve appreciated, systolic murmur noted GI: Normal to inspection. Soft to palpation and nontender Skin: No rashes or lesions noted Neuro: Patient oriented x3 Extremities: trace to ble Results Plan The patient's antihypertensive regimen will be adjusted by increasing amlodipine from 2.5 mg to 5 mg to better control his blood pressure. He is advised to mo nitor his blood pressure at home and report the readings in the next couple of weeks. He is instructed to seek immediate medical attention if he experiences symptoms such as chest pain or increased dyspnea. The patient will undergo fasting laboratory tests in the near future to monitor his health status. A follow-up appointment is scheduled in six months to reassess his condition. Discussion Notes I discussed with the patient the need to increase his amlodipine dosage to better manage his hypertension. We reviewed the importance of monitoring his blood pressure at home and reporting the readings. I emphasized the need for immediate medical attention if he experiences any concerning symptoms. We also planned for fasting labs and a follow-up visit in six months. Patient Instructions - Take amlodipine 5 mg daily as prescrib ed. - Monitor blood pressure at home and sen d readings in two weeks. - Go to the ER if you experience chest p ain or increased shortness of breath. - Schedule and complete fasting labs as instructed. - Attend follow-up appointment in six mo [facility]. [facility] Medical History History of Mohs micrographic surgery for skin cancer Elevated cholesterol Asbestos-induced pleural plaque Atelectasis Elevated diaphragm Primary hyperparathyroidism Vitamin D deficiency Hyperparathyroidism Gynecomastia Malignant melanoma Osteoarthritis Rotator cuff tear Cervical spondylolysis Dyslipidemia HTN (hypertension) Surgical History History of right knee joint replacement Hx of colonoscopy Hx of repair of rotator cuff Aortic valve replaced Hx of cardiac cath History of lobectomy of thyroid Family History Father History of CVA (cerebrovascular accident) Diabetes mellitus Mother Stomach ulcer Daughter Brain tumor Maternal Grandfather No problems noted. Maternal Grandmother No problems noted. Paternal Grandfather No problems noted. Paternal Grandmother No problems noted. Maternal Aunt No problems noted. Maternal Uncle No problems noted. Paternal Aunt No problems noted. Paternal Uncle No problems noted. Social History Housing: House Alcohol intake: current Alcohol intake frequency: a few times a week Alcohol type: beer Patient Tobacco Use Status: Former Tobacco user Tobacco use type: Cigarette Cigarette Packs Per Day: 1 Years Smoked: 12 e-Cigarette/Vaping Use: Never Used service: No Current occupational status: retired Cognitive needs: No Hearing needs: No Vision needs: Yes Questionnaire PHQ-9 Over the last 2 weeks, how often have you been bothered by any of the following problems? 1. Little interest or pleasure in doing things: not at all 2. Feeling down, depressed, or hopeless: not at all 3. Trouble falling or staying asleep, or sleeping too much: not at all 4. Feeling tired or having little energy: not at all 5. Poor appetite or overeating: not at all 6. Feeling bad about yourself - or that you are a failure or have let yourself or your family down: not at all 7. Trouble concentrating on things, such as reading the newspaper or watching television: not at all 8. Moving or speaking so slowly that other people could have noticed. Or the opposite - being so fidgety or restless that you have been moving around a lot more than usual: not at all 9. Thoughts that you would be better off or of hurting yourself in some way: not at all Total score: 0 Depression Screening Interpretation: Negative Depression Screening Done: Yes 39854 - PHQ-9 Billing: Yes Source: Developed by Drs. Mario Bobby, Camila Evin Patel and colleagues, with an educational solomon from [employer]. Thrive Questionnaire Date Thrive assessed: 08/02/24 I am a: Patient What is your living situation today?: I have a steady place to live Within the past 12 months, did the food you bought not last and you didn't have the money to get more?: Never true Within the past 12 months, did you worry whether your food would run out before you got money to buy more?: Never true Do you have trouble paying for medicines?: No Do you have trouble getting transportation to medical appointments?: No Do you have trouble paying your heating and electricity bill?: No Do you have trouble taking care of your child, family member or friend?: No Do you have trouble with day-to-day activities such as bathing, preparing meals, shopping, managing finances, etc.?: No Are you currently unemployed and looking for a job?: No Are you interested in more education?: No Please select the resources that you would like help with: None Currently or been in a relationship where the following occur: No concerns reported THRIVE Score: 0 AUDIT C Alcohol Use Questionnaire (AUDIT-C) 1. How often do you have a drink containing alcohol?: 2-3 times a week 2. How many drinks containing alcohol do you have on a typical day when you are drinking?: 3 or 4 3. How often do you have six or more drinks on one occasion?: Never Total Score: 4 FELIX-7 AMB Questionnaire FELIX-7 Date FELIX - 7 assessed: 04/12/25 Feeling nervous, anxious, or on edge: 0 = Not at all Not being able to stop or control worryin = Not at all Worrying too much about different things: 0 = Not at all Trouble relaxin = Not at all Being so restless that it is hard to sit still: 0 = Not at all Becoming easily annoyed or irritable: 0 = Not at all Feeling afraid as if something awful might happen: 0 = Not at all Total FELIX-7 score (0-4 normal; 5-9 mild; 10-14 moderate; 15-21 severe): 0 Source: Developed by Drs. Mario Bobby, Evin Millan and colleagues, with an educational solomon from [employer]. Physical exam (Primary Care) Vital Signs: Last Vital Signs Temp 98.3 F 04/12/25 07:58 Pulse 75 04/12/25 07:58 Resp 16 04/12/25 07:58 BP 182/82 H 04/12/25 07:58 Pulse Ox 96 04/12/25 07:58 Oxygen Delivery Method Room Air 04/12/25 07:58 BMI result Body Mass Index 35.1 Tobacco/Smoking Status: Tobacco use Status Tobacco use date assessed 04/12/25 04/12/25 08:07 Patient Tobacco Use Status Former Tobacco user 04/12/25 08:01 Tobacco use type Cigarette 04/12/25 08:01 e-Cigarette/Vaping Use Never Used 04/12/25 08:01 PHQ-9: PHQ-9 Score PHQ-9: Total score 0 04/12/25 08:01 Depression Screening Interpretation: Negative Thrive Assessment: Date of Thrive Assessment Date Thrive assessed 08/02/24 04/12/25 08:01 Currently or been in a relationship where the following occur: No concerns reported Coding Level of Care Code Est Pt Level 3 (54208) Diagnoses HTN (hypertension) I10 Additional Codes PHQ-9 - 07342 - PHQ-9 Billing: Yes ([id number]) Assessment & Plan Assessment & Plan (1) HTN (hypertension): Code(s): I10 - Essential (primary) hypertension Category: Medical Plan . Orders: Orders Complete Blood Count Auto Diff Today I10 - Essential (primary) hypertension UA CC w/rflx Micro + Cult Today I10 - Essential (primary) hypertension Lipid Panel Today I10 - Essential (primary) hypertension Comprehensive [place]. Panel Fast Today I10 - Essential (primary) hypertension TSH reflex Free T4 Today I10 - Essential (primary) hypertension Medications: New amoxicillin 4 tabs before each dental procedure 2,000 mg (4 x 500 mg) PO DAILY 16 tabs 0RF 4 days Changed From amlodipine 2.5 mg PO DAILY 90 tabs 1RF To amlodipine 5 mg PO DAILY 90 tabs 1RF
== END 2025-04-12 09:13 | disposition home or self-care (01) ==
LOC: HO.HMCC 07:45
PROVIDERS: PCP Nurse Practitioner Family; Visit Provider Nurse Practitioner Family
DX: I10 Essential (primary) hypertension (principal)

== ENCOUNTER → 2025-04-12 07:44 | Outpatient (BNVA) | payer MEDICARE, SELFPAY | PROVIDERS: PCP Nurse Practitioner Family; Visit Provider Nurse Practitioner Family | DX: I10 Essential (primary) hypertension (principal); Z87.891 Personal history of nicotine dependence | CPT/HCPCS: 96127; 99212 ==

== ENCOUNTER 2025-05-02 07:10 | Outpatient (REF) | payer MEDICARE, SELFPAY ==
--- OUTSIDE RECORDS SUMMARY | 2025-05-02 07:14 | XMS_ITS | Clinical Summary ---
Author Organization [facility] Address [address] [place] [address] Care Team Providers Care Vaccine Manager Name Role Phone Reji Palomino NP [...] age to complete this topic Care Teams Vaccine Manager Relationship Specialty Start Date End Date Reji Palomino NP 262 [facility] [place], [place] PCP - General 11/24/21
--- OUTSIDE RECORDS SUMMARY | 2025-05-02 07:14 | XMS_ITS | Patient Health Record ---
Author Organization [facility] Address [address] [place] [address] Care Team Providers Care Enrolled Agent Name Role Phone HEATHER LAMBERT Primary Care Provider Dalton Archer Jr Unavailable [phone] Allergies No Known Allergies Results Component Value Reference Range Notes Prothrombin Time INR Reviewed date:12/08/2024 04:26:11 PM Interpretation: Performing Lab:[facility], [address] [place] [id number] Notes/Report: Unable to obtain x2 attempts Yarslen [...] Pathology Reviewed date:12/16/2024 03:38:16 PM Interpretation: Performing Lab:[address] [id number] Notes/Report: Reason For Referral No Information Medications [...] Problem Status W/U Status Risk Notes Problem 434435887 Colon cancer screening (Z12.11) Active confirmed Problem 275001882 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 (Z79.01) Active confirmed Problem 842248072 skilled nursing (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 aspirin (Z79.82) Active confirmed Vital Signs Blood pressure diastolic 00 mm Hg 10/26/2024 Height 69 in 10/26/2024 Blood pressure systolic 00 mm Hg 10/26/2024 Weight 240 lbs 10/26/2024 BMI 35.44 kg/m2 10/26/2024 Encounters Encounter Location Date Provider Diagnosis [facility] [place] [address] [place] [id number] 12/08/2024 Dalton Alanis Jr Colon cancer screening Z12.11 ; Personal history of adenomatous and serrated colon polyps Z86.0101 and Colon polyps K63.5 [facility] [address] [place] [phone] 10/26/2024 Dalton Alanis Jr Colon cancer screening Z12.11 and skilled nursing (current) use of anticoagulants Z79.01 [facility] [address] [place] [address] 12/16/2024 Dalton Alanis Jr Assessments Encounter Date [...] valve today. He understands these risks. 10/26/2024 livestock showman (current) use of anticoagulants (ICD-10 - Z79.01) [...] Date MEDICARE OF [place] [address] [place] [address] [id number] KAI SOTO Self - patient is the insured [employer] ATT[employer] CLAIMS [address] [place] [address] [id number] KAI SOTO Self - patient is the [...]
[2025-05-02 07:49] LABS: Hematocrit 41.7 % (42.0-52.0); Hemoglobin 13.5 g/dl (14.0-18.0); Imm Gran Abs Auto 0.05 X10*3/uL (0.00-0.03); Imm Gran Pct Auto 1.1 % (0.0-0.4); Lymphocytes Absolute Auto 1.6 X10*3/uL (1.2-4.9); MANUAL DIFF FLAG SCAN; Mean Corpuscular HGB Conc 32.4 g/dl (31.0-36.0); Mean Corpuscular Hemoglobin 28.9 pg (27.0-33.0); Mean Corpuscular Volume 89.3 fL (80.0-98.0); NRBC Abs Auto 0.000 X10*3/uL (0.0-0.012); NRBC Pct Auto 0.0 /100WBC (0.0-0.2); Platelet Count 148 X10*3/uL (160-400); Red Blood Count 4.67 X10*6/uL (4.60-5.80); SCAN SMEAR FLAG 1; White Blood Count 4.5 X10*3/uL (4.8-10.8)
[2025-05-02 08:16] LABS: Appearance Urine Clear; Glucose Urine UA Negative (Negative); PH 5.5 (5.0-9.0); Specific Gravity - Urine 1.020 (1.005-1.025); UMIC TRIGGER UACC YES
[2025-05-02 08:21] LABS: UACC Culture Trigger YES
[2025-05-02 08:25] LABS: Alanine Aminotransferase 34 U/L (0-40); Albumin Level 4.6 g/dL (3.5-5.0); Alkaline Phosphatase 63 U/L (39-117); Anion Gap 14 (12-20); Aspartate Amino Transferase 32 U/L (5-37); Blood Urea Nitrogen 22 mg/dL (9-16); Calcium 8.8 mg/dL (8.4-10.2); Carbon Dioxide 25 mmol/L (22-29); Chloride 107 mmol/L (96-108); Cholesterol 119 mg/dL (<200); Estimated Glomerular Filt Rate > 60; HDL Cholesterol 40 mg/dL (>40); Potassium 4.2 mmol/L (3.3-5.1); Sodium 142 mmol/L (135-145); Total Protein 7.7 g/dL (6.5-8.0); Triglycerides 87 mg/dL (<150)
[2025-05-02 09:35] LABS: Free T4 (Free Thyroxine) 0.95 ng/dL (0.71-1.85)
== END 2025-05-02 07:11 | disposition home or self-care (01) ==
LOC: HO.LAB 07:10
PROVIDERS: PCP Nurse Practitioner Family; Visit Provider Nurse Practitioner Family
DX: I10 Essential (primary) hypertension (principal)
CPT/HCPCS: 36415; 80053; 80061; 81001; 81003; 84439; 84443; 85025; 85610; 87086; 87088; 87186; 99211

== ENCOUNTER 2025-05-02 12:59 | Outpatient (AMB) | payer MEDICARE, SELFPAY ==
--- NOTE | 2025-05-02 13:11 | MHC.OFFVISCO ---
Intake Intake Visit Reasons: Anticoagulation Allergies No Known Allergies Allergy (Mild, Verified 05/02/25 13:06) NOT APPLICABLE Medication List - Last Reconciled 05/02/25 by Macarena Escobedo RN amlodipine 5 mg PO DAILY amoxicillin 2,000 mg (4 x 500 mg) PO DAILY 4 days cholecalciferol (vitamin D3) (Vitamin D3) 25 mcg PO DAILY codeine-guaifenesin 10-100 mg/5 mL 5 mL PO Q6H PRN furosemide 40 mg PO QAM metoprolol oates-hydrochlorothiaz 25-12.5 mg tabs PO simvastatin 10 mg PO BEDTIME tamsulosin 0.8 mg (2 x 0.4 mg) PO BEDTIME 90 days warfarin See Protocol orally; 7.5MG TUES & FRI, 9MG SUN, MON,WED, MANUEL SAT Nursing Note INR: 3.3- in therapeutic range of 2.5-3.5 Medications and supplements reviewed- amlodipine increased to 5mg - does interact with warfarin- can raise inr. pt aware No changes in health, diet, medications, or supplements, Denies any signs and symptoms of bleeding or bruising or clotting. Bleeding, bruising, clotting discussed Nutritional guidance given - include greens in weekly diet Dose: 7.5mg x 2, 9mg x 5 F/U INR: pt ref earlier appt than 4 weeks Patient verbalizes understanding of instructions given Anti-Coag Initial Assessment Social Hx Patient Tobacco Use Status: Former Tobacco user Tobacco use type: Cigarette Smoking packs per day: 1 alcohol intake: current Alcohol intake frequency: a few times a week Coding Level of Care Code Est Patient Level 1 Diagnoses Current use of anticoagulant therapy Z79.01 Assessment & Plan Assessment & Plan (1) Current use of anticoagulant therapy: Code(s): Z79.01 - penitentiary (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
[2025-05-02 13:12] LABS: Prothrombin Time Whole Bld POC 40.0 sec (11.1-13.5); ~PT, ~INR - Anti Coag Clinic 3.3 (0.9-1.1)
== END 2025-05-02 13:18 | disposition home or self-care (01) ==
LOC: HO.ACS 12:59
PROVIDERS: PCP Nurse Practitioner Family; Visit Provider Internal Medicine Medical Oncology
DX: Z79.01 Long term (current) use of anticoagulants (principal)

== ENCOUNTER 2025-05-08 09:50 | Outpatient (REF) | payer MEDICARE, SELFPAY ==
--- OUTSIDE RECORDS SUMMARY | 2024-12-08 06:00 | XMS_ITS ---
Author Organization [facility] Address [address] [place] [address] Care Team Providers Care Practice Architect Name Role Phone HEATHER LAMBERT Primary Care Provider Dalton Archer Jr REASON FOR VISIT screening Encounters Encounter Location Date Provider Diagnosis [facility] [place] [address] [place], [place] [phone] 12/08/2024 Dalton Alanis Jr Colon cancer screening [...] SOTOKAI SIMS WDOB:[birth year] (70 yo M)Acc No.[id number]:12/08/2024 COLON WITH MAC Patient: KAI PEDERSEN Provider: Bashir Alanis MD :1955 A ge:69 Y S ex:Male Date:12/08/2024 Address:[address] [place], [place] [phone] Pcp:HEATHER LAMBERT Subjective: * Chief Complaints: * 1 . Screening. * Medical History: Objective: * Vitals: Assessment: * Assessment: 1. C olon cancer screening - Z12.11 (Primary) 2 . P ersonal history of adenomatous and serrated colon polyps - Z86.0101 3 . C olon polyps - K63.5 ? Plan: * Treatment: * Procedure Codes: G 0105 COLOREC CANCR SCR; COLNSCPY HI RISK, [address] COLONOSCOPY AND BIOPSY, 0529F INTRVL 3+YRS PTS CLNSCP DOCD * * The named appointment provid er may or may not be the originator of this progress note, and it is not deemed complete until electronically signed by the appointment provider. Sign off status: Pending * Provider: Bashir Alanis MD Date: 0 12/08/2024 Generated for Mirna kelly/Sebastien/Alokitting on: 0 05/08/2025 10:34 AM EDT
--- NOTE | ~2025-05-08 | CT_ITS ---
EXAMINATION: CT CHEST WITHOUT CONTRAST CLINICAL INFORMATION: Solitary pulmonary nodule. COMPARISON: August 08, 2024. TECHNIQUE: Multidetector volumetric CT imaging of the chest was done. Axial MIP volume rendering provided. Sagittal and coronal reformatted images were obtained. This CT examination was performed using dose optimization techniques as appropriate, variously including the following: *Automated exposure control *Adjustment of mA and/or kV according to patient size (this includes techniques or standardized protocols for targeted exams where dose is matched to indication/reason for exam; i.e. extremities or head) *Use of iterative reconstruction technique DLP: 394 mGy centimeter. FINDINGS: VIDEO PRODUCTION ENGINEER: Elevated right hemidiaphragm. Sternal wires. Multilevel thoracolumbar spondylosis. S-shaped curvature of the thoracolumbar spine. Patient's large body habitus. LUNGS: 2 mm groundglass nodule, apical segment left upper lung lobe. 2.5 mm noncalcified pulmonary nodule in the peripheral anterior segment right upper lung lobe. 1 mm calcified nodule in the periphery of the right lower lung lobe. Pulmonary patchy groundglass in the periphery of the right lower lung lobe. Pulmonary patchy groundglass in the periphery of the left lower lung lobe. No gross consolidation. No bronchiectasis. Respiratory airways is patent. Calcifications throughout the pulmonary bronchi wall. MEDIASTINUM: No lymphadenopathy, mediastinum. Sternal wires. Calcified plaques throughout the thoracic aorta wall and its main branches. No aneurysm thoracic aorta. Metallic bile, aortic. Calcifications in the coronary arteries. No pneumomediastinum. No hemomediastinum. No pericardial effusion. No hemopericardium. The heart is not enlarged. Calcified some the mitral valve. 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 Small hiatal hernia. CORONARY ARTERY CALCIFICATION: Calcified plaques. PLEURA: Calcified pleural plaques in the posterior thorax, bilaterally. No pleural effusion. No pneumothorax. No hemothorax. AXILLA: No lymphadenopathy. UPPER ABDOMEN: Intraluminal focal calcifications layering in the gallbladder without pericholecystic fluid collection. There is no gallbladder distention. Multifocal hepatic hypodensities, the largest measures 4 cm with 29 Hounsfield units. Vascular calcifications, splenic artery mesenteric arteries and abdominal aorta. Probable 1 mm nonobstructing calculus in the right kidney. Soft tissue fullness in the adrenal glands measuring 8 Hounsfield units. Punctate calcification right adrenal gland. Diastases abdominal rectus muscles. Scattered diverticula in the transverse colon. OSSEOUS STRUCTURES: Multilevel thoracolumbar spondylosis. A shaped curvature of the thoracolumbar spine. Spondylosis in the lower cervical spine. No acute fracture or gross listhesis. No lytic or blastic lesions. Degenerative changes in both shoulders. Sternal wires. No acute fractures in the included clavicles or scapula. No acute rib fracture. CT/CT chest wo IV con IMPRESSION: Less than 3 mm noncalcified pulmonary nodules, right lung. Overall stable since prior exam. No acute airspace disease. Calcified pleural plaques possibly related to prior trauma and or inflammatory or infectious and less likely asbestos exposure. Coronary artery disease and atherosclerosis disease. 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 Cholelithiasis. Probable adrenal hyperplasia. Probable status post left hemithyroidectomy. Fleischner guidelines were followed. Electronically signed by: Joey Brenner MD 05/08/2025 11:32 AM EDT
--- OUTSIDE RECORDS SUMMARY | 2025-05-08 10:34 | XMS_ITS | Patient Health Record ---
Author Organization [facility] Address [address] [place] [address] Care Team Providers Care Fiber Heel Piece Shaper Name Role Phone HEATHER LAMBERT Primary Care Provider Dalton Archer Jr Unavailable [phone] Allergies No Known Allergies Results Component Value Reference Range Notes Prothrombin Time INR Reviewed date:12/08/2024 04:26:11 PM Interpretation: Performing Lab:[facility], [address] [place] [phone] Notes/Report: Unable to obtain x2 attempts Yarslen [...] Pathology Reviewed date:12/16/2024 03:38:16 PM Interpretation: Performing Lab:[address] [phone] Notes/Report: Reason For Referral No Information Medications [...] Problem Status W/U Status Risk Notes Problem 041649216 Colon cancer screening (Z12.11) Active confirmed Problem 238930401 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 (Z79.01) Active confirmed Problem 943072504 residential (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 aspirin (Z79.82) Active confirmed Vital Signs Blood pressure diastolic 00 mm Hg 10/26/2024 Height 69 in 10/26/2024 Blood pressure systolic 00 mm Hg 10/26/2024 Weight 240 lbs 10/26/2024 BMI 35.44 kg/m2 10/26/2024 Encounters Encounter Location Date Provider Diagnosis [facility] [place] [facility] [address] [place], [place] [id number] 12/08/2024 Dalton Alanis Jr Colon cancer screening Z12.11 ; Personal history of adenomatous and serrated colon polyps Z86.0101 and Colon polyps K63.5 [facility] [address] [place] [address] 10/26/2024 Dalton Alanis Jr Colon cancer screening Z12.11 and residential (current) use of anticoagulants Z79.01 [facility] [address] [place] [address] 12/16/2024 Dalton Alanis Jr Assessments Encounter Date [...] valve today. He understands these risks. 10/26/2024 terminal clerk (current) use of anticoagulants (ICD-10 - [...] Date MEDICARE OF [place] [address] [place] [address] [id number] KAI SOTO Self - patient is the insured [employer] ATTN CLAIMS [address] [place] [address] [id number] KAI SOTO Self - patient is the [...]
--- OUTSIDE RECORDS SUMMARY | 2025-05-08 10:35 | XMS_ITS | Clinical Summary ---
Author Organization [facility] Address [address] [place] [address] Care Team Providers Care Market Risk Analyst Name Role Phone Reji Palomino NP Primary [...] age to complete this topic Care Teams Market Risk Analyst Relationship Specialty Start Date End Date Reji Palomino NP 262 [facility] [place], [place] PCP - General 11/24/21
== END 2025-05-08 09:51 | disposition home or self-care (01) ==
LOC: HO.CT 09:50
PROVIDERS: PCP Nurse Practitioner Family; Visit Provider Hospitalist
DX: R91.1 Solitary pulmonary nodule (principal)
CPT/HCPCS: 71250

== ENCOUNTER → 2025-05-08 09:52 | Outpatient (BNV) | payer MEDICARE, SELFPAY | PROVIDERS: PCP Nurse Practitioner Family; Visit Provider Radiology Diagnostic Radiology | DX: R91.1 Solitary pulmonary nodule (principal) | CPT/HCPCS: 71250 ==

== ENCOUNTER 2025-05-30 06:16 | Outpatient (REF) | payer MEDICARE, SELFPAY ==
--- OUTSIDE RECORDS SUMMARY | 2024-12-08 06:00 | XMS_ITS ---
Author Organization [facility] Address [address] [place] [address] Care Team Providers Care Sales Coach Name Role Phone HEATHER LAMBERT Primary Care Provider Dalton Archer Jr REASON FOR VISIT screening Encounters Encounter Location Date Provider Diagnosis [facility] Outpatient [address] [place], [place] [phone] 12/08/2024 Dalton Alanis Jr Colon cancer screening [...] SOTOKAI SIMS WDOB:[birth year] (70 yo M)Acc No.[id number]:12/08/2024 COLON WITH MAC Patient: KAI PEDERSEN Provider: Bashir Alanis MD :1955 A ge:69 Y S ex:Male Date:12/08/2024 Address:[address] [place], [place] [phone] Pcp:HEATHER LAMBERT Subjective: * Chief Complaints: * 1 . Screening. * Medical History: Objective: * Vitals: Assessment: * Assessment: 1. C olon cancer screening - Z12.11 (Primary) 2 . P ersonal history of adenomatous and serrated colon polyps - Z86.0101 3 . C olon polyps - K63.5 ? Plan: * Treatment: * Procedure Codes: G 0105 COLOREC CANCR SCR; COLNSCPY HI RISK, [address] COLONOSCOPY AND BIOPSY, 0529F INTRVL 3+YRS PTS CLNSCP DOCD * * The named appointment provid er may or may not be the originator of this progress note, and it is not deemed complete until electronically signed by the appointment provider. Sign off status: Pending * Provider: Bashir Alanis MD Date: 0 12/08/2024 Generated for Mirna kelly/Sebastien/Alokitting on: 0 05/30/2025 06:20 AM EDT
--- OUTSIDE RECORDS SUMMARY | 2025-05-30 06:21 | XMS_ITS | Clinical Summary ---
Author Organization [facility] Address [address] [place] [address] Care Team Providers Care Chief I Dispatcher Name Role Phone Reji Palomino NP Primary Care Provider Medications furosemide (LASIX) 40 mg tablet TAKE 1 TABLET BY MOUTH EVERY DAY 90 tablet 1 5 Active metoprolol succinate (TOPROL-XL) 50 mg 24 hr tablet TAKE 1 TABLET BY MOUTH EVERY DAY 90 tablet 2 5 Active metoprolol succinate (TOPROL-XL) 50 mg 24 hr tablet TAKE 1 TABLET BY MOUTH EVERY DAY 90 tablet 2 4 05/28/20 25 Discontinued Social History Tobacco Use Types Packs/Day Years [...] 08/23/2022 Social Influencers of Health Screening 08/23/2022 Depression Screening 09/13/2024 Hypertension/CHF/CAD Annual BMP Blood Test 04/03/2025 04/03/2024 COVID-19 Vaccine ( season) 2025 11/19/2020, 10/29/2020 Influenza Vaccine (#1) 2025 3, 06/17/2022, 08/05/2021, [...] age to complete this topic Care Teams Chief I Dispatcher Relationship Specialty Start Date End Date Reji Palomino NP [address] [facility] [place], [place] PCP - General 11/24/21
--- OUTSIDE RECORDS SUMMARY | 2025-05-30 06:21 | XMS_ITS | Patient Health Record ---
Author Organization [facility] Address [address] [place] [address] Care Team Providers Care Anchorman Name Role Phone HAETHER LAMBERT Primary Care Provider Dalton Archer Jr Unavailable Allergies No Known Allergies Results Component Value Reference Range Notes Prothrombin Time INR Reviewed date:12/08/2024 04:26:11 PM Interpretation: Performing Lab:[facility], [address] [place] [id number] Notes/Report: Unable to obtain x2 attempts Yarslen [...] Reviewed date:12/16/2024 03:38:16 PM Interpretation: Performing Lab:[address] [address] Notes/Report: Reason For Referral No Information Medications [...] Problem Status W/U Status Risk Notes Problem 882909282 Colon cancer screening (Z12.11) Active confirmed Problem 457085702 long-term (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 anticoagulants (Z79.01) Active confirmed Problem 745031886 long-term (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 aspirin (Z79.82) Active confirmed Vital Signs Blood pressure diastolic 00 mm Hg 10/26/2024 Height 69 in 10/26/2024 Blood pressure systolic 00 mm Hg 10/26/2024 Weight 240 lbs 10/26/2024 BMI 35.44 kg/m2 10/26/2024 Encounters Encounter Location Date Provider Diagnosis [facility] Outpatient [address] [place], [place] [id number] 12/08/2024 Dalton Alanis Jr Colon cancer screening Z12.11 ; Personal history of adenomatous and serrated colon polyps Z86.0101 and Colon polyps K63.5 [facility] [address] [place] [address] 10/26/2024 Dalton Alanis Jr Colon cancer screening Z12.11 and long-term (current) use of anticoagulants Z79.01 [facility] [address] [place] [address] 12/16/2024 Dalton Alanis Jr Assessments Encounter Date [...] valve today. He understands these risks. 10/26/2024 rn long term care (current) use of anticoagulants (ICD-10 - Z79.01) [...] Date MEDICARE OF [place] [address] [place] [address] [phone] [id number] KAI SOTO Self - patient is the insured [employer] ATT[employer] CLAIMS [address] [place] [address] [phone] [id number] KAI SOTO Self - patient is the [...]
[2025-05-30 08:01] LABS: Appearance Urine Clear; Glucose Urine UA Negative (Negative); PH 5.5 (5.0-9.0); Specific Gravity - Urine 1.020 (1.005-1.025); UMIC TRIGGER UACC YES
[2025-05-30 08:07] LABS: UACC Culture Trigger YES
[2025-05-30 09:44] LABS: Free T4 (Free Thyroxine) 0.97 ng/dL (0.71-1.85)
== END 2025-05-30 06:17 | disposition home or self-care (01) ==
LOC: HO.LAB 06:16
PROVIDERS: PCP Nurse Practitioner Family; Visit Provider Nurse Practitioner Family
DX: Z51.81 Encounter for therapeutic drug level monitoring (principal); Z13.29 Encounter for screening for other suspected endocrine disorder; R80.9 Proteinuria, unspecified; R79.89 Other specified abnormal findings of blood chemistry
CPT/HCPCS: 36415; 81001; 81003; 84439; 84443; 85610; 86376; 87086; 87088; 87186; 99211

== ENCOUNTER 2025-05-30 12:59 | Outpatient (AMB) | payer MEDICARE, SELFPAY ==
[2025-05-30 13:08] LABS: Prothrombin Time Whole Bld POC 35.9 sec (11.1-13.5); ~PT, ~INR - Anti Coag Clinic 3.0 (0.9-1.1)
--- NOTE | 2025-05-30 13:17 | MHC.OFFVISCO ---
Intake Intake Visit Reasons: Anticoagulation Allergies No Known Allergies Allergy (Mild, Verified 05/30/25 13:03) NOT APPLICABLE Medication List - Last Reconciled 05/30/25 by Mariann Loera RN amlodipine 5 mg PO DAILY amoxicillin 2,000 mg (4 x 500 mg) PO DAILY 4 days cefuroxime axetil 250 mg PO BID 7 days cholecalciferol (vitamin D3) (Vitamin D3) 25 mcg PO DAILY codeine-guaifenesin 10-100 mg/5 mL 5 mL PO Q6H PRN furosemide 40 mg PO QAM metoprolol oates-hydrochlorothiaz 25-12.5 mg tabs PO simvastatin 10 mg PO BEDTIME tamsulosin 0.8 mg (2 x 0.4 mg) PO BEDTIME 90 days warfarin See Protocol orally; 7.5MG TUES & FRI, 9MG SUN, MON,WED, MANUEL SAT Nursing Note NO CP,SOB,DIET/MED CHANGES,FALLS OR SX OF BLEEDING. CONTINUE PRESENT DOSE AND FOLLOW-UP IN 4 WEEKS GOOD UNDERSTANDING VERB. 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
--- OUTSIDE RECORDS SUMMARY | 2025-05-30 16:27 | XMS_ITS | Clinical Summary ---
Author Organization [facility] Address [address] [place] [address] Care Team Providers Care Farm Facility Manager Name Role Phone Reji Palomino NP [...] age to complete this topic Care Teams Farm Facility Manager Relationship Specialty Start Date End Date Reji Palomino NP [address] [facility] [place], [place] PCP - General 11/24/21
== END 2025-05-30 13:38 | disposition home or self-care (01) ==
LOC: HO.ACS 12:59
PROVIDERS: PCP Nurse Practitioner Family; Visit Provider Internal Medicine Medical Oncology
DX: Z79.01 Long term (current) use of anticoagulants (principal)

== ENCOUNTER 2025-06-27 13:05 | Outpatient (AMB) | payer MEDICARE, SELFPAY ==
--- NOTE | 2025-06-27 13:12 | MHC.OFFVISCO ---
Intake Intake Visit Reasons: Anticoagulation Allergies No Known Allergies Allergy (Mild, Verified 06/27/25 13:07) NOT APPLICABLE Medication List - Last Reconciled 06/27/25 by Macarena Escobedo RN amlodipine 5 mg PO DAILY amoxicillin 2,000 mg (4 x 500 mg) PO DAILY 4 days cefuroxime axetil 250 mg PO BID 7 days cholecalciferol (vitamin D3) (Vitamin D3) 25 mcg PO DAILY codeine-guaifenesin 10-100 mg/5 mL 5 mL PO Q6H PRN furosemide 40 mg PO QAM metoprolol oates-hydrochlorothiaz 25-12.5 mg tabs PO simvastatin 10 mg PO BEDTIME tamsulosin 0.8 mg (2 x 0.4 mg) PO BEDTIME 90 days warfarin See Protocol orally; 7.5MG TUES & FRI, 9MG SUN, MON,WED, MANUEL SAT Nursing Note INR 4.8-? out of therapeutic range 2.5-3.5 Medications and supplements reviewed Patient status: had etoh over weekend,states unsure if taken extra warfarin Medications or supplements: completed antibiotics for uti approx 1.5 weeks ago Diet: samd Denies any signs and symptoms of bleeding or clotting or unusual bruising Bleeding, bruising, clotting discussed - aware of risk for bleeding Nutritional guidance given: eat cooked greens to lower today and tomm Dose: already took warfarin today, hold tomm then cont reg dosing, 7.5mg x 2, 9mg x 5 F/U INR Date : one week Patient verbalizing understanding of instructions given. Anti-Coag Initial Assessment Social Hx Patient Tobacco Use Status: Former Tobacco user Tobacco use type: Cigarette Smoking packs per day: 1 alcohol intake: current Alcohol intake frequency: a few times a week Coding Level of Care Code Est Patient Level 1 Diagnoses Current use of anticoagulant therapy Z79.01 Results AMB INR Fingerstick AMB INR Fingerstick 4.8 Last Edit by Macarena Escobedo RN on 06/27/25 13:16 interface delay Assessment & Plan Assessment & Plan (1) Current use of anticoagulant therapy: Code(s): Z79.01 - alf (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
[2025-06-28 08:19] LABS: Prothrombin Time Whole Bld POC 57.3 sec (11.1-13.5); ~PT, ~INR - Anti Coag Clinic 4.8 (0.9-1.1)
== END 2025-06-27 13:40 | disposition home or self-care (01) ==
LOC: HO.ACS 13:05
PROVIDERS: PCP Nurse Practitioner Family; Visit Provider Internal Medicine Medical Oncology
DX: Z79.01 Long term (current) use of anticoagulants (principal)

== ENCOUNTER → 2025-06-27 13:05 | Outpatient (BNVA) | payer MEDICARE, SELFPAY | PROVIDERS: PCP Nurse Practitioner Family; Visit Provider Internal Medicine Medical Oncology | DX: Z51.81 Encounter for therapeutic drug level monitoring (principal); Z79.01 Long term (current) use of anticoagulants | CPT/HCPCS: 85610; 99211 ==

== ENCOUNTER → 2025-07-04 13:04 | Outpatient (BNVA) | payer MEDICARE, SELFPAY | PROVIDERS: PCP Nurse Practitioner Family; Visit Provider Internal Medicine Medical Oncology | DX: Z98.2 Presence of cerebrospinal fluid drainage device (principal); Z51.81 Encounter for therapeutic drug level monitoring; Z79.01 Long term (current) use of anticoagulants | CPT/HCPCS: 85610; 99211 ==

== ENCOUNTER 2025-07-26 08:12 | Outpatient (AMB) | payer MEDICARE, SELFPAY ==
--- OUTSIDE RECORDS SUMMARY | 2024-12-08 05:00 | XMS_ITS ---
Author Organization [facility] Address [address] [place] [address] Care Team Providers Care Sustainability Specialist Name Role Phone HEATHER LAMBERT Primary Care Provider Dalton Archer Jr REASON FOR VISIT screening Encounters Encounter Location Date Provider Diagnosis [facility] Outpatient [address] [place], [place] [phone] 12/08/2024 Dalton Alanis Jr Colon cancer screening Z12.11 ; Personal history of adenomatous and serrated colon polyps Z86.0101 and Colon polyps K63.5 Assessments Encounter Date Diagnosis (ICD Code) Assessment Notes Treatment Notes Treatment Clinical Notes Section Notes 12/08/2024 Colon cancer screening (ICD-10 - Z12.11) 12/08/2024 Personal history of adenomatous and serrated colon polyps (ICD-10 - Z86.0101) 12/08/2024 Colon polyps (ICD-10 - K63.5) Plan Of Treatment No Information Progress Notes * SOTOKAI SIMS WDOB:[birth year] (70 yo M)Acc No.[id number]:12/08/2024 COLON WITH MAC Patient: KAI PEDERSEN Provider: Bashir Alanis MD :1955 A ge:69 Y S ex:Male Date:12/08/2024 Address:[address] [place], [place] [id number] Pcp:HEATHER LAMBERT Subjective: * Chief Complaints: * 1 . Screening. * Medical History: Objective: * Vitals: Assessment: * Assessment: 1. C olon cancer screening - Z12.11 (Primary) 2 . P ersonal history of adenomatous and serrated colon polyps - Z86.0101 3 . C olon polyps - K63.5 ? Plan: * Treatment: * Procedure Codes: G 0105 COLOREC CANCR SCR; COLNSCPY HI RISK, [address]118 COLONOSCOPY AND BIOPSY, 0529F INTRVL 3+YRS PTS CLNSCP DOCD * * The named appointment provid er may or may not be the originator of this progress note, and it is not deemed complete until electronically signed by the appointment provider. Sign off status: Pending * Provider: Bashir Alanis MD Date: 0 12/08/2024 Generated for Mirna kelly/Sebastien/Alokitting on: 1 09/25/2024 08:23 AM EST
--- OUTSIDE RECORDS SUMMARY | 2025-07-26 08:23 | XMS_ITS | Patient Health Record ---
Author Organization [facility] Address [address] [place] [address] Care Team Providers Care Chief Orthoptist Name Role Phone HEATHER LAMBERT Primary Care Provider Dalton Archer Jr Unavailable Allergies No Known Allergies Results Component Value Reference Range Notes Prothrombin Time INR Reviewed date:12/08/2024 04:26:11 PM Interpretation: Performing Lab:[facility], [address] [place] [phone] Notes/Report: Unable to obtain x2 attempts Yarslen [...] Reviewed date:12/16/2024 03:38:16 PM Interpretation: Performing Lab:[address] [address] Notes/Report: Reason For Referral No Information Medications Medication SIG (Take, Route, Frequency, Duration) Notes Start Date End Date Status Vitamin B + C Complex - as directed Orally Active Metoprolol-HCTZ ER 25-12.5 MG 1 tablet Orally Once a day; Duration: 30 day(s) Active MiraLax (colon prep) 17 GM/SCOOP mixed with Gatorade or Crystal Light Orally begin at 5:00 p.m. the day before the procedure; Duration: 1 day 10/26/2024 Active Tamsulosin HCl 0.4 MG TAKE 2 CAPSULES BY MOUTH AT BEDTIME FOR 90 DAYS Oral; Duration: 90 Active Warfarin Sodium 7.5 MG 1 tablet Orally s liding scale Active amLODIPine Besylate 2.5 MG TAKE 1 TABLET BY MOUTH EVERY DAY Oral; Duration: 90 Active Toprol XL 25 MG 1 [...] Problem Status W/U Status Risk Notes Problem Colon cancer screening (851468942) Colon cancer screening (Z12.11) Active confirmed Problem Long-term current use of anticoagulant (535660503) longterm (current) use of anticoagulants (Z79.01) Active confirmed Problem Long-term current use of antiplatelet drug (985569018918719) 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 (Z79.82) Active confirmed Vital Signs Blood pressure diastolic 00 mm Hg 10/26/2024 Height 69 in 10/26/2024 Blood pressure systolic 00 mm Hg 10/26/2024 Weight 240 lbs 10/26/2024 BMI 35.44 kg/m2 10/26/2024 Encounters Encounter Location Date Provider Diagnosis [facility] [place] [address] [place], [place] [id number] 12/08/2024 Dalton Alansi Jr Colon cancer screening Z12.11 ; Personal history of adenomatous and serrated colon polyps Z86.0101 and Colon polyps K63.[address] [place] [address] 10/26/2024 Dalton Alanis Jr Colon cancer screening Z12.11 and longterm (current) use of anticoagulants Z79.01 [facility] [address] [place] [address] 12/16/2024 Dalton Alanis Jr Assessments Encounter Date [...] valve today. He understands these risks. 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
--- OUTSIDE RECORDS SUMMARY | 2025-07-26 08:24 | XMS_ITS | Patient Health Record ---
Author Organization [facility] Mercedesandrade Messer Address [address] [facility] [place] [address] Care Team Providers Care Pottery Machine Operator Name Role Phone Rjei Kiran Primary Care Provider Unav Drew Wan Unavailable [phone] Allergies No Known Allergies Reason For Referral No Information Medications Medication SIG (Take, Route, Frequency, Duration) Notes Start Date End Date Status amLODIPine Besylate 2.5 MG 1 tablet Oral ly Once a day Active Metoprolol Succinate 50 MG 1 capsule Ora lly Once a day Active Warfarin Sodium 9 mg Acti ve Voltaren 1 % Apply 4 grams to chele nful area on foot as directed Externally Four times a day; Duration: 30 days 07/03/2025 Active Simvastatin 10 MG 2 tablets in the sapna oswaldo Orally Once a day Active Tamsulosin HCl 0.4 MG 1 capsule Orally O nce a day Active Vitamin D3 Extra Strength 25 MCG (1000 UT) 1 tablet Orally Once a day Active Immunizations Vaccine Route Administration Date Status Comme nts Influenza Unknown 06/14/2025 Administered Social History Tobacco Use: Social History Observation Description Date Details (start date - stop date) Never Smoker NA - NA Tobacco Control (Standard) Question Answer Notes Tobacco use: Nonsmoker Additional Findings: Tobacco non-user Current no nsmoker AUDIT-C (Standard) Question Answer Notes Did you have a drink containing alcohol in the p ast year? No Points 0 Interpretation Negative Problems Problem Type SNOMED Code ICD Code Onset Dates Problem Status W/U Status Risk Notes Problem Tailor's bunion of left foot (285262577853 9100) Tailor's bunion of left foot (M21.622) Active confirmed Problem Tailor's bunion of right foot (639183760380 9109) Tailor's bunion of right foot (M21.621) Active confirmed Vital Signs Height 5 ft 8in in 07/03/2025 Weight 230 lbs 07/03/2025 BMI 34.97 kg/m2 07/03/2025 Encounters Encounter Location Date Provider Diagnosis [facility] [address] 07/03/2025 Drew Stevenson Right foot pain M79.671 ; Tailor's bunion of right foot M21.621 ; Left foot pain M79.672 and Tailor's bunion of left foot M21.[address] [address] 07/02/2025 Drew Stevenson [facility] [address] 07/03/2025 Drew Stevenson Assessments Encounter Date Diagnosis (ICD Code) Assessment Notes Treatment Notes Treatment Clinical Notes Section Notes 07/03/2025 Right foot pain (ICD-10 - M79.671) 07/03/2025 Tailor's bunion of right foot (ICD-10 - M21.621) 07/03/2025 Left foot pain (ICD-10 - M79.672) 07/03/2025 Tailor's bunion of left foot (ICD-10 - M21.622) Plan Of Treatment Pending Test Test Name Order Date X ray : Foot, left 3V 07/03/2025 X ray : Foot, right 3V 07/03/2025 Insurance Providers Payer Name Payer Address Payer Phone Subscriber Number Group Number Insured Name Patient Relationship to Insured Coverage Start Date Coverage End Date Medicare National Gov[employer] S[employer] [address] [place] [address] [id number] Fabio Pina Self - patient is the insured 8 [employer] Blue [employer] [address] [place] [address] [phone] [id number] Fabio Pina Self - patient is the insured 8 Medical (General) History Medical History History ICD Code Back,Hip,and Knee pain covid-19 Cancer High Blood Pressure Surgical History Surgery Date(Month/Year) Heart Valve 2007 rotator cuff tear repair 2008 knee replacement 2017
--- OUTSIDE RECORDS SUMMARY | 2025-07-26 08:24 | XMS_ITS | Clinical Summary ---
Author Organization [facility] Address [address] [place] [address] Care Team Providers Care Kst Operator Name Role Phone Reji Palomino NP Primary Care Provider Medications furosemide (LASIX) 40 mg tablet TAKE 1 TABLET BY MOUTH EVERY DAY 90 tablet 1 11/28/2024 Active metoprolol succinate (TOPROL-XL) 50 mg 24 hr tablet TAKE 1 TABLET BY MOUTH EVERY DAY 90 tablet 2 05/28/2025 Active Social History Tobacco Use Types Packs/Day [...] Health Maintenance Due Date Last Done Comments Colorectal Cancer Screening: Colonoscopy 1955 DTaP,Tdap,and Td Vaccines (1 - Tdap) 01/22/1972 Zoster Vaccines (1 of 2) 2003 Abdominal Aortic Aneurysm (AAA) Screen 08/23/2022 Cholesterol Screening (Lipid Panel) 08/23/2022 Falls Risk Assessment 08/23/2022 Hepatitis C [...] age to complete this topic Care Teams Kst Operator Relationship Specialty Start Date End Date [facility] - [facility] 11/24/[facility]
[2025-07-26 08:26] VITALS: BP 150/80; PULSE 66; TEMP 36.8; O2SAT 98; BMI 35.7
--- NOTE | 2025-07-26 08:26 | MHC.OFFWIV ---
Intake Vital Signs 07/26/25 08:26 Height 5 ft 9 in Weight 242 lb BMI 35.7 BP 150/80 H Blood Pressure Location Lt brachial Position Sitting Pulse 66 Pulse Source Pulse Oximeter Temp 98.3 F Temp Source Oral Pulse Oximetry (%) 98 Oxygen Delivery Method Room Air Intake Visit Reasons: EP - chest congestion, cough Intake Note: Patient presents c/o cough, runny nose, chest congestion x1 week Patient Tobacco Use Status: Former Tobacco user Allergies No Known Allergies Allergy (Mild, Verified 07/26/25 08:30) NOT APPLICABLE Medication List - Last Reconciled 07/26/25 by Katelin Ivy NP amlodipine 5 mg PO DAILY cholecalciferol (vitamin D3) (Vitamin D3) 25 mcg PO DAILY furosemide 40 mg PO QAM metoprolol oates-hydrochlorothiaz 25-12.5 mg tabs PO simvastatin 10 mg PO BEDTIME tamsulosin 0.8 mg (2 x 0.4 mg) PO BEDTIME 90 days warfarin See Protocol orally; 7.5MG TUES & FRI, 9MG SUN, WED,WED, MANUEL SAT Do you need a note to return to daycare/school/sports/work: No HPI HPI Comments History of Present Illness Details 70 y/o Male patient presents to the walk-in clinic with c/o upper respiratory infection (URI) symptoms for 1 week. Reports cough, runny nose, and chest congestion. Denies fevers, chills, nausea, or vomiting. Denies any recent sick contacts. Has been taking Mucinex and Claritin with minimal relief. REPLACED BY [facility] Medical History (Updated 07/26/25 @ 09:21 by Katelin Ivy NP) Acute respiratory disease History of Mohs micrographic surgery for skin cancer Elevated cholesterol Asbestos-induced pleural plaque Atelectasis Elevated diaphragm Primary hyperparathyroidism Vitamin D deficiency Hyperparathyroidism Gynecomastia Malignant melanoma Osteoarthritis Rotator cuff tear Cervical spondylolysis Dyslipidemia HTN (hypertension) Surgical History History of right knee joint replacement Hx of colonoscopy Hx of repair of rotator cuff Aortic valve replaced Hx of cardiac cath History of lobectomy of thyroid Family History Father History of CVA (cerebrovascular accident) Diabetes mellitus Mother Stomach ulcer Daughter Brain tumor Maternal Grandfather No problems noted. Maternal Grandmother No problems noted. Paternal Grandfather No problems noted. Paternal Grandmother No problems noted. Maternal Aunt No problems noted. Maternal Uncle No problems noted. Paternal Aunt No problems noted. Paternal Uncle No problems noted. Social History Housing: House Alcohol intake: current Alcohol intake frequency: a few times a week Alcohol type: beer Patient Tobacco Use Status: Former Tobacco user Tobacco use type: Cigarette Cigarette Packs Per Day: 1 Years Smoked: 12 e-Cigarette/Vaping Use: Never Used service: No Current occupational status: retired Cognitive needs: No Hearing needs: No Vision needs: Yes Physical Exam Vital Signs: Last Vital Signs Temp 98.3 F 07/26/25 08:26 Pulse 66 07/26/25 08:26 BP 150/80 H 07/26/25 08:26 Pulse Ox 98 07/26/25 08:26 Oxygen Delivery Method Room Air 07/26/25 08:26 BMI result Body Mass Index 35.7 Const General: no acute distress Nutritional Appearance: obese Orientation/consciousness: patient oriented x3 HEENT Head: Yes normocephalic Ears: external ears normal and TM abnormal with fluid behind the TM bilateral General nose exam: Nasal discharge present Face and sinus: Yes sinuses nontender Mouth: moist mucous membranes Throat: Yes uvula midline Resp Effort & Inspection: normal respiratory effort, able to speak in complete sentences and no cough Auscultation: clear to auscultation bilaterally, no crackles, no rales, no rhonchi and no wheezes Cardio Heart sounds: S1 normal heart sound present and S2 normal heart sound present Neuro General: patient oriented x3, gait normal and moves all extremities Psych Speech and movement: Normal speech and movement present Assessment & Plan Assessment & Plan (1) Acute respiratory disease: Code(s): J06.9 - Acute upper respiratory infection, unspecified Plan: Viral Upper Respiratory Infection (URI) Cough secondary to post-nasal drip / congestion. Ordered SARs Continue symptomatic management: increase oral fluids and rest. Avoid OTC cough remedies ? may elevate BP. Add saline nasal spray or use a humidifier at night. Start OTC Coricidin Oral Liquid as directed. Doxycycline prescribed for 5 days (Z-pack contraindicated due to Coumadin use). Return if symptoms worsen, persist beyond 10?14 days, or if new symptoms develop (fever, SOB, chest pain, or productive cough with colored sputum). Orders: Orders SARS-CoV2/FLU/RSV Today J06.9 - Acute upper respiratory infection, unspecified Medications: New doxycycline hyclate 100 mg PO BID 10 caps 0RF 5 days J06.9 - Acute upper respiratory infection, unspecified [id number] 6.25-15-325 mg/15 mL (Coricidin HBP Cold-Multi Symptom) 10 mL PO Q6-8H 355 mL 0RF J06.9 - Acute upper respiratory infection, unspecified Coding Level of Care Code Est Pt Level 4 (93941) Diagnoses Acute respiratory disease J06.9 Time Spent (min) 20
== END 2025-07-26 09:23 | disposition home or self-care (01) ==
PROVIDERS: PCP Nurse Practitioner Family; Visit Provider Nurse Practitioner Family
DX: J06.9 Acute upper respiratory infection, unspecified (principal)

== ENCOUNTER 2025-07-26 08:12 | Outpatient (REF) | payer MEDICARE, SELFPAY ==
[2025-07-26 12:59] LABS: Resp Syncy Virus RNA Qual PCR NEGATIVE (Negative); SARS COV2 PCR INHOUSE NEGATIVE (Negative)
== END 2025-07-26 08:13 | disposition home or self-care (01) ==
LOC: HO.LAB 08:12
PROVIDERS: PCP Nurse Practitioner Family; Visit Provider Nurse Practitioner Family
DX: J06.9 Acute upper respiratory infection, unspecified (principal); Z87.891 Personal history of nicotine dependence; Z79.01 Long term (current) use of anticoagulants
CPT/HCPCS: 87637; 99212

== ENCOUNTER → 2025-08-01 12:58 | Outpatient (BNVA) | payer MEDICARE, SELFPAY | PROVIDERS: PCP Nurse Practitioner Family; Visit Provider Internal Medicine Medical Oncology | DX: Z95.2 Presence of prosthetic heart valve (principal); Z51.81 Encounter for therapeutic drug level monitoring; Z79.01 Long term (current) use of anticoagulants | CPT/HCPCS: 85610; 99211 ==

== ENCOUNTER 2025-08-21 13:04 | Outpatient (AMB) | payer MEDICARE, SELFPAY ==
--- OUTSIDE RECORDS SUMMARY | 2024-12-08 05:00 | XMS_ITS ---
Author Organization [facility] Address [address] [place] [address] Care Team Providers Care Siene Maker Name Role Phone HEATHER LAMBERT Primary Care Provider Dalton Archer Jr REASON FOR VISIT screening Encounters Encounter Location Date Provider Diagnosis [facility] Outpatient [address] [place], [place] [phone] 12/08/2024 Dalton Alanis Jr Colon cancer screening [...] SOTOKAI SIMS WDOB:[birth year] (70 yo M)Acc No.[id number]:12/08/2024 COLON WITH MAC Patient: KAI PEDERSEN Provider: Bashir Alanis MD :1955 A ge:69 Y S ex:Male Date:12/08/2024 Address:[address] [place], [place] [id number] Pcp:HEATHER LAMBERT Subjective: * Chief Complaints: * S creening Assessment: * Assessment: 1. C olon cancer screening - Z12.11 (Primary) 2 . P ersonal history of adenomatous and serrated colon polyps - Z86.0101 3 . C olon polyps - K63.5 ? Plan: * Procedure Codes: G 0105 COLOREC CANCR SCR; COLNSCPY HI [id number] COLONOSCOPY AND [id number] INTRVL 3+YRS PTS CLNSCP DOCD Billing Information: * Procedure Codes: G0105 COLOREC CANCR SCR; COLNSCPY HI RISK. 96459 COLONOSCOPY AND BIOPSY. 0529F INTRVL 3+YRS PTS CLNSCP DOCD. * The named appointment provid er may or may not be the originator of this progress note, and it is not deemed complete until electronically signed by the appointment provider. Sign off status: Pending * Provider: Bashir Alanis MD Date: 0 12/08/2024 Generated for Mirna kelly/Sebastien/Loyd on: 1 10/22/2024 05:13 PM EST
--- NOTE | 2025-08-21 13:06 | MHC.OFFVIS ---
Vital Signs 08/21/25 13:07 Height 5 ft 9 in Weight 240 lb 4.862 oz BMI 35.5 BP 152/68 H Blood Pressure Location Lt brachial Position Sitting Pulse 60 Pulse Source Pulse Oximeter Pulse Oximetry (%) 98 Oxygen Delivery Method Room Air Intake Visit Reasons: abnormal CT Counterintelligence Analyst Required: No Accompanied by: Self / Same As Patient Allergies No Known Allergies Allergy (Mild, Verified 08/21/25 13:12) NOT APPLICABLE HPI Comments Details: The patient is a 70-year-old gentleman with a known history of valvular disease status post surgery presenting with worsening dyspnea on exertion. Patient states that he was in his usual state health until about a year ago when he started developing some worsening shortness of breath. He was initially concerned because of his history valvular disease and this is how it felt like back in the time. 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 Therefore the patient did follow-up with his primary care doctor and underwent a pulmonary function study and CT scan of the chest and is referred to Pulmonary. The patient denies any wheezing denies any significant coughing is mainly just the shortness breath with activity. Patient denies any chest discomfort. We did review his pulmonary function studies which demonstrated a low normal total lung capacity and significantly decreased expiratory reserve volume of only 10%. Otherwise no evidence of any obstruction. However, his CT scan of the chest was more revealing as it demonstrates that his right diaphragm is elevated. Along with that he has significant atelectasis to the right lower lobe area. He does have pulmonary nodules that will need follow-up. 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 During the visit we did go for brief walking oximetry the patient did well though his oxygen was 94% with activity. I do believe that in part the elevated diaphragm could be worsening from increased weight gain. This will be potentially increasing the abdominal pressures pushing the diaphragm. Potentially could have a component of diaphragmatic injury or paralysis I may be hindering his ventilation and therefore work of breathing. I did provide him with a incentive spirometer so he can work on deep breathing exercises while we wait for a sniff study. 11/21/2019 the patient is here for a pulmonary follow-up visit. Overall he is doing well. Over the winter he did have a few bouts of bronchitis and also laryngitis. The patient was treated at the urgent care. He did have an x-ray and was swab for the RSV COVID and flu back in September 16. Everything looked okay except for the chronically elevated right hemidiaphragm. He was treated and released. He did have another bout then after that where he went back to the urgent care but he was not treated with medication prescriptions he was given [id number] Mucinex. Currently is back to his baseline. He does have a rescue inhaler that he that he does not use. The patient again demonstrates that he has a elevated right hemidiaphragm. We did request a sniff study but the patient has not had as of yet. He also has pulmonary nodules. There subcentimeter in nature. We need have a repeat CT scan will plan to do it in 08/02/2025 since she is feeling well. The patient will get the Prevnar 21 vaccine now. He will follow-up in August after his CT scan if he develops any worsening symptoms prior to that he will call for an earlier assessment. 08/21/2025 the patient is here for pulmonary follow-up visit. Overall the patient is doing well. He is thinking about weight loss. He knows that he gained about 15 lb in the last year and this is affecting his breathing. He understands that he has have the affected diaphragm likely from his cardiac surgery in the past. Now with the increased weight gain that abdominal pressure is going to cause worsening respiratory symptoms. He is going to work on both a dietary changes and also increased exercise in the next year. We did review his CT scan of the chest. He does have evidence of asbestos related lung disease with asbestos plaques and also has evidence of asbestosis with areas of ground-glass opacities and scarring. But at this point the disease is stable he does not need any therapy. The patient will have a repeat CAT scan in a year's time to assess the nodules and also assess the asbestos related lung disease. In the meantime he will continue with the current respiratory regimen in will follow-up in a year. If any issues arise prior to that he can always call for further recommendations. [facility] Medical History (Updated 08/21/25 @ 21:10 by Sam Acosta MD) Asbestosis Acute respiratory disease History of Mohs micrographic surgery for skin cancer Elevated cholesterol Asbestos-induced pleural plaque Atelectasis Elevated diaphragm Primary hyperparathyroidism Vitamin D deficiency Hyperparathyroidism Gynecomastia Malignant melanoma Osteoarthritis Rotator cuff tear Cervical spondylolysis Dyslipidemia HTN (hypertension) Surgical History History of right knee joint replacement Hx of colonoscopy Hx of repair of rotator cuff Aortic valve replaced Hx of cardiac cath History of lobectomy of thyroid Family History Father History of CVA (cerebrovascular accident) Diabetes mellitus Mother Stomach ulcer Daughter Brain tumor Maternal Grandfather No problems noted. Maternal Grandmother No problems noted. Paternal Grandfather No problems noted. Paternal Grandmother No problems noted. Maternal Aunt No problems noted. Maternal Uncle No problems noted. Paternal Aunt No problems noted. Paternal Uncle No problems noted. Social History Housing: House Alcohol intake: current Alcohol intake frequency: a few times a week Alcohol type: beer Patient Tobacco Use Status: Former Tobacco user Tobacco use type: Cigarette Cigarette Packs Per Day: 1 Years Smoked: 12 e-Cigarette/Vaping Use: Never Used service: No Current occupational status: retired Cognitive needs: No Hearing needs: No Vision needs: Yes Review of Systems Const Denies fever(s) and Reports weight gain Eyes Reports no additional complaints ENT Reports no additional complaints Card Denies chest pain and Reports dyspnea on exertion Resp Reports dyspnea on exertion and Denies wheezing GI Reports no additional complaints Musc Reports no additional complaints Skin/Breast Denies rash Endo Reports no additional complaints Daljit/Lymph Reports no additional complaints Aller/Immun Denies wheezing Physical Exam Vital Signs: Last Vital Signs Pulse 60 08/21/25 13:07 BP 152/68 H 08/21/25 13:07 Pulse Ox 98 08/21/25 13:07 Oxygen Delivery Method Room Air 08/21/25 13:07 BMI result Body Mass Index 35.5 Const General: comfortable HEENT Head: Yes normocephalic Neck Neck: Yes supple Chest Chest palpation & inspection: normal inspection of the chest Resp Effort & Inspection: normal respiratory effort Auscultation: diminished lung sounds Cardio Heart sounds: S1 normal heart sound present and S2 normal heart sound present GI Palpation (GI): Soft to palpation Skin General skin exam: no rashes or lesions noted Extrem General: Yes no clubbing, cyanosis or edema Assessment & Plan Assessment & Plan (1) Elevated diaphragm: Code(s): J98.6 - Disorders of diaphragm Category: Medical (2) Pulmonary nodule: Code(s): R91.1 - Solitary pulmonary nodule Category: Medical (3) Atelectasis: Code(s): J98.11 - Atelectasis Category: Medical (4) SOB (shortness of breath): Code(s): R06.02 - Shortness of breath Category: Medical (5) Asbestos-induced pleural plaque: Code(s): J92.0 - Pleural plaque with presence of asbestos Category: Medical (6) Pulmonary fibrosis: Code(s): J84.10 - Pulmonary fibrosis, unspecified Category: Medical (7) Asbestosis: Code(s): J61 - Pneumoconiosis due to asbestos and other mineral fibers Category: Medical Plan breathing exercises consider SNIFF study to assess right elevated diaphram weight management CT chest 07/2027 F/U 1 yr Orders: Orders CT chest wo IV con 07/29/26 J61 - Pneumoconiosis due to asbestos and other mineral fibers, J84.10 - Pulmonary fibrosis, unspecified, J92.0 - Pleural plaque with presence of asbestos, R91.1 - Solitary pulmonary nodule Medications: New albuterol sulfate 90 mcg/actuation 2 inhalations inhalation Q6H PRN 18 grams 12RF shortness of breath or wheezing 30 days J44.9 - Chronic obstructive pulmonary disease, unspecified Coding Level of Care Code Est Pt Level 4 (03384) Diagnoses Elevated diaphragm J98.6 Pulmonary nodule R91.1 Atelectasis J98.11 SOB (shortness of breath) R06.02 Asbestos-induced pleural plaque J92.0 Pulmonary fibrosis J84.10 Asbestosis J61 Time Spent (min) 17
[2025-08-21 13:07] VITALS: BP 152/68; PULSE 60; O2SAT 98; BMI 35.5
--- OUTSIDE RECORDS SUMMARY | 2025-08-21 17:13 | XMS_ITS | Patient Health Record ---
Author Organization [facility] Address [address] [place] [address] Care Team Providers Care Pantry Steward/Stewardess Name Role Phone HEATHER LAMBERT Primary Care Provider Dalton Archer Jr Unavailable Allergies No Known Allergies Results Component Value Reference Range Flag Notes Prothrombin Time INR Reviewed date:12/08/2024 04:26:11 PM Interpretation: Performing Lab:[facility], [address] [place] [id number] Notes/Report: Unable to obtain x2 attempts [place] 0900 12/08 Prothrombin Time 15.2 10.9-12.4 SEC H INTERNATIONAL NORM RATIO 1.3 0.9-1.1 H INTERNATIONAL NORMALIZED RATIO (INR) REFERENCE RANGES Reference [...] Pathology Reviewed date:12/16/2024 03:38:16 PM Interpretation: Performing Lab:[address] [phone] Notes/Report: Reason For Referral No Information Medications Medication SIG (Take, Route, Frequency, Duration) Notes Start Date End Date Status Vitamin B + C Complex - Tablet as directed Orally Active Metoprolol-HCTZ ER 25-12.5 MG Tablet Extended Release 24 Hour 1 tablet Orally Once a day; Duration: 30 day(s) Active MiraLax (colon prep) 17 GM/SCOOP Powder mixed with Gatorade or Crystal Light Orally begin at 5:00 p.m. the day before the procedure; Duration: 1 day 10/26/2024 Active Tamsulosin HCl 0.4 MG Capsule TAKE 2 CAPSULES BY MOUTH AT BEDTIME FOR 90 DAYS Oral; Duration: 90 Active Warfarin Sodium 7.5 MG Tablet 1 tablet Orally sliding scale Active amLODIPine Besylate 2.5 MG Tablet TAKE 1 TABLET BY MOUTH EVERY DAY Oral; Duration: 90 Active Toprol XL 25 MG Tablet Extended Release 24 Hour 1 tablet Orally Once a day Active Simvastatin 20 MG Tablet 1 tablet in the evening Orally Once a day Active Immunizations Vaccine Route Administration Date Status Comme nts Influenza Unknown 07/29/2021 Administered Social History Social History Drugs/Alcohol: Social Info Question Answer Notes Alcohol Screen Did you have a drink containing alcohol in the past year? Yes How often did you have a drink containing alcohol in the past year? 2 to 3 times a week (3 points) How many drinks did you have on a typical day when you were drinking in the past year? 3 or 4 drinks (1 point) How often did you have 6 or more drinks on one occasion in the past year? Never (0 point) Points 4 Interpretation Positive Additional Details Category Social Info Options Details Miscellaneous: Marital status: Occupation: retired Problems Problem Type SNOMED Code ICD Code Onset Dates Problem Status W/U Status Risk Notes Problem Colon cancer screening (940724136) Colon cancer screening (Z12.11) Active confirmed Problem Long-term current use of anticoagulant (184448210) terminal computer operator (current) use of anticoagulants (Z79.01) Active confirmed Problem Long-term current use of antiplatelet drug (693080966785054) terminal computer operator (current) use of aspirin (Z79.82) Active confirmed Vital Signs Blood pressure diastolic 00 mm Hg 10/26/2024 Height 69 in 10/26/2024 Blood pressure systolic 00 mm Hg 10/26/2024 Weight 240 lbs 10/26/2024 BMI 35.44 kg/m2 10/26/2024 Encounters Encounter Location Date Provider Diagnosis [facility] Out[facility] [address] [place] [id number] 12/08/2024 Dalton Alanis Jr Colon cancer screening Z12.11 ; Personal history of adenomatous and serrated colon polyps Z86.0101 and Colon polyps K63.5 [facility] [address] [place] [address] 10/26/2024 Dalton Alanis Jr Colon cancer screening Z12.11 and [facility] (current) use of anticoagulants Z79.01 [facility] [address] [place] [address] 12/16/2024 Dalton Alanis Jr Assessments Encounter Date [...] today. He understands these risks. 10/26/2024 terminal computer operator (current) use of anticoagulants (ICD-10 - Z79.01) [...] Date MEDICARE OF [place] [address] RADHASUGEY CASIANO [place] [address] [phone] [id number] KAI SOTO Self - patient is the insured MEDEX ATTN CLAIMS [address] [place] [phone] [id number] KAI SOTO Self - patient is the [...]
--- OUTSIDE RECORDS SUMMARY | 2025-08-21 17:14 | XMS_ITS | Clinical Summary ---
Author Organization [facility] Address [address] [place] [address] Care Team Providers Care Handling Tech Name Role Phone Reji Palomino NP Primary Care Provider [phone] Medications furosemide (LASIX) 40 mg tablet TAKE [...] on file Sexual Orientation Not on file Last Filed Vital Signs Vital Sign Reading [...] age to complete this topic Care Teams Handling Tech Relationship Specialty Start Date End Date Reji Palomino NP [address] [facility] [place] PCP - General 11/24/21
--- OUTSIDE RECORDS SUMMARY | 2025-08-21 17:14 | XMS_ITS | Patient Health Record ---
Author Organization [facility] Mercedesandrade Messer Address [address] [place] [address] Care Team Providers Care Transportation Maintenance Supervisor Name Role Phone Reji Kiran Primary Care Provider Unav Drew Wan Unavailable Allergies No Known Allergies Reason For [...] Notes Problem Tailor's bunion of left foot (036012965773 9100) Tailor's bunion of left foot (M21.622) Active confirmed Problem Tailor's bunion of right foot (471686614915 9109) Tailor's bunion of right foot (M21.621) Active confirmed Vital Signs Height 5 ft 8in in 07/03/2025 Weight 230 lbs 07/03/2025 BMI 34.97 kg/m2 07/03/2025 Encounters Encounter Location Date Provider Diagnosis [facility] [address] 07/03/2025 Drew Stevenson Right foot pain M79.671 ; Tailor's bunion of right foot M21.621 ; Left foot pain M79.672 and Tailor's bunion of left foot M21.[address] [facility] [address] 07/02/2025 Drew Stevenson [facility] [address] 07/03/2025 Drew Stevenson Assessments Encounter Date Diagnosis [...] Date Coverage End Date Medicare National Govt [employer] [facility] [address] [place] [address] [id number] Fabio Pina Self - patient is the insured 8 [employer] Blue Shield [address] [place] [address] [id number] Fabio Pina Self - patient is the insured 8 Medical (General) History Medical History History ICD Code Back,Hip,and Knee pain covid-19 Cancer High Blood Pressure Surgical History Surgery Date(Month/Year) Heart Valve 2007 rotator cuff tear repair 2007 knee replacement 2017
== END 2025-08-21 13:46 | disposition home or self-care (01) ==
PROVIDERS: PCP Nurse Practitioner Family; Visit Provider Hospitalist
DX: J98.6 Disorders of diaphragm (principal); R91.1 Solitary pulmonary nodule; J98.11 Atelectasis; R06.02 Shortness of breath; J92.0 Pleural plaque with presence of asbestos; J84.10 Pulmonary fibrosis, unspecified; J61 Pneumoconiosis due to asbestos and other mineral fibers
CPT/HCPCS: 99214

== ENCOUNTER → 2025-08-21 13:04 | Outpatient (BNVA) | payer MEDICARE, SELFPAY | PROVIDERS: PCP Nurse Practitioner Family; Visit Provider Hospitalist | DX: J98.6 Disorders of diaphragm (principal); R91.1 Solitary pulmonary nodule; J98.11 Atelectasis; R06.02 Shortness of breath; J92.0 Pleural plaque with presence of asbestos; J84.10 Pulmonary fibrosis, unspecified; Z87.09 Personal history of other diseases of the respiratory system; Z87.891 Personal history of nicotine dependence | CPT/HCPCS: 99212 ==

== ENCOUNTER 2025-08-29 13:04 | Outpatient (AMB) | payer MEDICARE, SELFPAY ==
--- OUTSIDE RECORDS SUMMARY | 2024-12-08 05:00 | XMS_ITS ---
Author Organization [facility] Address [address] [place] [address] Care Team Providers Care Automobile Tire Builder Name Role Phone HEATHER LAMBERT Primary Care Provider Dalton Archer Jr REASON FOR VISIT screening Encounters Encounter Location Date Provider Diagnosis [facility] Outpatient [address] [place], [place] [phone] 12/08/2024 Dalton Alanis Jr Colon cancer screening [...] SOTOKAI SIMS WDOB:[birth year] (70 yo M)Acc No.[id number]:12/08/2024 COLON WITH MAC Patient: KAI PEDERSEN Provider: Bashir Alanis MD :1955 A ge:69 Y S ex:Male Date:12/08/2024 Address:[address] [place], [place] [phone] Pcp:HEATHER LAMBERT Subjective: * Chief Complaints: * S creening Assessment: * Assessment: 1. C olon cancer screening - Z12.11 (Primary) 2 . P ersonal history of adenomatous and serrated colon polyps - Z86.0101 3 . C olon polyps - K63.5 ? Plan: * Procedure Codes: G 0105 COLOREC CANCR SCR; COLNSCPY HI [id number] COLONOSCOPY AND [id number] INTRVL 3+YRS PTS CLNSCP DOCD Billing Information: * Procedure Codes: G0105 COLOREC CANCR SCR; COLNSCPY HI RISK. 23048 COLONOSCOPY AND BIOPSY. 0529F INTRVL 3+YRS PTS CLNSCP DOCD. * The named appointment provid er may or may not be the originator of this progress note, and it is not deemed complete until electronically signed by the appointment provider. Sign off status: Pending * Provider: Bashir Alanis MD Date: 0 12/08/2024 Generated for Mirna kelly/Sebastien/Loyd on: 1 10/30/2024 05:09 PM EST
--- NOTE | 2025-08-29 13:15 | MHC.OFFVISCO ---
Intake Intake Visit Reasons: Anticoagulation Allergies No Known Allergies Allergy (Mild, Verified 08/29/25 13:07) NOT APPLICABLE Medication List - Last Reconciled 08/29/25 by Macarena Escobedo RN albuterol sulfate 90 mcg/actuation 2 inhalations inhalation Q6H PRN 30 days amlodipine 5 mg PO DAILY cholecalciferol (vitamin D3) (Vitamin D3) 25 mcg PO DAILY dkrtkgliwo-JT-dciiwtzuhdlml 6.25-15-325 mg/15 mL (Coricidin HBP Cold-Multi Symptom) 10 mL PO Q6-8H metoprolol oates-hydrochlorothiaz 25-12.5 mg tabs PO simvastatin 10 mg PO BEDTIME tamsulosin 0.8 mg (2 x 0.4 mg) PO BEDTIME 90 days warfarin See Protocol orally; 7.5MG TUES & FRI, 9MG SUN, MON,WED, MANUEL SAT Nursing Note INR 3.6-? out of therapeutic range 2.5-3.5 Medications and supplements reviewed Patient status: no c.o Medications or supplements: no changes Diet: same Denies any signs and symptoms of bleeding or clotting or unusual bruising Bleeding, bruising, clotting discussed Nutritional guidance given: will eat a green today Dose: 7.5mg x 2, 9mg x 5 F/U INR Date : pt req 4 weeks?? Patient verbalizing understanding of instructions given. Anti-Coag Initial Assessment Social Hx Patient Tobacco Use Status: Former Tobacco user Tobacco use type: Cigarette Smoking packs per day: 1 alcohol intake: current Alcohol intake frequency: a few times a week Coding Level of Care Code Est Patient Level 1 Diagnoses Current use of anticoagulant therapy Z79.01 Results AMB INR Fingerstick AMB INR Fingerstick 3.6 Last Edit by Macarena Escobedo RN on 08/29/25 13:18 interface delay Assessment & Plan Assessment & Plan (1) Current use of anticoagulant therapy: Code(s): Z79.01 - manager long term care (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
[2025-08-29 13:32] LABS: Prothrombin Time Whole Bld POC 43.6 sec (11.1-13.5); ~PT, ~INR - Anti Coag Clinic 3.6 (0.9-1.1)
--- OUTSIDE RECORDS SUMMARY | 2025-08-29 17:10 | XMS_ITS | Clinical Summary ---
Author Organization [facility] Address [address] [place] [address] Care Team Providers Care Certified Hyperbaric Technologist Name Role Phone Reji Palomino NP Primary Care Provider [phone] Medications metoprolol succinate (TOPROL-XL) 50 mg 24 hr tablet TAKE 1 TABLET BY MOUTH EVERY DAY 90 tablet 2 5 Active furosemide (LASIX) 40 mg tablet TAKE 1 TABLET BY MOUTH EVERY DAY 90 tablet 1 5 Active furosemide (LASIX) 40 mg tablet TAKE 1 TABLET BY MOUTH EVERY DAY 90 tablet 1 5 08/23/20 25 Discontinued Social History Tobacco Use Types [...] age to complete this topic Care Teams Certified Hyperbaric Technologist Relationship Specialty Start Date End Date Reji Palomino NP [address] [facility] [place] PCP - General 11/24/21
--- OUTSIDE RECORDS SUMMARY | 2025-08-29 17:10 | XMS_ITS | Patient Health Record ---
Author Organization [facility] Mercedesandrade Messer Address [address] [facility] [place] [address] Care Team Providers Care Millwright Instructor Name Role Phone Reji Kiran Primary Care [...] Notes Problem Tailor's bunion of left foot ([id number] 9100) Tailor's bunion of left foot (M21.622) Active confirmed Problem Tailor's bunion of right foot (367272683050 9109) Tailor's bunion of right foot (M21.621) Active confirmed Vital Signs Height 5 ft 8in in 07/03/2025 Weight 230 lbs 07/03/2025 BMI 34.97 kg/m2 07/03/2025 Encounters Encounter Location Date Provider Diagnosis [facility] [address] 07/03/2025 Drew Stevenson Right foot pain M79.671 ; Tailor's bunion of right foot M21.621 ; Left foot pain M79.672 and Tailor's bunion of left foot M21.[address] [facility] [address] 07/02/2025 Drew Stevenson [facility] [address] 07/03/2025 Drew Stevenson Assessments Encounter Date Diagnosis [...] Date Coverage End Date Medicare National Govt [employer] [facility] [address] [place] [address] [id number] Fabio Pina Self - patient is the insured 8 [employer] Blue Shield [address] [place] [address] [id number] Fabio Pina Self - patient is the insured 8 Medical (General) History Medical History History ICD Code Back,Hip,and Knee pain covid-19 Cancer High Blood Pressure Surgical History Surgery Date(Month/Year) Heart Valve 2007 rotator cuff tear repair 2007 knee replacement 2017
--- OUTSIDE RECORDS SUMMARY | 2025-08-29 17:10 | XMS_ITS | Patient Health Record ---
Author Organization [facility] Address [address] [place] [address] Care Team Providers Care Bedspring Assembler Name Role Phone HEATHER LAMBERT Primary Care Provider Dalton Archer Jr Unavailable [phone] Allergies No Known Allergies Results Component Value Reference Range Flag Notes Pathology Reviewed date:12/16/2024 03:38:16 PM Interpretation: Performing Lab:[facility], [address] [place] [id number] Notes/Report: Prothrombin Time INR Reviewed date:12/08/2024 04:26:11 PM Interpretation: Performing Lab:[address] [address] Notes/Report: Unable to obtain x2 attempts Yarslen [...] Status Risk Notes Problem Colon cancer screening (317885972) Colon cancer screening (Z12.11) Active confirmed Problem Long-term current use of anticoagulant (739035386) watermelon inspector (current) use of anticoagulants (Z79.01) Active confirmed Problem Long-term current use of antiplatelet drug (026423180600806) correction (current) use of aspirin (Z79.82) Active confirmed Vital Signs Blood pressure diastolic 00 mm Hg 10/26/2024 Height 69 in 10/26/2024 Blood pressure systolic 00 mm Hg 10/26/2024 Weight 240 lbs 10/26/2024 BMI 35.44 kg/m2 10/26/2024 Encounters Encounter Location Date Provider Diagnosis [facility] [address] [place] [id number] 12/08/2024 Dalton Alanis Jr Colon cancer screening Z12.11 ; Personal history of adenomatous and serrated colon polyps Z86.0101 and Colon polyps K63.5 [facility] [address] [place] [address] 10/26/2024 Dalton Alanis Jr Colon cancer screening Z12.11 and watermelon inspector (current) use of anticoagulants Z79.01 [facility] [address] [place] [address] 12/16/2024 Dalton Alanis Jr Assessments Encounter Date [...] [place] [address] [place] [address] [id number] KAI SOTO Self - patient is the insured MED[employer] ATTN CLAIMS [address] [place] [phone] [id number] KAI SOTO Self - patient is the [...]
== END 2025-08-29 13:22 | disposition home or self-care (01) ==
LOC: HO.ACS 13:04
PROVIDERS: PCP Nurse Practitioner Family; Visit Provider Internal Medicine Medical Oncology
DX: Z79.01 Long term (current) use of anticoagulants (principal)

== ENCOUNTER → 2025-08-29 13:04 | Outpatient (BNVA) | payer MEDICARE, SELFPAY | PROVIDERS: PCP Nurse Practitioner Family; Visit Provider Internal Medicine Medical Oncology | DX: Z95.2 Presence of prosthetic heart valve (principal); Z51.81 Encounter for therapeutic drug level monitoring; Z79.01 Long term (current) use of anticoagulants | CPT/HCPCS: 85610; 99211 ==